=== PATIENT | male | born 1965 | race Caucasian/White ===

== ENCOUNTER 2023-03-01 07:55 | Outpatient (OUT) | payer OTHER, SELFPAY ==
[2023-03-01 09:06] LABS: Alanine Aminotransferase 49 U/L (16-63); Albumin Globulin Ratio 0.9; Albumin Level 3.7 g/dL (3.4-5.0); Alkaline Phosphatase 108 U/L (46-116); Anion Gap 12.9; Aspartate Amino Transferase 24 U/L (15-37); BUN Creatinine Ratio 12.6; Bilirubin Total 0.4 mg/dL (0.2-1.0); Carbon Dioxide 29.9 mmol/L (21.0-32.0); Chloride 99 mmol/L (98-107); Chol HDL Ratio 3.1; Cholesterol 141 mg/dL (<=200); Estimated GFR (African America >60 (>=60); Estimated GFR (Non-African Ame >60 (>=60); Globulin 3.9 g/dL; Glucose 94 mg/dL (74-106); HDL Cholesterol 46 mg/dL (40-60); LDL Cholesterol Calculated 75.2 mg/dL; Potassium 3.8 mmol/L (3.5-5.1); Sodium 138 mmol/L (136-145); Total Protein 7.6 g/dL (6.4-8.2); Triglycerides 99 mg/dL (<=150); VLDL CHOLESTEROL 19.8 mg/dL
== END 2023-03-01 07:56 | disposition home or self-care (01) ==
PROVIDERS: PCP Family Medicine; Visit Provider Family Medicine
DX: E78.2 Mixed hyperlipidemia (principal); I10 Essential (primary) hypertension; Z13.1 Encounter for screening for diabetes mellitus
CPT/HCPCS: 36415; 80053; 80061

== ENCOUNTER 2023-11-08 07:41 | Outpatient (OUT) | payer OTHER, SELFPAY ==
--- OUTSIDE RECORDS SUMMARY | 2023-11-08 07:46 | XMS_ITS | CCD ---
Author Organization [employer] [facility] Care Team Providers Care Gastroenterology Nurse Practitioner Name Role Phone AYDE, DR BERMEO Primary Care Unavailable TINA, MAGUE Admitting Unavailable TINA, MAGUE Attending Unavailable HEMEYER, DR BERMEO Primary Care Unavailable HENDRIX, DR KASEY Peña Consulting Unavailable HENDRIX, DR KASEY Peña Attending Unavailable HENDRIX, DR KASEY Peña Admitting Unavailable HEMEYER, DR BERMEO Primary Care Unavailable TINA, MAGUE Admitting Unavailable TINA, MAGUE Attending Unavailable HEMEYER, DR BERMEO Consulting Unavailable WEST, DR ASHKAN Lange Consulting Unavailable TINA, MAGUE Consulting Unavailable HEMEYER, DR BERMEO Primary Care Unavailable TINA, MAGUE Attending Unavailable TINA, MAGUE Admitting Unavailable HEMEYER, DR BERMEO Consulting Unavailable TINA, MAGUE Attending Unavailable TINA, MAGUE Admitting Unavailable TINA, MAGUE Consulting Unavailable HEMEYER, DR BERMEO Primary Care Unavailable NONE, XXXX Primary Care Physician Unavailab le JEAN-CLAUDE MESSER Primary Care Physician Unavail able Katherin Alcazar Unavailable Unavailable Brown, Nils A Admitting Unavailable Brown, Nils A Referring Unavailable Brown, Nils A Attending Unavailable Brown, Nils A Referring Unavailable Brown, Nils A Attending Unavailable Brown, Nils A Admitting Unavailable ELTAHAWY, EHAB Attending Unavailable ELTAHAWY, EHAB Attending Unavailable HEMEJEAN-CLAUDE NAQVI Attending Unavailable BERENICE NAVARRO Attending Unavailable JEAN-CLAUDE MESSER Attending Unavailable JEAN-CLAUDE MESSER Attending Unavailable JEAN-CLAUDE MESSER Attending Unavailable Allergies Allergy Classification Reported Allergen(s) Allergy Type Date of Onset Reaction(s) Facility (1 source) Acetaminophen / oxyCODONE Drug Allergy [facility] Repository (1 source) Codeine Drug Allergy [facility] (2 sources) Cortisone; Translations: [CORTISONE] Drug Allergy 6 [facility] Rep[facility] (1 source) Lactose Drug Allergy 6 [facility] (1 source) Acetaminophen / oxyCODONE; Translations: [OXYCODONE-ACETAM INOPHEN] Drug Allergy 1 [facility] Repository (1 source) Milk; Translations: [MILK] Propensity to adverse reactions to drug (disorder) 1 [facility] Repository Medications Current Medications Medication Drug Class(es) Dates Sig (Normalized) Sig (Original) 8 hr acetaminophen 650 mg extended release oral tablet (1 source) Start: 05-14-2022 Tylenol 8 HR Arthritis Pain 650 mg oral tablet, extended release 1,300 mg = 2 tab(s), Oral, q8hr, Pain Start Date: 05/14/22 Status: Ordered acetaminophen 325 mg / oxyCODONE hydrochloride 5 mg oral tablet (1 source) Opioid Agonist Start: 05-31-2022 Percocet 5 mg-325 mg oral tablet See Instructions, 40 tab(s), Refill(s) 0, 1-2 tab(s) Oral q4hr, [facility] #[id number], 173.5, cm, 05/14/22 11:51:00 EDT, Height/Length Dosing, 98.2, kg, 05/14/22 11:51:00 EDT, Weight Dosing Start Date: 05/31/22 Status: Ordered amLODIPine 5 mg oral tablet (2 sources) Dihydropyridine Calcium Channel Vasquez Start: 05-14-2022 take 1 tablet by mouth once daily amLODIPine 5 mg Tab 5 mg = 1 tab(s), Oral, Daily, High blood pressure Start Date: 05/14/22 Status: Ordered aspirin 81 mg oral tablet (2 sources) Platelet Aggregation Inhibitor, Nonsteroidal Anti-inflammatory Drug Start: 05-14-2022 take 81 mg by mouth once daily aspirin 81 mg, Oral, Daily, Prophylaxis Start Date: 05/14/22 Status: Ordered atorvastatin 40 mg oral tablet (2 sources) HMG-CoA Reductase Inhibitor Start: 05-14-2022 take 1 tablet by mouth once daily atorvastatin 40 mg Tab 40 mg = 1 tab(s), Oral, Daily, High cholesterol Start Date: 05/14/22 Status: Ordered Vanesa albicans allergenic extract (2 sources) Non-Standardized Food Allergenic Extract, Non-Standardized Fungal Allergenic Extract Start: 05-14-2022 LDI Yeast C19 LDI Yeast C19, 1 dose, SubLingual, 6 units every 7 weeks Prophylaxis Start Date: 05/14/22 Status: Ordered carvedilol 25 mg oral tablet (2 sources) alpha-Adrenergic Vasquez, beta-Adrenergic Vasquez Start: 05-14-2022 take 1 tablet by mouth once daily carvedilol 25 mg Tab 25 mg = 1 tab(s), Oral, Daily, High blood pressure Start Date: 05/14/22 Status: Ordered cefuroxime 500 mg oral tablet (2 sources) Cephalosporin Antibacterial Start: 05-14-2022 take 500 mg by mouth every twelve hours cefuroxime 500 mg, Oral, q12hr, Prophylaxis Start Date: 05/14/22 Status: Ordered celecoxib 100 mg oral capsule (2 sources) Nonsteroidal Anti-inflammatory Drug Start: 05-31-2022 take 1 capsule by mouth twice daily as needed for pain CeleBREX 100 mg Cap 100 mg = 1 cap(s), Oral, BID, PRN for pain, # 60 cap(s), Refills(s) 0, [id number], 173.5, cm, 05/14/22 11:51:00 EDT, Height/Length Dosing, 98.2, kg, 05/14/22 11:51:00 EDT, Weight Dosing Start Date: 05/31/22 Status: Ordered Start: 05-14-2022 take 1 capsule by [facility] twice daily CeleBREX 200 mg Cap 200 mg = 1 cap(s), Oral, BID, Pain Start Date: 05/14/22 Status: Ordered chlorthalidone 25 mg oral tablet (2 sources) Thiazide-like Diuretic Start: 05-14-2022 take 1 tablet by mouth once daily chlorthalidone 25 mg Tab 25 mg = 1 tab(s), Oral, Daily, Edema Start Date: 05/14/22 Status: Ordered CoQ10 (2 sources) Start: 05-14-2022 take 100 mg by mouth once daily CoQ10 100 mg, Oral, Daily, Prophylaxis Start Date: 05/14/22 Status: Ordered diclofenac sodium 20 mg/ml topical solution (2 sources) Nonsteroidal Anti-inflammatory Drug Start: 05-14-2022 diclofenac 2% topical solution 1 application, Topical, TID, Prophylaxis Start Date: 05/14/22 Status: Ordered docusate sodium 100 mg oral capsule (1 source) Start: 05-31-2022 take 1 capsule by mouth twice daily as needed for constipation Colace 100 mg Cap 100 mg = 1 cap(s), Oral, BID, PRN for constipation, # 20 cap(s), Refills(s) 0, Pharmacy: [facility] #[id number], 173.5, cm, 05/14/22 11:51:00 EDT, Height/Length Dosing, 98.2, kg, 05/14/22 11:51:00 EDT, Weight Dosing Start Date: 05/31/22 Status: Ordered famotidine 20 mg oral tablet (2 sources) Histamine-2 Receptor Antagonist Start: 05-14-2022 take 1 tablet by mouth once daily at bedtime famotidine 20 mg Tab 20 mg = 1 tab(s), Oral, Once a day (at bedtime), Control of stomach acid Start Date: 05/14/22 Status: Ordered finasteride 5 mg oral tablet (2 sources) 5-alpha Reductase Inhibitor Start: 05-14-2022 take 1 tablet by mouth once daily finasteride 5 mg Tab 5 mg = 1 tab(s), Oral, Daily, Urinary discomfort Start Date: 05/14/22 Status: Ordered gabapentin 100 mg oral capsule (2 sources) Anti-epileptic Agent Start: 05-14-2022 take 2 capsules by mouth four times daily gabapentin 100 mg Cap 200 mg = 2 cap(s), Oral, QID, Muscle pain Start Date: 05/14/22 Status: Ordered imiquimod 50 mg/ml topical cream (2 sources) Start: 05-14-2022 imiquimod Top 5% Crm 1 carlos, Topical, Bedtime, Prophylaxis Start Date: 05/14/22 Status: Ordered lamoTRIgine 200 mg disintegrating oral tablet (2 sources) Mood Stabilizer, Anti-epileptic Agent Start: 05-14-2022 take 1 tablet by mouth twice daily lamotrigine 200 mg oral tablet, disintegrating 200 mg = 1 tab(s), Oral, BID, Depression Start Date: 05/14/22 Status: Ordered LDI Foods (2 sources) Start: 05-14-2022 LDI Foods LDI Foods, 1 dose, SubLingual, Prophylaxis 6 units every 7 weeks Start Date: 05/14/22 Status: Ordered LDI Lyme C15 (2 sources) Start: 05-14-2022 LDI Lyme C15 LDI Lyme C15, 1 dose, SubLingual, prophylaxis 6 units every 7 weeks Start Date: 05/14/22 Status: Ordered lisinopril 20 mg oral tablet (2 sources) Angiotensin Converting Enzyme Inhibitor Start: 05-14-2022 take 1 tablet by mouth once daily lisinopril 20 mg Tab 20 mg = 1 tab(s), Oral, Daily, High blood pressure Start Date: 05/14/22 Status: Ordered meclizine hydrochloride 25 mg oral tablet (2 sources) Antiemetic Start: 05-14-2022 meclizine 25 mg Tab Oral, PRN Dizziness, Take 0.5-2 tabs as needed for vertigo, Refills(s) 0 Start Date: 05/14/22 Status: Ordered Multivitamin preparation (2 sources) Start: 05-14-2022 take 1 capsule by mouth once daily multivitamin 1 cap, Oral, Daily, Prophylaxis Start Date: 05/14/22 Status: Ordered Nature's Bounty Red Krill Oil (2 sources) Start: 05-14-2022 take 500 mg by mouth once daily Nature's Bounty Red Krill Oil 500 mg, Oral, Daily, Prophylaxis Start Date: 05/14/22 Status: Ordered ondansetron 4 mg oral tablet (2 sources) Serotonin-3 Receptor Antagonist Start: 05-14-2022 ondansetron 4 mg Tab 4 mg = 1 tab(s), Oral, PRN Nausea Start Date: 05/14/22 Status: Ordered Saw [place]view (2 sources) Start: 05-14-2022 take 450 mg by mouth twice daily Saw [place] 450 mg, Oral, BID, Prophylaxis Start Date: 05/14/22 Status: Ordered traMADol hydrochloride 50 mg oral tablet (1 source) Opioid Agonist Start: 05-14-2022 take 2 tablets by mouth every twelve hours as needed for pain traMADOL 50 mg Tab 100 mg = 2 tab(s), Oral, q12hr, PRN for pain Start Date: 05/14/22 Status: Ordered Triamcinolone (2 sources) Corticosteroid Start: 05-14-2022 Triamcinolone Acetonide 1 application, Topical, Daily, Prophylaxis Start Date: 05/14/22 Status: Ordered 24 hr venlafaxine 75 mg extended release oral capsule (2 sources) Serotonin and Norepinephrine Reuptake Inhibitor Start: 05-14-2022 take 1 capsule by mouth once daily venlafaxine 75 mg Cap-ER 75 mg = 1 cap(s), Oral, Daily, Depression Start Date: 05/14/22 Status: Ordered Vitamin C 500 mg oral tablet, chewable (2 sources) Start: 05-14-2022 take 1 tablet by mouth once daily Vitamin C 500 mg oral tablet, chewable 500 mg = 1 tab(s), Chewed, Daily, Prophylaxis Start Date: 05/14/22 Status: Ordered Vitamin D3 5000 intl units (125 mcg) oral tab (2 sources) Start: 05-14-2022 take 1 tablet by mouth once daily Vitamin D3 5000 intl units (125 mcg) oral tab 125 mcg = 1 tab(s), Oral, Daily, Prophylaxis Start Date: 05/14/22 Status: Ordered Problems Active Problems Problem Classification Problem Date Documented Da te Episodic/Chronic Abdominal hernia (2 sources) Hiatal hernia 05-14-2022 Episodic Anxiety disorders (2 sources) Anxiety 05-14-2022 Chronic Conditions associated with dizziness or vertigo (2 sources) Vertigo 05-14-2022 Episodic Disorders of lipid metabolism (4 sources) Mixed hyperlipidemia; Translations: [Hyperlipidemia, unspecified] Onset: 03-23-2020 05-14-2022 Chronic Essential hypertension (8 sources) Essential (primary) hypertension; Translations: [Hypertensive disorder] Onset: 04-22-2020 Chronic Osteoarthritis (2 sources) Arthritis 05-14-2022 Chronic Other gastrointestinal disorders (2 sources) History of irritable bowel syndrome 05-14-2022 Episodic Residual codes; unclassified (2 sources) Sleep apnea 05-14-2022 Chronic Comment on above: uses Cpap Residual codes; unclassified (2 sources) Family history of ischemic heart disease and other diseases of the circulatory system; Translations: [Family history of ischemic heart disease and other diseases of the circulatory system] Onset: 07-16-2023 Episodic Unclassified (3 sources) CONTACT W/AND (SUSP) EXPOS COVID-19; Translations: [CONTACT W/AND (SUSP) EXPOS COVID-19] Onset: 02-17-2021 Past or Other Problems Problem Classification Problem Date Documented Da te Episodic/Chronic Nonspecific chest pain (4 sources) Other chest pain; Translations: [OTHER CHEST PAIN] Onset: 03-22-2020 Episodic Unclassified (1 source) CONTACT W/AND (SUSP) EXPOS COVID-19; Translations: [CONTACT W/AND (SUSP) EXPOS COVID-19] Onset: 02-13-2021 Results Test Name Value Interpretation Reference Range Facility Office Visiton 07-16-2023 Follow-up visit [id number] Katherine Hogan 1965 M Date Provider Department Center 07/16/2023 [facility] Family History Problem Relation Age of Onset Heart attack Brother Coronary artery disease Brother Other Brother Family Status - Relation Status Age at Brother Level of Service:24143 HI OFFICE/OUTPATIENT ESTABLISHED LOW MDM 20 MIN Normal [facility] Office Visiton 07-23-2022 Follow-up visit [id number] Katherine Hogan 1965 [facility] Provider Department [facility] No family history on file Level of Service:33935 HI OFFICE/OUTPATIENT ESTABLISHED SF MDM 10-19 MIN Reason for Visit and Comments: Follow-up [796028] - 1 yr follow up Normal [facility] Operative Reporton 3 Operative Report Patient: KATHERINE HOGAN Age: 57 years Sex: Male : 1965 Associated Diagnoses: None Author: Brandan Connor CRNA Preoperative Information Anesthesia Preop Info: Time patient last ate or drank 05/30/2022 21:00:00. Anesthesia history: Patient history: None. Family history+: None. Informed consent: Signed by patient. Re-evaluation prior to induction: Brandan Connor CRNA. Review of Systems Eye: Negative. Ear/Nose/Mouth/Throat : MP 4, thyromental >3 fb, narrow palate. Respiratory: FRANCISCO J, CTA. Cardiovascular: HTN, controlled, >4 mets, Normal S1S2. Gastrointestinal: Controlled GERD, no sypmtoms. Genitourinary: Negative. Hematology/Lymphatics : Negative. Endocrine: Negative. Health Status Allergies: Allergic Reactions (Selected) No Known Allergies Current medications: (Selected) Inpatient Medications Ordered Lactated Ringers IV Joanna 1000 mL 1,000 mL: 1,000 mL, IV, 150 mL/hr, Routine, Start date 05/31/22 6:00:00 EDT, 6.7 hour(s), Total volume (mL): 1,000, 98.2 kg, 2.18, m2 acetaminophen-oxycodo ne 325 mg-5 mg Tab: 1 tab(s), Tab, Oral, q6hr PRN Pain 4-7 for 5 day(s), Stop date 06/05/22 7:06:00 EDT, Routine, Start date 05/31/22 7:07:00 EDT acetaminophen-oxycodo ne 325 mg-5 mg Tab: 2 tab(s), Tab, Oral, q6hr PRN Pain 4-7 for 5 day(s), Stop date 06/05/22 7:06:00 EDT, Routine, Start date 05/31/22 7:07:00 EDT cefazolin additive + Sodium Chloride 0.9% intravenous solution 50 mL: 2 gram = 1 EA, Powder-Inj, IV Piggyback, PREOP, Routine, Start date 05/31/22 6:00:00 EDT, 100 mL/hr, Infuse over 30 minute(s) tranexamic acid additive + premix generic diluent 100 mL: 1,000 mg = 100 mL, Soln-IV, IV Piggyback, Once, Stop date 05/31/22 6:00:00 EDT, Routine, Start date 05/31/22 6:00:00 EDT, 600 mL/hr, Infuse over 10 minute(s) Prescriptions Prescribed CeleBREX 100 mg Cap: 100 mg = 1 cap(s), Oral, BID, PRN for pain, # 60 cap(s), Refills(s) 0, Pharmacy: [facility] #[id number], 173.5, cm, 05/14/22 11:51:00 EDT, Height/Length Dosing, 98.2, kg, 05/14/22 11:51:00 EDT, Weight Dosing Colace 100 mg Cap: 100 mg = 1 cap(s), Oral, BID, PRN for constipation, # 20 cap(s), Refills(s) 0, Pharmacy: [facility] #[id number], 173.5, cm, 05/14/22 11:51:00 EDT, Height/Length Dosing, 98.2, kg, 05/14/22 11:51:00 EDT, Weight Dosing Percocet 5 mg-325 mg oral tablet: See Instructions, 40 tab(s), Refill(s) 0, 1-2 tab(s) Oral q4hr, [facility] #[id number], 173.5, cm, 05/14/22 11:51:00 EDT, Height/Length Dosing, 98.2, kg, 05/14/22 11:51:00 EDT, Weight Dosing Documented Medications Documented CoQ10: 100 mg, Oral, Daily, Prophylaxis LDI Foods: LDI Foods, 1 dose, SubLingual, Prophylaxis 6 units every 7 weeks LDI Lyme C15: LDI Lyme C15, 1 dose, SubLingual, prophylaxis 6 units every 7 weeks LDI Yeast C19: LDI Yeast C19, 1 dose, SubLingual, 6 units every 7 weeks Prophylaxis Nature's Bounty Red Krill Oil: 500 mg, Oral, Daily, Prophylaxis Saw [place]view: 450 mg, Oral, BID, Prophylaxis Triamcinolone Acetonide: 1 application, Topical, Daily, Prophylaxis Vitamin C 500 mg oral tablet, chewable: 500 mg = 1 tab(s), Chewed, Daily, Prophylaxis Vitamin D3 5000 intl units (125 mcg) oral tab: 125 mcg = 1 tab(s), Oral, Daily, Prophylaxis amLODIPine 5 mg Tab: 5 mg = 1 tab(s), Oral, Daily, High blood pressure aspirin: 81 mg, Oral, Daily, Prophylaxis atorvastatin 40 mg Tab: 40 mg = 1 tab(s), Oral, Daily, High cholesterol carvedilol 25 mg Tab: 25 mg = 1 tab(s), Oral, Daily, High blood pressure cefuroxime: 500 mg, Oral, q12hr, Prophylaxis chlorthalidone 25 mg Tab: 25 mg = 1 tab(s), Oral, Daily, Edema diclofenac 2% topical solution: 1 application, Topical, TID, Prophylaxis famotidine 20 mg Tab: 20 mg = 1 tab(s), Oral, Once a day (at bedtime), Control of stomach acid finasteride 5 mg Tab: 5 mg = 1 tab(s), Oral, Daily, Urinary discomfort gabapentin 100 mg Cap: 200 mg = 2 cap(s), Oral, QID, Muscle pain imiquimod Top 5% Crm: 1 carlos, Topical, Bedtime, Prophylaxis lamotrigine 200 mg oral tablet, disintegratin mg = 1 tab(s), Oral, BID, Depression lisinopril 20 mg Tab: 20 mg = 1 tab(s), Oral, Daily, High blood pressure meclizine 25 mg Tab: Oral, PRN Dizziness, Take 0.5-2 tabs as needed for vertigo, Refills(s) 0 multivitamin: 1 cap, Oral, Daily, Prophylaxis ondansetron 4 mg Tab: 4 mg = 1 tab(s), Oral, PRN Nausea venlafaxine 75 mg Cap-ER: 75 mg = 1 cap(s), Oral, Daily, Depression Problem list: All Problems Anxiety / SNOMED CT 34932117 / Confirmed Apnea, sleep / SNOMED CT 355246882 / Confirmed uses Cpap Arthritis / SNOMED CT 1177096 / Confirmed Hernia, hiatal / SNOMED CT 669421797 / Confirmed High cholesterol / SNOMED CT 50063553 / Confirmed History of IBS / SNOMED CT 7525684145 / Confirmed Hypertension / SNOMED CT 3725895316 / Confirmed Vertigo / SNOMED CT 3686375143 / Confirmed, Active Problems (8) Anxiety Apnea, sleep Arthritis Hernia, hiatal High cholesterol History of IBS Hypertension Vertigo Histories Pa (more content not included)... [facility] Comment on above: Result Comment: Elec tronically Signed By: Brandan Connor CRNA\Date and Time Signed: 05/31/22 07:50 EDT Progress Note-Physicianon Progress Note-Physician [id number]# 1.00CD:127 [facility] IntraOperative Documentson 0 06-06-2022 IntraOperative Documents [id number]# 1.00CD:127 [facility] Coding Summary.on 06-04-2022 Coding Summary. CD:[id number] W w+PGhlYWQ+MI3FOIAuY30 kmUXdwM0cX3FFGPiCCacn DWUIPGmXWzMvnyWvWA3cj XNjZXJu IC8+EH4hEXFcIjoppDOcf 3J4eTH4O99tze4yTIkmxD U3SAWmSdQugabjh0iooWj 6IDcuNmluOyBt RVCuwX89DBO4lQ88Zw19z TEplCFfy9tfsEx0MxSoOI RaZCX5pLpbCIswa4CeEZX rU31ghFDoq8B6 TDObbAuovDRwQcBagRX2t G8yWQwtutjui6rptfoyCh q0ua26rSXjd2P9rPR2G5P relD3BRGrqGSa NuvrvAQUwN3misbtg5ylc zlgGfHlCPLrIMl8NIa0RF GcbZcvErEtTQ58ABU2JYH geeHaT3EgVIEe nHeyMeI2r3M6Vz1MR4MMA lujT3UDZAPISWoycVW+PC 94sn48W3PzOojhHsa0ECT bBHF8sKO8jC3q YNCxNWqub6E1vLF5A6Kja cTiqw7ov8bbMPGfUVbkR7 7rhNTir2J3UUAqdFR4VZP wuEgbTpDoiU58 Oyc+JOLgbWvaa2HkShcmd 8ogg8zupGw3LlmyUOHmal MktSydTBA3w2MbYk1jCWE tcZH2vRL6pD5z JgEuXgB5EBmaZ042AqXmm MFjUoxwC97gK6JpiIK+PH ZsHpl8HRJcrNizKX3eI0U hZGRpbmctbGVm uXubOC3lRZXoulneHWLdo K1gKUNgX5n7WhOyZkG9ZO vhH8MvXLVrynppWn55rV3 jGwPgByQ4TDnb D7FpwqI9XOBkaIYyRGyoV RB0O88jr0W2INHnWZIhLW L5uYZ7yK6cqLjuqeswgVF mdDsgdmVydGlj JLenOVwdK070MTVbfEoaP kNvZGluZyBEYXRlOiAgMD QvMDQvMjAyMzwvdGQ+PHR vOMJ2aUhmLHJo qFVkXAvzRk5zfLpskLohK E1qKTBpevvfFXWlfY0oDT NhmZPmcLflIM5oADMuwzm jt072JrEyMNZ1 TXMgxAAkA0FfbC7yWeGlJ GXfMTGtI0MetVTlIWnxJ2 68QLeaMxE5ZXNkngOhE6O sLWFsaWduOiB0 t2Z6Ka0Vx1BsgzwyR1Zwi VMuJjIbFsdcOTi5D6NrZs wvdHI+YS18GWHjOA14HVj 7UFD8aYjyQYmd NJPzL4WmgG5wKrYqBGPhE GRkOyc+PHRhYmxlIHdpZH RoPScxMDAlJyBzdHlsZT0 eLw8mXSUkAKOu aBxmdWNfPvXhx0zfPAWyZ ZvuOV8bdNkrE1QhcRF9RI Gzm4o0Kx24F12fQ1HhfJE +CXQkoKG0tMK8 fN2mZnUqNgA3GWxeC462Y uAfuPFaNoulh4rot4gswG e1PqW1KTJtktHlfIirHYK 9x4XfSi86Y82e IHdpZHRoPSIxNSUiIHZhb Ailrw8prV8bAb3+PGNvbC S1tSN1yU7uReXaToX6LJg pF970AlZxrUGn Jxybh8iro4xzjWq8EbTuX DGcfeGmgGutOCP5j5JnDf 74Z8IjqSlkc8ZoNjd7us0 4jYZlg7G8uNQ3 A6BiWJIhcmnsnERerWiiD O7nZKIbdlisQRWbzS4xRS LxU0g3DdLnWoW4DUccL2L tkdQ3VXRzmBQk MYAzzJWJjG7cokibx7dvx kcvOqJaNIVqKYn2VWn6CO UrmJawShYrZPU1MbW5ELH 1kGNhtR4hcXiv tmqseG8nUxo+QSQ7mXWmt LNBBH3kUpmueVR+PHRkIH Q5lKujKVztRGUfpJ5wDKM bQ2i2KdOyLbD4 SPsrE8CelnZ9ERYeuGCrK QXykMAUsZ7gqtjcw8eaph ujHuNoQXQvKUl8EBp0NQO saWduOiBsZWZ0 PqI6ZPX4aXQppP4kzTujb xvsfH5hFdc+QmlydGggRG O7MFe9O9XjYmf6VMRvoGa hAI7tyXRkMRbk Dx2caBqnmZabDH0jUIVby itky212XsKmb0xeFIYqoH GcOTrkXNJ9W93ez1W9XEK wZXNxKNS1gXX4 eI3htTaoxozcrTZbtMqfe rVhaXrwBRneRGctO140JT TksEmqOnNdFUt4A3DxHem 3JQGllHkvJN9b qQGzSTqhLj2roJfxcBurU M8sSGIochsqj741JwWop2 seMYBduQObQJkpWUW4I89 hg1O7UVCsMWFe WHZ3iRT8nF9rfBlnrpubq GVmdDsgdmVydGljYWwtYW ylU728MUOvvItbIaBvdNw 5Z9ItLoc2CVDr vYraYH8ilAWfTWbqZc5ut HvogQqrHY0tPYWbjqscw1 60LoRpt6wuUADcxYGuWBi wKJP0Z69nx6L2 DTMlFZWfDJT7uVT9fP1jw GlnbjogbGVmdDsgdmVydG ywDHzbLQbqM298TPLqyGs nPlBhdGllbnQg LYnaFIo8T9SbHphidDY+P O68QEByUA03mEVrmACet2 xnqLe2SzZcVKHiTBM8lZy aGHakp7LdWNRu E97bpPNse1L0DXYbwGjpf WZjOjLojLI4vI2eQYircf uav3mvdywnPnenv4zsvo0 1fI54N94oTRkm ZHRoPSIzMCUiIHZhbGlnb w9soG9pBh0+NVRrlGE1uX H5pP2uRMOuZuN6FDfvY18 9InRvcCIvPjxj x1luo5altOa7GgC8JLDdk pYymNwqEUP0o0OeIx32G3 9sIHdpZHRoPSIyMCUiIHZ ewImkha5pjW3s Ii8+JGPkcHD7lAN2aJ9bD rHvZyQ2WGycI487EhZscX ZaSfalB99nK0GqfPN+PHR jLhk5VFAshApm UP3ciLIoZMoqFn4vNYR1H jNpJsZsFKglO2UrAWVswb utvojqdSP5SRRlVVDwuY6 5Kj2jfTnbOODx uVJXpT8lnrmpd2zhpjsdR jMwDDTsGSt9OVr3MURzwL ofUrWhLTW3TuA9XDT1mCG arL4lpDajxtrq tT3sG8EkXFDbbkmuXk88g M1eEtJkDlM1KPuvTwf+Uk iIYKyfWS2VZZRWWCqoBxw vdGQ+PHRkIHN0 rVapMVkgFCYozQ0lRBLgO 8e4YmBjThK1MGkrJ0ZeGP DfsyagWo67vG4oLeNiQnV 1EPyfB7UudcA7 VGYvvXZxXCdoGYT0G03dy 4Z3ZFYwSDTuNHS4eCL7rJ 1hbGlnbjogbGVmdDsgdmV ydGljYWwtYWxp X911PWIzhSqiBkGwDkE4V vI3CgM0Y1GpRzk4LXKwlF mcAK4guLXcZYlmRg6nzGi clOwhAT2iCVFf uehaXLNdbT2bXLBpyCXoe JjlSZ0kMESygruym116Tl IeVHG5KAKcmJBeX2RbdK0 yOiAjMDAwMDAw G2YphZOsXUhrT297EGizP dH6WKXaioBjD9NjLLZffF ecWlM8h7E6Kc16YWZVIEO yczwvdGQ+PHRk BRI0zEqsCZbeHFYyeI7bN UEmK9j9AlOlHcN5JTkoV6 YnILCglmzyMz92fD7iEjZ pWxY8CBbhH3Zp erE1JWGumSCbEZirFLC5E 69ba8G1EBLhJMIgVCN0wK W3oK9wuOenviefhPYgjVg gdmVydGljYWwt QHjuF008WEPilUfiGu1ha KJ1Z1RzFai5NVDcfPavLH 8mqPGhNBlsZe2zxKywcAb mBE8lRKUqsgbu BRYtvP9oYCIpxDZalOnkY P0aMEZhsvukt768XuPxIL Q8SHPizSLhN9AcsT0iOqD lGUXaIKBpT8Ks jSYgOYgsF451ECkmUkS7K PUpbkIwP2NpFFYwdTouWs Z3q0G6Qh1HsTE8rMB3c0M 1E1XrpJPpQRI8 YUH0suigkmb0P2IvGxgid HI+RA98YAXeVJ75zFNwxD Yvh7eraQn6CoTrVPPwDSN 4jGqkQOnxq0Qt UGRfQ79osIEns9A0KVZpa OnwfYFxBtLbwGU1jZ5kPX xxbktgb1gtzgzlDsohp6x kud79nZ14B19t IHdpZHRoPSIzMCUiIHZhb Aeiwu8riZ0sFm5+PGNvbC P3zFF9fF3mWgKlLyR7BAt zP859OjMfbJAo Xcidr3mzm5fqnJx4GkXqQ NIgwyLvuXmaXCJ1h5MdXm 35O24nYIbtPQJgEMHmJHR mFLTbeGicsd9l eR2yTw0+EI4cu2fsty39p D48dHI+QVGhHAH3cFleIP woKFNrnA9eLSmxAnP7JMC pIsDyqZ11qWJy DEfyPp3weOnwoUxmUX7cK ELkazokx668NoJmz5ceGZ WgfOZqMXynIXL1H16qe8E 5RDYnKAYdOOA8 hBI9wD1zoAsliqxrvFVpu DsgdmVydGljYWwtYWxpZ2 41QXEbxZnlLqOnnBRmV3u zsfEEYS0oDuyv dGQ+FOBkMNF3eAkvXVqpB OPxvD3qCMIsS5s4VpBcWz V8YVmiZ0UaglU0HJKbpYO bJFIihSQArO4u rxnad4xnygzpViNuXAFyS Wu5NGm0JBXpcWicRuOvFA M8PsG5FFC9bADlbT5vvKn emqwhfU6zTmd+ RklOOjwvdGQ+LFWoLVQ9p AzzXNvwEINesW5cNLIbF6 e1RjOfLxK6NZlcO4YzetC 6IGJvbGQgMTBw xCGPlC0dpfqts8roegnkQ lUhHWCtVYf9MLr1PLVmiA owVyCqGRR8IgO9BZK0lFX opN2gqJxaktbj mA0uXaj+TVJOOjwvdGQ+P VIrTFP4wQxfBYaeRPLcmR 4pSCVaH9q3KaDfVnL0PAg yX8RqlfE9REYh oKVlFMDoeWIAfB2cviwqp 8tdjqqeGhRbHZCaVWh6TZ o4VHJcqZueCgGyEYP1MrD 3TMU8uZEpvO8f aFxjsgolwP7hKra+UGF5Z PJ3PP78PQ54F9XcJwqedR FibGU+PHRhYmxlIHdpZHR oPScxMDAlJyBz jHbfSQ7h (more content not included)... Normal [facility] Consent for Anesthesiaon Consent for Anesthesia [id number]# 1.00CD:127 Normal [facility] Discharge Instructionson Discharge Instructions [id number]# 1.00CD:127 Normal [facility] IntraOperative Documentson 0 06-03-2022 IntraOperative Documents [id number]# 1.00CD:127 Normal [facility] Main OR Intraoperative Recor don 06-03-2022 Main OR Intraoperative Record IntraOp Document Type FT Summary Primary Physician: Nils Finney DO Finalized Date/Time: 06/03/22 10:25:02 Pt. Name: KATHERINE HOGAN/Sex: 1965 Male Med Rec #: [id number] Physician: Nils Finney DO Financial #: [id number] Pt. Type: A Room/Bed: [place] [address] Admit/Disch: 05/31/22 05:30:31 - 05/31/22 10:30:00 Institution: Case Times FT Entry 1 Patient Times In Room 05/31/22 07:14:00 Out Room 05/31/22 08:42:00 Procedure Times Start 05/31/22 07:51:00 Stop 05/31/22 08:30:00 Anesthesia Times Start 05/31/22 07:14:00 Stop 05/31/22 08:42:00 Block Timeout w05/31/22 07:02:00 Anesthesia Last Modified By: Lopez AMADOR, [facility] Steve 05/31/22 08:59:22 General Comments: Unilateral right shoulder nerve block done by D.Connor, EXHIBIT DISPLAY REPRESENTATIVE at 0702 with MARJORIE Velez assisting, HR 66bpm, SpO2 95% on room air, no issues, wheeled back to OR for surgery. MARJORIE Jack 06/03/22 Chart opened to review and send charges [facility] Case Attendance FT Entry 1 Entry 2 Entry 3 Case Attendee Geeta EXHIBIT DISPLAY REPRESENTATIVE, Brandan Finney DO, Nils Marroquin RN, Conrado Wilson Role Performed EXHIBIT DISPLAY REPRESENTATIVE Surgeon - Primary Sole Buffer - Primary Time In 05/31/22 07:14:00 05/31/22 07:14:00 05/31/22 07:14:00 Time Out 05/31/22 08:42:00 05/31/22 08:25:00 05/31/22 08:42:00 Procedure SHOULDER ARTHROSCOPY W/ SHOULDER ARTHROSCOPY W/ SHOULDER ARTHROSCOPY W/ POSSIBLE REPAIR(Right), POSSIBLE REPAIR(Right), POSSIBLE REPAIR(Right), SHOULDER BICEPS SHOULDER BICEPS SHOULDER BICEPS TENODESIS(Right) TENODESIS(Right) TENODESIS(Right) Comments Dr. Toledo supervising Last Modified By: Lopez RN, Conrado Marroquin RN, Conrado Davis RN 05/31/22 08:59:33 05/31/22 08:59:33 05/31/22 08:59:33 Entry 4 Entry 5 Entry 6 Case Attendee Arti AMADOR, Mallory Humphreys RN, Cristobal Hdez CST Role Performed Sole Buffer - Primary Staff - Other WASTE TREATMENT OPERATOR/SA Time In 05/31/22 07:14:00 05/31/22 07:14:00 05/31/22 07:14:00 Time Out 05/31/22 07:52:00 05/31/22 07:15:00 05/31/22 08:42:00 Procedure SHOULDER ARTHROSCOPY W/ SHOULDER ARTHROSCOPY W/ SHOULDER ARTHROSCOPY W/ POSSIBLE REPAIR(Right), POSSIBLE REPAIR(Right), POSSIBLE REPAIR(Right), SHOULDER BICEPS SHOULDER BICEPS SHOULDER BICEPS TENODESIS(Right) TENODESIS(Right) TENODESIS(Right) Comments RN assisting with skin RN assisting with blocks prep and positioning Last Modified By: Lopez RN, Conrado Marroquin RN, Conrado Davis RN 05/31/22 08:59:33 05/31/22 08:59:33 05/31/22 08:59:33 General Comments: Oneil Gant, Scrub primary, and Ottoniel Lazcano, Arthrex rep, also in attendance. MARJORIE Jackbreastfeeding educator Protocols FT Pre-Care Text: Implements protective measures prior to operative or invasive procedure, confirms identity before the operative or invasive procedure, verifies operative procedure, surgical site, and laterality Entry 1 Procedure(s) SHOULDER ARTHROSCOPY W/ Patient Identity Birthday, ID Band POSSIBLE REPAIR(Right), Verified (select at Check, Patient SHOULDER BICEPS least 2): Participation TENODESIS(Right) Consents / H and P Anesthesia Consent, Operative Site Present Verified HandP, Surgery/Procedure Marking Verified Consent, Transfusion Consent Surgical Site Yes Laterality Verified Yes Verified Procedure Verified Yes Correct Patient Yes Position Verified Availability Equipment, Implant, Prep Dry Yes Verified (If Medication Applicable) PreOp Antibiotic Yes Time Out Brandan Connor CRNA, Given Participants Nils Finney DO, Cantal RN, Arti Norman RN, Pantera Longo CST, Benjamin Time Out Complete 05/31/22 07:50:00 Outcomes Met? Yes Last Modified By: Conrado Marroquin RN 05/31/22 07:59:15 Post-Care Text: The patient is free from signs and symptoms of injury caused by extraneous objects General Comments: Oniel Gant primary also in attendance with timeout. MARJORIE Jack Allergy Information FT Pre-Care Text: Verifies allergies Entry 1 Allergies Reviewed? Yes Allergies Reviewed Self/Patient With Outcomes Met? Yes Last Modified By: Conrado Marroquin RN 05/31/22 08:18:53 Post-Care Text: The patient received appropriate medication(s) safely administered during the perioperative period Surgical Procedures FT Entry 1 Entry 2 Procedure Description Procedure SHOULDER ARTHROSCOPY W/ SHOULDER BICEPS POSSIBLE REPAIR TENODESIS Modifiers Right Right Surgeon Description RIGHT SHOULDER RIGHT SHOULDER ARTHROSCOPY, ARTHROSCOPY, DEBRIDEMENT, DEBRIDEMENT, SUBACROMIAL SUBACROMIAL DECOMPRESSION AND BICEP DECOMPRESSION AND BICEP TENODESIS TENODESIS Primary Procedure Yes No Primary Surgeon Nils Finney DO, DO, Jason A Start 05/31/22 07:51:00 05/31/22 07:51:00 Stop 05/31/22 08:30:00 05/31/22 08:30:00 Anesthesia Type General General Surgical Service Orthopedics Orthopedics Wound Class 1 - Clean 1 - Clean Last Modified By: Lopez AMADOR, Conrado Marroquin RN, She (more content not included)... Normal [facility] Preoperative Documentson Preoperative Documents [id number]# 1.00CD:127 Normal [facility] Progress Note-Physicianon Progress Note-Physician Patient: KATHERINE HOGAN Age: 57 years Sex: Male : 1965 Associated Diagnoses: None Author: Power Toledo Jr, DO Postoperative Information Postoperative disposition: Postoperative disposition: To PACU. Optimetrix number: Optimetrix number [phone]. Anesthetic utilized: General. Health Status Allergies: Allergic Reactions (Selected) No Known Allergies Physical Examination Vital Signs 05/31/2022 10:00 EDT Heart Rate Monitored 68 bpm Systolic Blood Pressure 120 mmHg Diastolic Blood Pressure 43 mmHg LOW SpO2 97 % 05/31/2022 9:20 EDT SpO2 95 % 05/31/2022 9:19 EDT Heart Rate Monitored 62 bpm SpO2 96 % 05/31/2022 9:18 EDT Systolic Blood Pressure 118 mmHg Diastolic Blood Pressure 77 mmHg Mean Arterial Pressure, Monitered 91 mmHg 05/31/2022 9:17 EDT Respiratory Rate 20 br/min 05/31/2022 9:15 EDT Temperature Temporal Artery 36.1 DegC LOW Temperature Temporal Artery 36.2 DegC LOW Heart Rate Monitored 65 bpm Heart Rate Monitored 65 bpm Respiratory Rate Monitored 15 br/min Respiratory Rate Monitored 5 br/min Systolic Blood Pressure 124 mmHg Systolic Blood Pressure 135 mmHg Diastolic Blood Pressure 86 mmHg Diastolic Blood Pressure 94 mmHg HI Mean Arterial Pressure, Cuff 99 mmHg Mean Arterial Pressure, Cuff 108 mmHg SpO2 92 % Pain Assessment: Controlled. General: Awake, Alert, Appropriate. Respiratory: Adequate air exchange. Cardiovascular: Stable, Normal peripheral perfusion. Neurological: Normal sensory function, Normal motor function. Assessment Anesthetic outcome No anesthetic complications noted. Adequate pain relief. able to void without difficulty, able to ambulate with assist, tolerating PO intake, no N/V. Review / Management Condition: Stable. Plan Transfer/Discharge: Transfer/Discharge Discharge when meets criteria ( To home ). Normal [facility] Comment on above: Result Comment: Elec tronically Signed By: Power Toledo Jr, DO\.br\Date and Time Signed: 06/03/22 10:12 EDT Consent for Treatmenton 05-03 Consent for Treatment [id number] .00CD:127 Normal [facility] H&P Updateon 05-31-2022 H&P Update [id number]. 00CD:127 Normal [facility] Inpatient Patient Summaryon 05-31-2022 Inpatient Patient Summary [place] [id number] [facility] Clinical Discharge Instructions PERSON INFORMATION Name: KATHERINE HOGAN [facility]#:[id number] PHYSICIANS Admitting Physician: Nils Finney DO Attending Physician: Nils Finney DO PCP: AYDE FRIEND, JEAN-CLAUDE Jeffrey Discharge Diagnosis: Comment: PATIENT EDUCATION INFORMATION Instructions: Shoulder Cryocuff Patient Instructions - FT (CUSTOM); Post Op Patient Instructions - FT (CUSTOM); Segundo Finney - After Your Shoulder Arthroscopy (Custom) Medication Leaflets: Follow up: MEDICATION LIST New Medications [id number], [address], [place] [id number], [phone] acetaminophen-oxycodo ne (Percocet 5 mg-325 mg oral tablet) 1-2 tab(s) Oral q4hr. Refills: 0. docusate (Colace 100 mg Cap) 1 Capsules By Mouth 2 times a day as needed for constipation. Refills: 0. Medications to Continue Taking That Have Changed [facility] #[id number], [address], [place] [id number], [phone] START: celecoxib (CeleBREX 100 mg Cap) 1 Capsules By Mouth 2 times a day as needed for pain. Refills: 0. Medications to Continue with No Changes Other Medications amlodipine (amLODIPine 5 mg Tab) 1 Tablets By Mouth every day. ascorbic acid (Vitamin C 500 mg oral tablet, chewable) 1 Tablets Chewed every day. aspirin 81 Milligram By Mouth every day. atorvastatin (atorvastatin 40 mg Tab) 1 Tablets By Mouth every day. carvedilol (carvedilol 25 mg Tab) 1 Tablets By Mouth every day. cefuroxime 500 Milligram By Mouth every 12 hours. chlorthalidone (chlorthalidone 25 mg Tab) 1 Tablets By Mouth every day. cholecalciferol (Vitamin D3 5000 intl units (125 mcg) oral tab) 1 Tablets By Mouth every day. diclofenac topical (diclofenac 2% topical solution) 1 application Topical 3 times a day. famotidine (famotidine 20 mg Tab) 1 Tablets By Mouth once a day (at bedtime). finasteride (finasteride 5 mg Tab) 1 Tablets By Mouth every day. gabapentin (gabapentin 100 mg Cap) 2 Capsules By Mouth 4 times a day. imiquimod topical (imiquimod Top 5% Crm) 1 Application Topical at bedtime. lamotrigine (lamotrigine 200 mg oral tablet, disintegrating) 1 Tablets By Mouth 2 times a day. lisinopril (lisinopril 20 mg Tab) 1 Tablets By Mouth every day. meclizine (meclizine 25 mg Tab) By Mouth as needed Dizziness. Take 0.5-2 tabs as needed for vertigo. multivitamin 1 cap By Mouth every day. Non-Formulary Medication (LDI Foods) 1 dose Sublingual. Prophylaxis 6 units every 7 weeks. Non-Formulary Medication (LDI Lyme C15) 1 dose Sublingual. prophylaxis 6 units every 7 weeks. Non-Formulary Medication (LDI Yeast C19) 1 dose Sublingual. 6 units every 7 weeks Prophylaxis. omega-3 polyunsaturated fatty acids (T3 Search's Bounty Red Krill Oil) 500 Milligram By Mouth every day. ondansetron (ondansetron 4 mg Tab) 1 Tablets By Mouth as needed Nausea. saw palmetto (Saw [place]) 450 Milligram By Mouth 2 times a day. triamcinolone (Triamcinolone Acetonide) 1 application Topical every day. ubiquinone (CoQ10) 100 Milligram By Mouth every day. venlafaxine (venlafaxine 75 mg Cap-ER) 1 Capsules By Mouth every day. No Longer Take the Following Medications acetaminophen (Tylenol 8 HR Arthritis Pain 650 mg oral tablet, extended release) 2 Tablets By Mouth every 8 hours. tramadol (traMADOL 50 mg Tab) 2 Tablets By Mouth every 12 hours as needed for pain. Comment: Normal [facility] Living Will/POAon 05-31-2022 Living Will/POA [id number]# 1.00CD:127 Normal [facility] Main OR PACU I Recordon 05-03 Main OR PACU I Record PACU Phase I Docum ent Type FT Summary Primary Physician: Nils Finney DO Finalized Date/Time: 05/31/22 10:25:25 Pt. Name: KATHERINE HOGAN/Sex: 1965 Male Med Rec #: [id number] Physician: Nils Finney DO Financial #: [id number] Pt. Type: A Room/Bed: [place] [address] Admit/Disch: 05/31/22 05:30:31 - Institution: Case Times PACU I FT Pre-Care Text: Identifies barriers to communication and implements measures to provide psychological support Develops individualized plan of care, and ensures continuity of care Maintains patient's dignity and privacy, and maintains patient confidentiality Identifies and reports philosophical, cultural, and spiritual beliefs and values Identifies individual values and wishes concerning care Implements aseptic technique, and administers prescribed antibiotic therapy and immunizing agents as ordered Evaluates postoperative tissue perfusion Implements thermoregulation measures, and monitors body temperature Evaluates postoperative respiratory status Evaluates postoperative cardiac status Evaluates postoperative neurological status Assesses pain control, collaborated in initiating patient-controlled analgesia and implements alternative methods of pain control Verifies allergies, administers prescribed medications and solutions, evaluates response to medications Entry 1 In PACU I 05/31/22 08:44:00 Discharge from PACU 05/31/22 09:14:00 I Outcomes Met? Yes Last Modified By: Sveta Cullen RN 05/31/22 09:37:34 Post-Care Text: The patient demonstrates knowledge of the expected response to the operative or invasive procedure The patient's care is consistent with the individualized perioperative plan of care The patient's right to privacy is maintained The patient's value system, lifestyle, ethnicity, and culture are considered, respected, and incorporated into the perioperative plan of care The patient participates in decisions affecting his or her perioperative plan of care The patient is free from signs and symptoms of infection The patient has wound/tissue perfusion consistent with or improved from baseline levels established preoperatively The patient is at or returning to normothermia at the conclusion of the immediate postoperative period The patient's respiratory function is consistent with or improved from baseline levels established preoperatively The patient's cardiovascular status is consistent with or improved from baseline levels established preoperatively The patient's cardiovascular status is consistent with or improved from baseline levels established preoperatively The patient demonstrates and/or reports adequate pain control throughout the perioperative period The patient received appropriate medication(s), safely administered during the perioperative period Acuity Level PACU I FT Entry 1 Start Time 05/31/22 08:44:00 Stop Time 05/31/22 09:14:00 Acuity Level Acuity Level I Last Modified By: Sveta Cullen RN 05/31/22 10:25:21 Finalized By: Sveta Cullen RN Document Signatures Signed By: Sveta Cullen RN 05/31/22 10:25 Normal [facility] Main OR PACU II Recordon Main OR PACU II Record PACU Phase II Document Type FT Summary Primary Physician: Nils Finney DO Finalized Date/Time: 05/31/22 11:33:25 Pt. Name: KATHERINE HOGAN Wojciech Melendez/Sex: 1965 Male Med Rec #: [id number] Physician: Nils Finney DO Financial #: [id number] Pt. Type: A Room/Bed: [place] [address] Admit/Disch: 05/31/22 05:30:31 - Institution: Case Times PACU II FT Pre-Care Text: Identifies barriers to communication and implements measures to provide psychological support and determines knowledge level Develops individualized plan of care, and ensures continuity of care Maintains patient's dignity and privacy, and maintains patient confidentiality Identifies and reports philosophical, cultural, and spiritual beliefs and values Identifies individual values and wishes concerning care administers prescribed antibiotic therapy and immunizing agents as ordered, Evaluates postoperative tissue perfusion Implements thermoregulation measures, and monitors body temperature Evaluates postoperative respiratory status Evaluates postoperative cardiac status Evaluates postoperative neurological status Assesses pain control, collaborated in initiating patient-controlled analgesia and implements alternative methods of pain control Verifies allergies, administers prescribed medications and solutions, evaluates response to medications Entry 1 In PACU II 05/31/22 09:20:00 Discharge from PACU 05/31/22 10:30:00 II Outcomes Met? Yes Last Modified By: Ruben Mancera RN 05/31/22 11:32:38 Post-Care Text: The patient demonstrates knowledge of the expected response to the operative or invasive procedure The patient's care is consistent with the individualized perioperative plan of care The patient's right to privacy is maintained The patient's value system, lifestyle, ethnicity, and culture are considered, respected, and incorporated into the perioperative plan of care The patient participates in decisions affecting his or her perioperative plan of care. The patient is free from signs and symptoms of infection The patient has wound/tissue perfusion consistent with or improved from baseline levels established preoperatively The patient is at or returning to normothermia at the conclusion of the immediate postoperative period The patient's respiratory function is consistent with or improved from baseline levels established preoperatively The patient's cardiovascular status is consistent with or improved from baseline levels established preoperatively The patient's neurological status is consistent with or improved from baseline levels established preoperatively The patient demonstrates and/or reports adequate pain control throughout the perioperative period The patient received appropriate medication(s), safely administered during the perioperative period Finalized By: Ruben Mancera RN Document Signatures Signed By: Ruben Mancera RN 05/31/22 11:33 Normal [facility] Main OR Preoperative Recordo n 05-31-2022 Main OR Preoperative Record PreOp Document Type FT Summary Primary Physician: Nils Finney DO Finalized Date/Time: 05/31/22 07:56:00 Pt. Name: KATHERINE HOGAN/Sex: 1965 Male Med Rec #: [id number] Physician: Nils Finney DO Financial #: [id number] Pt. Type: A Room/Bed: [facility] Admit/Disch: 05/31/22 05:30:31 - Institution: Case Times PreOp FT Pre-Care Text: Verifies consent for planned procedure, identifies individual values and wishes concerning care, includes family members in perioperative teaching Entry 1 Patient Times. In Pre Surgery 05/31/22 06:00:00 Out Pre Surgery 05/31/22 07:00:00 Outcomes Met? Yes Last Modified By: Conrado Marroquin RN 05/31/22 07:55:57 Post-Care Text: The patient participates in decisions affecting his or her perioperative plan of care Finalized By: Conrado Marroquin RN Document Signatures Signed By: Conrado Marroquin RN 05/31/22 07:56 Normal [facility] Monitor Recordon 05-31-2022 Monitor Record [id number]# 1.00CD:127 Normal [facility] Monitor Record [id number]# 1.00CD:127 Normal [facility] Operative Reporton Operative Report Patient: KATHERINE HOGAN Age: 57 years Sex: Male : 1965 Associated Diagnoses: None Author: Nils Finney DO DATE OF SURGERY: 05/31/2022 SURGEON: Nils Finney D.O. HORTICULTURAL THERAPIST: Gerald Mott CFA PREOPERATIVE DIAGNOSIS: Glenohumeral osteoarthrosis, degenerative labral tearing, biceps tendinosis, right shoulder POSTOPERATIVE DIAGNOSIS: Glenohumeral osteoarthrosis, degenerative labral tearing, outlet impingement, right shoulder PROCEDURE: 1. Examination under anesthesia, right shoulder 2. Right shoulder diagnostic arthroscopy 3. Arthroscopic biceps tenodesis 4. Arthroscopic extensive debridement with glenohumeral chondroplasty 4. Arthroscopic subacromial decompression with acromioplasty ANESTHESIA: General with regional block ANESTHESIOLOGIST: Power Toledo DO and Brandan Connor CRNA IMPLANTS: Biceps tenodesis: Arthrex 4.75 mm biocomposite swivelock anchor OPERATIVE INDICATIONS: Katherine is a 57-year-old [id number] male who has had persistent pain in his right shoulder despite conservative measures. His pain affects his activities of living, ability to sleep at night, and quality of life. He has fairly significant arthritic changes at the glenohumeral joint as evidenced on his imaging studies and understands any discomfort he has as a result of these changes will likely not improve following the surgery. He agreed to proceed with the above procedure after discussion of the risks, benefits, complications, alternatives, and expectations. Please see office notes for further details. PROCEDURE IN DETAIL: The correct operative site was identified and marked in the preoperative holding area. The patient was administered intravenous antibiotics in accordance with SCIP protocol. The patient was transported to the regional block room and administered a regional anesthetic nerve block by the anesthesiologist. I requested the regional block to assist with intraoperative and postoperative pain control. The patient was transported to the operating room, placed supine on the operating room table, and administered general anesthetic. After adequate anesthesia was obtained, the patient was placed into the beachchair position with all bony prominences well-padded. The head was secured in the padded isaac. Surgical timeout was performed with all required personnel present. The operative shoulder was examined and found to have full forward flexion, abduction, internal and external rotation. No anterior or posterior instability. The operative upper extremity was prepped and draped in the usual sterile fashion. The forearm was secured in the [employer] tenet pneumatic arm isaac. Landmarks were demarcated. The glenohumeral joint was insufflated with 20 mL of injectable saline utilizing a spinal needle inserted posteriorly. A standard posterior portal was made. The arthroscope was introduced into the glenohumeral joint. An anterior portal in the rotator interval was made with outside-in technique using spinal needle localization. A 7 mm cannula was placed at the anterior portal. A hook probe was inserted and a diagnostic arthroscopy was carried out with the findings as noted below: 1. Superior labrum and biceps: Significant fraying to the entire superior labrum with detachment of the labrum at the biceps anchor. The tearing extended anteriorly to the 2 o'clock position. The biceps tendon was appropriately positioned within the bicipital groove. Mild inflammatory changes along the tendon but no intrasubstance splitting or tearing. 2. Labrum: Circumferential degenerative fraying to the labrum. No labral detachment anteriorly, posteriorly, or inferiorly. 3. 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 4. Rotator cuff: Intrasubstance tearing to the upper portion of the subscapularis with the footprint of the subscapularis entirely intact. Supraspinatus and infraspinatus intact. 5. Axillary recess was free of any loose bodies. Rotator interval had inflammatory changes. Rotator interval was opened with the Saline wand and motorized shaver. The superior and anterior labrum were debrided with a motorized shaver. Chondroplasty performed to the glenoid with the shaver. The arm was forward elevated, internally rotated, and a posterior drawer was applied to the humeral head to visualize the subscapularis footprint. The upper portion of the subscapularis was debrided with a motorized shaver. The arm was then placed back into a neutral position. Attention was then turned to the biceps tenodesis. The Arthrex Loop N Tack tenodesis implant system was utilized. Suture was passed into the joint through the anterior portal above the biceps tendon and then retrieved beneath the biceps tendon. The suture was loaded into the loop and the loop was cinched onto the tendon. The suture was loaded into the passer and placed into the joint once again underneath the biceps tendon. The pass (more content not included)... Normal [facility] Comment on above: Result Comment: Elec tronically Signed By: Nils Finney DO\.br\Date and Time Signed: 05/31/22 14:59 EDT Operative Report Patient: KATHERINE HOGAN Age: 57 years Sex: Male : 1965 Associated Diagnoses: None Author: Brandan Connor CRNA Procedure Nerve Block Block Type: Interscalene block. Laterality: Right. Informed consent for anesthesia management: Anesthesia options discussed including nerve block, Description of the procedure, risks, benefits, and alternatives was provided, The patient's questions were addressed. Time out: Confirmed correct patient, procedure and site. Time: Date/Time 05/31/2022 07:14:00. Indication: Block for postoperative pain management as requested by surgeon. Anesthesia Method: The patient remained awake and able to interact in a meaningful way throughout the procedure. Preparation: The patient was placed in the following position Supine, Continuous pulse oximetry applied, Using maximal sterile barrier technique per current [facility] guidelines including hand hygeine, Guidance (Ultrasound used to identify anatomical landmarks, Using sterile gel and probe covers, Permanent image retained), The site was prepped with ChloraPrep. Procedure: Anesthetic Agent See anesthesia record, Needle was inserted without pain or parasthesia in the conscious patient, Negative attempt at aspiration for blood, Periodic negative attempts at aspiration of blood were made as the local was injected, No pain or parathesia were elicited with injection of the anesthetic in the conscious patient. Complications: The patient tolerated the procedure as expected, Pt baseline 8/10 shoulder pain completely resolved after completion of block. . Normal [facility] Comment on above: Result Comment: Elec tronically Signed By: Brandan Connor CRNA.ron\Date and Time Signed: 05/31/22 07:51 EDT Outpatient Surgery Discharge Instructionon 05-31-2022 Outpatient Surgery Discharge Instruction [place] [id number] Patient Discharge Instructions PERSON INFORMATION Name: KATHERINE HOGAN Date of : 1965 Current Date: 05/31/2022 09:09:41 PHYSICIANS Admitting Physician: Nils Finney DO Discharge Diagnosis: SAMIRA KATHERINE Jeffrey has been given the following list of follow-up instructions, prescriptions, and patient education materials: IF UNABLE TO CONTACT YOUR PHYSICIAN AND YOU FEEL IT IS AN EMERGENCY, GO TO THE NEAREST EMERGENCY ROOM OR CALL 911 ISAMIRA MATTHEW J, have received the attached patient education materials/instruction s and have verbalized understanding: May we do a follow up call? Yes No I was present when discharge instructions were given Patient Signature Date Clinican/Nurse Signature Date Follow up: Pharmacy Information: You may receive a survey from [facility] asking you to rate your care experience. Your feedback is important and will help us understand what we do well and how we can improve the quality of care we provide to you, your loved ones and our community. It?s an honor to serve you. Thank you for choosing [facility] HERE ARE THE MEDICATION CHANGES THAT OCCURRED DURING YOUR HOSPITAL STAY New Medications [id number], [address], [place] [id number], [phone] acetaminophen-oxycodo ne (Percocet 5 mg-325 mg oral tablet) 1-2 tab(s) Oral q4hr. Refills: 0. docusate (Colace 100 mg Cap) 1 Capsules By Mouth 2 times a day as needed for constipation. Refills: 0. Medications to Continue Taking That Have Changed [id number], [address], [place] [id number], [phone] START: celecoxib (CeleBREX 100 mg Cap) 1 Capsules By Mouth 2 times a day as needed for pain. Refills: 0. Medications to Continue with No Changes Other Medications amlodipine (amLODIPine 5 mg Tab) 1 Tablets By Mouth every day. ascorbic acid (Vitamin C 500 mg oral tablet, chewable) 1 Tablets Chewed every day. aspirin 81 Milligram By Mouth every day. atorvastatin (atorvastatin 40 mg Tab) 1 Tablets By Mouth every day. carvedilol (carvedilol 25 mg Tab) 1 Tablets By Mouth every day. cefuroxime 500 Milligram By Mouth every 12 hours. chlorthalidone (chlorthalidone 25 mg Tab) 1 Tablets By Mouth every day. cholecalciferol (Vitamin D3 5000 intl units (125 mcg) oral tab) 1 Tablets By Mouth every day. diclofenac topical (diclofenac 2% topical solution) 1 application Topical 3 times a day. famotidine (famotidine 20 mg Tab) 1 Tablets By Mouth once a day (at bedtime). finasteride (finasteride 5 mg Tab) 1 Tablets By Mouth every day. gabapentin (gabapentin 100 mg Cap) 2 Capsules By Mouth 4 times a day. imiquimod topical (imiquimod Top 5% Crm) 1 Application Topical at bedtime. lamotrigine (lamotrigine 200 mg oral tablet, disintegrating) 1 Tablets By Mouth 2 times a day. lisinopril (lisinopril 20 mg Tab) 1 Tablets By Mouth every day. meclizine (meclizine 25 mg Tab) By Mouth as needed Dizziness. Take 0.5-2 tabs as needed for vertigo. multivitamin 1 cap By Mouth every day. Non-Formulary Medication (LDI Foods) 1 dose Sublingual. Prophylaxis 6 units every 7 weeks. Non-Formulary Medication (LDI Lyme C15) 1 dose Sublingual. prophylaxis 6 units every 7 weeks. Non-Formulary Medication (LDI Yeast C19) 1 dose Sublingual. 6 units every 7 weeks Prophylaxis. omega-3 polyunsaturated fatty acids (T3 Search's Bounty Red Krill Oil) 500 Milligram By Mouth every day. ondansetron (ondansetron 4 mg Tab) 1 Tablets By Mouth as needed Nausea. saw palmetto (Saw [place]) 450 Milligram By Mouth 2 times a day. triamcinolone (Triamcinolone Acetonide) 1 application Topical every day. ubiquinone (CoQ10) 100 Milligram By Mouth every day. venlafaxine (venlafaxine 75 mg Cap-ER) 1 Capsules By Mouth every day. No Longer Take the Following Medications acetaminophen (Tylenol 8 HR Arthritis Pain 650 mg oral tablet, extended release) 2 Tablets By Mouth every 8 hours. tramadol (traMADOL 50 mg Tab) 2 Tablets By Mouth every 12 hours as needed for pain. PATIENT EDUCATION INFORMATION Instructions: [place], [place] [facility] AFTER YOUR SHOULDER ARTHROSCOPY 1. Diet: Begin with a liquid diet and advance to your normal diet as tolerated. 2. Activity: You may remove your sling for bathing and to perform gentle range of motion exercises for the hand, wrist, and elbow. Bend and straighten your elbow and wrist several times per day to minimize stiffness. Keep yo (more content not included)... Normal [facility] Patient Education - Texton 0 05-31-2022 Patient Education - Text [place], [place] [facility] AFTER YOUR SHOULDER ARTHROSCOPY 1. Diet: Begin with a liquid diet and advance to your normal diet as tolerated. 2. Activity: You may remove your sling for bathing and to perform gentle range of motion exercises for the hand, wrist, and elbow. Bend and straighten your elbow and wrist several times per day to minimize stiffness. Keep your elbow in close to your side when performing these exercises. Do not move your shoulder until instructed by your surgeon. Swelling after surgery is normal and this will gradually decrease over time. All sports activities are discouraged, at least until your first post-operative visit at which time we will discuss how and when to resume sports. 3. Driving: Driving is legal. If you are involved in an accident, you must be able to prove that you maintained full control of your vehicle. For this reason, it is advised that you do not drive until your strength returns. You should not operate a vehicle or heavy machinery if you are taking narcotic pain medication. 4. Pain: If pain persists despite rest, elevation, and medication, contact your surgeon. You will be given a prescription for pain medications prior to leaving the hospital. Please inform us of any known drug allergy. If you have any problems with the medication, it should be discontinued and our office notified. The sensation of splashing of fluid inside the joint is not cause for concern. It represents residual fluids from surgery and they will be absorbed. Elevation of the arm and application of an ice pack will minimize swelling and discomfort in the first 48 hours after surgery. 5. Bandage: Soft compression dressing has been applied to your shoulder. This dressing should be comfortable and absorb any leakage of fluid or blood from your operated shoulder. Although the dressing may become moist or blood stained, this is not usually a cause for concern. If this persists, notify your surgeon. You may remove the dressing 48 hours after your surgery. If you have a bandage in your armpit, leave this in place until follow up. Apply betadine and band-aids to the small incisions once or twice daily as needed. 6. Incisions: The portals of entry may be sore and develop bruising over the next several days. The bruising eventually resolves and does not require any special care. Do not apply creams or lotions to your shoulder. Your portals will heal well on their own. 7. Bathing: You may shower 48 hours after surgery. Bathing or soaking in water should be avoided until your first post-operative visit. 8. Precautions: If you develop fever (101 degrees or above), increasing pain (not relieved by rest, elevation, ice, and medication as prescribed), redness or swelling in your shoulder or arm, please contact the office or the hospital. If you notice increased drainage from the operative portals after the third day, this should also be reported. 9. Return Visit: Your first post-operative follow-up appointment is generally between 7 and 14 days after discharge from the hospital. You will be given an appointment card with your appointment information. Do not hesitate to call the office or the hospital if any problems or questions arise before your appointment. Nils Finney, DO [facility] [address] [place] [address] Reviewed: [facility] Consent for Procedure/Surger yon 05-30-2022 Consent for Procedure/Surgery [id number]# 1.00CD:127 [facility] Coding Summary.on 05-22-2022 Coding Summary. CD:[id number] W w+PGhlYWQ+SL6WLNCnY79 nsCTieE9oC4YWAUrJNwcg YBGWURqMAaMadkQcET5sj XNjZXJu IC8+AY7wFXBiZnufmKPxl 7V2iWW6O40wun5vYDsheH R2UOHeZxHxwpcec6cnpXx 6IDcuNmluOyBt JRKtsE45JIH0yB20Rh71r VQrwDYde4quyXk3OdHeRV RgFDK6rDkxGRjxi6ZyYMF wN90whQUhg3P9 GPUlkCsujBHhGpCyfCU2v T9fHDngokpdp0hnjvyiRj l2jl02eZJed5K1nFP2C5W ztlT9DRJkjDRx SagmqDFHlW3gautrt4coh lukTgMmKYTaUKu9HAk3VC FfnIleHvWnAL30OOG0XHA vawAxD1SqRIRp xPatQkD9i2J8Gw2NV3PWY qmiA9HUCGTKXWuehNG+PC 26ph62T2FlEszvHld4ZZI lACX0aFY3xH8r NKKoURhuc9D6qNW9C4Rdi jFnac6nj0osKITfRCgmS7 4lgTBrj0S1DOWzjNN7FRW cdCmaIbQmsQ40 Oyc+DCOtrLzzu0ZcTrujc 3smw4oleEa6RdloIAWxwp OcyLiaZYZ4n1JbZs1hBME cfBH6pXI6zK6z DdQhEkT7CYqxU212QwAnm XLhBrtyX41jT4WvyZT+PH TtLqh7HYVvuOynMJ3fO3R hZGRpbmctbGVm eEmuRN8nACMgvtelDISvo W1iTDWbS8b1ApOfExC7WM svG1HkGDTpvdguLp99hI6 mXqTgMvA8QEze Y0HliiI1XWByrINfTTfvZ GQ8S71yn8Q2WLKbWKXvOT Z3dMM4nD5jhCuotlsvyLX mdDsgdmVydGlj XYlhTUqoE499CNApzOqmG kNvZGluZyBEYXRlOiAgMD MvMjIvMjAyMzwvdGQ+PHR sUQJ2zVirZMCt oNEqYCzgOw4olKkepOovV P5dOKOwuavzCBXnmF6xFQ PeyGCjnKuuHU5dMHWbsuk xy753YbLkCZJ4 EMIcyAMpW6UbeM1yRnJkH ZUyIXPqE4RagKIbNRwfN8 48DOhoOwY4TUUaorKzH8I sLWFsaWduOiB0 u6Q4Se8Gn9DajclfN3Onh KIoHoNjMbloJYt5X1DjJr wvdHI+HD40VRCzEJ72PFf 0PDQ3mXueXCqx EHUsX0ImtQ2sYmJxFGEfJ GRkOyc+PHRhYmxlIHdpZH RoPScxMDAlJyBzdHlsZT0 mCl4zTVQsHPAr oQfakDHyHbJkl9siYSMfU RgmEZ0idXnxB8JmcSZ3DI Dqa1v4Gt85J21tF5WjtYT +VGOeaYW2cIX8 bY8pIxZwJzU5TCscW717C sIeuTTaKbihf0ohq8fswK r0TfY1XDKijiSuxJknEYE 6c2OpZu47R76w IHdpZHRoPSIxNSUiIHZhb Jwwuu0nbC7kXw7+PGNvbC N6jZO3dJ3dEgRvTpZ3ODb oO504XeMvzCIr Tmhjn6vcq5xpfZa6StAeQ VUjweJsuKoxKVU4j4LgLl 65V7DvvOklz3VrPib6ng5 7dLYsd8W3tIX3 Y4YoDTCzvrhmtOWklJsbE V2uCRLqbivyLMIdeM4nVM XoS8v4QzWyToJ6XBvnS6C zkjT8LKBbgGIr JVLrkBIWtD8wfxsja1iao rabDuEpHLGlAOm3TDq3LO IrnLjgDsIfDLQ7NqF2KAW 7qCPlkM8utZvd qbumzD6tKdh+VWV0dDNaq OFJUO6sFsnxhVL+PHRkIH K1tXnwIMiuBZSnbC0sLEA sO7v8OrYfTvR9 YHzjC5AnxjM1CQEupBXhN GQbcRAXlQ1bdzscw7dfzx moDbAcHJNfOPt5LNm6XLC saWduOiBsZWZ0 ErC7LBF5oITfcG8exIagt atzyO1hVpn+QmlydGggRG V1ZOk2B4UrPxe1GUQrcYo yHT1saPHbKZer Au6esKqshTrpRG6bEOFov xptj970MfXql7amEBVxpN ToOJclBBP6G38yh5P1BVO tEXEdTEL4uZY4 gW7qnTkwszzfhFMdeFqdi eCruRjiZIxnNMgqY748IW MhgKpgTbTqZPn1Y6AtOvr 9YEJpgRvkVF6i vDWwSSsvHu8agFbzaKvvY I2pRPPfnsxmm093TbHzj9 zrJWMdxRNeTHjkSPT6P12 ys6I8QATyBBHu ORW2eSS3hQ6fhTmjaorax GVmdDsgdmVydGljYWwtYW otL849QROrmIpkLaBybLp 8Z2HhAwr9WKAa cPipYV4jbHInHKwyKq2fw ZdieWjtZT9vEXQqfsrdr7 61GzBad6lfXVDmiBUnFTf vOFD3T53dq8K4 OAPfMVZqLYD9jAS5wQ7tn GlnbjogbGVmdDsgdmVydG xeVTuoZXxbL019MOPqdEx nPlBhdGllbnQg GYtdZYe9Y1CxNrhtlIW+P N47VJPlAZ13sFRjjFCmd1 fttHi5PfPfLZLaYIG3qTs cQSgnk1BkNLKl Z15znIIke0E1RFBzbThnc LQzQuGtrMZ4yP9rIMieax wnu8izzmzjEyefh0jxvz1 6nV31A44wNMtc ZHRoPSIzMCUiIHZhbGlnb k4tkC2sDd5+GNMwkLY8yR W4hB7rMBBdTlT0OXdzP11 9InRvcCIvPjxj o3uuz9bptHc5QxF2OUViu bUnbUhdPBJ6a1EtZk01P4 9sIHdpZHRoPSIyMCUiIHZ asVyzch6zyK3q Ii8+XFKriSK5mFY3yX3pB eMtIoT4OUsnA076KsRkmH PuBylnY50bT7PabDA+PHR qUto5JVKorIdc LD1fmJWaNBcaAh4uBKG2G pDuCpToJArgL3KkDFAfth enainqkBS1FLQcYAIqmN7 7Tt3kaCqkFVQi tQFWzS6plzqvi8opulohM eQdSGUpNNg8RGm5FTBqwG qfEuGoGUM5KjN4GUU2aLQ mkD2rzKsdarxc xW4aP4VcNKTiigsvJg99g H5pFtKuEfV9EIimNpz+Uk gAQKfiEE8RXUYKGLwsHxw vdGQ+PHRkIHN0 aGzmZLlbMDGlnO2tLHUxO 9z5SoSlFzK4NDiuG2CaAH GnnjwmHl92yW4yZwWbRxA 4SFbpW6GvmtJ0 GKJrrGCfVHpxZER9L90yu 8A0YBMxKBQnVFP6oPW2fH 1hbGlnbjogbGVmdDsgdmV ydGljYWwtYWxp J371MSBhiYbgErJoBzK9D tD6DhY9W1ZwRnp0EJGlpJ ooCH7cpNTuULwgCb1qrFi vhLzqHY0oTHVu lespONGshB0sDATdlYSqn QqgNU6nGZMvyitia737Bp PkNSU1AZMzzVCyG3UwdQ3 yOiAjMDAwMDAw Y2ZynXPlCAmsX431AHrtB vS4DBAqmhEuT5RkSEEsdL tkNxL7g7O9Wu82WTJWIIC yczwvdGQ+PHRk YJE4iTdcHQmqRJCqjK7mB LCfU3v3BaYqIkW3FPdwN6 VpHEMnrbkiSr60aR3vOcZ eMeW0KNhqR2Yn ezP0KLYwxLGmPTzbWZA4V 30ue4O5SECuXVRgPEG0sX K2uL9cvKlkobluhAPkiTg gdmVydGljYWwt UGklQ193QIMpkAseQm6ku QJ2Q0LjRpw5QGCqpQtqIG 0fyIZaQMpwVj9hiIokkHn cYC8dLNYrstmq FWWdeX1fFYQsyWGjpSafH W2yVLHzfjrad998PtCyGR W5XHOutXPdJ0GknG7iPlU eCEXtOWZgN7Oh yTAgNIiyZ890ORmsFsV4V OQmgkFyJ1YeFUUjgMkwQs E3x6W1Ca7OzBDzXWUwZH6 5SB51AV05I0Fk PjwvdGFibGU+PHRhYmxlI HdpZHRoPScxMDAlJyBzdH wfBI5uPq9eGEGjXLVbaAc pvLNrXzLqn1nb JGYmNWnaIL2qjKldE6Fbf ZS0JVWhe0i5Gj36D27wU1 JvdXA+TNWyyYP1cMX3sX7 kHsOyHkK6VGda K385QuWrbDSnTrzny8iws 1okjMl0BoEvYUCcteOzeR lnKCF8z6TwIa01I79hCSf pZHRoPSIyMCUi JETsgCcjvp1dkQ9rDk8+P SPykNQ7hTS5hX3gKtHaId B1VJjdN731YaSbmLKcPpv hB53zW4WuwWN+ IVEpDkm6NDFloKkhDQ3oq HNuADhbNm2bVGZ0GgFxAw WgJImmR0UqBATbjcmqwhk xeXC9GVJaYMXf yX75Wz4wbLwzFy4gVOIcP DF4WXMhgWNsS3LlhP0rVb RaZQAtOMVeM3CniUWeZMj nG613OCznAiG5 NTYlxyAkL7LmBKTbtKchF eA6z7F4Oq6HzKdlhZDqAD 5gUvGkMSw2E8RyAgp1OOO vkAraQT6sqDRn EQzfEw8fgLajvIziBO1gC PSdxsuyc703QiTvw1fyUF PceRHgSHwwQVQ0T40vd1U 1TYOpAWAvTHF2 kOO4sV9kjHzahdwolSVrc DsgdmVydGljYWwtYWxpZ2 29YDYgyFyjJtFIEmg3J7A iKxy1HNRpqUib KP4ysOTrMUawWx8xcBybc DxyPR3oHALgksrkl251St Wpx6qtTFMaaHIyFEnbIGR 2I04gq8Q3ZMRj PGBvGAK8aPA1kK5xzRgkf jogbGVmdDsgdmVydGljYW kxFTrwA026NSGfsSgyUl2 OTph5J7FdPak3 NZNpbKvfAE1bgEHwEKfkL r7yvSbbmTyzES3cVITurv xyz982DnJzb6fzMAFsoID lOQlqCGG7F31o l5F0DPVtYZBfMLK4dOD6k M1kfEfgvxlbgMTicBanab ArfDzlDXujPEkvJ111WPX vcDsnPlBheWVy OjwvdGQ+CO21sr66M8LsJ vbnMup9VAYuBSL3rLA5tX 5bJLMzEHirk2B6zFU3T5O gfjXxud8qu0lf YXBzZTog (more content not included)... Normal [facility] Outside Recordson 05-15-2022 Outside Records [id number]# 1.00CD:127 Normal [facility] BUNon 05-14-2022 Urea nitrogen [Mass/Vol] 17 mg/dL Normal 5-21 [facility] Comment on above: Performed By: #### 2 876761, 6235362, 0558982, 7237347, 6140458, [id number] ####[facility] [address] [place] [address] CBC w/Indiceson 05-14-2022 Erythrocyte distribution width (RBC) [Ratio] 13.1 % Normal 10.9-14.2 [facility] Comment on above: Performed By: #### 2 597739, 2234781, 9354479, 8284194, 9220377, 25050075 ####[facility] [address] [place] [address] Hematocrit (Bld) [Volume fraction] 44.2 % Normal 37.7-49.0 [facility] Comment on above: Performed By: #### 2 873228, 2309731, 9754255, 9144887, 7612224, 64267948 ####[facility] [address] [place] [address] Hemoglobin (Bld) [Mass/Vol] 15.2 g/dL Normal 13.5-17.5 [facility] Comment on above: Performed By: #### 2 460594, 8677165, 3081203, 1303104, 9072649, 63873165 ####[facility] [address] [place] [address] MCH (RBC) [Entitic mass] 32.0 pg Normal 27.0-34.0 [facility] Comment on above: Performed By: #### 2 418169, 5080344, 1293412, 5986732, 3950564, 69745558 ####[facility] [address] [place] [address] MCHC (RBC) [Mass/Vol] 34.4 g/dL Normal 31.4-36.[address] [facility] Comment on above: Performed By: #### 2 870792, 1385347, 1565410, 2067930, 7848766, 20748152 ####[facility] [address] [place] [address] MCV (RBC) [Entitic vol] 92.9 fL Normal 80.0-100.0 [facility] Comment on above: Performed By: #### 2 316090, 7063286, 5544276, 2629778, 0498949, 10387884 ####[place] [address] [place] [address] Platelet mean volume (Bld) [Entitic vol] 7.1 fL Normal 6.4-10.8 [facility] Comment on above: Performed By: #### 2 331604, 9279755, 1504203, 5595770, 0573719, 10905666 ####[address] [address] Platelets (Bld) [#/Vol] 274.0 E9/L Normal 150.0-500.0 [facility] Comment on above: Performed By: #### 2 179075, 9643747, 1892834, 0938187, 1409430, 34004854 ####[place] [address] [place] [address] RBC (Bld) [#/Vol] 4.8 E12/L Normal 4.3-5.9 [facility] Comment on above: Performed By: #### 2 493272, 3707864, 0843351, 6284643, 5271678, 15049698 ####[place] [address] [place] [address] WBC corrected for nucl RBC Auto (Bld) [#/Vol] 5.8 E9/L Normal 4.0-11.0 [facility] Comment on above: Performed By: #### 2 588689, 1753971, 2831023, 5917645, 8156631, 72401946 ####[place] [address] [place] [address] CHEMISTRYOrdered By: SYSTEM SYSTEM on 05-14-2022 Anion gap [Moles/Vol] 16 mmol/L Normal 6 - 16 mEq/L [facility] [place] Remisol Chloride [Moles/Vol] 98 mmol/L Low 101 - 1 11 mmol/L [facility] Remisol CO2 [Moles/Vol] 25 mmol/L Normal 21 - 31 mmol/L [facility] Remisol Creatinine [Mass/Vol] 0.9 mg/dL Normal 0.5 - 1.3 mg/dL [facility] Remisol GFR/1.73 sq M.predicted among blacks MDRD (S/P/Bld) [Vol rate/Area] mL/min/1.73 m2 Normal >=59mL/min/1. 73 m2 [facility] Chem S GFR/1.73 sq M.predicted among non-blacks MDRD (S/P/Bld) [Vol rate/Area] mL/min/1.73 m2 Normal >=59mL/min/1. 73 m2 [facility] Chem S Glucose [Mass/Vol] 100 mg/dL Normal 55 - 199 mg/dL [facility] Remisol Potassium [Moles/Vol] 3.6 mmol/L Normal 3.5 - 5.3 mmol/L [facility] Remisol Sodium [Moles/Vol] 135 mmol/L Normal 135 - 145 mmol/L [facility] Remisol Urea nitrogen [Mass/Vol] 17 mg/dL Normal 5 - 21 mg/dL [facility] Remisol Consent for Treatmenton 05-01 Consent for Treatment [id number] .00CD:127 Normal [facility] Creatinineon 05-14-2022 Creatinine [Mass/Vol] 0.9 mg/dL Normal 0.5-1.[address] [facility] Comment on above: Performed By: #### 2 015393, 9609907, 6406812, 1458893, 5787227, 61041327 ####[facility] [address] [place] [address] Glucoseon 05-14-2022 Glucose [Mass/Vol] 100 mg/dL Normal 55-199 [facility] Comment on above: Performed By: #### 2 262721, 8547836, 2872909, 8417609, 0785941, 50658244 ####[facility] [address] [place] [address] HEMATOLOGYOrdered By: Ronda Webster on 05-14-2022 Erythrocyte distribution width (RBC) [Ratio] 13.1 % Normal 10.9 - 14.2 % [facility] HemeAutoSS Hematocrit (Bld) [Volume fraction] 44.2 % Normal 37.7 - 49.0 % [facility] Hemoglobin (Bld) [Mass/Vol] 15.2 g/dL Normal 13.5 - 17.5 gm/dL [facility] MCH (RBC) [Entitic mass] 32.0 pg Normal 27.0 - 34.0 pg FT [facility] MCHC (RBC) [Mass/Vol] 34.4 g/dL Normal 31.4 - 36.0 gm/dL [facility] MCV (RBC) [Entitic vol] 92.9 fL Normal 80.0 - 100.0 fL [facility] Platelet mean volume (Bld) [Entitic vol] 7.1 fL Normal 6.4 - 10.8 fL [facility] Platelets (Bld) [#/Vol] 274.0 E9/L Normal 150.0 - 500.0 E9/L [facility] RBC (Bld) [#/Vol] 4.8 E12/L Normal 4.3 - 5.9 E12/L [facility] WBC corrected for nucl RBC Auto (Bld) [#/Vol] 5.8 E9/L Normal 4.0 - 11.0 E9/L [facility] HemeAutoSS Lyteson 05-14-2022 Anion gap [Moles/Vol] 16 mmol/L Normal 6-[address] [facility] Comment on above: Performed By: #### 2 689079, 4877789, 1735216, 9249257, 3429019, 64821901 ####[facility] [address] [place] [address] Chloride [Moles/Vol] 98 mmol/L Low 101-111 [facility] Comment on above: Performed By: #### 2 512476, 6782986, 2575222, 0875952, 3434689, 70691963 ####[facility] [address] [place] [address] CO2 [Moles/Vol] 25 mmol/L Normal 21-31 [facility] Comment on above: Performed By: #### 2 852706, 0513855, 1981915, 1986894, 3559216, 56642850 ####[facility] [address] [place] [address] Potassium [Moles/Vol] 3.6 mmol/L Normal 3.5-5.[address] [facility] Comment on above: Performed By: #### 2 [id number], [id number], [id number], [id number], [id number], [id number] ####[facility] [address] [place] [address] Sodium [Moles/Vol] 135 mmol/L Normal 135-145 [facility] Comment on above: Performed By: #### 2 [id number], [id number], [id number], [id number], [id number], [id number] ####[facility] [address] [place] [address] XR Chest 2 Viewson 3 XR Chest 2 Views Exam Date/Time: 05/14/2022 10:27 EDT Reason for Exam: P.A.T. Report IMPRESSION: NO EVIDENCE OF ACTIVE CHEST DISEASE. CLINICAL HISTORY: P.A.T.. COMMENT: The heart is normal in size. There is tortuosity of the thoracic aorta. The mediastinum is otherwise unremarkable. The lungs appear clear. No infiltration nor pleural effusion is evident. Ordering Provider: Sami Bailey FINAL REPORT Dictated: 05/14/2022 11:47 am Miguel Fleming M.D. Signed (Electronic Signature): 05/14/2022 11:47 am Signed by: Miguel Fleming M.D. Transcribed by: ERIN Technologist: LOIS Technical Comments Radiation Dose: Ka,r in mGy = na DAP = na Normal [facility] eGFRon 05-14-2022 GFR/1.73 sq M.predicted among blacks MDRD (S/P/Bld) [Vol rate/Area] mL/min/{1.73_m2} Normal >=59 [facility] Comment on above: Order Comment: Order added by Discern Expert. Result Comment: eGFR is race adjusted. AA=. Performed By: #### 2 [id number], [id number], [id number], [id number], [id number], [id number] ####[facility] [address] [place] [address] GFR/1.73 sq M.predicted among non-blacks MDRD (S/P/Bld) [Vol rate/Area] mL/min/{1.73_m2} Normal >=59 [facility] Comment on above: Order Comment: Order added by Discern Expert. 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 Kidney failure is indicated at less than 15 mL/min/1.73m2. Performed By: #### 2 [id number], [id number], [id number], [id number], [id number], [id number] ####[facility] [address] [place] [address] Physician Orderon 02-01-2022 Physician Order [id number]:127 Normal [facility] MRI Shoulder w/o Righton MRI Shoulder w/o Right HISTORY: Shoulder pain. Internal derangement. TECHNIQUE: Multiplanar multisequence MRI of the shoulder was performed without contrast. COMPARISON: Shoulder radiographs 01/01/2022 FINDINGS: Mild degenerative changes of the acromioclavicular joint without undersurface osteophyte formation. The acromion is slightly curved. Coracoclavicular ligament intact. No subacromial/subdeltoi d bursal fluid. Mild supraspinatus tendinosis. Infraspinatus, subscapularis, and teres minor tendons are intact. No atrophy or fatty infiltration of the rotator cuff musculature. The intra-articular and extra-articular long head biceps tendon is intact. The biceps tendon resides within the bicipital groove. Tear of the anterior superior through posterior superior labrum and posterior superior through posterior inferior labral degeneration/tearing. Full-thickness cartilage loss of the posterior half of the glenoid with small subcortical cyst formation and mild subchondral bone marrow edema. Cartilage abnormality of the medial humeral head including low grade and high-grade partial thickness cartilage loss with possible small areas of full-thickness cartilage loss. Small glenohumeral joint effusion. IMPRESSION: Mild supraspinatus tendinosis. Tear of the anterior superior through posterior superior labrum and posterior superior through posterior inferior labral degeneration/tearing. Mild to moderate glenohumeral osteoarthritis. Report reported and signed by MARCELINA MORGAN on 01/09/2022 1544 Normal [facility] XR Shoulder Complete Right*o n 01-01-2022 XR Shoulder Complete Right* HISTORY: Radiating shoulder pain FINDINGS: Mildly bulbous subclavicular morphology with a moderate down-sloping acromion. Humeral head is unremarkable. No fracture is seen. Rotator cuff tendon is not calcified. IMPRESSION: 1. No AC separation however distal clavicular and acromion morphology may predispose to impingement. Given this history if symptoms persists, MRI can evaluated for evidence of biceps tendon injury/tenosynovitis or impingement. Report reported and signed by Dustin Ag on 01/02/2022 0705 Normal [facility] Comprehensive Metabolic Pane ramesh 03-29-2021 Albumin [Mass/Vol] 4.6 g/dL Normal 3.6-5.1 [facility] Comment on above: Performed By: #### L IPD, CMP #### [facility] [address], [place] [id number] Albumin/Globulin [Mass ratio] 2.4 {ratio} Normal 1.0-2.5 [facility] Comment on above: Performed By: #### L IPD, CMP #### [facility] [address], [place] [id number] ALP [Catalytic activity/Vol] 108 U/L Normal 40-129 [facility] Comment on above: Performed By: #### L IPD, CMP #### [facility] [address], [place] [id number] ALT [Catalytic activity/Vol] 59 U/L High 9-46 [facility] Comment on above: Result Comment: 01/31 Female reference range changed. Performed By: #### L IPD, CMP #### [facility] [address] [place], [place] [id number] Anion gap [Moles/Vol] 18 mmol/L Normal 12-20 [facility] Comment on above: Result Comment: Selena ctive 03/08/2019 reference range changed. Performed By: #### L IPD, CMP #### [facility] [address] [place], [place] [id number] AST [Catalytic activity/Vol] 26 U/L Normal 10-40 [facility] Comment on above: Performed By: #### L IPD, CMP #### [facility] [address] [place], [place] [id number] Bilirubin [Mass/Vol] 0.33 mg/dL Normal 0.30-1.20 [facility] Comment on above: Performed By: #### L IPD, CMP #### [facility] [address] [place] [id number] BUN/CREA 23 Ratio High 6-22 [facility] Comment on above: Performed By: #### L IPD, CMP #### [facility] [address] [facility] [place] [id number] Calcium [Mass/Vol] 10.5 mg/dL High 8.6-10.2 [facility] Comment on above: Performed By: #### L IPD, CMP #### [facility] [address] [place] [id number] Chloride [Moles/Vol] 99 mmol/L Normal 98-107 [facility] Comment on above: Performed By: #### L IPD, CMP #### [facility] [address] [place] [id number] CO2 [Moles/Vol] 24 mmol/L Normal 20-31 [facility] Comment on above: Performed By: #### L IPD, CMP #### [facility] [address] [place], [place] [id number] Creatinine [Mass/Vol] 1.0 mg/dL Normal 0.7-1.4 [facility] Comment on above: Performed By: #### L IPD, CMP #### [facility] [address] [place], [place] [id number] eGFRAA 89 mL/min/1.73m2 Normal >60 [facility] [employer] Comment on above: Performed By: #### L IPD, CMP #### [facility] [address], [place] [id number] eGFRNAA 74 mL/min/1.73m2 Normal >60 [facility] Assistant Manager [employer] Comment on above: Performed By: #### L IPD, CMP #### [facility] [address], [place] [id number] Globulin (S) [Mass/Vol] 1.9 g/dL Normal 1.9-3.7 [facility] Assistant Manager [employer] Comment on above: Performed By: #### L IPD, CMP #### [facility] [address], [place] [id number] Glucose [Mass/Vol] 93 mg/dL Normal 65-99 [facility] Assistant Manager [employer] Comment on above: Result Comment: For FASTING Glucose --- ADA reference ranges: Normal 65-99 mg/dl Prediabetes 100-125 Diabetes >/= 126 Performed By: #### L IPD, CMP #### [facility] [address], [place] [id number] Potassium [Moles/Vol] 4.1 mmol/L Normal 3.5-5.5 [facility] Comment on above: Performed By: #### L IPD, CMP #### [facility] [address], [place] [id number] Protein [Mass/Vol] 6.5 g/dL Normal 6.1-8.1 [facility] [employer] Comment on above: Performed By: #### L IPD, CMP #### [facility] [address], [place] [id number] Sodium [Moles/Vol] 137 mmol/L Normal 135-146 [facility] Assistant Manager [employer] Comment on above: Performed By: #### L IPD, CMP #### [facility] [address], [place] [id number] Urea nitrogen [Mass/Vol] 24 mg/dL Normal 7-25 [facility] Assistant Manager [employer] Management Comment on above: Performed By: #### L IPD, CMP #### [facility] [address], [place] [id number] Lipid Panelon 01-27-2022 Cholesterol [Mass/Vol] 153 mg/dL Normal 125-200 [facility] Comment on above: Result Comment: Low risk < 200mg/dL Borderline risk 201-239 mg/dl High risk > or equal to 240 Performed By: #### L IPD, CMP #### [facility] [address], [place] [id number] Cholesterol in HDL [Mass/Vol] 45 mg/dL Normal >40 [facility] Comment on above: Result Comment: High Cardiovascular Risk HDL <40 mg/dL Low Cardiovascular Risk HDL > or equal to 60 mg/dl Performed By: #### L IPD, CMP #### [facility] [address], [place] [id number] Cholesterol in LDL [Mass/Vol] 83 mg/dL Normal [facility] Comment on above: Result Comment: LDL ATP III CLASSIFICATION LDL less than 100 mg/dl Optimal LDL 100-129 mg/dl Near or above optimal LDL 130-159 Borderline high LDL 160-189 High LDL greater than 189 mg/dl Very High Performed By: #### L IPD, CMP #### [facility] [address], [place] [id number] Cholesterol in VLDL [Mass/Vol] 25 mg/dL Normal [facility] Comment on above: Performed By: #### L IPD, CMP #### [facility] [address], [place] [id number] Cholesterol.total/Cho lesterol in HDL [Mass ratio] 3 {ratio} Normal [facility] Comment on above: Performed By: #### L IPD, CMP #### [facility] [address], [place] [id number] Triglyceride [Mass/Vol] 126 mg/dL Normal 30-150 [facility] Comment on above: Result Comment: TRIG ATPIII CLASSIFICATIONS TRIG less than 150 mg/dl Normal TRIG 150-199 mg/dl Borderline High TRIG 200-500 mg/dl High TRIG greather than 500 mg/dl Very High Performed By: #### L IPD, CMP #### [facility] [address], [place] [id number] Covid-19 PCR (CVDTB)on 01-31 SARS-CoV-2 (COVID-19) RNA ZAIRA+probe Ql (Unsp spec) Not detected Normal NOT DETECTED [facility] [place] [facility] Comment on above: Result Comment: This test is not yet approved or cleared by the [place] FDA. When there are no FDA-approved or cleared tests available, and other criteria are met, FDA can make tests available under an emergency access mechanism called an Emergency Use Authorization (EUA). The EUA for this test is supported by the [place] of Health and Human Service's (HHS's) declaration that circumstances exist to justify the emergency use of in vitro diagnostics for the detection and/or diagnosis of the virus that causes COVID-19. This EUA will remain in effect (meaning this test can be used) for the duration of the COVID-19 declaration justifying emergency of IVDs, unless it is terminated or revoked by FDA (after which the test may no longer be used). When diagnostic testing is negative, the possibility of a false negative should be considered in the context of a patient's recent exposures and the presence of clinical signs and symptoms consistent with SARS-CoV-2. Performed By: #### C VDTB #### [facility] [place] [facility] [address] [place] [address] Dr. Luis Fernando Pagan PROF CHEM 8 (BAS METB)on Anion gap [Moles/Vol] 13.1 mmol/L Normal [facility] Comment on above: Performed By: #### B MP #### [facility] [place] [facility] [address] [place] [address] Lori Fátima Calcium [Mass/Vol] 9.8 mg/dL Normal 8.4-10.2 [facility] Comment on above: Performed By: #### B MP #### [facility] [place] [facility] [address] [place] [address] Lori Fátima Chloride [Moles/Vol] 101 mmol/L Normal 98-107 [facility] Comment on above: Performed By: #### B MP #### [facility] [place] [facility] [address] [place] [address] Lori Fátima CO2 [Moles/Vol] 31.0 mmol/L Critically high 22.0-30.0 [facility] Comment on above: Performed By: #### B MP #### [facility] [place] [facility] [address] [id number] Lori Fátima Creatinine [Mass/Vol] 1.28 mg/dL Critically high 0.66-1.25 [facility] Comment on above: Performed By: #### B MP #### [facility] [place] [facility] [address] [id number] Lori Fátima EGFR-AF ROMANIAN >60 Normal >=60 [facility] Comment on above: Performed By: #### B MP #### [facility] [place] [facility] [address] [address] Lori Fátima EGFR-NON AF ROMANIAN 58 mL/min/1.73m2 Critically low >=60 [facility] Comment on above: Performed By: #### B MP #### [facility] [place] [facility] [address] [place], [place] [address] Lori Fátima Glucose [Mass/Vol] 127 mg/dL Critically high 74-106 [facility] Comment on above: Performed By: #### B MP #### [facility] [place] [facility] [address] [place], [place] [address] Lori Fátima Potassium [Moles/Vol] 4.1 mmol/L Normal 3.4-5.0 [facility] Comment on above: Performed By: #### B MP #### [facility] [place] [facility] [address] [place], [place] [address] Lori Fátima Sodium [Moles/Vol] 141 mmol/L Normal 137-145 [facility] Comment on above: Performed By: #### B MP #### [facility] [place] [facility] [address] [id number] Lori Fátima Urea nitrogen [Mass/Vol] 19.0 mg/dL Normal 9.0-20.0 [facility] Comment on above: Performed By: #### B MP #### [facility] [place] [facility] [address] [place], [place] [address] Lori Fátima Urea nitrogen/Creatinine [Mass ratio] 14.8 mg/mg Normal [facility] Comment on above: Performed By: #### B MP #### [facility] [place] [facility] [address] [place], [place] [address] Lori Fátima NM STRESS/REST MULTIon 01-20 -2021 NM STRESS/REST MULTI Patient: KATHERINE HOGAN Exam Date: 03/22/2020 : 1965 Gender:M Ordering : MAGUE WILDER Admission #: [id number] Family : DR JEAN-CLAUDE MESSER . Order #: [id number] CLICK HERE TO VIEW EXAM RADIOLOGY REPORT PROCEDURE: RADIONUCLIDE IMAGING STRESS/REST MULTI COMPARISON: None. INDICATIONS: Chest pain TECHNIQUE: Exam Description: Stress/Rest one day protocol gated SPECT Rest Imagin.1 mCi Tc-99m Cardiolite IV on 03/22/2020 Stress Imaging 30.2 mCi Tc-99m Cardiolite IV on 03/22/2020 Exercise Protocol: 0.4 mg Lexiscan given IV Heart Rate (bpm): Rest: 65 Max: 97 PMHR: 59 Blood Pressure: Rest: 118/84 Max: 122/88 Symptoms: Rest and peak stress ECG findings were normal and the exercise portion of the study was normal per attending physician Dr. Heard . For more details please see separate cardiac stress test report. FINDINGS: QUALITY OF STUDY: Excellent. PERFUSION DEFECT: None. LOCATION: N/A SIZE: N/A. SEVERITY: N/A. TYPE: N/A. WALL MOTION: Normal. LV SIZE: Normal. 85 mL. TID / TCD: None; 0.8 LVEF: Normal. Calculated EF 70%. SUMMARY: Myocardial perfusion imaging study is NORMAL. CONCLUSION: 1. Normal myocardial perfusion scan 2. Normal exercise test Dictated by: Ashkan Miller MD on 03/22/2020 at 13:19 Approved by: Ashkan Miller MD on 03/22/2020 at 13:26 Normal [facility] LIPID PROFILEon 03-17-2020 CHOL-HDL RATIO NORM SEE BELOW Normal [facility] Comment on above: Result Comment: 3.3 - 4.4 LOW RISK 4.4 - 7.1 AVERAGE RISK 7.1 - 11.0 MODERATE RISK >11.0 HIGH RISK Performed By: #### B MP, LIPID, LIVER #### [facility] [place] [facility] [address] [address] Lori Shine Cholesterol [Mass/Vol] 162 mg/dL Normal <=200 [facility] Comment on above: Performed By: #### B MP, LIPID, LIVER #### [facility] [place] [facility] [address] [place], [place] [address] Lori Fátima Cholesterol in HDL [Mass/Vol] 39 mg/dL Normal [facility] [place] [facility] Comment on above: Performed By: #### B MP, LIPID, LIVER #### [facility] [place] [facility] [address] [place], [place] [address] Lori Fátima Cholesterol in LDL [Mass/Vol] 97.4 mg/dL Normal [facility] [place] [facility] Comment on above: Performed By: #### B MP, LIPID, LIVER #### [facility] [place] [facility] [address] [place], [place] [address] Lori Fátima Cholesterol.total/Cho lesterol in HDL [Mass ratio] 4.2 {ratio} Normal [facility] [place] [facility] Comment on above: Performed By: #### B MP, LIPID, LIVER #### [facility] [place] [facility] [address] [place], [place] [address] Lori Fátima HDL NORMAL > or = 60 mg/dl - LO W CARDIOVASCULAR RISK <40 mg/dl - HIGH CARDIOVASCULAR RISK Normal [facility] [place] [facility] Comment on above: Performed By: #### B MP, LIPID, LIVER #### [facility] [place] [facility] [address] [place], [place] [address] Lori Fátiam LDL CALC NORMAL SEE BELOW Normal [facility] Comment on above: Result Comment: <100 mg/dl OPTIMAL 100 - 129 mg/dl NEAR OR ABOVE OPTIMAL 130 - 159 mg/dl BORDERLINE HIGH 160 - 189 mg/dl HIGH >190 mg/dl VERY HIGH Performed By: #### B MP, LIPID, LIVER #### [facility] [place] [facility] [address] [place], [place] [address] Lori Fátima Triglyceride [Mass/Vol] 128 mg/dL Normal <=150 [facility] [place] [facility] Comment on above: Performed By: #### B MP, LIPID, LIVER #### [facility] [place] [facility] [address] [id number] Lori Fátima VLDL CALC 25.6 mg/dL Normal [facility] Comment on above: Performed By: #### B MP, LIPID, LIVER #### [facility] [place] [facility] [address] [id number] Lori Fátima LIVER PROFILEon 03-17-2020 Albumin [Mass/Vol] 4.2 g/dL Normal 3.5-5.0 [facility] Comment on above: Performed By: #### B MP, LIPID, LIVER #### [facility] [place] [facility] [address] [address] Lori Fátima Albumin/Globulin [Mass ratio] 1.3 {ratio} Normal [facility] Comment on above: Performed By: #### B MP, LIPID, LIVER #### [facility] [place] [facility] [address] [address] Lori Fátima ALP [Catalytic activity/Vol] 83 U/L Normal 38-126 [facility] [place] [facility] Comment on above: Performed By: #### B MP, LIPID, LIVER #### [facility] [place] [facility] [address] [address] Lori Fátima ALT [Catalytic activity/Vol] 47 U/L Normal 21-72 [facility] Comment on above: Performed By: #### B MP, LIPID, LIVER #### [facility] [place] [facility] [address] [address] Lori Fátima AST [Catalytic activity/Vol] 17 U/L Normal 17-59 [facility] Comment on above: Performed By: #### B MP, LIPID, LIVER #### [facility] [place] [facility] [address] [place], [place] [address] Lori Fátima BILI, CONJUGATED 0.1 mg/dL Normal 0.0-0.3 [facility] Comment on above: Performed By: #### B MP, LIPID, LIVER #### [facility] [place] [facility] [address] [address] Lori Fátima Bilirubin [Mass/Vol] 0.5 mg/dL Normal 0.2-1.3 [facility] [place] [facility] Comment on above: Performed By: #### B MP, LIPID, LIVER #### [facility] [place] [facility] [address] [address] Lori Fátima Globulin (S) [Mass/Vol] 3.2 g/dL Normal [facility] Comment on above: Performed By: #### B MP, LIPID, LIVER #### [facility] [place] [facility] [address] [place], [place] [address] Lori Fátima Protein [Mass/Vol] 7.4 g/dL Normal 6.1-8.2 [facility] Comment on above: Performed By: #### B MP, LIPID, LIVER #### [facility] [place] [facility] [address] [address] Lori Fátima PROF CHEM 8 (BAS METB)on Anion gap [Moles/Vol] 11.2 mmol/L Normal [facility] Comment on above: Performed By: #### B MP, LIPID, LIVER #### [facility] [place] [facility] [address] [address] Lori Fátima Calcium [Mass/Vol] 9.7 mg/dL Normal 8.4-10.2 [facility] Comment on above: Performed By: #### B MP, LIPID, LIVER #### [facility] [place] [facility] [address] [place] [address] Lori Fátima Chloride [Moles/Vol] 100 mmol/L Normal 98-107 [facility] [place] [facility] Comment on above: Performed By: #### B MP, LIPID, LIVER #### [facility] [place] [facility] [address] [address] Lori Fátima CO2 [Moles/Vol] 28.1 mmol/L Normal 22.0-30.0 [facility] Comment on above: Performed By: #### B MP, LIPID, LIVER #### [facility] [place] [facility] [address] [place], [place] [address] Lori Fátima Creatinine [Mass/Vol] 1.55 mg/dL Critically high 0.66-1.25 [facility] [place] [facility] Comment on above: Performed By: #### B MP, LIPID, LIVER #### [facility] [place] [facility] [address] [address] Lori Fátima EGFR-AF ROMANIAN 56 mL/min/1.73m2 Critically low >=60 [facility] [place] [facility] Comment on above: Performed By: #### B MP, LIPID, LIVER #### [facility] [place] [facility] [address] [address] Lori Fátmia EGFR-NON AF ROMANIAN 47 mL/min/1.73m2 Critically low >=60 [facility] [place] [facility] Comment on above: Performed By: #### B MP, LIPID, LIVER #### [facility] [place] [facility] [address] [place], [place] [address] Lori Fátima Glucose [Mass/Vol] 101 mg/dL Normal 74-106 [facility] Comment on above: Performed By: #### B MP, LIPID, LIVER #### [facility] [place] [facility] [address] [address] Lori Fátima Potassium [Moles/Vol] 3.3 mmol/L Critically low 3.4-5.0 [facility] Comment on above: Performed By: #### B MP, LIPID, LIVER #### [facility] [place] [facility] [address] [address] Lori Fátima Sodium [Moles/Vol] 136 mmol/L Critically low 137-145 [facility] Comment on above: Performed By: #### B MP, LIPID, LIVER #### [facility] [place] [facility] [address] [address] Lori Fátima Urea nitrogen [Mass/Vol] 21.0 mg/dL Critically high 9.0-20.0 [facility] Comment on above: Performed By: #### B MP, LIPID, LIVER #### [facility] [place] [facility] [address] [address] Lori Fátima Urea nitrogen/Creatinine [Mass ratio] 13.5 mg/mg Normal [facility] Comment on above: Performed By: #### B MP, LIPID, LIVER #### [facility] [place] [facility] [address] [address] Lori Fátima Consent Formson 02-01-2020 Consent Forms [id number] [facility] 02-01-2020 Provider Orders [id number] .00[facility] Coding Summaryon 01-24-2020 Coding Summary CODING DATE: 01/24/2020 [facility] STATUS: Home PAYOR: [employer] Insurance ADMIT DX: REASON FOR VISIT DX: Z20.828 Contact with and (suspected) exposure to other viral communicable diseases FINAL DX: PRINCIPAL: U07.1 COVID-19 SECONDARY: Z20.828 Contact with and (suspected) exposure to other viral communicable diseases PYMT PROC APC STAT DESCRIPTION DOCTOR NAME DATE NOTE: The code number assigned matches the documented diagnosis and / or procedure in the patient's chart. However, the narrative phrase printed from the coding software may appear abbreviated, or result in slightly different terminology. Coded By: Oneyda Hendricks Date Saved: 01/24/2020 09:30 am [facility] 2019 Novel Coronavirus (CoVI D-19), ZAIRA LCon 01-22-2020 Employed in healthcare? No [facility] Comment on above: Order Comment: [phone] Results Called To Dr. Messer's office and left message By ZAINA On 01/22/2020 09:05:43 EST Results Called To Patient by Dolores on house By GOMEZ And Read Back For Confirmation On 01/22/2020 09:30:27 EST Performed By: #### 6 [id number] #### [facility] (DEFAULT) [address] [place] [address] Group care resident? No [facility] Comment on above: Order Comment: [phone] Results Called To Dr. Messer's office and left message By ZAINA On 01/22/2020 09:05:43 EST Results Called To Patient by Dolores on house By GOMEZ And Read Back For Confirmation On 01/22/2020 09:30:27 EST Performed By: #### 6 [id number] #### [facility] (DEFAULT) [address] [place] [address] Hospitalized due to COVID-19? No [facility] Comment on above: Order Comment: [phone] Results Called To Dr. Messer's office and left message By ZAINA On 01/22/2020 09:05:43 EST Results Called To Patient by Dolores on house By GOMEZ And Read Back For Confirmation On 01/22/2020 09:30:27 EST Performed By: #### 6 [id number] #### [facility] (DEFAULT) [address] [place] [address] In ICU? No [facility] Comment on above: Order Comment: [phone] Results Called To Dr. Messer's office and left message By ZAINA On 01/22/2020 09:05:43 EST Results Called To Patient by Dolores on house By GOMEZ And Read Back For Confirmation On 01/22/2020 09:30:27 EST Performed By: #### 6 [id number] #### [facility] (DEFAULT) [address] [place] [address] status? Not [facility] Comment on above: Order Comment: [phone] Results Called To Dr. Messer's office and left message By ZAINA On 01/22/2020 09:05:43 EST Results Called To Patient by Dolores on house By GOMEZ And Read Back For Confirmation On 01/22/2020 09:30:27 EST Performed By: #### 6 [id number] #### [facility] (DEFAULT) [address] [place] [address] Symptomatic as defined by CDC? No [facility] Comment on above: Order Comment: [phone] Results Called To Dr. Messer's office and left message By ZAINA On 01/22/2020 09:05:43 EST Results Called To Patient by Dolores on house By GOMEZ And Read Back For Confirmation On 01/22/2020 09:30:27 EST Performed By: #### 6 [id number] #### [facility] (DEFAULT) [address] [place] [id number] SARS-CoV-2, ZAIRA (COVID-19) LC Detected Abnormal Not Detected [facility] Comment on above: Order Comment: [phone] Results Called To Dr. Messer's office and left message By ZAINA On 01/22/2020 09:05:43 EST Results Called To Patient by Dolores on house By GOMEZ And Read Back For Confirmation On 01/22/2020 09:30:27 EST Result Comment: This nucleic acid amplification test was developed and its performance characteristics determined by [employer]. Nucleic acid amplification tests include PCR and TMA. This test has not been FDA cleared or approved. This test has been authorized by FDA under an Emergency Use Authorization (EUA). This test is only authorized for the duration of time the declaration that circumstances exist justifying the authorization of the emergency use of in vitro diagnostic tests for detection of SARS-CoV-2 virus and/or diagnosis of COVID-19 infection under section 564(b)(1) of the Act, 21 U.S.C. 360bbb-3(b) (1), unless the authorization is terminated or revoked sooner. When diagnostic testing is negative, the possibility of a false negative result should be considered in the context of a patient's recent exposures and the presence of clinical signs and symptoms consistent with COVID-19. An individual without symptoms of COVID-19 and who is not shedding SARS-CoV-2 virus would expect to have a negative (not detected) result in this assay. Performed At: [facility] [address] [facility] [place], [place] [id number] Luis Alberto Wilson MD Ph:[phone] Performed By: #### 6 [id number] #### [facility] (DEFAULT) [address] [place] [address] Progress Note - Nurseon 01-01 Progress Note - Nurse Nasal swab perform ed without complication. Patient tolerated well. Education given. Patient verbalized understanding. [Electronically Signed on: 01/20/2020 16:47 EST] Jenna Barrera RN [Verified on: 01/20/2020 16:47 EST] Jenna Barrera RN Normal [facility] Vital Signs Date Time Vital Sign Value Performing Clinician Faci lity 05-31-2022 10:00-0400 Diastolic blood pressure 43 mm[Hg] Nils Finney [facility] 05-31-2022 10:00-0400 Heart rate 68 /min Nils Finney [facility] 05-31-2022 10:00-0400 SaO2% (BldA) [Mass fraction] 97 % Nils Finney [facility] 05-31-2022 10:00-0400 Systolic blood pressure 120 mm[Hg] Nils Finney [facility] 05-31-2022 09:20-0400 SaO2% (BldA) [Mass fraction] 95 % Nils Finney [facility] 05-31-2022 09:19-0400 Heart rate 62 /min Nils Finney [facility] 05-31-2022 09:19-0400 SaO2% (BldA) [Mass fraction] 96 % Nils Finney [facility] 05-31-2022 09:18-0400 Diastolic blood pressure 77 mm[Hg] Nils Finney [facility] 05-31-2022 09:18-0400 Mean blood pressure 91 mm[Hg] Nils Finney [facility] 05-31-2022 09:18-0400 Systolic blood pressure 118 mm[Hg] Nils Brown [facility] 05-31-2022 09:17-0400 Respiratory rate 20 /min Nils Finney [facility] 05-31-2022 09:15-0400 Body temperature 96.98 [degF] Nils Brown [facility] 05-31-2022 09:15-0400 Body temperature 97.16 [degF] Nils Brown [facility] 05-31-2022 09:15-0400 Diastolic blood pressure 86 mm[Hg] Nils Brown [facility] 05-31-2022 09:15-0400 Diastolic blood pressure 94 mm[Hg] Nils Brown [facility] 05-31-2022 09:15-0400 Heart rate 65 /min Nils Brown [facility] 05-31-2022 09:15-0400 Mean blood pressure 99 mm[Hg] Nils Brown [facility] 05-31-2022 09:15-0400 Mean blood pressure 108 mm[Hg] Nils Brown [facility] 05-31-2022 09:15-0400 Respiratory rate 15 /min Nils Brown [facility] 05-31-2022 09:15-0400 Respiratory rate 5 /min Nils Brown [facility] 05-31-2022 09:15-0400 Systolic blood pressure 124 mm[Hg] Nils Brown [facility] 05-31-2022 09:15-0400 Systolic blood pressure 135 mm[Hg] Nils Brown [facility] 05-31-2022 09:00-0400 Mean blood pressure 96 mm[Hg] Nils Brown [facility] 05-31-2022 09:00-0400 Respiratory rate 13 /min Nils Fineny [facility] 05-31-2022 08:44-0400 Body temperature 97.16 [degF] Nilstrell Finney [facility] 05-31-2022 08:40-0400 FIO2 100 % Nils Brown [facility] 05-31-2022 08:35-0400 FIO2 30 % Nils Brown [facility] 05-31-2022 08:35-0400 Respiratory rate 16 /min Nils Brown [facility] 05-31-2022 08:30-0400 FIO2 50 % Nils Finney [facility] 05-31-2022 08:30-0400 Respiratory rate 16 /min Nils Finney [facility] 05-31-2022 06:20-0400 Heart rate 64 /min Nils Finney [facility] 05-31-2022 06:03-0400 Mean blood pressure 95 mm[Hg] Nils Finney [facility] 05-31-2022 06:01-0400 Body temperature 97.52 [degF] Nils Finney [facility] 05-31-2022 06:01-0400 Mean blood pressure 91 mm[Hg] Nils Finney [facility] 05-14-2022 09:37-0400 Diastolic blood pressure 87 mm[Hg] Nils Finney [facility] 05-14-2022 09:37-0400 Heart rate 60 /min Nils Finney [facility] 05-14-2022 09:37-0400 Mean blood pressure 108 mm[Hg] Nils Finney [facility] 05-14-2022 09:37-0400 Systolic blood pressure 149 mm[Hg] Nils Finney [facility] 05-14-2022 09:37-0400 Blood Pressure Location Nils Finney [facility] 05-14-2022 09:36-0400 Heart rate 60 /min Nils Finney [facility] 05-14-2022 09:36-0400 SaO2% (BldA) [Mass fraction] 99 % Nils Finney [facility] 05-14-2022 09:35-0400 Body temperature 97.88 [degF] Nils Finney [facility] 05-14-2022 09:35-0400 Respiratory rate 18 /min Nils Finney [facility] 05-14-2022 09:35-0400 Diastolic blood pressure 80 mm[Hg] Nils Finney [facility] 05-14-2022 09:35-0400 Mean blood pressure 99 mm[Hg] Nils Finney [facility] 05-14-2022 09:35-0400 Systolic blood pressure 136 mm[Hg] Nils Finney [facility] 05-14-2022 09:35-0400 Blood Pressure Location Nils Finney [facility] Encounters Encounter Date Encounter Type Care Provider Facility Start: 09-10-2023 End: 09-10-2023 ambulatory EDTERESE J HEMEYER Not Available Start: 07-31-2023 End: 07-31-2023 ambulatory BERENICE NAVARRO Not Available Start: 07-16-2023 End: 07-16-2023 ambulatory [facility] Start: 03-05-2023 End: 03-05-2023 ambulatory EDTERESE J HEMEYER Not Available Start: 02-13-2023 End: 02-13-2023 ambulatory EDWARD J HEMEYER Not Available Start: 02-06-2023 End: 02-06-2023 ambulatory EDWARD J HEMEYER Not Available Start: 07-23-2022 End: 07-23-2022 ambulatory [facility] Start: 05-31-2022 End: 05-31-2022 ambulatory Nils Finney Facility:[facility] Start: 05-31-2022 End: 05-31-2022 Admission to same day surgery center Nils Finney [facility] Start: 05-14-2022 End: 05-15-2022 ambulatory Nils Finney Facility:[facility] Start: 05-14-2022 End: 05-14-2022 Patient encounter procedure Nils Finney [facility] Start: 02-13-2021 End: 02-13-[address] JEAN-CLAUDE MESSER Facility:[facility] Start: 06-01-[address] JEAN-CLAUDE MESSER Facil ity:[facility] Start: 04-22-2020 End: 04-23-[address] JEAN-CLAUDE MESSER Facility:[facility] Start: 03-22-2020 End: 03-23-[address] JEAN-CLAUDE MESSER Facility:[facility] Start: 03-17-2020 End: 03-18-2020 ambulatory MAGUE WILDER Facility:[facility] Procedures Date Procedure Procedure Detail Performing Clinician Start: 05-31-2022 Arthroscopy of shoulder Nils Finney Bilateral inguinal hernia repair Nils Finney Cholecystectomy Nils Finney Colonoscopy Nils Finney Esophagogastroduodenoscopy J virgie Finney H/O: vasectomy Nils Finney Payers Date Payer Category Payer Unknown [id number] 1965 Unknown [id number] 2.16.84 [id number] 1965 Unknown [id number] 2.16.84 [id number] 1964 Unknown [id number] 2.16.84 [id number] 1964 Unknown [id number] 2.16.84 [id number] 1964 Unknown [id number] 2.16.84 [id number] 1964 Unknown [id number] 2.16.8 [id number] 1964 Unknown [id number] 2.16.8 [id number] 1964 Unknown [id number] 2.16.84 [id number] 1964 Unknown [id number] 2.16.84 [id number] 1964 Unknown [id number] 2.16.840 .[id number] 1964 Unknown [id number] 2.16.840 .[id number] 1964 Unknown [id number] [id number] 1959 Unknown [id number] Social History Date Type Detail Facility Start: 05-14-2022 Tobacco smoking status Never s moked tobacco (finding) [facility] Sex Assigned At Male [facility] Medical Equipment Procedure Code Equipment Code Equipment Origin al Text Equipment Identifier Dates SHOULDER ARTHROS COPY W/ POSSIBLE REPAIR Nils Finney DO 05/31/22 Unknown Shoulder R FDA Start: 05-31-2022 Functional Status Date Assessment Result Facility 05-14-2022 Functional Status No [facility] Progress note 07-16-2023 Note Date & Type Note Facility 07-16-2023 Note [facility] Cardiology Clinic Note Chief Complaint: Patient here for 1 year follow up hypertension, SÁNCHEZ, and PVC's. Had routine labs with lipid panel in Jan 2023. His brother just had [facility] w/ PCI to his coronary and carotid arteries. He denies chest pain, SOB, and palpitations. HPI: Katherine Hogan is a 58 y.o. male Mr. Hogan is being seen today for follow up. PMHx: HTN, HLD, GERD, hiatal hernia, arthritis, BPH, anxiety, COVID-19 infection He states he is doing very well. Denies any further complaints of dyspnea. He continues to have residual post-COVID fatigue. He recently had issues with vertigo. His PCP referred him to therapy along with started him on meclizine. He underwent 1 therapy session and his symptoms resolved. He takes meclizine as needed. He denies complaints of chest pain, orthopnea, PND, lower extremity edema, syncope. Update 07/23/2022: Doing very well. Recently had shoulder surgery with no problems. No chest pain, shortness of breath that was soon after COVID has resolved. No orthopnea, no paroxysmal external dyspnea, no lower extremity edema. Update 07/16/2023: [place] in [place]; he frequently lifts heavy objects with no exertional symptoms. Has been doing very well overall. Is understandably concerned about his brother's history of recent stent placement and his older brothers sudden cardiac with massive heart attacks Cardiology ROS: Review of Systems Respiratory: Positive for snoring. Musculoskeletal: Positive for arthritis, back pain, joint pain, joint swelling, muscle cramps, muscle weakness, neck pain and stiffness. Neurological: Positive for light-headedness ( every once in awhile ). All other systems reviewed and are negative. Past Medical History He has no past medical history on file. Surgical History He has no past surgical history on file. Social History He has no history on file for tobacco use, alcohol use, and drug use. Family History No family history on file. Allergies Milk, Oxycodone-acetaminophen, and Cortisone Medications Current Outpatient Medications: amLODIPine (Norvasc) 5 mg tablet, TAKE 1 TABLET DAILY, Disp: 90 tablet, Rfl: 3 aspirin 81 mg EC tablet, TAKE 1 TABLET DAILY, Disp: 90 tablet, Rfl: 3 atorvastatin (Lipitor) 40 mg tablet, TAKE 1 TABLET DAILY, Disp: 90 tablet, Rfl: 3 carvedilol (Coreg) 25 mg tablet, TAKE 1 TABLET DAILY, Disp: 90 tablet, Rfl: 3 carvedilol (Coreg) 25 mg tablet, Take 1 tablet (25 mg) by mouth with breakfast and with evening meal., Disp: 180 tablet, Rfl: 3 chlorthalidone (Hygroton) 25 mg tablet, TAKE ONE-HALF (1/2) TABLET DAILY, Disp: 45 tablet, Rfl: 3 lisinopril 20 mg tablet, TAKE 1 TABLET DAILY, Disp: 90 tablet, Rfl: 3 Last Recorded Vitals BP 124/84 (BP Location: Right arm, Patient Position: Sitting) Pulse 70 Ht 1.753 m (5' 9 ) Wt 100 kg (221 lb) SpO2 97% BMI 32.64 kg/m??? Physical Examination: GENERAL: alert and oriented x3, well developed, in no acute distress. HEAD: atraumatic, normocephalic. EYES: LIV, EOMI. NECK: trachea midline, no JVD present, no carotid bruits present. CARDIAC: S1, S2 present. RRR. No murmur, rubs, or gallops. RESPIRATORY: CTAB, no increased effort of breathing, no rales, rhonchi, or wheezing. ABDOMEN: soft, nontender, nondistended. EXTREMITIES: no lower extremity edema, peripheral pulses are 2+ bilaterally. No rash/skin discoloration present. NEURO: strength/sensation equal and symmetric in bilateral upper and lower extremities. PSYCH: appropriate mood, affect, and judgement. Investigations: -------- Labs 03/29/2021 CMP: Creatinine 1, BUN 24, K4.1, NA 137, GFR 74, AST 26, ALT 59 Lipids: Cholesterol 153, trig 126, HDL 45, LDL 83 NM stress test 03/22/20: negative for ischemia ECHO 02/06/20: Preserved LV function, mild atrial dilation, mild MR, normal right sided pressures Assessment: Essential hypertension Family history of premature coronary artery disease Dyspnea on exertion status post-COVID Palpitations with a history of PVCs Dyslipidemia Plan: Continue current medical therapy Return to clinic in a year or sooner should problems arise Darrell Pablo MD, MPH, FACC, [facility], [facility] Interventional Cardiology Pager Email: [email or web address] Progress note 07-23-2022 Note Date & Type Note Facility 07-23-2022 Note [facility] Cardiology Clinic Note Chief Complaint: patient is here for a 1 yr follow up HPI: Katherine Hogan is a 57 y.o. male Mr. Hogan is being seen today for follow up. PMHx: HTN, HLD, GERD, hiatal hernia, arthritis, BPH, anxiety, COVID-19 infection He states he is doing very well. Denies any further complaints of dyspnea. He continues to have residual post-COVID fatigue. He recently had issues with vertigo. His PCP referred him to therapy along with started him on meclizine. He underwent 1 therapy session and his symptoms resolved. He takes meclizine as needed. He denies complaints of chest pain, orthopnea, PND, lower extremity edema, syncope. Update 07/23/2022: Doing very well. Recently had shoulder surgery with no problems. No chest pain, shortness of breath that was soon after COVID has resolved. No orthopnea, no paroxysmal external dyspnea, no lower extremity edema. Cardiology ROS: Review of Systems Respiratory: Positive for snoring. Musculoskeletal: Positive for arthritis, back pain, joint pain, joint swelling, muscle cramps, muscle weakness, neck pain and stiffness. All other systems reviewed and are negative. Past Medical History He has no past medical history on file. Surgical History He has no past surgical history on file. Social History He has no history on file for tobacco use, alcohol use, and drug use. Family History No family history on file. Allergies Patient has no allergy information on record. Medications Current Outpatient Medications: amLODIPine (Norvasc) 5 mg tablet, TAKE 1 TABLET DAILY, Disp: 90 tablet, Rfl: 3 atorvastatin (Lipitor) 40 mg tablet, TAKE 1 TABLET DAILY, Disp: 90 tablet, Rfl: 3 carvedilol (Coreg) 25 mg tablet, TAKE 1 TABLET DAILY, Disp: 90 tablet, Rfl: 3 chlorthalidone (Hygroton) 25 mg tablet, TAKE ONE-HALF (1/2) TABLET DAILY, Disp: 45 tablet, Rfl: 3 lisinopril 20 mg tablet, TAKE 1 TABLET DAILY, Disp: 90 tablet, Rfl: 3 Last Recorded Vitals BP 120/70 (BP Location: Left arm, Patient Position: Sitting, BP Cuff Size: Large adult) Pulse 69 Ht 1.753 m (5' 9 ) Wt 97.5 kg (215 lb) SpO2 99% BMI 31.75 kg/m??? Physical Examination: GENERAL: alert and oriented x3, well developed, in no acute distress. HEAD: atraumatic, normocephalic. EYES: LIV, EOMI. NECK: trachea midline, no JVD present, no carotid bruits present. CARDIAC: S1, S2 present. RRR. No murmur, rubs, or gallops. RESPIRATORY: CTAB, no increased effort of breathing, no rales, rhonchi, or wheezing. ABDOMEN: soft, nontender, nondistended. EXTREMITIES: no lower extremity edema, peripheral pulses are 2+ bilaterally. No rash/skin discoloration present. NEURO: strength/sensation equal and symmetric in bilateral upper and lower extremities. PSYCH: appropriate mood, affect, and judgement. Investigations: -------- Labs 03/29/2021 CMP: Creatinine 1, BUN 24, K4.1, NA 137, GFR 74, AST 26, ALT 59 Lipids: Cholesterol 153, trig 126, HDL 45, LDL 83 NM stress test 03/22/20: negative for ischemia ECHO 02/06/20: Preserved LV function, mild atrial dilation, mild MR, normal right sided pressures Assessment: Essential hypertension Family history of premature coronary artery disease Dyspnea on exertion status post-COVID Palpitations with a history of PVCs Dyslipidemia Plan: Continue current medical therapy Return to clinic in a year or sooner should problems arise Darrell Pablo MD, MPH, [facility], [facility], [facility] Interventional Cardiology Pager Email: [email or web address] Evaluation + Plan note 05-31-2022 Note Date & Type Note Facility 05-31-2022 Evaluation + Plan note Extrac noreen from: Title:ANES Pre-operative Note Author:Brandan Connor CRNA Date:05/31/22 Plan [place] [employer] (ASA) physical status classification: Class III. Anesthetic Preoperative Plan: Anesthesia General. Regional Brachial plexus block. [facility] Hospital Discharge instructions 05-31-2022 Note Date & Type Note Facility 05-31-2022 Hospital Discharg e instructions Patient Education 05/31/2022 09:09:39 Shoulder Cryocuff Patient Instructions - FT (CUSTOM) 05/31/2022 09:09:39 Post Op Patient Instructions - FT (CUSTOM) 05/31/2022 07:10:07 Segundo Finney - After Your Shoulder Arthroscopy (Custom) [place], [place] [facility] AFTER YOUR SHOULDER ARTHROSCOPY 1.Diet: Begin with a liquid diet and advance to your normal diet as tolerated. 2.Activity: You may remove your sling for bathing and to perform gentle range of motion exercises for the hand, wrist, and elbow. Bend and straighten your elbow and wrist several times per day to minimize stiffness. Keep your elbow in close to your side when performing these exercises. Do not move your shoulder until instructed by your surgeon. Swelling after surgery is normal and this will gradually decrease over time. All sports activities are discouraged, at least until your first post-operative visit at which time we will discuss how and when to resume sports. 3. Driving: Driving is legal. If you are involved in an accident, you must be able to prove that you maintained full control of your vehicle. For this reason, it is advised that you do not drive until your strength returns. You should not operate a vehicle or heavy machinery if you are taking narcotic pain medication. 4. Pain: If pain persists despite rest, elevation, and medication, contact your surgeon. You will be given a prescription for pain medications prior to leaving the hospital. Please inform us of any known drug allergy. If you have any problems with the medication, it should be discontinued and our office notified. The sensation of splashing of fluid inside the joint is not cause for concern. It represents residual fluids from surgery and they will be absorbed. Elevation of the arm and application of an ice pack will minimize swelling and discomfort in the first 48 hours after surgery. 5. Bandage: Soft compression dressing has been applied to your shoulder. This dressing should be comfortable and absorb any leakage of fluid or blood from your operated shoulder. Although the dressing may become moist or blood stained, this is not usually a cause for concern. If this persists, notify your surgeon. You may remove the dressing 48 hours after your surgery. If you have a bandage in your armpit, leave this in place until follow up. Apply betadine and band-aids to the small incisions once or twice daily as needed. 6.Incisions: The portals of entry may be sore and develop bruising over the next several days. The bruising eventually resolves and does not require any special care. Do not apply creams or lotions to your shoulder. Your portals will heal well on their own. 7.Bathing: You may shower 48 hours after surgery. Bathing or soaking in water should be avoided until your first post-operative visit. 8.Precautions: If you develop fever (101 degrees or above), increasing pain (not relieved by rest, elevation, ice, and medication as prescribed), redness or swelling in your shoulder or arm, please contact the office or the hospital. If you notice increased drainage from the operative portals after the third day, this should also be reported. 9.Return Visit: Your first post-operative follow-up appointment is generally between 7 and 14 days after discharge from the hospital. You will be given an appointment card with your appointment information. Do not hesitate to call the office or the hospital if any problems or questions arise before your appointment. Nils Finney, DO [facility] [address] [place] [address] Reviewed: [facility] History and physical note 05-30-2022 Note Date & Type Note Facility 05-30-2022 Note [id number] [facility] Evaluation + Plan note Note Date & Type Note Facility Evaluation + Plan note Future Appointments Appointment Date:05/31/2022 07:30:00 AM Scheduled Provider: Location:[facility] Surgical Services Appointment Type:Surgery FT [facility] Hospital course Narrative Note Date & Type Note Facility Hospital course Narrative No data available for this section [facility] Hospital Discharge instructions Note Date & Type Note Facility Hospital Discharge instructions No data available for this section [facility] Progress note Note Date & Type Note Facility Progress note No data available for this section [facility] Summary Purpose Family History No Family History Records FoundNo Family History Records FoundNo Family History Records FoundNo Family History Records FoundNo Family History Records FoundNo Family History Records Found Advance Directives No Advanced Directives Records FoundNo Advanced Directives Records FoundNo Advanced Directives Records FoundNo Advanced Directives Records FoundNo Advanced Directives Records FoundNo Advanced Directives Records Found Additional Source Comments (unrecognized sect ion and content) No Status Records FoundNo Status Records FoundNo Status Records FoundNo Status Records FoundNo Status Records FoundNo Status Records Found INFORMATION SOURCE (unrecogn ized section and content) DATE CREATED AUTHOR 02/01/2020 [facility] l DATE CREATED AUTHOR AUTHOR'S ORGANIZ ATION 02/18/2021 [facility] DATE CREATED AUTHOR AUTHOR'S ORGANIZ ATION 01/10/2022 [facility] DATE CREATED AUTHOR AUTHOR'S ORGANIZ ATION 06/11/2022 [facility] DATE CREATED AUTHOR AUTHOR'S ORGANIZ ATION 07/19/2023 [facility] DATE CREATED AUTHOR AUTHOR'S ORGANIZ ATION 09/17/2023 [facility] Patient Care team informatio n (unrecognized section and content) Personnel Name: AYDE FRIEND, JEAN-CLAUDE Jeffrey Address: Address: [address] [address] Name: Katherin Alcazar FOR RECORDS PERTAINING TO PATIENTS WHO ARE OR HAVE BEEN ENROLLED IN A CHEMICAL DEPENDENCY/SUBSTANCEABUSE PROGRAM, SOME INFORMATION MAY BE OMITTED. This clinical summary was aggregated from multiple sources. Caution should be exercised in using it in the provision of clinical care. This summary normalizes information from multiple sources, and as a consequence, information in this document may materially change the coding, format and clinical context of patient data. In addition, data may be omitted in some cases. CLINICAL DECISIONS SHOULD BE BASED ON THE PRIMARY CLINICAL RECORDS. [facility] [employer] [facility]. provides no warranty or guarantee of the accuracy or completeness of information in this document.
[2023-11-08 09:06] LABS: Free T4 0.71 ng/dL (0.76-1.46)
[2023-11-08 09:55] LABS: Free T3 2.67 pg/mL (2.18-3.98); Thyroid Stimulating Hormone 1.811 uIU/mL (0.358-3.740)
[2023-11-09 06:38] LABS: DHEA-Sulfate 74.4 ug/dL (48.9-344.2); Testosterone 367 ng/dL (264-916); Triiodothyronine (T3) 93 ng/dL (71-180)
[2023-11-10 13:07] LABS: ACTH, Plasma 40.6 pg/mL (7.2-63.3)
[2023-11-12 16:10] LABS: Reverse T3, Serum 10.2 ng/dL (9.2-24.1)
== END 2023-11-08 07:42 | disposition home or self-care (01) ==
LOC: LAB 07:43
PROVIDERS: PCP Family Medicine; Visit Provider Family Medicine
DX: R53.82 Chronic fatigue, unspecified (principal); R68.82 Decreased libido; Z83.49 Family history of other endocrine, nutritional and metabolic diseases; E34.8 Other specified endocrine disorders
CPT/HCPCS: 36415; 82024; 82533; 82627; 82670; 84403; 84439; 84443; 84480; 84481; 84482

== ENCOUNTER 2024-05-22 10:52 | Outpatient (OUT) | payer OTHER, SELFPAY ==
--- OUTSIDE RECORDS SUMMARY | 2024-05-22 10:56 | XMS_ITS | CCD ---
Author Organization [facility] [email or web address] Team Providers Care Pipeline Controller Name Role Phone AYDE, DR BERMEO Primary [...] NONE, XXXX Primary Care Physician Unavailab le ZEB MESSER Primary Care Physician Unavail able Katherin Alcazar Unavailable Unavailable Nils Finney Admitting Unavailable Nils Finney Referring Unavailable Nils Finney Attending Unavailable Reg Nils A Referring Unavailable Nils Finney A Attending Unavailable Nils Finney Admitting Unavailable ELMAIRUSZ, EHAB Attending Unavailable EL, AJNKIAB Attending Unavailable Zeb Messer MD Primary Care Provider [phone] Berenice Tolbert Unavailable Zeb Messer MD Primary Care Provider [phone] Zeb Messer MD Primary Care Provider [phone] ZEB MESSER Attending Unavailable BERENICE GREEN Attending Unavailable ZEB MESSER Attending Unavailable HEMEYER, EDWARD J Attending Unavailable ZEB MESSER Attending Unavailable ZEB MESSER Attending Unavailable ZEB MESSER Attending Unavailable Allergies Allergy Classification Reported Allergen(s) Allergy Type Date of Onset Reaction(s) Facility (1 source) Acetaminophen / oxyCODONE Drug Allergy [facility] Repository (1 source) Codeine Drug Allergy [facility] Repository (2 sources) Cortisone; Translations: [CORTISONE] Drug Allergy 6 [facility] Repository (1 source) Lactose Drug Allergy 6 [facility] Repository (20 sources) Acetaminophen / oxyCODONE; Translations: [OXYCODONE-ACETAM INOPHEN] Drug Allergy 1 Unknown [facility] Repository (1 source) Milk; Translations: [MILK] Propensity to adverse reactions to drug (disorder) 1 [facility] Repository (20 sources) Cortisone Drug Allergy 1 Rash [facility] Healthcare Work Phone: (20 sources) Milk-Related Compounds Propensity to adverse reactions 3 [facility] Healthcare Work Phone: (20 sources) Neomycin-Bacitrac in Zn-Polymyx Drug Intolerance 1 Rash [facility] Healthcare Medications Current Medications Medication Drug Class(es) Dates [...] 0, 1-2 tab(s) Oral q4hr, [facility] #[id number], 173.5, cm, 05/14/22 11:51:00 EDT, Height/Length Dosing, 98.2, kg, 05/14/22 11:51:00 EDT, Weight Dosing Start Date: 05/31/22 Status: Ordered amLODIPine 5 mg oral tablet (20 sources) Dihydropyridine Calcium Channel Vasquez Start: 09-10-2023 End: 09-04-2024 take 1 tablet by mouth once daily amLODIPine (Norvasc) 5 MG tablet Indications: Essential hypertension (CMS/HCC) Take 1 tablet (5 mg) by mouth Daily 90 tablet 1 03/08/2024 09/04/2024 Active Start: 05-14-2022 take 1 tablet by selina th once daily amLODIPine 5 mg Tab 5 mg = 1 tab(s), Oral, Daily, High blood pressure Start Date: 05/14/22 Status: Ordered ascorbic acid 1000 mg oral tablet (1 source) Vitamin C take 1 tablet by mouth once daily Ascorbic Acid (vitamin C) 1000 MG tablet Take 1,000 mg by mouth Daily Active aspirin 81 mg oral tablet (20 sources) Platelet Aggregation Inhibitor, Nonsteroidal Anti-inflammatory Drug Start: 05-14-2022 take 81 mg by mouth once daily aspirin 81 mg, Oral, Daily, Prophylaxis Start Date: 05/14/22 Status: Ordered take 1 tablet by mouth in the mo rning aspirin 81 MG EC tablet Take 81 mg by mouth in the morning. Active atorvastatin 40 mg oral tablet (20 sources) HMG-CoA Reductase Inhibitor Start: 09-10-2023 End: 09-04-2024 take 1 tablet by mouth once daily atorvastatin (Lipitor) 40 MG tablet Indications: Mixed hyperlipidemia (CMS/HCC) Take 1 tablet (40 mg) by mouth Daily 90 tablet 1 03/08/2024 09/04/2024 Active Start: 05-14-2022 take 1 tablet by selina th once daily atorvastatin 40 mg Tab 40 mg = 1 tab(s), Oral, Daily, High cholesterol Start Date: 05/14/22 Status: Ordered Vanesa albicans allergenic extract (2 sources) Non-Standardized Food Allergenic Extract, Non-Standardized Fungal Allergenic Extract Start: 05-14-2022 LDI Yeast C19 LDI Yeast C19, 1 dose, SubLingual, 6 units every 7 weeks Prophylaxis Start Date: 05/14/22 Status: Ordered carvedilol 25 mg oral tablet (20 sources) alpha-Adrenergic Vasquez, beta-Adrenergic Vasquez Start: 09-10-2023 End: 09-04-2024 take 1 tablet by mouth in the morning carvedilol (Coreg) 25 MG tablet Indications: Essential hypertension (CMS/HCC) Take 1 tablet (25 mg) by mouth in the morning and 1 tablet (25 mg) in the evening. Take with meals. 180 tablet 1 03/08/2024 09/04/2024 Active Start: 05-14-2022 take 1 tablet by selina th once daily carvedilol 25 mg Tab 25 mg = 1 tab(s), Oral, Daily, High blood pressure Start Date: 05/14/22 Status: Ordered celecoxib 100 mg oral capsule (2 sources) Nonsteroidal Anti-inflammatory Drug Start: 05-31-2022 take 1 capsule by mouth twice daily as needed for pain CeleBREX 100 mg Cap 100 mg = 1 cap(s), Oral, BID, PRN for pain, # 60 cap(s), Refills(s) 0, Pharmacy: [facility] #[id number], 173.5, cm, 05/14/22 11:51:00 EDT, Height/Length Dosing, 98.2, kg, 05/14/22 11:51:00 EDT, Weight Dosing Start Date: 05/31/22 Status: Ordered Start: 05-14-2022 take 1 capsule by mo ut twice daily CeleBREX 200 mg Cap 200 mg = 1 cap(s), Oral, BID, Pain Start Date: 05/14/22 Status: Ordered cholecalciferol 0.025 mg oral capsule (20 sources) Vitamin D take 1 capsule by mouth in the morning cholecalciferol (Vitamin D-3) 25 MCG (1000 UT) capsule Take 5,000 Units by mouth in the morning. Active CoQ10 (2 sources) Start: take 100 mg by mouth once daily CoQ10 100 mg, Oral, Daily, Prophylaxis Start Date: 05/14/22 Status: Ordered diclofenac sodium 20 mg/ml topical solution (20 sources) Nonsteroidal Anti-inflammatory Drug Start: diclofenac 2% topical solution 1 application, Topical, TID, Prophylaxis Start Date: 05/14/22 Status: Ordered diclofenac sodiu m (Voltaren Arthritis Pain) 1 % gel Apply 2 g topically 3 (three) times a day as needed for pain. Active docusate sodium 100 mg oral capsule (1 source) Start: 05-31-2022 take 1 capsule by mouth twice daily as needed for constipation Colace 100 mg Cap 100 mg = 1 cap(s), Oral, BID, PRN for constipation, # 20 cap(s), Refills(s) 0, [facility]: [facility] #[id number], 173.5, cm, 05/14/22 11:51:00 EDT, Height/Length Dosing, 98.2, kg, 05/14/22 11:51:00 EDT, Weight Dosing Start Date: 05/31/22 Status: Ordered famotidine 20 mg oral tablet (20 sources) Histamine-2 Receptor Antagonist Start: 09-10-2023 End: 09-04-2024 take 1 tablet by mouth at bedtime famotidine (Pepcid) 20 MG tablet Indications: Gastroesophageal reflux disease without esophagitis Take 1 tablet (20 mg) by mouth at bedtime 90 tablet 1 03/08/2024 09/04/2024 Active Start: 05-14-2022 take 1 tablet by selina th once daily at bedtime famotidine 20 mg Tab 20 mg = 1 tab(s), Oral, Once a day (at bedtime), Control of stomach acid Start Date: 05/14/22 Status: Ordered finasteride 5 mg oral tablet (20 sources) 5-alpha Reductase Inhibitor Start: 09-10-2023 End: 03-08-2024 take 1 tablet by mouth once daily finasteride (Proscar) 5 MG tablet Indications: Benign prostatic hyperplasia without lower urinary tract symptoms TAKE 1 TABLET BY MOUTH ONCE DAILY 90 tablet 1 03/08/2024 Active Start: 05-14-2022 take 1 tablet by selina th once daily finasteride 5 mg Tab 5 mg = 1 tab(s), Oral, Daily, Urinary discomfort Start Date: 05/14/22 Status: Ordered gabapentin 100 mg oral capsule (2 sources) Anti-epileptic Agent Start: 05-14-2022 take 2 capsules by mouth four times daily gabapentin 100 mg Cap 200 mg = 2 cap(s), Oral, QID, Muscle pain Start Date: 05/14/22 Status: Ordered imiquimod 50 mg/ml topical cream (20 sources) Start: 05-14-2022 imiquimod (Aldara) 5 % cream Apply topically. 05/14/2022 Active Start: 05-14-2022 imiquimod Top 5% Crm 1 carlos, Topical, Bedtime, Prophylaxis Start Date: 05/14/22 Status: Ordered krill oil 500 mg oral capsule (20 sources) Krill Oil ([place] -3) 500 MG capsule Take by mouth. Active lamoTRIgine 200 mg oral tablet (20 sources) Mood Stabilizer, Anti-epileptic Agent Start: 09-10-2023 End: 09-04-2024 take 1 tablet by mouth in the morning lamoTRIgine (LaMICtal) 200 MG tablet Indications: Mixed anxiety and depressive disorder Take 1 tablet (200 mg) by mouth in the morning and 1 tablet (200 mg) before bedtime. 180 tablet 1 03/08/2024 09/04/2024 Active Start: 05-14-2022 take 1 tablet by selina th twice daily lamotrigine 200 mg oral tablet, disintegrating 200 mg = 1 tab(s), Oral, BID, Depression Start Date: 05/14/22 Status: Ordered LDI (20 sources) Start: 11-25-2023 End: 11-24-2024 LDI Indications: COVID-[address] 1 Dose under the tongue See administration instructions LDI: URI Mix C13 Units:4 Dose Type: Titrating 11/25/2023 11/24/2024 Active Start: 07-09-2023 End: 07-08-2024 LDI Indications: COVID-19 Pl danielle 1 Dose under the tongue See administration instructions LDI: URI Mix C10.5 Units:4 Dose Type: Titrating 07/09/2023 07/08/2024 Active Start: 01-17-2023 End: 01-17-2024 LDI Indications: [place] is Place 1 Dose under the tongue See administration instructions. LDI: Lyme Mix C15 Units:6 Dose Type: Core 1 Dose LIFETIME 01/17/2023 01/17/2024 Active Start: 01-17-2023 End: 01-17-2024 LDI Indications: Chronic fat igue syndrome Place 1 Dose under the tongue See administration instructions. LDI: Food Mix C8.5 Units:4 Dose Type: Core 1 Dose LIFETIME 01/17/2023 01/17/2024 Active Start: 01-17-2023 End: 01-17-2024 LDI Indications: Chronic fat igue syndrome Place 1 Dose under the tongue See administration instructions. LDI: Yeast Mix C19 Units:6 Dose Type: Core 1 Dose LIFETIME 01/17/2023 01/17/2024 Active LDI Foods (2 sources) Start: 05-14-2022 LDI Foods LDI Foods, 1 dose, SubLingual, Prophylaxis 6 units every 7 weeks Start Date: 05/14/22 Status: Ordered LDI Lyme C15 (2 sources) Start: 05-14-2022 LDI Lyme C15 L DI Lyme C15, 1 dose, SubLingual, prophylaxis 6 units every 7 weeks Start Date: 05/14/22 Status: Ordered lisinopril 20 mg oral tablet (20 sources) Angiotensin Converting Enzyme Inhibitor Start: 09-10-2023 End: 03-08-2024 take 1 tablet by mouth once daily lisinopril 20 MG tablet Indications: Essential hypertension (CMS/HCC) Take 1 tablet by mouth once daily 90 tablet 1 03/08/2024 Active Start: 05-14-2022 take 1 tablet by selina once daily lisinopril 20 mg Tab 20 mg = 1 tab(s), Oral, Daily, High blood pressure Start Date: 05/14/22 Status: Ordered meclizine hydrochloride 25 mg oral tablet (20 sources) Antiemetic Start: 10-28-2022 take 0.5-2 tablets by mouth three times daily meclizine (Antivert) 25 MG tablet Indications: Vertigo meclizine 25 mg tablet take 1/2 to 2 tablets by mouth three times a day if needed for VERTIGO 270 tablet 10/28/2022 Active Start: 05-14-2022 meclizine 25 m g Tab Oral, PRN Dizziness, Take 0.5-2 tabs as needed for vertigo, Refills(s) 0 Start Date: 05/14/22 Status: Ordered methocarbamol 750 mg oral tablet (20 sources) Muscle Relaxant Start: 09-10-2023 take 1 tablet by mouth three times daily as needed for muscle spasms methocarbamol (Robaxin) 750 MG tablet Indications: Strain of lumbar region, initial encounter Take 1 tablet (750 mg) by mouth 3 (three) times a day as needed for muscle spasms 90 tablet 09/10/2023 Active Misc Natural Products (DETOX PO) (1 source) take 2 tablets by mouth once daily Misc Natural Products (DETOX PO) Take 2 tablets by mouth Daily Active Multivitamin preparation (2 sources) Start: 05-14-2022 take [...] PRN Nausea Start Date: 05/14/22 Status: Ordered Prasterone, DHEA, (DHEA PO) (1 source) take 1 tablet by mouth once daily Prasterone, DHEA, (DHEA PO) Place 1 tablet under the tongue Daily Active Probiotic Product (PROBIOTIC PO) (1 source) take 1 capsule by mouth three times weekly Probiotic Product (PROBIOTIC PO) Take 1 capsule by mouth 3 (three) times a week Active [place] (2 sources) Start: 05-14-2022 take 450 mg by mouth twice daily [place] 450 mg, Oral, BID, Prophylaxis Start Date: 05/14/22 Status: Ordered therapeutic multivitamin-minera ls (Theragran-M) tablet (20 sources) take 2 tablets by mouth in the morning therapeutic multivitamin-minera ls (Theragran-M) tablet Take 2 tablets by mouth in the morning. Active thyroid (mcc) 15 mg oral tablet (18 sources) Start: 11-25-2023 End: 09-04-2024 take 3 tablets by mouth in the morning thyroid ([place] Thyroid) 15 MG tablet Indications: Central hypothyroidism (CMS/HCC) , Euthyroid sick syndrome Take 3 tablets (45 mg) by mouth in the morning and 3 tablets (45 mg) before bedtime. 540 tablet 1 03/08/2024 09/04/2024 Active traMADol hydrochloride 50 mg oral tablet (1 [...] venlafaxine 75 mg extended release oral capsule (20 sources) Serotonin and Norepinephrine Reuptake Inhibitor Start: 10-29-2023 End: 09-04-2024 take 3 capsules by mouth once daily venlafaxine XR (Effexor XR) 75 MG 24 hr capsule Indications: Mixed anxiety and depressive disorder Take 3 capsules (225 mg) by mouth Daily 270 capsule 1 03/08/2024 09/04/2024 Active Start: 05-14-2022 take 1 capsule by [facility] once daily venlafaxine 75 mg Cap-ER 75 [...] Daily, Prophylaxis Start Date: 05/14/22 Status: Ordered Zn-Pyg Jkvq-Grfyhl-Gnt Palmet (SAW PALMETTO COMPLEX PO) (20 sources) Zn-Pyg Afri-Nett le-Saw Palmet (SAW PALMETTO COMPLEX PO) Take by mouth. Active Completed/Discontinued Medications Medication Drug Class(es) Dates Sig (Normalized) Sig (Original) cefuroxime 500 mg oral tablet (6 sources) Cephalosporin Antibacterial Start: 02-23-2024 End: 03-08-2024 take 1 tablet by mouth in the morning cefuroxime (Ceftin) 500 MG tablet Indications: Acute non-recurrent sinusitis, unspecified location Take 1 tablet (500 mg) by mouth in the morning and 1 tablet (500 mg) before bedtime. Do all this for 7 days. 14 tablet 02/23/2024 03/08/2024 Discontinued (Therapy completed) Start: 05-14-2022 take 500 mg by mouth every twelve hours cefuroxime 500 mg, Oral, q12hr, Prophylaxis Start Date: 05/14/22 Status: Ordered chlorthalidone 25 mg oral tablet (20 sources) Thiazide-like Diuretic Start: 09-10-2023 End: 03-08-2024 take 0.5 tablet by mouth once daily chlorthalidone (Hygroton) 25 MG tablet Indications: Essential hypertension (CMS/HCC) Take 0.5 tablets (12.5 mg) by mouth Daily 45 tablet 1 09/10/2023 03/08/2024 Discontinued (Therapy completed) Start: 05-14-2022 take 1 tablet by selina th once daily chlorthalidone 25 mg Tab 25 mg = 1 tab(s), Oral, Daily, Edema Start Date: 05/14/22 Status: Ordered prasterone 25 mg oral tablet (14 sources) Start: 12-08-2023 End: 03-17-2024 Prasterone, DHEA, (DHEA Micronized) 25 MG tablet Indications: Abnormal level of hormones in specimens from other organs, systems and tissues Place 25 mg under the tongue at bedtime 12/08/2023 03/17/2024 Problems Active Problems Problem Classification Problem Date Documented Date Episodic/Chronic Anxiety disorders (20 sources) Anxiety; Translations: [Mixed anxiety and depressive disorder] Onset: 05-19-2015 05-14-2022 Chronic Chronic kidney disease (20 sources) Chronic kidney disease stage 3; Translations: [Stage 3 chronic kidney disease (HCC)] Onset: 03-20-2020 Resolved: 03-20-2023 03-20-2023 Chronic Disorders of lipid metabolism (20 sources) Mixed hyperlipidemia; Translations: [Hyperlipidemia, unspecified] Onset: 02-16-2015 Resolved: 09-11-2022 05-14-2022 Chronic Esophageal disorders (20 sources) Gastroesophageal reflux disease; Translations: [Gastro-esophageal reflux disease without esophagitis] Onset: 02-23-2020 08-27-2022 Chronic Essential hypertension (20 sources) Essential (primary) hypertension; Translations: [Hypertensive disorder] Onset: 02-16-2015 Chronic Hyperplasia of prostate (20 sources) Lower urinary tract symptoms due to benign prostatic hypertrophy; Translations: [Benign prostatic hyperplasia with lower urinary tract symptoms] Onset: 10-01-2017 08-27-2022 Chronic Malaise and fatigue (20 sources) Fatigue; Translations: [Chronic fatigue, unspecified] Onset: 12-04-2015 Resolved: 03-04-2024 11-25-2023 Chronic Noninfectious gastroenteritis (2 sources) Gastroenteritis; Translations: [Noninfective gastroenteritis and colitis, unspecified] 01-05-2024 Episodic Osteoarthritis (20 sources) Arthritis; Translations: [Degenerative joint disease involving multiple joints] Onset: 10-06-2018 Resolved: 02-06-2023 05-14-2022 Chronic Other hereditary and degenerative nervous system conditions (20 sources) Impaired cognition; Translations: [Mild cognitive impairment, so stated] Onset: 11-06-2017 08-27-2022 Chronic Other infections; including parasitic (16 sources) Late effects of other and unspecified infectious and parasitic diseases; Translations: [COVID-19 long hauler] Onset: 11-26-2023 11-26-2023 Chronic Other nervous system disorders (2 sources) Chronic pain syndrome; Translations: [Chronic pain syndrome] 10-30-2023 Chronic Other nutritional; endocrine; and metabolic disorders (20 sources) Obesity caused by energy imbalance; Translations: [Other obesity due to excess calories] Onset: 11-30-2019 11-26-2023 Chronic Other screening for suspected conditions (not mental disorders or infectious disease) (4 sources) Decreased testosterone level ; Translations: [Other specified abnormal findings of blood chemistry] 12-08-2023 Episodic Other upper respiratory infections (1 source) Acute sinusitis; Translations: [Acute sinusitis, unspecified] 02-23-2024 Episodic Residual codes; unclassified (20 sources) Sleep apnea; Translations: [Sleep apnea, unspecified] Onset: 07-23-2022 05-14-2022 Chronic Comment on above: uses Cpap Residual codes; unclassified (2 sources) Obstructive sleep apnea syndrome; Translations: [Obstructive sleep apnea (adult) (pediatric)] 02-18-2024 Chronic Residual codes; unclassified (2 sources) Family history of ischemic heart disease and other diseases of the circulatory system; Translations: [Family history of ischemic heart disease and other diseases of the circulatory system] Onset: 07-16-2023 Episodic Residual codes; unclassified (2 sources) Active advance directive (copy within chart) ; Translations: [Other specified health status] 02-11-2024 Episodic Thyroid disorders (4 sources) Central hypothyroidism; 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] 11-25-2023 Chronic Thyroid disorders (4 sources) Sick-euthyroid syndrome; Translations: [Sick-euthyroid syndrome] 11-25-2023 Episodic Unclassified (3 sources) CONTACT W/AND (SUSP) EXPOS COVID-19; Translations: [CONTACT W/AND (SUSP) EXPOS COVID-19] Onset: 02-17-2021 Past or Other Problems Problem Classification Problem Date Documented Da te Episodic/Chronic Abdominal hernia (20 sources) Hiatal hernia; Translations: [Diaphragmatic hernia without obstruction or gangrene] Onset: 08-27-2022 05-14-2022 Episodic Bacterial infection; unspecified site (20 sources) Bartonellosis; 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, unspecified] Onset: 12-15-2017 08-27-2022 Episodic Conditions associated with dizziness or vertigo (20 sources) Vertigo; Translations: [Dizziness and giddiness] Onset: 07-23-2022 05-14-2022 Episodic Joint disorders and dislocations; trauma-related (20 sources) Articular cartilage disorder of shoulder region; Translations: [Other articular cartilage disorders, right shoulder] Onset: 09-11-2022 Resolved: 02-06-2023 02-06-2023 Chronic Mood disorders (20 sources) Mood disorders Onset: 10-30-2023 10-30-2023 Nonspecific chest pain (4 sources) Other chest pain; Translations: [OTHER CHEST PAIN] Onset: 03-22-2020 Episodic Other aftercare (20 sources) Polypharmacy ; Translations: [Other intermediate manager (current) drug therapy] Onset: 09-11-2023 11-26-2023 Episodic Other connective tissue disease (20 sources) Right rotator cuff syndrome; Translations: [Unspecified rotator cuff tear or rupture of right shoulder, not specified as traumatic] Onset: 09-11-2022 Resolved: 02-06-2023 02-06-2023 Episodic Other connective tissue disease (20 sources) Subscapularis tendinitis; Translations: [Other enthesopathies, not elsewhere classified] Onset: 09-11-2022 Resolved: 02-06-2023 02-06-2023 Episodic Other diseases of veins and lymphatics (20 sources) Peripheral venous insufficiency; Translations: [Venous insufficiency (chronic) (peripheral)] Onset: 02-16-2015 08-27-2022 Episodic Other endocrine disorders (2 sources) Hypotestosteronism; Translations: [Endocrine disorder, unspecified] 10-30-2023 Episodic Other endocrine disorders (2 sources) Hyperestrogenism; Translations: [Other specified endocrine disorders] 10-30-2023 Episodic Other gastrointestinal disorders (20 sources) History of irritable bowel syndrome; Translations: [Personal history of other diseases of the digestive system] Onset: 07-23-2022 05-14-2022 Episodic Other infections; including parasitic (20 sources) Borreliosis ; Translations: [Lyme disease, unspecified] Onset: 12-15-2017 08-27-2022 Episodic Other non-traumatic joint disorders (20 sources) Derangement of right shoulder joint; Translations: [Other specific joint derangements of right shoulder, not elsewhere classified] Onset: 09-11-2022 Resolved: 02-06-2023 02-06-2023 Chronic Other non-traumatic joint disorders (20 sources) Stiffness of right shoulder; Translations: [Stiffness of right shoulder, not elsewhere classified] Onset: 07-24-2022 07-24-2022 Episodic Other non-traumatic joint disorders (20 sources) Pain in right shoulder; Translations: [Pain in joint, shoulder region] Onset: 07-24-2022 Resolved: 02-06-2023 02-06-2023 Episodic Other nutritional; endocrine; and metabolic disorders (20 sources) Overweight; Translations: [Overweight] Onset: 12-23-2016 Resolved: 02-13-2023 02-13-2023 Episodic Residual codes; unclassified (2 sources) Reduced libido; Translations: [Decreased libido] 10-30-2023 Episodic Sprains and strains (20 sources) Anterior to posterior tear of superior glenoid labrum of right shoulder; Translations: [Superior glenoid labrum lesion of right shoulder, initial encounter] Onset: 09-11-2022 Resolved: 02-06-2023 02-06-2023 Episodic Unclassified (1 source) CONTACT W/AND (SUSP) EXPOS COVID-19; Translations: [CONTACT W/AND (SUSP) EXPOS COVID-19] Onset: 02-13-2021 Viral infection (16 sources) Disease caused by 2019-nCoV; Translations: [COVID-19] Onset: 11-26-2023 Resolved: 02-18-2024 11-26-2023 Episodic Results Test Name Value Interpretation Reference Range Facility T3 REVERSE, LC/MS/MSon 02-21 T3 REVERSE, LC/MS/MS 12 ng/dL Normal 8-25 [facility] Comment on above: Order Comment: FASTI NG:YES FASTING: YES Result Comment: This test was developed and its analytical performance characteristics have been determined by [facility] [place], [place]. It has not been cleared or approved by the U.S. Food and Drug Administration. This assay has been validated pursuant to the CLIA regulations and is used for clinical purposes. Performed By: #### 3 [id number], [id number], [id number] #### [facility] [place] [id number] Helper/Driver: Carlos Manuel Sevilla MD #### [id number] #### [facility]/[place] [id number] [facility] [place], [place] Helper/Driver: rKunal Mcgee M.D.,PhD T3, FREEon 02-22-2024 Free T3 [Mass/Vol] 4.0 pg/mL Normal 2.3-4.2 [facility] Comment on above: Performed By: #### 3 [id number], [phone], [id number] #### [facility] [address], [address] [place] [address] Helper/Driver: Carlos Manuel Sevilla MD #### [id number] #### [facility]/[place] [id number] [facility] [place], [place] Helper/Driver: Krunal Mcgee M.D.,PhD T3, TOTALon 02-22-2024 T3, TOTAL 122 ng/dL Normal 76-181 [facility] Comment on above: Performed By: #### 3 [id number], [phone] [phone] #### [facility] [address], [address] [place] [address] Helper/Driver: Carlos Manuel Sevilla MD #### [id number] #### [facility] [id number] [facility] [place], [place] Helper/Driver: Krunal Mcgee M.D.,PhD T4, FREEon 02-22-2024 Free T4 [Mass/Vol] 1.0 ng/dL Normal 0.8-1.8 [facility] Comment on above: Performed By: #### 3 [id number], [phone], [id number] #### [facility] [address], [address] [place], [place] [id number] Helper/Driver: Carlos Manuel Sevilla MD #### [id number] #### [facility] [place], [place] Helper/Driver: Krunal Mcgee M.D.,PhD HEMOGLOBIN A1con 02-21-2024 HEMOGLOBIN A1c 5.6 % of total Hgb Normal <5.7 [facility] Comment on above: Order Comment: FASTI NG:NO FASTING: NO Result Comment: For the purpose of screening for the presence of diabetes: <5.7% Consistent with the absence of diabetes 5.7-6.4% Consistent with increased risk for diabetes (prediabetes) > or =6.5% Consistent with diabetes This assay result is consistent with a decreased risk of diabetes. Currently, no consensus exists regarding use of hemoglobin A1c for diagnosis of diabetes in children. According to [place] [employer] (ADA) guidelines, hemoglobin A1c <7.0% represents optimal control in non- diabetic patients. Different metrics may apply to specific patient populations. Standards of Medical Care in Diabetes(ADA). Performed By: #### 4 96 #### [facility] [address], [address] [place], [place] [id number] Helper/Driver: Carlos Manuel Sevilla MD [facility] 02-19-2024 Albumin [Mass/Vol] 4.5 g/dL Normal 3.6-5.1 [facility] Comment on above: Performed By: #### 1 0331, 4560 #### [facility] [address], [address] [place] [id number] Helper/Driver: Carlos Manuel Sevilla MD Albumin/Globulin [Mass ratio] 2.0 {ratio} Normal 1.0-2.5 [facility] Comment on above: Performed By: #### 1 023, 7600 #### [facility] of [place] [address] Helper/Driver: Carlos Manuel Sevilla MD ALP [Catalytic activity/Vol] 94 U/L Normal 35-144 [facility] Comment on above: Performed By: #### 1 023, 7600 #### [facility] of [address], [address] [place] [address] Helper/Driver: Carlos Manuel Sevilla MD ALT [Catalytic activity/Vol] 71 U/L High 9-46 [facility] Comment on above: Performed By: #### 1 023, 7600 #### [facility] [place] [address] Helper/Driver: Carlos Manuel Sevilla MD AST [Catalytic activity/Vol] 27 U/L Normal 10-35 [facility] Comment on above: Performed By: #### 1 023, 7600 #### [facility] [place] [address] Helper/Driver: Carlos Manuel Sevilla MD Bilirubin [Mass/Vol] 0.5 mg/dL Normal 0.2-1.2 [facility] Comment on above: Performed By: #### 1 023, 7600 #### [facility] [place] [address] Helper/Driver: Carlos Manuel Sevilla MD BUN/CREATININE RATIO SEE NOTE: Normal 6-22 [facility] Comment on above: Result Comment: Not Reported: BUN and Creatinine are within reference range. Performed By: #### 1 023, 7600 #### [facility] [place] [address] Helper/Driver: Carlos Manuel Sevilla MD Calcium [Mass/Vol] 9.9 mg/dL Normal 8.6-10.3 [facility] Comment on above: Performed By: #### 1 023, 7600 #### [facility] of [address] [place] [address] Helper/Driver: Carlos Manuel Sevilla MD Chloride [Moles/Vol] 101 mmol/L Normal 98-110 [facility] Comment on above: Performed By: #### 1 023, 7600 #### [facility] [address], [address] [place] [address] Helper/Driver: Carlos Manuel Sevilla MD CO2 [Moles/Vol] 29 mmol/L Normal 20-32 [facility] Comment on above: Performed By: #### 1 023, 7600 #### [facility] [address], [address] [place] [address] Helper/Driver: Carlos Manuel Sevilla MD Creatinine [Mass/Vol] 0.97 mg/dL Normal 0.70-1.[address] [facility] [address] [facility] Comment on above: Performed By: #### 1 230, 7600 #### [facility] [address], [address] [place] [address] Helper/Driver: Carlos Manuel Sevilla MD GFR/1.73 sq M.predicted among non-blacks MDRD (S/P/Bld) [Vol rate/Area] 89 mL/min/{1.73_m2} Normal > OR = 60 [facility] Comment on above: Performed By: #### 1 023, 7600 #### [facility] [place] [address] Helper/Driver: Carlos Manuel Sevilla MD Globulin (S) [Mass/Vol] 2.3 g/dL Normal 1.9-3.7 [facility] Comment on above: Performed By: #### 1 023, 7600 #### [facility] [place] [address] Helper/Driver: Carlos Manuel Sevilla MD Glucose [Mass/Vol] 122 mg/dL High 65-99 [facility] Comment on above: Result Comment: Fasting reference interval For someone without known diabetes, a glucose value between 100 and 125 mg/dL is consistent with prediabetes and should be confirmed with a follow-up test. Performed By: #### 1 023, 7600 #### [facility] of [address], [address] [place] [address] Helper/Driver: Carlos Manuel Sevilla MD Potassium [Moles/Vol] 3.7 mmol/L Normal 3.5-5.[address] [facility] [address] [facility] Comment on above: Performed By: #### 1 0231, 7600 #### [facility] of [address], [address] [place] [address] Helper/Driver: Carlos Manuel Sevilla MD Protein [Mass/Vol] 6.8 g/dL Normal 6.1-8.1 [facility] Comment on above: Performed By: #### 1 0231, 7600 #### [facility] of [address], [address] [place] [address] Helper/Driver: Carlos Manuel Sevilla MD Sodium [Moles/Vol] 138 mmol/L Normal 135-146 [facility] Comment on above: Performed By: #### 1 023, 7600 #### [facility] of [address], [address] [place] [address] Helper/Driver: Carlos Manuel Sevilla MD Urea nitrogen [Mass/Vol] 14 mg/dL Normal 7-25 [facility] Comment on above: Performed By: #### 1 0231, 7600 #### [facility] [place] [address] Helper/Driver: Carlos Manuel Sevilla MD LIPID PANEL, [place] [address] Cholesterol [Mass/Vol] 151 mg/dL Normal <200 [facility] Comment on above: Order Comment: FASTI NG:YES FASTING: YES Performed By: #### 1 0231, 7600 #### [facility] of [address], [address] [place] [address] Helper/Driver: Carlos Manuel Sevilla MD Cholesterol in HDL [Mass/Vol] 53 mg/dL Normal > OR = 40 [facility] Comment on above: Order Comment: FASTI NG:YES FASTING: YES Performed By: #### 1 0231, 7600 #### [facility] of [address], [address] [place] [address] Helper/Driver: Carlos Manuel Sevilla MD Cholesterol in LDL [Mass/Vol] 79 mg/dL Normal [facility] Comment on above: Order Comment: FASTI NG:YES FASTING: YES Result Comment: Refe rence range: <100 Desirable range <100 mg/dL for primary prevention; <70 mg/dL for patients with CHD or diabetic patients with > or = 2 CHD risk factors. LDL-C is now calculated using the James calculation, which is a validated novel method providing better accuracy than the Friedewald equation in the estimation of LDL-C. Stephen LAWRENCE et al. MAY. 2013;310(19): 5477-9758 (http://education.[employer].Xradia/faq/DBZ568) Performed By: #### 1 0231, 7600 #### [facility] [address], [address] [place] [address] Helper/Driver: Carlos Manuel Sevilla MD Cholesterol.total/Cho lesterol in HDL [Mass ratio] 2.8 {ratio} Normal <5.0 [facility] Comment on above: Order Comment: FASTI NG:YES FASTING: YES Performed By: #### 1 0231, 7600 #### [facility] [address], [address] [place] [address] Helper/Driver: Carlos Manuel Sevilla MD NON HDL CHOLESTEROL 98 mg/dL (calc) Normal <130 [facility] Comment on above: Order Comment: FASTI NG:YES FASTING: YES Result Comment: For patients with diabetes plus 1 major ASCVD risk factor, treating to a non-HDL-C goal of <100 mg/dL (LDL-C of <70 mg/dL) is considered a therapeutic option. Performed By: #### 1 0231, 7600 #### [facility] [address], [address] [place] [address] Helper/Driver: Carlos Manuel Sevilla MD Triglyceride [Mass/Vol] 103 mg/dL Normal <150 [facility] Comment on above: Order Comment: FASTI NG:YES FASTING: YES Performed By: #### 1 0231, 7600 #### [facility] [address], [address] [place], [place] [phone] Helper/Driver: Carlos Manuel Sevilla MD Laboratory - Chemistry and C hemistry - challengeon 02-19-2024 Albumin [Mass/Vol] 4.5 g/dL 3.6 - 5.1 g/dL [facility] Albumin/Globulin [Mass ratio] 2 {ratio} [facility] ALP [Catalytic activity/Vol] 94 U/L 35 - 144 U/L [facility] ALT [Catalytic activity/Vol] 71 U/L High 9 - 46 U/L [facility] AST [Catalytic activity/Vol] 27 U/L 10 - 35 U/L [facility] Bilirubin [Mass/Vol] 0.5 mg/dL 0.2 - 1 .2 mg/dL [facility] Calcium [Mass/Vol] 9.9 mg/dL 8.6 - 10. 3 mg/dL [facility] Chloride [Moles/Vol] 101 mmol/L 98 - 11 0 mmol/L [facility] CO2 [Moles/Vol] 29 mmol/L 20 - 32 mmol/L [facility] Creatinine [Mass/Vol] 0.97 mg/dL 0.70 - 1.35 mg/dL [facility] GFR/1.73 sq M.predicted among non-blacks MDRD (S/P/Bld) [Vol rate/Area] 89 mL/min/{1.73_m2} > OR = 60 mL/min/1.73m2 [facility] Globulin (S) [Mass/Vol] 2.3 g/dL [facility] Glucose [Mass/Vol] 122 mg/dL High 65 - 99 mg/dL [facility] Comment on above: Fasting reference interval For someone without known diabetes, a glucose value between 100 and 125 mg/dL is consistent with prediabetes and should be confirmed with a follow-up test. Potassium [Moles/Vol] 3.7 mmol/L 3.5 - 5.3 mmol/L [facility] Protein [Mass/Vol] 6.8 g/dL 6.1 - 8.1 g/dL [facility] Sodium [Moles/Vol] 138 mmol/L 135 - 146 mmol/L [facility] Urea nitrogen [Mass/Vol] 14 mg/dL 7 - 25 mg/dL [facility] Urea nitrogen/Creatinine [Mass ratio] SEE NOTE: [facility] Comment on above: Not Reported: BUN an d Creatinine are within reference range. Lipid 1996 panelon 4 Cholesterol [Mass/Vol] 151 mg/dL [facility] - 200 mg/dL [facility] Cholesterol in HDL [Mass/Vol] 53 mg/dL > OR = 40 [facility] Cholesterol in LDL [Mass/Vol] 79 mg/dL mg/dL (calc) [facility] Comment on above: Reference range: <10 0 Desirable range <100 mg/dL for primary prevention; <70 mg/dL for patients with CHD or diabetic patients with > or = 2 CHD risk factors. LDL-C is now calculated using the James calculation, which is a validated novel method providing better accuracy than the Friedewald equation in the estimation of LDL-C. Stephen SS et al. MAY. 2013;310(19): 3715-8041 (http://education.MashMe.TV/faq/QXG193) Cholesterol non HDL [Mass/Vol] 98 mg/dL [facility] Comment on above: For patients with di abetes plus 1 major ASCVD risk factor, treating to a non-HDL-C goal of <100 mg/dL (LDL-C of <70 mg/dL) is considered a therapeutic option. Cholesterol.total/Cho lesterol in HDL [Mass ratio] 2.8 {ratio} [facility] Triglyceride [Mass/Vol] 103 mg/dL [facility] - 150 mg/dL [facility] No Panel Informationon 02-18 Interpretation and review of laboratory results Abnormal [facility] FASTING:YES FASTING: YES [facility] Organization Information Site ID: QPT Name: [facility] Address: [address] [place] [phone] Director: Carlos Manuel Sevilla MD [facility] ALL THYROXINE (T4) FREEon Free T4 [Mass/Vol] 0.71 ng/dL Low 0.76 - 1. 46 ng/dL [facility] Interpretation and review of laboratory results Abnormal [facility] CBC W Auto Differential pane l (Bld)on 10-31-2023 Band form neutrophils (Bld) [#/Vol] CANCELED [facility] Comment on above: Result canceled by daryl trejo ancillary. Band form neutrophils/100 WBC (Bld) CANCELED % [facility] Comment on above: Result canceled by t ancillary. Basophils (Bld) [#/Vol] 19 10*3/uL [facility] Basophils/100 WBC (Bld) 0.4 % [facility] Blasts (Bld) [#/Vol] CANCELED 0 cells/uL [facility] Comment on above: Result canceled by t he ancillary. Blasts/100 WBC (Bld) CANCELED % [facility] Comment on above: Result canceled by t ancillary. Eosinophils (Bld) [#/Vol] 312 10*3/uL [facility] Eosinophils/100 WBC (Bld) 6.5 % [facility] Erythrocyte distribution width (RBC) [Ratio] 13.4 % 11.0 - 15.0 % [facility] Hematocrit (Bld) [Volume fraction] 44.4 % 38.5 - 50.0 % [facility] Hemoglobin (Bld) [Mass/Vol] 15.1 g/dL 13.2 - 17.1 g/dL [facility] Lymphocytes (Bld) [#/Vol] 1147 10*3/uL [facility] Lymphocytes/100 WBC (Bld) 23.9 % [facility] MCH (RBC) [Entitic mass] 32.3 pg 27.0 - 33.[address] [facility] MCHC (RBC) [Mass/Vol] 34.0 g/dL 32.0 - 36.0 g/dL [facility] MCV (RBC) [Entitic vol] 95.1 fL 80.0 - 100.[address] [facility] Metamyelocytes (Bld) [#/Vol] CANCELED 0 cells/uL [facility] Comment on above: Result canceled by [facility] ancillary. Metamyelocytes/100 WBC (Bld) CANCELED % [facility] Comment on above: Result canceled by t ancillary. Monocytes (Bld) [#/Vol] 494 10*3/uL [facility] Monocytes/100 WBC (Bld) 10.3 % [facility] Myelocytes (Bld) [#/Vol] CANCELED 0 cells/uL [facility] Comment on above: Result canceled by t ancillary. Myelocytes/100 WBC (Bld) CANCELED % [facility] Comment on above: Result canceled by t he ancillary. Neutrophils (Bld) [#/Vol] 2827 10*3/uL [facility] Neutrophils/100 WBC (Bld) 58.9 % [facility] Nucleated RBC (Bld) [#/Vol] CANCELED 0 cells/uL [facility] Comment on above: Result canceled by t he ancillary. Nucleated RBC/100 WBC (Bld) [Ratio] CANCELED 0 /100 WBC [facility] Comment on above: Result canceled by t he ancillary. Platelet mean volume (Bld) [Entitic vol] 8.9 fL 7.5 - 12.5 fL [facility] Platelets (Bld) [#/Vol] 287 10*3/uL [facility] Promyelocytes (Bld) [#/Vol] CANCELED 0 cells/uL [facility] Comment on above: Result canceled by t he ancillary. Promyelocytes/100 WBC (Bld) CANCELED % [facility] Comment on above: Result canceled by t he ancillary. RBC (Bld) [#/Vol] 4.67 10*6/uL [facility] Service comment (Unsp spec) [Interp] CANCELED [facility] Comment on above: Result canceled by t he ancillary. Variant lymphocytes/100 WBC (Bld) CANCELED 0 - 10 % [facility] Comment on above: Result canceled by t he ancillary. WBC (Bld) [#/Vol] 4.8 10*3/uL [facility] Performing Organization Information Site ID: QTW Name[facility] Address: [address] [place] [id number] Director: Shelia Bello [facility] Healthcare Office Visiton 07-16-2023 Follow-up visit [id number] Katherine Hogan 1965 M Date Provider Department Center 07/16/2023 [facility] Family History Problem Relation Age of Onset Heart attack Brother Coronary artery disease Brother Other Brother Family Status - Relation Status Age at Brother Level of Service:80645 [place] OFFICE/OUTPATIENT ESTABLISHED LOW MDM 20 MIN Normal [facility] Office Visiton 07-23-2022 Follow-up visit [id number] Katherine Hogan 1965 M Date Provider Department Center 07/23/2022 [facility] No family history on file Level of Service:44726 [place] OFFICE/OUTPATIENT ESTABLISHED [facility] 10-19 MIN Reason for Visit and Comments: Follow-up [026952] - 1 yr follow up Normal [facility] Operative Reporton Operative Report Patient: KATHERINE [...] pain, # 60 cap(s), Refills(s) 0, Pharmacy: [facility] #[id number], 173.5, cm, 05/14/22 11:51:00 EDT, Height/Length Dosing, 98.2, kg, 05/14/22 11:51:00 EDT, Weight Dosing Colace 100 mg Cap: 100 mg = 1 cap(s), Oral, BID, PRN for constipation, # 20 cap(s), Refills(s) 0, Pharmacy: [facility] #[id number], 173.5, cm, 05/14/22 11:51:00 EDT, Height/Length Dosing, 98.2, kg, 05/14/22 11:51:00 EDT, Weight Dosing Percocet 5 mg-325 mg oral tablet: See Instructions, 40 tab(s), Refill(s) 0, 1-2 tab(s) Oral q4hr, [facility] #[id number], 173.5, cm, 05/14/22 11:51:00 EDT, Height/Length Dosing, [...] Oil: 500 mg, Oral, Daily, Prophylaxis [place]: 450 mg, Oral, BID, Prophylaxis Triamcinolone Acetonide: [...] list: All Problems Anxiety / SNOMED CT 34172622 / Confirmed Apnea, sleep / SNOMED CT 272899223 / Confirmed uses Cpap Arthritis / SNOMED CT 5777782 / Confirmed Hernia, hiatal / SNOMED CT 981771803 / Confirmed High cholesterol / SNOMED CT 14938974 / Confirmed History of IBS / SNOMED CT 3220896436 / Confirmed Hypertension / SNOMED CT 5311891722 / Confirmed Vertigo / SNOMED CT 1419470928 / Confirmed, Active Problems (8) Anxiety Apnea, sleep Arthritis Hernia, hiatal High cholesterol History of IBS Hypertension Vertigo Histories Pa (more content not included)... Normal [facility] Comment on above: Result Comment: Elec tronically Signed By: Brandan Connor CRNA.br\Date and Time Signed: 05/31/22 07:50 EDT Progress Note-Physicianon Progress Note-Physician [id number]# 1.00CD:127 Normal [facility] IntraOperative Documentson 0 06-06-2022 IntraOperative Documents [id number]# 1.00CD:127 Normal [facility] Coding Summary.on 06-04-2022 Coding Summary. CD:[id number] W w+PGhlYWQ+BM4YGIJfE66 fmCEyqR8rF4YVPDhFEtgm YYMUKGyPZjNbamLkBH6yb XNjZXJu IC8+EV2kDWWeSwptcORcv 2P2dCC8C07cez8kUGnrxL G0XERyOiDudxvkb3xsaJv 6IDcuNmluOyBt MBUpxN77EAY0jK07Pp99r EQdjBKsh4nhnMc3JlBxNP OeFDU7aRmjYUgbd3ZpYPX wZ31feQVox7E1 BWApmWrbbPGzMeToqAQ5v X7xRFdkataqp5entibnTw r0ao32tIUqs7G6iCZ6I4W slaT1BDFrjVTq KnqdgNTRuD6yoigqo9hqm aqnNvGhAQEnTFh5ZNg3HW KepQfmLeLsHY37XMZ8CIX zjnJjM5SvYYGo dMrjZuK9m4V7Af3UI0SVJ wzqU1NCPKIHIAotjCL+PC 04gx89V2XkGsruGql5WLK fBQL6mZF8qY1l YFQmEYzdu9G2gNS7M9Jpb mSqhn6kj5kjMYDjYGfmR9 6lkMAzc1J0GWYwjUH8XXL qfHeyUeHvbQ75 Oyc+EOEntMnrk5RlForeo 8wwv0jdpYu0WkmaVIXnwn SvwIhnBCG7d8OdRo2nIRI rsMI8xUA0aE8f YkBnJnR6UHivG647BvArh SDsHxfmI52nA5NzhUU+PH JnYil2VKFdaFtuYC0uM4A hZGRpbmctbGVm gKbyLW0bTSOcivmfHRExh F4zIXJwY7z8OtNcGdH8WB yoL7GzIXWysmsoPf51fI8 sHvAvBgH0RAgm J1BdbfK9BUAtbOWeRMyuN KN0V79ey2F7ZKPbJLNmKU K4wIL0zQ7rbRexjiiyxZJ mdDsgdmVydGlj IClgSDugL783PTIdlUwnH kNvZGluZyBEYXRlOiAgMD QvMDQvMjAyMzwvdGQ+PHR bWEM6dThgTIYz oNAtUIgoTp9njNgzySjkK A2dXEAeajqlCDWkbF1lEJ BpcMOffFsnXT3rIWUbjjg nd918HnIbDUT1 SEXuyTVeS8TniH8jPoFjV PBqKZMrF2BzhGFrRGuuX1 87BNjsQdR0OGSginTvN3U sLWFsaWduOiB0 y4Z4Pd2Mf1NghukpK3Jpn ACdBuZtYbguFHy1Z4XbZe wvdHI+QG25WKClWM14IGy 3VDP5dSevQHfi OVSgJ7CfxN8vPfNlFERfZ GRkOyc+PHRhYmxlIHdpZH RoPScxMDAlJyBzdHlsZT0 gSe9jAGCmDODt pPwqgRYaCkHhw7xcNBSkC VztPP7lwXjlS0PfxHJ2FF Shr1p3Lk42W95zW1LhtER +PSBylBU2nZT0 dT0jHkPoWxV0MRojV802K cBpaFCrJbfon1pcm0vojX w2QwE0ZDMmnzLgeOnuQON 5j6PfJx82L06f IHdpZHRoPSIxNSUiIHZhb Bjeqc9xrZ4fGc4+PGNvbC B8dAT2qS8bIjUaVfH6URv aN966XdMobHQa Ckhyw6ldp8ochId0SlQyQ GFhzzWbhHgeVXM7o1RhXo 21G1LduWvwe0EpTcu0im7 5tUVny3G6aSM4 O7ZoXQDimxwvlIKhkAkiL A0cCXCfkbzkNKCsyM2sJA JaH1p8HsRdWoW6NNygZ4W evvG7PGJmfXJc LGBidDGZuM7nlkrlt7tjv flbNhMlXZXdNTw3OTe9GP SmkCoqYtKrZSS9UrF1JDH 9nQGdyH0bvNls bfukmK5iOwj+OTI4wCSoj ALMBJ1iTgwxvWT+PHRkIH C5oQunMYlkKVWqcJ5cYAC pF8e3QcYyClF9 LFlvJ0DzcbP2EUYeyAQsK EGwfDETcH3spatnv4xwvn kxEeOpZYYdYGz8BRv7ZEM saWduOiBsZWZ0 GxM6LAU5hFGnlC0ycBcvy egxwS0eAjd+QmlydGggRG Y8OWi9K9JlXni4DSVxgKa kAI1lvNZrSRet Ya4rhWsnrWjwGJ9jPOSdj gsei076BhVdy2avFZDoaN ApANtcWRC1Y65qa7S8ENV mFYLxXIQ7eSV8 vK9hzCjzehnhaLWabAutw pPsgKjhOWmzTInxS495TB ZcsRukRgRaDTl9Y6PxCgn 8HSOkyAroCC2r cBUcOTplZx3wmBbsmBhyU S4eHUBmilrrj687PtBla4 taHNEshCDvJUqhNKT7B65 pj9T6CAGdFUJh RNZ2wDR4cS1haUmzqbaug GVmdDsgdmVydGljYWwtYW xfX605KSQnkZklKcOmuCx 3R3QqXho1CXOo pSngXZ8weCFnAQhbMm2qy WgelCqdGT8aGIZrrxxyh0 74OdJeu9efVIJlhRWnSNf hNCN4T29vt2N6 RSFuMCUzWTX2hDM7xF2ue GlnbjogbGVmdDsgdmVydG xnZKrgWOahV031LXSrmWs nPlBhdGllbnQg FSvxEEk7Y5ZlDfekaVP+P H82VGClMZ00eDLmuPQnp8 xatNn5HlRuXCSkBUG3sSz aWYkao2BuLCPo W66pmBGiy3G7WVYmqUtbh OLaChLdvZP2lM3cZRhvrf tcb8airyziNcpzs2jlvq9 3hZ05E46kRVoc ZHRoPSIzMCUiIHZhbGlnb m1uhR6jSj4+AJWbrAT9kS R9mJ4fERUiIdE9YFvsU22 9InRvcCIvPjxj y1qnd8mwrYp7KaB7GQHox zSlsBexFPX2n9MkQc36K5 9sIHdpZHRoPSIyMCUiIHZ rnKbxie6qpV2s Ii8+XJEgyPO1eCP7bL1nL hLnHeJ0FLttY949SmIveA UsTrqvM47jU3QraPQ+PHR rGuc8KNBjbHkm RI5ygSDoNMzyQy1rPJV7E fNkUyFuFIffA5OcSZIqwh obdcojxHW6WTSvKORnpA3 6Gi8ckTrbZSQq oKXIiD8vtdflc9wccdgfY oCdHBFaCWs7RQr8QYCipF glAbJcSVO3IoL8TJE7gJL wwU5mdHteccvs dG4jE0GnVIXhnddrTp11k L7cZrBcAfV7OWowTto+Uk iRKYdmBR7UYOFGIIpvOlo vdGQ+PHRkIHN0 bJiyNMiyCEKphI7gKYZsR 6e6CpHwOtJ9GIyuD5AyVY UzqcrfOe72aM8nSpSwXzG 9XDuvY2DorgF5 YQGzpMZkOZmcIZJ4Z03ra 8K0IMUsZXFtYDI9dHY8oS 1hbGlnbjogbGVmdDsgdmV ydGljYWwtYWxp S423BHVntTvlJqUlSlR8X zN2KoR6S4RxNsd0YSPdgJ xsDU3ihOHtZVhnKa0klBw aoSotQW5cDOBg kgyxMENlrU5sUDZmzMRqy JmaAO1oJRXdpojph032Yd VvNOI5ZGQcrUQhA7RvlK7 yOiAjMDAwMDAw J9ZzbQAmQHwrF837ZNfmF sH1JSAoegFhE4XdCRBulU mgEjQ3u4J2Sd79WQWVBEE yczwvdGQ+PHRk RHU0bKkkDTbrJIOiwA1mD XQvO9s0WpUcPwK9JWdaF6 LyQULqoznyPj48aW1aNgH wPbX8QEhmL2Jg tcT0IWLwpUFuADucRGP5Y 83dv8G0UTWgPRYdUSA5lZ O7fC5mvMybagkdaHXwkBp gdmVydGljYWwt NYztN739YIWjoWsrFd0wt KP5L3EjBex9CFBwqJflSH 6wiNQtSMfmXr3oeNyjyZc hOF6gECPzacvd YTXjfM4lTLDmuMUdoFflE G6zSUDhuayvb995TeToMH Z2QWYbvSHgM9RozP3eVdO xRZNcPFUgX7To vMZeTHenQ743HYlbVuY0N EKenaXbL7HsRFLprZddEs I9j5I4Kw4InKD6tIJ5e5M 0Z2GfbGTgGKU5 YLN3xytmibg2O6EwSondp HI+VV76NNLsUA70iIVroK Rdj3xgtFl8TzJuDMItXHS 8gKyqPJjrn0Pm DJDxC53okOSvw7T0JKHtk VoiqIXyGiZjmLT7cM6yOQ igbmpys1jqdwpdJsssw8c men47hA10E89p IHdpZHRoPSIzMCUiIHZhb Ppuvh4nsE6sAh5+PGNvbC P1nZY6wQ5yLiXbXqP0PKc rC954MrAglKTt Trhlx3mge1hbbUc6HxSpX UVhdmTxqExsJGB4n7UqSo 60B60zRMhpSJWiAHFlZMI zRJApaShntu1s gT3fDs5+QS5np0ysrb84d D48dHI+NPVvQVZ1eOkeXZ eaNSAdhL7fKTxsNyN7YLF mWmKbfD52gXYf ZUjjAm9qmInizYqlWJ0hT JIroahio463IeUvh9igDI FeoZTlHBcrNHS2R00mu5A 2VHFxAVHgKLY4 iTU9zD5veCgwrrdrmQKan DsgdmVydGljYWwtYWxpZ2 44UBAbpEunRdFbqNEoA9r pvhKZZI2yPfja dGQ+FCHiMMU3nMkvMZlnI XLtmA4uITGzR6t5YbPyIy A2YKawU0PwtgV7CTHmuJO mPIPqoZIUrI6z etzux4pkzkzsMnWyXGChB Pa1VDd6QSXmoQjqWnElZK Q8GuM3LJA0bQFogB4drYn okvpxvF9nIrg+ RklOOjwvdGQ+BWEiCGM0i YawMLekJXZjhK7jFKUgR5 a9ZjAmKnX3AWdiI2OffdB 6IGJvbGQgMTBw nYUYfH6bbduip4rduqhrN dOnZHCgOIm2PUh5QHZowF grDuOiJUS9GpE1BHW5kAS fyQ2rbRjovdpx vK9bCtp+TVJOOjwvdGQ+P MQqCTL3mZmySFhmOEWpjP 7qKOAzS8n7ApDdTbP4NOn tZ1DgpzU6USSi jMCrYKQhuGPHuK3qnhhrl 6boqcsaIcWqFXVyKJn2SH a7AKWxiIecPdIwCOC0TrC 3LMY5pJQlsL0v eVpmuxxooK4dIjw+UGF5Z RV1HB17BX40Q8BfAmyokW FibGU+PHRhYmxlIHdpZHR oPScxMDAlJyBz gNgoDM2v (more content not included)... Normal [facility] Consent for Anesthesiaon Consent for Anesthesia [id number]# 1.00CD:127 [facility] Discharge Instructionson Discharge Instructions [id number]# 1.00CD:127 [facility] IntraOperative Documentson 0 06-03-2022 IntraOperative Documents [id number]# 1.00CD:127 [facility] Main OR Intraoperative Recor don 06-03-2022 Main OR Intraoperative Record IntraOp Document Type FT Summary Primary Physician: Nils Finney DO Finalized Date/Time: 06/03/22 10:25:02 Pt. Name: KATHERINE HOGAN Nora/Sex: 1965 Male Med Rec #: [id number] Physician: Nils Finney DO Financial #: [id number] Pt. Type: A Room/Bed: [place] [address] Admit/Disch: 05/31/22 05:30:31 - 05/31/22 10:30:00 Institution: Case Times FT Entry 1 Patient Times In Room 05/31/22 07:14:00 Out Room 05/31/22 08:42:00 Procedure Times Start 05/31/22 07:51:00 Stop 05/31/22 08:30:00 Anesthesia Times Start 05/31/22 07:14:00 Stop 05/31/22 08:42:00 Block Timeout w/ 05/31/22 07:02:00 Anesthesia Last Modified By: Conrado Marroquin RN 05/31/22 08:59:22 General Comments: Unilateral right shoulder nerve block done by HOLLY Castle at 0702 with MARJORIE Velez assisting, HR 66bpm, SpO2 95% on room air, no issues, wheeled back to OR for surgery. MARJORIE Jack 06/03/22 Chart opened to review and send charges [facility] Case Attendance FT Entry 1 Entry 2 Entry 3 Case Attendee Geeta BARRERA, Nils Jones DO, RN, Sheminith A Role Performed BRAIDING OPERATOR Surgeon - Primary Wood Barrel Reconditioner - Primary Time In 05/31/22 07:14:00 05/31/22 07:14:00 05/31/22 07:14:00 Time Out 05/31/22 08:42:00 05/31/22 08:25:00 05/31/22 08:42:00 Procedure SHOULDER ARTHROSCOPY W/ SHOULDER ARTHROSCOPY W/ SHOULDER ARTHROSCOPY W/ POSSIBLE REPAIR(Right), POSSIBLE REPAIR(Right), POSSIBLE REPAIR(Right), SHOULDER BICEPS SHOULDER BICEPS SHOULDER BICEPS TENODESIS(Right) TENODESIS(Right) TENODESIS(Right) Comments Dr. [place]edo supervising Last Modified By: Cantal RN, Conrado Marroquin RN, Conrado Marroquin RN, Conrado Wilson 05/31/22 08:59:33 05/31/22 08:59:33 05/31/22 08:59:33 Entry 4 Entry 5 Entry 6 Case Attendee Arti RN, Mallory Humphreys RN, Cristobal Hdez CST Role Performed Wood Barrel Reconditioner - Primary Staff - Other SENIOR PROCESS ANALYST/SA Time In 05/31/22 07:14:00 05/31/22 07:14:00 05/31/22 07:14:00 Time Out 05/31/22 07:52:00 05/31/22 07:15:00 05/31/22 08:42:00 Procedure SHOULDER ARTHROSCOPY W/ SHOULDER ARTHROSCOPY W/ SHOULDER ARTHROSCOPY W/ POSSIBLE REPAIR(Right), POSSIBLE REPAIR(Right), POSSIBLE REPAIR(Right), SHOULDER BICEPS SHOULDER BICEPS SHOULDER BICEPS TENODESIS(Right) TENODESIS(Right) TENODESIS(Right) Comments RN assisting with skin RN assisting with blocks prep and positioning Last Modified By: Lopez RN, Conrado Marroquin RN, Conrado Marroquin RN, Conrado Wilson 05/31/22 08:59:33 05/31/22 08:59:33 05/31/22 08:59:33 General Comments: Oneil Gant, Scrub primary, and Ottoniel Lazcano, Arthrex rep, also in attendance. MARJORIE Jacklay out drafter Protocols FT Pre-Care Text: Implements protective measures [...] RN, Arti Norman RN, Pantera Longo CST, Cristobal Time Out Complete 05/31/22 07:50:00 Outcomes Met? Yes Last Modified By: Conrado Marroquin RN 05/31/22 07:59:15 Post-Care Text: The patient is free from signs and symptoms of injury caused by extraneous objects General Comments: Oneil Gant scrub primary also in attendance with timeout. MARJORIE [...] Clean 1 - Clean Last Modified By: Conrado Marroquin RN, RN, Kayli (more content not included)... Normal [facility] Preoperative Documentson Preoperative Documents [id number]# 1.00CD:127 Normal [facility] Progress Note-Physicianon Progress Note-Physician Patient: KATHERINE [...] when meets criteria ( To home ). [facility] Comment on above: Result Comment: Elec tronically Signed By: Power Toledo Jr, DO\.ron\Date and Time Signed: 06/03/22 10:12 EDT Consent for Treatmenton 05-03 Consent for Treatment [id number]#1 .00CD:127 Normal [facility] H&P Updateon 05-31-2022 H&P Update [id number]#1. 00CD:127 [facility] Inpatient Patient Summaryon 05-31-2022 Inpatient Patient Summary [address] [address] [facility] Clinical Discharge Instructions PERSON INFORMATION Name: KATHERINE HOGAN PHYSICIANS Admitting Physician: Nils Finney DO Attending Physician: Nils Finney DO PCP: AYDE FRIEND, ZEB Jeffrey Discharge Diagnosis: Comment: PATIENT EDUCATION INFORMATION Instructions: Shoulder Cryocuff Patient Instructions - FT (CUSTOM); Post Op Patient Instructions - FT (CUSTOM); Wojciech Finnye. - After Your Shoulder Arthroscopy (Custom) Medication Leaflets: Follow up: MEDICATION LIST New Medications [id number], [address], [place] [id number], [phone] acetaminophen-oxycodo ne (Percocet 5 mg-325 mg oral tablet) 1-2 tab(s) Oral q4hr. Refills: 0. docusate (Colace 100 mg Cap) 1 Capsules By Mouth 2 times a day as needed for constipation. Refills: 0. Medications to Continue Taking That Have Changed [id number], [address], [place] [id number], [phone] START: celecoxib (CeleBREX 100 mg Cap) 1 [...] 7 weeks Prophylaxis. omega-3 polyunsaturated fatty acids (Nature's Bounty Red Krill Oil) 500 Milligram By Mouth every day. ondansetron (ondansetron 4 mg Tab) 1 Tablets By Mouth as needed Nausea. saw palmetto (Saw [place]) 450 Milligram By Mouth 2 times a [...] 12 hours as needed for pain. Comment: [facility] Living Will/POAon 05-31-2022 Living Will/POA [id number]# 1.00CD:127 [facility] Main OR PACU I Recordon 05-03 Main OR PACU I Record PACU Phase I Docum ent Type FT Summary Primary Physician: Nils Finney DO Finalized Date/Time: 05/31/22 10:25:25 Pt. Name: KATHERINE HOGAN/Sex: 1965 Male Med Rec #: [id number] Physician: Nils Finney DO Financial #: [id number] Pt. Type: A Room/Bed: [facility]2/01 Admit/Disch: 05/31/22 05:30:31 - Institution: Case Times [...] By: Sveta Cullen RN 05/31/22 10:25 Normal [facility] Main OR PACU II Recordon Main OR PACU II Record PACU Phase II Document Type FT Summary Primary Physician: Nils Finney DO Finalized Date/Time: 05/31/22 11:33:25 Pt. Name: KATHERINE HOGAN Wojciech Meyer./Sex: 1965 Male Med Rec #: [id number] Physician: Nils Finney DO Financial #: [id number] Pt. Type: A Room/Bed: [facility]04/03 Admit/Disch: 05/31/22 05:30:31 - Institution: Case Times [...] By: Ruben Mancera RN 05/31/22 11:33 Normal [facility] Main OR Preoperative Recordo n 05-31-2022 Main OR Preoperative Record PreOp Document Type FT Summary Primary Physician: Nils Finney DO Finalized Date/Time: 05/31/22 07:56:00 Pt. Name: KATHERINE HOGAN /Sex: 1965 Male Med Rec #: [id number] Physician: Nils Finney DO Financial #: [id number] Pt. Type: A Room/Bed: [place] [address] Admit/Disch: 05/31/22 05:30:31 - Institution: Case Times [...] By: Conrado Marroquin RN 05/31/22 07:56 Normal [facility] Monitor Recordon 05-31-2022 Monitor Record [id number]# 1.00CD:127 Normal [facility] Monitor Record [id number]# 1.00CD:127 Normal [facility] Operative Reporton Operative Report Patient: KATHERINE HOGAN Age: 57 years Sex: Male : 1965 Associated Diagnoses: None Author: Nils Finney DO DATE OF SURGERY: 05/31/2022 SURGEON: Nils Finney D.O. LARRY OPERATOR: Gerald Mott CFA PREOPERATIVE DIAGNOSIS: Glenohumeral osteoarthrosis, [...] anchor OPERATIVE INDICATIONS: Katherine is a 57-year-old hopsj-yoqd-pvrvyefy male who has had persistent pain in [...] fashion. The forearm was secured in the Spider tenet pneumatic arm isaac. Landmarks were demarcated. [...] changes. Rotator interval was opened with the [place] wand and motorized shaver. The superior and [...] The pass (more content not included)... Normal [facility] Comment on above: Result Comment: Elec [...] Using maximal sterile barrier technique per current [facility] guidelines including hand hygeine, Guidance (Ultrasound used [...] resolved after completion of block. . Normal [facility] Comment on above: Result Comment: Elec tronically Signed By: Brandan Connor CRNA\.br\Date and Time Signed: 05/31/22 07:51 EDT Outpatient Surgery Discharge Instructionon 05-31-2022 Outpatient Surgery Discharge Instruction [address] [address] Patient Discharge Instructions PERSON INFORMATION Name: KATHERINE HOGAN Date of : 1965 Current Date: 05/31/2022 09:09:41 PHYSICIANS Admitting Physician: Nils Finney DO Discharge Diagnosis: KATHERINE HOGAN has been given the following list of [...] Information: You may receive a survey from [employer] asking you to rate your care experience. Your feedback is important and will help us understand what we do well and how we can improve the quality of care we provide to you, your loved ones and our community. It?s an honor to serve you. Thank you for choosing [facility] HERE ARE THE MEDICATION CHANGES THAT OCCURRED DURING YOUR HOSPITAL STAY New Medications [id number], [address], [place] [id number], [phone] acetaminophen-oxycodo ne (Percocet 5 mg-325 mg oral tablet) 1-2 tab(s) Oral q4hr. Refills: 0. docusate (Colace 100 mg Cap) 1 Capsules By Mouth 2 times a day as needed for constipation. Refills: 0. Medications to Continue Taking That Have Changed [id number], [address] [place], [place] [id number], [phone] START: celecoxib (CeleBREX 100 mg Cap) 1 [...] 7 weeks Prophylaxis. omega-3 polyunsaturated fatty acids (Nature's Bounty Red Krill Oil) 500 Milligram By Mouth every day. ondansetron (ondansetron 4 mg Tab) 1 Tablets By Mouth as needed Nausea. saw palmetto (Saw [place]) 450 Milligram By Mouth 2 times a [...] needed for pain. PATIENT EDUCATION INFORMATION Instructions: [place], [place] [facility] AFTER YOUR SHOULDER ARTHROSCOPY [...] Keep yo (more content not included)... Normal [facility] Patient Education - Texton 0 05-31-2022 Patient Education - Text [place], [place] [facility] AFTER YOUR SHOULDER ARTHROSCOPY [...] your appointment. Nils Finney, DO [facility] [address] [place] [id number] Reviewed: [facility] Consent for Procedure/Surger yon 05-30-2022 Consent for Procedure/Surgery [id number]# 1.00CD:127 [facility] Coding Summary.on 05-22-2022 Coding Summary. CD:[id number] W w+PGhlYWQ+CV5RBWYgD23 ktDDqyN0mO8YJBPdNLwgh NQJQBFlBRcHifgOwMN8yx XNjZXJu IC8+TB2cQIUcBbafsKQej 2M7hIM9Z14dea1jOYjueS E6BRFqTiRponcbv4dfoCg 6IDcuNmluOyBt NYQyxA75XZZ8pA83Tv82i KVcnZKks1ihzHi0MeXjAA GuXIL1hTznWSfmf4GzCOW cS34ogHYdj4K3 WSIslThdfNFtFsUmoLT9e M6iXGdpkhume0ghowsyNm f7fj09bEMbk3D6yTK5J4T yrlG5PZKzfXUy LabcaQRCvW8oosvwk2fet lkyOjUdPCVpMMm8OZk4IR QfpKhtPwIrTU43CGS4IJU oypOsY8HmDTVd wKlbToG0k4D0En6DW6OPL fgvW5EIVCUIQLnolQZ+PC 84fw26N8IuHotrGmq9EMK kZLC4jLW1lN3u HBKgJFmuh5T6aKI7H3Rzc kApsk7iw8ggYQScRWebR3 7yvPLnp0E2OORseBQ9HKR oqIasUcVfjA45 Oyc+WBTdjYktt3ZqQaesn 2wig2gyqRm9ZhlcQWDmgz EnpGjoCRV5g0HwSi2zPLG alCD8tSP9pD0t QaVnHyO9SUceK291QnVyo ENmJuuyH09zD1NofCD+PH KzVno9LOKlqVuxSR8dZ6I hZGRpbmctbGVm sPaoKH1qBIRzpnvcRIQpt O5wNKTjU1b1FfEtEdQ1AS mrU1QzEYVcxmarIa96bH1 kNoIxObM8PFee N4NryaV6SEZfmFOgPJsgW ST0W09mm3G6NMQaDHZlWI K1dBY9nV2gpCyzuzpncOP mdDsgdmVydGlj IQwoQOntY553PVOmoIldV kNvZGluZyBEYXRlOiAgMD MvMjIvMjAyMzwvdGQ+PHR nKZY1zDvdPGHs jTHzURijSs9vxTrsvTlzU J0qMPOrmgtbHLUueI0eLJ JxrFHhmKzsSQ4tVGTdftt bq847YdYnYQX7 JGZgnDKoO1WydH2cZxTvG KVfJTBgP2UahPDhVKqeQ8 28MNreBtC8QOFfrtIvS0G sLWFsaWduOiB0 a1G0Tn4Gu9IzeclsI6Hlp XSaIdYdXwqoRGj8X3RgCw wvdHI+FM84IVTmZC44TWi 2TQA7sRzfSVas SWDjF6JisN3pKoEoXWVcS GRkOyc+PHRhYmxlIHdpZH RoPScxMDAlJyBzdHlsZT0 eTx7fVLDnHVZk mGfheBMaPcBzo0foGMObS KexXT1liCijM2SeoJW4NK Stm4p1Um65N81qO8DmaFI +FJCaaEK9hUA6 sX6gKcAsBnF7WYxmX281R iGhzIGwPkkyi2fxv7iykY u5PdQ4KCRgtdYqzShdFGR 1f4EkOq14I29n IHdpZHRoPSIxNSUiIHZhb Phovb5asZ0oMd5+PGNvbC C2sUB7zZ0wFfHiWtX2VLl dT289EnChmCAe Rlzrr2iwj9bkdXu8SiMmK MQnikNorWbdZKN2v4XjGg 82R0OioRhdr5HcPdq9pm8 9hJZgs4O8oVY3 D0FbWOSygtbzbOOsbFpsZ Q6iLHYxouetHYYvgW4sQI PyP6v9DeEzSuZ4HUpjU8U qepM0UCOmsCVz TSEcjADFkO5vdkvha5seb ctpBlZkVIAiTMe6CYm9CA HjeTaaLbSeFFF8TrO0IFM 2oPCjmK8mvMuv giexnP4qYdz+FUC8hMGit SNZYA6rVfrbhUY+PHRkIH G1fUsqIXziIPIwmR9xJIE uA7f6SwCpMxF4 XJjfL0LzlpL3JBXdsGByK QVfmMQXbH4ilaxrr6trey frKqOuLKLmKLw0QCk9ZQL saWduOiBsZWZ0 AvX8KKM0aBNopF0blZjbc yqroZ8vGid+QmlydGggRG C2TVf1U3VbOcm3EVPhrMc rMW6qsGFySDpg Lj1slAfvkIdoAP6oJRQib xycs380EhBtt5pmJTFisS VaILigCHZ2X45gk2U6VAQ aSHAyVND7xVC4 kG7grBepkukfrQRqdLnqm hQdyKwtASmwLHyiL729GH HozKipWoQlYBh2G6KiYlx 0XVEdiWalCF4j xBEaUXmbId7jdViedCnnO B7oYVUtjzyuw297KtWrr0 wpEUWpwFSqXJkpXQO6D48 yo2G9URUrLNLo DFU4iHO2sC1wdDqhnhsbd GVmdDsgdmVydGljYWwtYW ynE305UYGvtHmuZkLuiYt 6E6RsFgk0HBCb aNrpIK2bmXYgRDqaCe6gn TxsqVdzKL3aFJBvexbds4 25UbEex6ffGEBjyGQuZAc xDBC8Q57vl2S3 KSOwBIAdHVM6uGX3vQ8lm GlnbjogbGVmdDsgdmVydG roHUlwAZgpH185DVNwtYe nPlBhdGllbnQg RCtpDRz5Q6WtOeifgLX+P Q51BCApKJ39dLWegSRkk1 hgyWd9WyJrVXDqTGI2jQh tMZzbs2CwHONm V19mqUVrd0C5ZEHdxZfvr GIpBhPiuEQ8xN1pRZqleg yni1eettioZjamm7fbwc5 7yJ84P23dTHuc ZHRoPSIzMCUiIHZhbGlnb d5sdI2mLe3+KWGedJE9mE R8yR6nGGZvPsO0DIkpY55 9InRvcCIvPjxj k0sbs4dkqEs6DnA1CNYat lPciTlwZZJ2y1ZpMv57L1 9sIHdpZHRoPSIyMCUiIHZ xjUyrzm6bbV5f Ii8+RYOndXV7nAC2kO9fQ qWqLaJ4SKyvU325SgQthP CfXmwhG27dN5XcnFW+PHR tQms1DGFzkXip FE3tbIWoVMnjXd4jINJ6A fAeRbVqJWdyO1RuPZJuja hwfjdbzJH6RSNbXNAmuI8 0Xp4jyVeeXSIl oZQFxJ8lkcycz0mjqpxpF mMwFBUrNQj4JVd3AIKkxT txRfTpKVE2GyQ8NLA9bDP lcW0fwGajcsrh wD1uF2GaDJVxhaifJx56t H3sRvStHzT4NUdsWxe+Uk mQTNttEJ6QUAYHVBnqVoo vdGQ+PHRkIHN0 vVezRUilTMCgqM9dKTYzV 2k3ThIgYmA0PFsrV7GnFB RkoibqWe39vY1xFrWsZkL 3RPduV8RlanT0 UIDqqAFaTNmeRWX0C70ba 4P0JRKmXZKqBPP0sUF3kV 1hbGlnbjogbGVmdDsgdmV ydGljYWwtYWxp V305ABQljIruMrYoDzU4L zB2PhM8C8JgRzf1JTVpvT taEJ2vhYPeFVjsDq1ptCl rmUwcOE0nDGIi xfhsSXAssS1pFWNerOVay PdlYU3vRWSwnwsqx515Kd KmEIC7ACTriUMoE4ChtI8 yOiAjMDAwMDAw D0ZtdCOmTMgoJ283ETorP wY5PXKabvSpO6KiJZSiuJ dvCfR7y2R5Al05GXOWMLL yczwvdGQ+PHRk DPX7bClhSZxoWMOziR0vA FGbM3o1VlVxUdA1XSltI6 DpYQHyeqfcCm73mW7eQoL oOhD5VLgqA1Eq rzO9OENauDOhPKwjTEC8U 77dv8B2QOZmGCYtFRB0vC H6tW0ljWglghltzCZpuMe gdmVydGljYWwt LEhsT789NBVhvLmxDf8nf LM3U6CsRgr4WSFrcUtpQL 9ykRIpVLizUp6yuDengXh iMS9dCQVikzsb CAZgzC8sXOGfoMBzdEuuH X1fLCUimzvxd530JiXuED P8ROOmcZHfB1HxbA2zBgS hTWAiNYVoP6Fy nRVuVIfuW938TEztJiZ4G SLuurDwX6KuPZZezRvfKa V5i4O9Jq7XeGOeMKOnIJ9 7HR07YH54Q4Yg PjwvdGFibGU+PHRhYmxlI HdpZHRoPScxMDAlJyBzdH kvVW8vTb4xCAZcVGNxiQu cgJZdHeXtc0pw CQCjJXdqQK3kcXprJ5Lut NS9HTKhy1m4Rr58V28rC5 JvdXA+KAHupIL8eGM9jY7 fRsVlEaO7HFxu X029NmZquJRaCljma3hjn 0qpwXd7LuJrOVGtiwSoqU jqDBN2p8HjQa48A46gNTs pZHRoPSIyMCUi KTIglMgxol4vfF6lLn4+P DMycDR4zZK0oW3iLrVyQo V3RRavF272HzVzqPIiOyd kA30wU7BejUP+ AKWqCzd9UQCbaTgsQV0wl LFfTGarGa8dNHD1PkNsBo AlGVzlD0MjZSIihrpvivk ieMG2KCSyCJJt eY58Hw2nhMsyPi3dDUPeB IS2WPGivXCyR0XzzM6gBe PdLUNmLBEnX3RbrXVbEGl nO437AEolAmO8 AAImckAsT1ItYPMxsLhvI mK0y6X2Hi2AuZsdiPEvLP 8hMwZjLNy4C1HxXeh7KHC juZepZB9uzSRo TKbnAc9uyWsinOcqET2hV ATtqnnii225JmNwz8iwGA TrtZJaIRgxPUH8E70ng0N 7YRPoNQSoYYV5 xKV9tJ1hvEdwphfqrSQra DsgdmVydGljYWwtYWxpZ2 67NRYpkZgfLlZTAqq7Z9V gBhi8AVUxtTcs BB9qyEOrIBucOk6whJzqv IhdNE4eSWDqbzcbb817Ru Kdc6tjLKXpxWJgWVncQTI 1V13ix7B6ZYZl SVUlDDB2wUW8bY2lfYdqe jogbGVmdDsgdmVydGljYW beMGroC166FSJokEzjYm0 UVol7X0RgDzb7 ZBSheYunSM3qhYJqDTzvB j4rnOnxrEwvZZ4sPUXjdo fpa369OsCms4msDNBgmMJ gQIftAOT8B03u l4F8EHCmPTYeLYN4wPG9m C0vdVzpnotfjVAmdEcytj WsdFwiKHdwHRdjG983FHO vcDsnPlBheWVy OjwvdGQ+GJ62jy93G4UlD aanZwz3SCHqZRL5cMY3wX 3xTJElYWoba6K0kKL2I0U uzpRcij2rr6pp YXBzZTog (more content not included)... Normal [facility] Outside Recordson 05-15-2022 Outside Records [id number]# 1.00CD:127 Normal [facility] BUNon 05-14-2022 Urea nitrogen [Mass/Vol] 17 mg/dL Normal 5-21 [facility] Comment on above: Performed By: #### 2 671739, 2364115, 8997082, 9502956, 3331305, [id number] ####[facility] [address] [place] [address] CBC w/Indiceson 05-14-2022 Erythrocyte distribution width (RBC) [Ratio] 13.1 % Normal 10.9-14.2 [facility] Comment on above: Performed By: #### 2 781664, 1838526, 0209316, 0787652, 8763254, 81928270 ####[facility] [address] [place] [address] Hematocrit (Bld) [Volume fraction] 44.2 % Normal 37.7-49.0 [facility] Comment on above: Performed By: #### 2 365875, 6108260, 5333908, 7504143, 2621977, 29601959 ####[address] [place] [address] Hemoglobin (Bld) [Mass/Vol] 15.2 g/dL Normal 13.5-17.5 [facility] Comment on above: Performed By: #### 2 607593, 9224166, 3643763, 0850935, 1589725, 71486604 ####[address] [address] MCH (RBC) [Entitic mass] 32.0 pg Normal 27.0-34.0 [facility] Comment on above: Performed By: #### 2 606589, 8100364, 1694345, 1481985, 7170785, 53331395 ####[address] [address] MCHC (RBC) [Mass/Vol] 34.4 g/dL Normal 31.4-36.0 [facility] Comment on above: Performed By: #### 2 434225, 8145683, 5535458, 4319725, 5412514, 34772717 ####[address] [address] MCV (RBC) [Entitic vol] 92.9 fL Normal 80.0-100.0 [facility] Comment on above: Performed By: #### 2 709830, 9777129, 6576481, 9221329, 8374525, 22783741 ####[address] [address] Platelet mean volume (Bld) [Entitic vol] 7.1 fL Normal 6.4-10.8 [facility] Comment on above: Performed By: #### 2 820296, 8370584, 2547189, 6728521, 0051878, 50637405 ####[address] [address] Platelets (Bld) [#/Vol] 274.0 E9/L Normal 150.0-500.0 [facility] Comment on above: Performed By: #### 2 240051, 3286284, 1462479, 2544244, 6866157, 48900234 ####[facility] [address] [place] [address] RBC (Bld) [#/Vol] 4.8 E12/L Normal 4.3-5.9 [facility] Comment on above: Performed By: #### 2 895688, 8960962, 9641551, 9354831, 5172902, 57027031 ####[facility] [address] [place] [address] WBC corrected for nucl RBC Auto (Bld) [#/Vol] 5.8 E9/L Normal 4.0-11.0 [facility] Comment on above: Performed By: #### 2 605800, 1684096, 8102780, 1720084, 8698723, 22851858 ####[facility] [address] [place] [address] CHEMISTRYOrdered By: SYSTEM SYSTEM on 05-14-2022 Anion gap [Moles/Vol] 16 mmol/L Normal 6 - 16 mEq/L F C Remisol Chloride [Moles/Vol] 98 mmol/L Low 101 - 1 11 mmol/L [facility] [place]isol CO2 [Moles/Vol] 25 mmol/L Normal 21 - 31 mmol/L [facility] [place] Remisol Creatinine [Mass/Vol] 0.9 mg/dL Normal 0.5 - 1.3 mg/dL [facility] [place] Remisol GFR/1.73 sq M.predicted among blacks MDRD (S/P/Bld) [Vol rate/Area] mL/min/1.73 m2 Normal >=59mL/min/1. 73 m2 [facility] [place] Chem S GFR/1.73 sq M.predicted among non-blacks MDRD (S/P/Bld) [Vol rate/Area] mL/min/1.73 m2 Normal >=59mL/min/1. 73 m2 [facility] [place] Chem S Glucose [Mass/Vol] 100 mg/dL Normal 55 - 199 mg/dL [facility] [place] Remisol Potassium [Moles/Vol] 3.6 mmol/L Normal 3.5 - 5.3 mmol/L [facility] [place] Remisol Sodium [Moles/Vol] 135 mmol/L Normal 135 - 145 mmol/L [facility] [place] Remisol Urea nitrogen [Mass/Vol] 17 mg/dL Normal 5 - 21 mg/dL [facility] [place] Remisol Consent for Treatmenton 05-01 Consent for Treatment [id number] .00CD:127 Normal [facility] Creatinineon 05-14-2022 Creatinine [Mass/Vol] 0.9 mg/dL Normal 0.5-1.3 [facility] Comment on above: Performed By: #### 2 128950, 4827735, 3053133, 8417649, 1693011, 12375998 ####[facility] [address] [place] [address] Glucoseon 05-14-2022 Glucose [Mass/Vol] 100 mg/dL Normal 55-199 [facility] Comment on above: Performed By: #### 2 401281, 0767765, 7096661, 8799038, 3429809, 50429645 ####[facility] [address] [place] [address] HEMATOLOGYOrdered By: Ronda Webster on 05-14-2022 Erythrocyte distribution width (RBC) [Ratio] 13.1 % Normal 10.9 - 14.2 % [facility] [place] [facility] Hematocrit (Bld) [Volume fraction] 44.2 % Normal 37.7 - 49.0 % [facility] [place] [facility] Hemoglobin (Bld) [Mass/Vol] 15.2 g/dL Normal 13.5 - 17.5 gm/dL [facility] [place] [facility] MCH (RBC) [Entitic mass] 32.0 pg Normal 27.0 - 34.0 pg [facility] [place] [facility] MCHC (RBC) [Mass/Vol] 34.4 g/dL Normal 31.4 - 36.0 gm/dL [facility] [place] [facility] MCV (RBC) [Entitic vol] 92.9 fL Normal 80.0 - 100.0 fL [facility] [place] [facility] Platelet mean volume (Bld) [Entitic vol] 7.1 fL Normal 6.4 - 10.8 fL [facility] [place] [facility] Platelets (Bld) [#/Vol] 274.0 E9/L Normal 150.0 - 500.0 E9/L [facility] [place] [facility] RBC (Bld) [#/Vol] 4.8 E12/L Normal 4.3 - 5.9 E12/L [facility] [place] [facility] WBC corrected for nucl RBC Auto (Bld) [#/Vol] 5.8 E9/L Normal 4.0 - 11.0 E9/L [facility] [place] [facility] [place] 05-14-2022 Anion gap [Moles/Vol] 16 mmol/L Normal 6-16 [facility] Comment on above: Performed By: #### 2 [id number], 1064394, 7390823, 8198903, 1744701, [id number] ####[facility] [address] [place] [address] Chloride [Moles/Vol] 98 mmol/L Low 101-111 [facility] Comment on above: Performed By: #### 2 554279, 6815953, 8764694, 8193758, 3453670, [id number] ####[facility] [address] [place] [address] CO2 [Moles/Vol] 25 mmol/L Normal 21-31 [facility] Comment on above: Performed By: #### 2 174442, 7147020, 8818291, 4418838, 4145936, [id number] ####[facility] [address] [place] [address] Potassium [Moles/Vol] 3.6 mmol/L Normal 3.5-5.3 [facility] Comment on above: Performed By: #### 2 857120, 6973142, 1545652, 1419056, 4267004, [id number] ####[facility] [address] [place] [address] Sodium [Moles/Vol] 135 mmol/L Normal 135-145 [facility] Comment on above: Performed By: #### 2 246976, 3351852, 1608788, 3187391, 8803932, 71435201 ####[facility] [address] [place] [address] XR Chest 2 Viewson XR Chest 2 Views Exam Date/Time: 05/14/2022 [...] mGy = na DAP = na Normal [facility] eGFRon 05-14-2022 GFR/1.73 sq M.predicted among blacks MDRD (S/P/Bld) [Vol rate/Area] mL/min/{1.73_m2} Normal >=59 [facility] Comment on above: Order Comment: Order added by Discern Expert. Result Comment: eGFR is race adjusted. AA=. Performed By: #### 2 [id number], 9845723, 7928898, 9775449, 6771293, [id number] ####[facility] [address] [place] [address] GFR/1.73 sq M.predicted among non-blacks MDRD (S/P/Bld) [Vol rate/Area] mL/min/{1.73_m2} Normal >=59 [facility] Comment on above: Order Comment: Order added by Discern Expert. Result Comment: Wirer florentin kidney disease could be indicated at eGFR's of less than 60 mL/min/1.73m2. Kidney failure is indicated at less than 15 mL/min/1.73m2. Performed By: #### 2 090277, 7154401, 2799883, 7020688, 2982474, [id number] ####[facility] [address] [place] [address] Physician Orderon 02-01-2022 Physician Order [id number] Normal [facility] MRI Shoulder w/o Right[place] MRI Shoulder [...] by MARCELINA MORGAN on 01/09/2022 1544 Normal [facility] Specialist XR Shoulder Complete Right*o n 01-01-2022 XR [...] by Dustin Ag on 01/02/2022 0705 Normal [facility] Comprehensive Metabolic Pane ramesh 03-29-2021 Albumin [Mass/Vol] 4.6 g/dL Normal 3.6-5.1 [facility] Comment on above: Performed By: #### L IPD, CMP #### [facility] [address], [place] [id number] Albumin/Globulin [Mass ratio] 2.4 {ratio} Normal 1.0-2.5 [facility] Comment on above: Performed By: #### L IPD, CMP #### [facility] [address], [place] [id number] ALP [Catalytic activity/Vol] 108 U/L Normal 40-129 [facility] Comment on above: Performed By: #### L IPD, CMP #### [facility] [address], [place] [id number] ALT [Catalytic activity/Vol] 59 U/L High 9-46 [facility] Comment on above: Result Comment: 01/31 Female reference range changed. Performed By: #### L IPD, CMP #### [facility] [address], [place] [id number] Anion gap [Moles/Vol] 18 mmol/L Normal 12-20 [facility] Comment on above: Result Comment: Effe ctive 03/08/2019 reference range changed. Performed By: #### L IPD, CMP #### [facility] [address], [place] [id number] AST [Catalytic activity/Vol] 26 U/L Normal 10-40 [facility] Comment on above: Performed By: #### L IPD, CMP #### [facility] [address], [place] [id number] Bilirubin [Mass/Vol] 0.33 mg/dL Normal 0.30-1.20 [facility] Comment on above: Performed By: #### L IPD, CMP #### [facility] [address], [place] [id number] BUN/CREA 23 Ratio High 6-22 [facility] Comment on above: Performed By: #### L IPD, CMP #### [facility] [address], [place] [id number] Calcium [Mass/Vol] 10.5 mg/dL High 8.6-10.2 [facility] [employer] [employer] Comment on above: Performed By: #### L IPD, CMP #### [facility] [address], [place] [id number] Chloride [Moles/Vol] 99 mmol/L Normal 98-107 [facility] Comment on above: Performed By: #### L IPD, CMP #### [facility] [address], [place] [id number] CO2 [Moles/Vol] 24 mmol/L Normal 20-31 [facility] Comment on above: Performed By: #### L IPD, CMP #### [facility] [address] [place], [place] [id number] Creatinine [Mass/Vol] 1.0 mg/dL Normal 0.7-1.4 [facility] Comment on above: Performed By: #### L IPD, CMP #### [facility] [address] [place], [place] [id number] eGFRAA 89 mL/min/1.73m2 Normal >60 [facility] Comment on above: Performed By: #### L IPD, CMP #### [facility] [address] [place], [place] [id number] eGFRNAA 74 mL/min/1.73m2 Normal >60 [facility] Comment on above: Performed By: #### L IPD, CMP #### [facility] [address] [place], [place] [id number] Globulin (S) [Mass/Vol] 1.9 g/dL Normal 1.9-3.7 [facility] Comment on above: Performed By: #### L IPD, CMP #### [facility] [address] [place], [place] [id number] Glucose [Mass/Vol] 93 mg/dL Normal 65-99 [facility] [employer] Comment on above: Result Comment: For FASTING Glucose --- ADA reference ranges: Normal 65-99 mg/dl Prediabetes 100-125 Diabetes >/= 126 Performed By: #### L IPD, CMP #### [facility] [address] [place], [place] [id number] Potassium [Moles/Vol] 4.1 mmol/L Normal 3.5-5.5 [facility] Comment on above: Performed By: #### L IPD, CMP #### [facility] [address] [place], [place] [id number] Protein [Mass/Vol] 6.5 g/dL Normal 6.1-8.1 [facility] Comment on above: Performed By: #### L IPD, CMP #### [facility] [address] [place], [place] [id number] Sodium [Moles/Vol] 137 mmol/L Normal 135-146 [facility]ist Comment on above: Performed By: #### L IPD, CMP #### [facility] [address] [place], [place] [id number] Urea nitrogen [Mass/Vol] 24 mg/dL Normal 7-25 [facility] Comment on above: Performed By: #### L IPD, CMP #### [facility] [address] [place], [place] [id number] Lipid Panelon 03-29-2021 Cholesterol [Mass/Vol] 153 mg/dL Normal 125-200 [facility] Comment on above: Result Comment: Low risk < 200mg/dL Borderline risk 201-239 mg/dl High risk > or equal to 240 Performed By: #### L IPD, CMP #### [facility] [address] [place], [place] [id number] Cholesterol in HDL [Mass/Vol] 45 mg/dL Normal >40 [facility] Comment on above: Result Comment: High Cardiovascular Risk HDL <40 mg/dL Low Cardiovascular Risk HDL > or equal to 60 mg/dl Performed By: #### L IPD, CMP #### [facility] [address] [place], [place] [id number] Cholesterol in LDL [Mass/Vol] 83 mg/dL Normal [facility] Comment on above: Result Comment: LDL ATP III CLASSIFICATION LDL less than 100 mg/dl Optimal LDL 100-129 mg/dl Near or above optimal LDL 130-159 Borderline high LDL 160-189 High LDL greater than 189 mg/dl Very High Performed By: #### L IPD, CMP #### [facility] [address] [place], [place] [id number] Cholesterol in VLDL [Mass/Vol] 25 mg/dL Normal [facility] Comment on above: Performed By: #### L IPD, CMP #### [facility] [address] [facility] [place], [place] [id number] Cholesterol.total/Cho lesterol in HDL [Mass ratio] 3 {ratio} Normal [facility] Comment on above: Performed By: #### L IPD, CMP #### [facility] [address] [place], [place] [id number] Triglyceride [Mass/Vol] 126 mg/dL Normal 30-150 [facility] Comment on above: Result Comment: TRIG ATPIII CLASSIFICATIONS TRIG less than 150 mg/dl Normal TRIG 150-199 mg/dl Borderline High TRIG 200-500 mg/dl High TRIG greather than 500 mg/dl Very High Performed By: #### L IPD, CMP #### [facility] [address] [place], [place] [id number] [facility]31 SARS-CoV-2 (COVID-19) RNA ZAIRA+probe Ql (Unsp spec) Not detected Normal NOT DETECTED [facility] Comment on above: Result Comment: This test is not yet approved or cleared by the [place] FDA. When there are no FDA-approved or cleared tests available, and other criteria are met, FDA can make tests available under an emergency access mechanism called an Emergency Use Authorization (EUA). The EUA for this test is supported by the Spooling Machine Operator of Health and Human Service's (HHS's) declaration [...] consistent with SARS-CoV-2. Performed By: #### C VDTBH #### [facility] [address] [address] [address] Luis Fernando Pagan PROF CHEM 8 (BAS METB)on Anion gap [Moles/Vol] 13.1 mmol/L Normal [facility] Comment on above: Performed By: #### B MP #### [facility] [address] [address] Lori Fátima Calcium [Mass/Vol] 9.8 mg/dL Normal 8.4-10.2 [facility] Comment on above: Performed By: #### B MP #### [facility] [address] [place] [address] Lori Fátima Chloride [Moles/Vol] 101 mmol/L Normal 98-107 [facility] Comment on above: Performed By: #### B MP #### [facility] [address] [place] [address] Lori Fátima CO2 [Moles/Vol] 31.0 mmol/L Critically high 22.0-30.0 [facility] Comment on above: Performed By: #### B MP #### [facility] [address] [place] [address] Lori Fátima Creatinine [Mass/Vol] 1.28 mg/dL Critically high 0.66-1.25 [facility] Comment on above: Performed By: #### B MP #### [facility] [address] [place] [address] Lori Fátima EGFR-AF MOSOTHO >60 Normal >=60 [facility] Comment on above: Performed By: #### B MP #### [facility] [address] [place] [address] Lori Fátima EGFR-NON AF MOSOTHO 58 mL/min/1.73m2 Critically low >=60 [facility] Comment on above: Performed By: #### B MP #### [facility] [address] [place] [address] Lori Fátima Glucose [Mass/Vol] 127 mg/dL Critically high 74-106 [facility] Comment on above: Performed By: #### B MP #### [facility] [address] [place], [place] [address] Lori Fátima Potassium [Moles/Vol] 4.1 mmol/L Normal 3.4-5.0 [facility] Comment on above: Performed By: #### B MP #### [facility] [address] [place], [place] [address] Lori Fátima Sodium [Moles/Vol] 141 mmol/L Normal 137-145 [facility] Comment on above: Performed By: #### B MP #### [facility] [address] [place], [place] [address] Lori Fátima Urea nitrogen [Mass/Vol] 19.0 mg/dL Normal 9.0-20.0 [facility] Comment on above: Performed By: #### B MP #### [facility] [address] [place], [place] [address] Lori Fátima Urea nitrogen/Creatinine [Mass ratio] 14.8 mg/mg Normal [facility] Comment on above: Performed By: #### B MP #### [facility] [address] [place], [place] [address] Lori Fátima NM STRESS/REST MULTIon 03-22 NM STRESS/REST MULTI Patient: KATHERINE HOGAN Exam Date: 03/22/2020 : 1965 Gender:M Ordering : MAGUE WILDER Admission #: [id number] Family : DR ZEB MESSER . Order #: [id number] CLICK HERE TO VIEW EXAM RADIOLOGY REPORT [...] Miller MD on 03/22/2020 at 13:26 Normal [facility] LIPID PROFILEon 03-17-2020 CHOL-HDL RATIO NORM SEE BELOW Normal [facility] Comment on above: Result Comment: 3.3 - 4.4 LOW RISK 4.4 - 7.1 AVERAGE RISK 7.1 - 11.0 MODERATE RISK >11.0 HIGH RISK Performed By: #### B MP, LIPID, LIVER #### [facility] [address] [place] [address] Lori Fátima Cholesterol [Mass/Vol] 162 mg/dL Normal <=200 [facility] Comment on above: Performed By: #### B MP, LIPID, LIVER #### [facility] [address] [place] [address] Lori Fátima Cholesterol in HDL [Mass/Vol] 39 mg/dL Normal [facility] Comment on above: Performed By: #### B MP, LIPID, LIVER #### [facility] [address] [place], [place] [address] Lori Fátima Cholesterol in LDL [Mass/Vol] 97.4 mg/dL Normal [facility] Comment on above: Performed By: #### B MP, LIPID, LIVER #### [facility] [address] [place], [place] [address] Lori Fátima Cholesterol.total/Cho lesterol in HDL [Mass ratio] 4.2 {ratio} Normal [facility] Comment on above: Performed By: #### B MP, LIPID, LIVER #### [facility] [address] [place], [place] [address] Lori Fátima HDL NORMAL > or = 60 mg/dl - LO W CARDIOVASCULAR RISK <40 mg/dl - HIGH CARDIOVASCULAR RISK Normal [facility] Comment on above: Performed By: #### B MP, LIPID, LIVER #### [facility] [address] [place], [place] [address] Lori Fátima LDL CALC NORMAL SEE BELOW Normal [facility] Comment on above: Result Comment: <100 mg/dl OPTIMAL 100 - 129 mg/dl NEAR OR ABOVE OPTIMAL 130 - 159 mg/dl BORDERLINE HIGH 160 - 189 mg/dl HIGH >190 mg/dl VERY HIGH Performed By: #### B MP, LIPID, LIVER #### [facility] [address] [id number] Lori Fátima Triglyceride [Mass/Vol] 128 mg/dL Normal <=150 [facility] Comment on above: Performed By: #### B MP, LIPID, LIVER #### [facility] [address] [id number] Lori Fátima VLDL CALC 25.6 mg/dL Normal [facility] Comment on above: Performed By: #### B MP, LIPID, LIVER #### [facility] [address] [place], [place] [address] Lori Fátima LIVER PROFILEon 03-17-2020 Albumin [Mass/Vol] 4.2 g/dL Normal 3.5-5.0 [facility] Comment on above: Performed By: #### B MP, LIPID, LIVER #### [facility] [address] [place], [place] [phone] Lori Fátima Albumin/Globulin [Mass ratio] 1.3 {ratio} Normal [facility] Comment on above: Performed By: #### B MP, LIPID, LIVER #### [facility] [address] [place] [address] Lori Fátima ALP [Catalytic activity/Vol] 83 U/L Normal 38-126 [facility] Comment on above: Performed By: #### B MP, LIPID, LIVER #### [facility] [address] [place], [place] [address] Lori Fátima ALT [Catalytic activity/Vol] 47 U/L Normal 21-72 [facility] Comment on above: Performed By: #### B MP, LIPID, LIVER #### [facility] [address] [place], [place] [address] Lori Fátima AST [Catalytic activity/Vol] 17 U/L Normal 17-59 [facility] Comment on above: Performed By: #### B MP, LIPID, LIVER #### [facility] [address] [place], [place] [address] Lori Fátima BILI, CONJUGATED 0.1 mg/dL Normal 0.0-0.3 [facility] Comment on above: Performed By: #### B MP, LIPID, LIVER #### [facility] [address] [id number] Lori Fátima Bilirubin [Mass/Vol] 0.5 mg/dL Normal 0.2-1.3 [facility] Comment on above: Performed By: #### B MP, LIPID, LIVER #### [facility] [address] [phone] Lori Fátima Globulin (S) [Mass/Vol] 3.2 g/dL Normal [facility] Comment on above: Performed By: #### B MP, LIPID, LIVER #### [facility] [address] [phone] Lori Fátima Protein [Mass/Vol] 7.4 g/dL Normal 6.1-8.2 [facility] Comment on above: Performed By: #### B MP, LIPID, LIVER #### [facility] [address] [place], [place] [address] Lori Fátima PROF CHEM 8 (BAS METB)on Anion gap [Moles/Vol] 11.2 mmol/L Normal [facility] Comment on above: Performed By: #### B MP, LIPID, LIVER #### [facility] [address] [place], [place] [address] Lori Fátima Calcium [Mass/Vol] 9.7 mg/dL Normal 8.4-10.2 [facility] Comment on above: Performed By: #### B MP, LIPID, LIVER #### [facility] [address] [place], [place] [address] Lori Fátima Chloride [Moles/Vol] 100 mmol/L Normal 98-107 [facility] Comment on above: Performed By: #### B MP, LIPID, LIVER #### [facility] [address] [address] Lori Fátima CO2 [Moles/Vol] 28.1 mmol/L Normal 22.0-30.0 [facility] Comment on above: Performed By: #### B MP, LIPID, LIVER #### [facility] [address] [place] [address] Lori Fátima Creatinine [Mass/Vol] 1.55 mg/dL Critically high 0.66-1.25 [facility] Comment on above: Performed By: #### B MP, LIPID, LIVER #### [facility] [address] [place] [address] Lori Fátima EGFR-AF MOSOTHO 56 mL/min/1.73m2 Critically low >=60 [facility] Comment on above: Performed By: #### B MP, LIPID, LIVER #### [facility] [address] [place] [address] Lori Fátima EGFR-NON AF MOSOTHO 47 mL/min/1.73m2 Critically low >=60 [facility] Comment on above: Performed By: #### B MP, LIPID, LIVER #### [facility] [address] [place] [address] Lori Fátima Glucose [Mass/Vol] 101 mg/dL Normal 74-106 [facility] Comment on above: Performed By: #### B MP, LIPID, LIVER #### [facility] [address] [place] [address] Lori Fátima Potassium [Moles/Vol] 3.3 mmol/L Critically low 3.4-5.0 [facility] Comment on above: Performed By: #### B MP, LIPID, LIVER #### [facility] [address] [place] [address] Lori Fátima Sodium [Moles/Vol] 136 mmol/L Critically low 137-145 [facility] Comment on above: Performed By: #### B MP, LIPID, LIVER #### [facility] [address] [place] [address] Lori Fátima Urea nitrogen [Mass/Vol] 21.0 mg/dL Critically high 9.0-20.0 [facility] Comment on above: Performed By: #### B MP, LIPID, LIVER #### [facility] [address] [id number] Lori Shine Urea nitrogen/Creatinine [Mass ratio] 13.5 mg/mg Normal [facility] Comment on above: Performed By: #### B MP, LIPID, LIVER #### [facility] [address] [address] Lori Shine Consent Formson 02-01-2020 Consent Forms [id number] .00[facility] Provider Orderson 02-01-2020 Provider Orders [id number] .00[facility] Coding Summaryon 01-24-2020 Coding Summary CODING DATE: 01/24/2020 [facility] STATUS: Home PAYOR: Commercial Insurance ADMIT DX: REASON FOR VISIT DX: Z20.828 Contact with and (suspected) exposure to other viral communicable diseases FINAL DX: PRINCIPAL: U07.1 COVID-19 SECONDARY: Z20.828 Contact with and (suspected) exposure to other viral communicable diseases PYMT PROC [facility] STAT DESCRIPTION DOCTOR NAME DATE NOTE: The code number assigned matches the documented diagnosis and / or procedure in the patient's chart. However, the narrative phrase printed from the coding software may appear abbreviated, or result in slightly different terminology. Coded By: Oneyda Hendricks Date Saved: 01/24/2020 09:30 am [facility] 2019 Novel Coronavirus (CoVI D-19), ZAIRA LCon 01-22-2020 Employed in healthcare? No [facility] Comment on above: Order Comment: [id number] Results Called To Dr. Messer's office and left message By ZAINA On 01/22/2020 09:05:43 EST Results Called To Patient by Dolores on house By GOMEZ And Read Back For Confirmation On 01/22/2020 09:30:27 EST Performed By: #### 6 [id number] #### [facility] (DEFAULT) [address] [place] [address] Group care resident? No [facility] Comment on above: Order Comment: [id number] Results Called To Dr. Messer's office and left message By ZAINA On 01/22/2020 09:05:43 EST Results Called To Patient by Dolores on house By GOMEZ And Read Back For Confirmation On 01/22/2020 09:30:27 EST Performed By: #### 6 [id number] #### [facility] (DEFAULT) [address] [place] [address] Hospitalized due to COVID-19? No [facility] Comment on above: Order Comment: [id number] Results Called To Dr. Messer's office and left message By ZAINA On 01/22/2020 09:05:43 EST Results Called To Patient by Dolores on house By GOMEZ And Read Back For Confirmation On 01/22/2020 09:30:27 EST Performed By: #### 6 [id number] #### [facility] (DEFAULT) [address] [place] [address] In ICU? No [facility] Comment on above: Order Comment: [id number] Messer's office and left message By ZAINA On 01/22/2020 09:05:43 EST Results Called To Patient by Dolores on house By GOMEZ And Read Back For Confirmation On 01/22/2020 09:30:27 EST Performed By: #### 6 [id number] #### [facility] (DEFAULT) [address] [place] [address] status? Not [facility] Comment on above: Order Comment: [id number] Results Called To Dr. Messer's office and left message By ZAINA On 01/22/2020 09:05:43 EST Results Called To Patient by Dolores on house By GOMEZ And Read Back For Confirmation On 01/22/2020 09:30:27 EST Performed By: #### 6 [id number] #### [facility] (DEFAULT) [address] [place] [address] Symptomatic as defined by CDC? No [facility] Comment on above: Order Comment: [id number] Results Called To Dr. Messer's office and left message By ZAINA On 01/22/2020 09:05:43 EST Results Called To Patient by Dolores on house By GOMEZ And Read Back For Confirmation On 01/22/2020 09:30:27 EST Performed By: #### 6 [id number] #### [facility] (DEFAULT) [address] [place] [address] SARS-CoV-2, ZAIRA (COVID-19) LC Detected Abnormal Not Detected [facility] Comment on above: Order Comment: [id number] Results Called To Dr. Messer's office and left message By ZAINA On 01/22/2020 09:05:43 EST Results Called To Patient by Dolores on house By GOMEZ And Read Back For Confirmation On 01/22/2020 09:30:27 EST Result Comment: This nucleic acid amplification test was developed and its performance characteristics determined by [employer]. Nucleic acid amplification tests include PCR and [...] detected) result in this assay. Performed At: [facility] [address] [facility], [place] [id number] Luis Alberto Wilson MD Ph:[phone] Performed By: #### 6 [id number] #### [facility] (DEFAULT) [address] [place] [address] Progress Note - Nurseon 01-01 Progress Note - Nurse Nasal swab perform ed without complication. Patient tolerated well. Education given. Patient verbalized understanding. [Electronically Signed on: 01/20/2020 16:47 EST] Jenna Barrera RN [Verified on: 01/20/2020 16:47 EST] Jenna Barrera RN [facility] Vital Signs Date Time Vital Sign Value Performing Clinician Facility 03-08-2024 16:24-0500 Body height 175.3 cm Zeb Messer MD Work Phone: [facility] 03-08-2024 16:24-0500 Body mass index (BMI) [Ratio] 32.19 kg/m2 Zeb Messer MD Work Phone: [facility] 03-08-2024 16:24-0500 Body weight 98.88 kg Zeb Messer MD Work Phone: [facility] 03-08-2024 16:24-0500 Diastolic blood pressure 70 mm[Hg] Zeb Messer MD Work Phone: [facility] 03-08-2024 16:24-0500 Heart rate 73 /min Zeb Messer MD Work Phone: [facility] 03-08-2024 16:24-0500 SaO2% (BldA) [Mass fraction] 96 % Zeb Messer MD Work Phone: [facility] 03-08-2024 16:24-0500 Systolic blood pressure 124 mm[Hg] Zeb Messer MD Work Phone: [facility] 02-18-2024 11:38-0500 Body height 175.3 cm Zeb Messer MD Work Phone: [facility] 02-18-2024 11:38-0500 Body mass index (BMI) [Ratio] 32.19 kg/m2 Zeb Messer MD Work Phone: [facility] 02-18-2024 11:38-0500 Body weight 98.88 kg Zeb Messer MD Work Phone: [facility] 11-25-2023 16:19-0400 Body height 175.3 cm Zeb Messer MD Work Phone: [facility] 11-25-2023 16:19-0400 Body mass index (BMI) [Ratio] 33.37 kg/m2 Zeb Messer MD Work Phone: [facility] 11-25-2023 16:19-0400 Body weight 102.51 kg Zeb eMsser MD Work Phone: [facility] 10-30-2023 16:03-0400 Body height 175.3 cm Zeb Messer MD Work Phone: [facility] 10-30-2023 16:03-0400 Body mass index (BMI) [Ratio] 33.37 kg/m2 Zeb Messer MD Work Phone: [facility] 10-30-2023 16:03-0400 Body weight 102.51 kg Zeb Messer MD Work Phone: [facility] 05-31-2022 10:00-0400 Diastolic blood pressure 43 mm[Hg] Nils Finney [facility] 05-31-2022 10:00-0400 Heart rate 68 /min Nils Finney [facility] 05-31-2022 10:00-0400 SaO2% (BldA) [Mass fraction] 97 % [facility]ils Finney [facility] 05-31-2022 10:00-0400 Systolic blood pressure 120 mm[Hg] [facility] Finney [facility] 05-31-2022 09:20-0400 SaO2% (BldA) [Mass fraction] 95 % [facility] Fin[facility] 05-31-2022 09:19-0400 Heart rate 62 /min Nils Brown [facility] 05-31-2022 09:19-0400 SaO2% (BldA) [Mass fraction] 96 % [facility] Brown [facility] 05-31-2022 09:18-0400 Diastolic blood pressure 77 mm[Hg] Nils Brown [facility] 05-31-2022 09:18-0400 Mean blood pressure 91 mm[Hg] [facility]ils Brown [facility] 05-31-2022 09:18-0400 Systolic blood pressure 118 mm[Hg] Nils Brown [facility] 05-31-2022 09:17-0400 Respiratory rate 20 /min Nils Brown [facility] 05-31-2022 09:15-0400 Body temperature 96.98 [degF] Nils Brown [facility] 05-31-2022 09:15-0400 Body temperature 97.16 [degF] [facility]ils Brown [facility] 05-31-2022 09:15-0400 Diastolic blood pressure 86 mm[Hg] Nils Brown [facility] 05-31-2022 09:15-0400 Diastolic blood pressure 94 mm[Hg] [facility]ils Brown [facility] 05-31-2022 09:15-0400 Heart rate 65 /min [facility] Brown [facility] 05-31-2022 09:15-0400 Mean blood pressure 99 mm[Hg] [facility] Brown [facility] 05-31-2022 09:15-0400 Mean blood pressure 108 mm[Hg] [facility] 05-31-2022 09:15-0400 Respiratory rate 15 /min [facility] 05-31-2022 09:15-0400 Respiratory rate 5 /min [facility] 05-31-2022 09:15-0400 Systolic blood pressure 124 mm[Hg] [facility] Brown [facility] 05-31-2022 09:15-0400 Systolic blood pressure 135 mm[Hg] [facility] 05-31-2022 09:00-0400 Mean blood pressure 96 mm[Hg] [facility] 05-31-2022 09:00-0400 Respiratory rate 13 /min [facility] Brown [facility] 05-31-2022 08:44-0400 Body temperature 97.16 [degF] [facility] 05-31-2022 08:40-0400 FIO2 100 % [facility] Brown [facility] 05-31-2022 08:35-0400 FIO2 30 % [facility] Brown [facility] 05-31-2022 08:35-0400 Respiratory rate 16 /min [facility] 05-31-2022 08:30-0400 FIO2 50 % [facility] 05-31-2022 08:30-0400 Respiratory rate 16 /min [facility] 05-31-2022 06:20-0400 Heart rate 64 /min [facility] Brown [facility] 05-31-2022 06:03-0400 Mean blood pressure 95 mm[Hg] [facility] Finney [facility] 05-31-2022 06:01-0400 Body temperature 97.52 [degF] [facility] Finney [facility] 05-31-2022 06:01-0400 Mean blood pressure 91 mm[Hg] [facility] Finney [facility] 05-14-2022 09:37-0400 Diastolic blood pressure 87 mm[Hg] [facility] Finney [facility] 05-14-2022 09:37-0400 Heart rate 60 /min Nils Finney [facility] 05-14-2022 09:37-0400 Mean blood pressure 108 mm[Hg] [facility] Finney [facility] 05-14-2022 09:37-0400 Systolic blood pressure 149 mm[Hg] Nils Finney [facility] 05-14-2022 09:37-0400 Blood Pressure Location Nils Finney [facility] 05-14-2022 09:36-0400 Heart rate 60 /min Nils Finney [facility] 05-14-2022 09:36-0400 SaO2% (BldA) [Mass fraction] 99 % Nils Finney [facility] 05-14-2022 09:35-0400 Body temperature 97.88 [degF] Nils Finney [facility] 05-14-2022 09:35-0400 Respiratory rate 18 /min Nils Finney [facility] 05-14-2022 09:35-0400 Diastolic blood pressure 80 mm[Hg] Nils Finney [facility] 05-14-2022 09:35-0400 Mean blood pressure 99 mm[Hg] Nils Finney [facility] 05-14-2022 09:35-0400 Systolic blood pressure 136 mm[Hg] Nils Finney [facility] 05-14-2022 09:35-0400 Blood Pressure Location Nils Finney [facility] Encounters Encounter Date Encounter Type Care Provider Facility Start: 04-29-2024 End: 04-29-2024 ambulatory ZEB MESSER Not Available Start: 04-29-2024 End: 04-29-2024 Bamboo flowsheet Zeb Messer MD Work Phone: [facility] Start: 04-29-2024 End: 04-29-2024 Bamboo flowsheet Zeb Messer MD Work Phone: [facility] Start: 03-19-2024 End: 03-19-2024 Refill Zeb Messer MD Work Phone: [facility] Comment on above: Essential hypertensi on (CMS/HCC) Start: 03-08-2024 End: 03-08-2024 Office outpatient visit 25 minutes Zeb Messer MD Work Phone: [facility] Comment on above: Essential hypertensi on (CMS/HCC); Mixed hyperlipidemia (CMS/HCC); Mixed anxiety and depressive disorder; Benign prostatic hyperplasia without lower urinary tract symptoms; Gastroesophageal reflux disease without esophagitis; Non morbid obesity due to excess calories Start: 03-08-2024 End: 03-08-2024 Telephone encounter Zeb Messer MD Work Phone: [facility] Start: 03-05-2024 End: 03-06-2024 Refill Zeb Messer MD Work Phone: [facility] Comment on above: Mixed anxiety and de pressive disorder; Essential hypertension (CMS/HCC) Start: 03-02-2024 End: 03-02-2024 Telephone encounter Zeb Messer MD Work Phone: [facility] Start: 03-01-2024 End: 03-01-2024 Refill Zeb Messer MD Work Phone: [facility] Comment on above: Gastroesophageal ref lux disease without esophagitis Start: 02-23-2024 End: 02-23-2024 Telephone encounter Zeb Messer MD Work Phone: [facility] Start: 02-18-2024 End: 02-18-2024 Bamboo flowsheet Zeb Messer MD Work Phone: [facility] Start: 02-18-2024 End: 02-18-2024 Bamboo flowsheet Zeb Messer MD Work Phone: [facility] Start: 02-18-2024 End: 02-18-2024 Patient encounter status Zeb Messer MD Work Phone: [facility] Work Phone: Start: 02-18-2024 End: 02-18-2024 Periodic preventive med est patient 40-64yrs Zeb Messer MD Work Phone: [facility] Comment on above: Encounter for wellne ss examination in adult (Primary Dx); Advance directive in chart; Non morbid obesity due to excess calories; Polypharmacy; Essential hypertension (CMS/HCC); Mixed hyperlipidemia (CMS/HCC); Chronic fatigue syndrome; Obstructive sleep apnea syndrome Start: 02-18-2024 End: 02-18-2024 ambulatory ZEB MESSER Not Available Start: 12-31-2023 End: 12-31-2023 ambulatory ZEB MESSER Not Available Start: 12-31-2023 End: 12-31-2023 Office outpatient visit 15 minutes Zeb Messer MD Work Phone: [facility] Comment on above: Gastroenteritis (Ade brittny Dx) Start: 11-25-2023 End: 11-26-2023 Office outpatient visit 40 minutes Zeb Messer MD Work Phone: [facility] Comment on above: Central hypothyroidi sm (CMS/HCC) (Primary Dx); Euthyroid sick syndrome; Chronic fatigue; Low testosterone; Abnormal level of hormones in specimens from other organs, systems and tissues; Polypharmacy; Non morbid obesity due to excess calories Start: 11-25-2023 End: 11-26-2023 ambulatory ZEB MESSER Not Available Start: 11-25-2023 End: 11-25-2023 Bamboo flowsheet Zeb Messer MD Work Phone: [facility] Start: 11-25-2023 End: 11-25-2023 Bamboo flowsheet Zeb Messer MD Work Phone: [facility] Start: 11-08-2023 End: 11-08-2023 Clinisync Result Encounter Zeb Messer MD Work Phone: [facility] Unsolicited Start: 11-08-2023 End: 11-08-2023 Clinisync Result Encounter Zeb Messer MD Work Phone: [facility] Start: 10-31-2023 End: 10-31-2023 External Result Encounter Zeb Messer MD Work Phone: [facility] Start: 10-31-2023 End: 10-31-2023 External Result Encounter Zeb Messer MD Work Phone: [facility] Unsolic[facility] Start: 10-30-2023 End: 10-30-2023 Office outpatient visit 25 minutes Zeb Messer MD Work Phone: [facility] Comment on above: Chronic fatigue (Ade brittny Dx); Chronic pain syndrome; Essential hypertension (CMS/HCC); Low libido; Non morbid obesity due to excess calories; Testosterone deficiency; Excess estrogen in male Start: 10-30-2023 End: 10-30-2023 ambulatory ZEB MESSER Not Available Start: 10-30-2023 End: 10-30-2023 Bamboo flowsheet Zeb Messer MD Work Phone: [facility] Start: 10-30-2023 End: 10-30-2023 Bamboo flowsheet Zeb Messer MD Work Phone: [facility] Start: 09-10-2023 End: 09-10-2023 ambulatory ZEB MESSER Not Available Start: 07-31-2023 End: 07-31-2023 ambulatory BERENICE GREEN Not Available Start: 07-16-2023 End: 07-16-2023 ambulatory [facility] Start: 07-23-2022 End: 07-23-2022 ambulatory [facility] Start: 05-31-2022 End: 05-31-2022 ambulatory Nils Finney [place] [place]: 05-31-2022 End: 05-31-2022 Admission to same day surgery center Nils Finney [facility] Start: 05-14-2022 End: 05-15-2022 ambulatory Nils Finney [place] [place]: 05-14-2022 End: 05-14-2022 Patient encounter procedure Nils Finney [facility] Start: 02-13-2021 End: 02-13-[address] ZEB MESSER Facility:[facility] Start: 06-01-[address] ZEB MESSER Facil ity:[facility] Start: 04-22-2020 End: 04-23-[address] ZEB MESSER Facility:[facility] Start: 03-22-2020 End: 03-23-[address] ZEB MESSER Facility:[facility] Start: 03-17-2020 End: 03-18-2020 ambulatory MAGUE WILDER Facility:[facility] Procedures Date Procedure Procedure Detail Performing Clinician Start: 02-18-2024 Comprehensive metabolic panel Zeb simmons MD Work Phone: Start: 02-18-2024 Lipid panel Zeb Messer MD Work Phone: Start: 11-08-2023 ALL THYROXINE (T4) FREE Edward J Hemeyer MD Work Phone: Start: 10-31-2023 Complete blood count with white cell differential, automated Zeb Messer MD Work Phone: Start: 05-31-2022 Arthroscopy of shoulder Nils Finney Start: 02-28-2017 Colonoscopy Zeb Messer MD Work Phone: Bilateral inguinal hernia repair Nils Finney Cholecystectomy Nils Finney Colonoscopy Nils Finney Esophagogastroduodenoscopy Wojciech virgie Finney H/O: vasectomy Nils Finney Plan of Treatment Date Care Activity Detail Author Start: 02-28-2027 Screening for malign ant neoplasm of colon [facility] Start: 03-01-2025 End: 03-01-2025 Patient encounter procedure 03/01/2025 4:30 PM EST Office Visit [facility] [address] [place] [address] Zeb Messer MD [address] [place] [address] (Fax) [facility] Start: 11-30-2024 End: 11-30-2024 Patient encounter procedure 11/30/2024 4:30 PM EDT Office Visit [facility] [address] [place] [address] Zeb Messer MD [address] [place] [address] (Fax) [facility] Start: 08-30-2024 End: 08-30-2024 Patient encounter procedure 08/30/2024 4:30 PM EDT Office Visit [facility] [address] [place] [address] Zeb Messer MD [address] [place] [address] (Fax) [facility] Start: 08-30-2024 Influenza vaccination Influenza Vacc ine (#1) [facility] Comment on above: Postponed from 11/01 (Patient Refused) Start: 08-09-2024 End: 08-09-2024 Patient encounter procedure 08/09/2024 4:05 PM EDT Office Visit [facility] [address] [place] [phone] Berenice Green, [employer] ENGINE[employer] [address] [place] [address] [facility] Start: 08-02-2024 End: 08-02-2024 Patient encounter procedure 08/02/2024 4:05 PM EDT Office Visit [facility] [address] [place] [phone] Berenice Green, [employer]EARCH ENGINEER [address] [place] [address] [facility] Start: 06-01-2024 End: 06-01-2024 Patient encounter procedure 06/01/2024 4:00 PM EDT Office Visit [facility] [address] [place] [address] Zeb Messer MD [address] [place] [address] (Fax) [facility] Start: 04-29-2024 End: 04-29-2024 Patient encounter procedure 04/29/2024 4:30 PM EST Office Visit [facility] [address] [place] [address] Zeb Messer MD [address] [place] [address] (Fax) Arrived [facility] Comment on above: Arrived Start: 03-08-2024 End: 03-08-2024 Patient encounter procedure [facility] Start: 03-04-2024 End: 03-04-2024 Patient encounter procedure 03/04/2024 4:00 PM EST Office Visit [facility] [address] [place] [address] Zeb Messer MD [address] [place] [address] (Fax) [facility] Start: 02-18-2024 End: 02-18-2024 Patient encounter procedure 02/18/2024 11:30 AM EST Office Visit [facility] [address] [place] [address] Zeb Messer MD [address] [place] [address] (Fax) Encounter for wellness examination in adult; Advance directive in chart; Polypharmacy; Non morbid obesity due to excess calories [facility] Comment on above: Encounter for wellne ss examination in adult; Advance directive in chart; Polypharmacy; Non morbid obesity due to excess calories Start: 02-09-2024 End: 02-09-2024 Patient encounter procedure [facility] Start: 01-26-2024 End: 11-25-2024 T3, reverse T3, reverse Lab Routine Central hypothyroidism (CMS/HCC) Euthyroid sick syndrome Chronic fatigue Expected: 01/26/2024 (Approximate), Expires: 11/25/2024 [facility] Comment on above: Expected: 01/26/2024 (Approximate), Expires: 11/25/2024 Start: 01-26-2024 End: 11-25-2024 Thyroxine (T4) free [Mass/volume] in Serum or Plasma T4, free Lab Routine Central hypothyroidism (CMS/HCC) Euthyroid sick syndrome Chronic fatigue Expected: 01/26/2024 (Approximate), Expires: 11/25/2024 [facility] Comment on above: Expected: 01/26/2024 (Approximate), Expires: 11/25/2024 Start: 01-26-2024 End: 11-25-2024 Triiodothyronine (T3) [Mass/volume] in Serum or Plasma T3 Lab Routine Central hypothyroidism (CMS/HCC) Euthyroid sick syndrome Chronic fatigue Expected: 01/26/2024 (Approximate), Expires: 11/25/2024 [facility] Work Phone: Comment on above: Expected: 01/26/2024 (Approximate), Expires: 11/25/2024 Start: 01-26-2024 End: 11-25-2024 Triiodothyronine (T3) Free [Mass/volume] in Serum or Plasma T3, free Lab Routine Central hypothyroidism (CMS/HCC) Euthyroid sick syndrome Chronic fatigue Expected: 01/26/2024 (Approximate), Expires: 11/25/2024 [facility] Comment on above: Expected: 01/26/2024 (Approximate), Expires: 11/25/2024 Start: 11-25-2023 End: 11-25-2023 Patient encounter procedure 11/25/2023 4:30 PM EDT Office Visit [facility] [address] [address] Zeb Messer MD [address] [place] [address] (Fax) Arrived [facility] Comment on above: Arrived Start: 11-02-2023 Influenza vaccination Influenza Vacc ine (#1) [facility] Start: 10-30-2023 End: 10-30-2023 Patient encounter procedure 10/30/2023 4:00 PM EDT Office Visit [facility] [address] [address] Zeb Messer MD [address] [place] [address] (Fax) Arrived [facility] Comment on above: Arrived Start: 10-30-2023 End: 10-29-2024 ACTH ACTH Lab Routine Chronic fatigue Expected: 10/30/2023 (Approximate), Expires: 10/29/2024 [facility] Comment on above: Expected: 10/30/2023 (Approximate), Expires: 10/29/2024 Start: 10-30-2023 End: 10-29-2024 Cortisol Cortisol Lab Routine Chronic fatigue Expected: 10/30/2023 (Approximate), Expires: 10/29/2024 [facility] Comment on above: Expected: 10/30/2023 (Approximate), Expires: 10/29/2024 Start: 10-30-2023 End: 10-29-2024 DHEA-sulfate DHEA-sulfate Lab Routine Chronic fatigue Low libido Expected: 10/30/2023 (Approximate), Expires: 10/29/2024 [facility] Work Phone: Comment on above: Expected: 10/30/2023 (Approximate), Expires: 10/29/2024 Start: 10-30-2023 End: 10-29-2024 ESTRADIOL, ULTRASENSITIVE, LC/MS ESTRADIOL, ULTRASENSITIVE, LC/MS Lab Routine Chronic fatigue Low libido Excess estrogen in male Expected: 10/30/2023 (Approximate), Expires: 10/29/2024 [facility] Comment on above: Expected: 10/30/2023 (Approximate), Expires: 10/29/2024 Start: 10-30-2023 End: 10-29-2024 Testosterone [Mass/volume] in Serum or Plasma Testosterone Lab Routine Chronic fatigue Low libido Expected: 10/30/2023 (Approximate), Expires: 10/29/2024 [facility] Comment on above: Expected: 10/30/2023 (Approximate), Expires: 10/29/2024 Start: 1965 Screening for malign ant neoplasm of colon [facility] Immunizations Immunization Date Immunization Notes [facility]22 influenza, injectabl e, quadrivalent, preservative free Zeb Messer MD Work Phone: [facility] 11-18-2022 influenza virus vacc ine, unspecified formulation Zeb Messer MD Work Phone: [facility] 01-09-2022 influenza, injectabl e, quadrivalent, preservative free Zeb Messer MD Work Phone: [facility] 03-01-2021 Influenza, injectabl e, Madin Adrian Canine Kidney, preservative free, quadrivalent Zeb Messer MD Work Phone: [facility] 12-02-2019 influenza, injectabl e, quadrivalent, preservative free Zeb Messer MD Work Phone: [facility] 12-23-2018 influenza, injectabl e, quadrivalent, preservative free Zeb Messer MD Work Phone: [facility] 12-22-2018 influenza, high dose seasonal, preservative-free Zeb Messer MD Work Phone: [facility] 12-13-2017 influenza, seasonal, injectable, preservative free Zeb Messer MD Work Phone: [facility] 12-12-2017 influenza, injectabl e, quadrivalent, preservative free Zeb Messer MD Work Phone: [facility] 12-06-2016 influenza, seasonal, injectable, preservative free Zeb Messer MD Work Phone: [facility] 11-28-2016 influenza, injectabl e, quadrivalent, preservative free Zeb Messer MD Work Phone: [facility] 11-29-2015 influenza, seasonal, injectable, preservative free Zeb Messer MD Work Phone: [facility] 11-28-2015 influenza, injectabl e, quadrivalent, preservative free Zeb Messer MD Work Phone: [facility] 10-26-2015 tetanus and diphther ia toxoids, adsorbed, preservative free, for adult use (5 Lf of tetanus toxoid and 2 Lf of diphtheria toxoid) Zeb Messer MD Work Phone: [facility] 01-01-2014 influenza virus vacc ine, unspecified formulation Zeb Messer MD Work Phone: [facility] 11-15-2013 influenza, injectabl e, quadrivalent, preservative free Zeb Messer MD Work Phone: [facility] Payers Date Payer Category Payer Unknown [id number] 2022 Private Health Insurance [employer] [id number] 2022 Unknown [employer] [id number] 2022-Present [address] [place] [address] [id number] 1964 Unknown [id number]. 593 1964 Unknown [id number] [id number]. 593 1964 Unknown [id number] [id number]. 593 1964 Unknown [id number] [id number]. 593 1964 Unknown [id number] [id number]. 593 1964 Unknown [id number] [id number]. 727 1964 Unknown [id number] [id number]. 727 1964 Unknown [id number] [id number]. 1259 1964 Unknown [id number] [id number]. 9 1964 Unknown [id number] [id number]. 9 1964 Unknown [id number] [id number]. 1258 1964 Unknown [id number] [id number]. 1258 1964 Unknown [id number] [id number]. 9 1964 Unknown [id number] [id number]. 1259 1959 Unknown [id number] Social History Date Type Detail Facility Start: 05-14-2022 End: 07-31-2022 Tobacco smoking status Never smoked tobacco (finding) [facility] Start: 01-28-2023 End: 10-30-2023 Sex Assigned At Male [facility] Start: 07-31-2022 Tobacco use and exposure Smokeless tobacco non-user [facility] Start: 11-25-2023 End: 03-08-2024 Alcoholic beverage intake Current drinker of alcohol (finding) [facility] Start: 01-28-2023 End: 11-25-2023 Alcoholic beverage intake [facility] Within the last year , have you been afraid of your partner or ex-partner? Patient declined [facility] Start: 08-27-2022 Education 21 [facility] Start: 12-23-2022 Alcohol Comment Caffeine intak e: 3-4 cups per day [facility] Start: 1965 Sex assigned at Not on file [facility] Start: 05-15-2022 Gender identity Identifies as male gender (finding) [facility] Medical Equipment Procedure Code Equipment Code Equipment Origin al Text Equipment Identifier Dates SHOULDER ARTHROS COPY W/ POSSIBLE REPAIR Nils Finney DO 05/31/22 Unknown Shoulder R FDA Start: 05-31-2022 Functional Status Date Assessment Result Facility 05-14-2022 Functional Status No [facility] Clinical Notes 05-30-2022 to 03-08-2024 Zeb Messer MD - 03/08/2024 4:30 PM ESTTelephone Encounter - Zeb Messer MD - 03/08/2024 11:17 AM ESTTelephone Encounter - Zeb Messer MD - 03/08/2024 11:17 AM EST Note Date & Type Note Facility 03-08-2024 History of Presen t illness Narrative Images from the original note were not included. Patient ID: Katherine Hogan is a 59 y.o. male who presents for: Hypertension Patient is here for follow-up of elevated blood pressure. He is exercising and is not adherent to a low-salt diet. Blood pressure is well controlled at home. Cardiac symptoms: none. Patient denies chest pain, dyspnea, exertional chest pressure/discomfort, irregular heart beat, lower extremity edema, and palpitations. Cardiovascular risk factors: advanced age (older than 55 for men, 65 for women), dyslipidemia, hypertension, male gender, and obesity (BMI >= 30 kg/m2). Use of agents associated with hypertension: thyroid hormones. History of target organ damage: none. Hyperlipidemia Pt who presents for follow-up of dyslipidemia. A repeat fasting lipid profile was done. The patient does not use medications that may worsen dyslipidemias (corticosteroids, progestins, anabolic steroids, diuretics, beta-blockers, amiodarone, cyclosporine, olanzapine). Exercise: three times a week. GERD Paitent complains of heartburn. This has been associated with no other symptoms. He/She denies abdominal bloating, belching and eructation, heartburn, and hoarseness. Symptoms have been present for several years . He/She denies dysphagia. He/She has not lost weight. He/She denies melena, hematochezia, hematemesis, and coffee ground emesis. Benign Prostatic Hypertrophy Patient complains of lower urinary tract symptoms. He reports no current symptoms . Onset of symptoms was several years ago and was gradual in onset. He has no personal history and a family history of prostate cancer. He denies no complicating symptoms. Anxiety Patient is here for evaluation of anxiety. He/She has the following anxiety symptoms: none. Onset of symptoms was approximately several years ago. Symptoms have been stable since that time. He/She denies current suicidal and homicidal ideation. Family history significant for no psychiatric illness.Possible organic causes contributing are: none. Previous treatment includes medication Effexor. He/She complains of the following medication side effects: none. Review of Systems Constitutional: Negative for activity change and fatigue. Respiratory: Negative for cough, shortness of breath and wheezing. Cardiovascular: Negative for chest pain, palpitations and leg swelling. Neurological: Negative for light-headedness and headaches. Objective The patient is pleasant and in no acute distress. The neck is supple and trachea is midline. No masses are appreciated. The heart is regular rate and rhythm without S3, S4. No murmur. The patient has normal respiratory pattern. The breath sounds are symmetrical without evidence of rhonchi or rales. No wheezing. The skin is warm and dry. The lower extremities have trace edema. The patient has good eye contact and speech is clear. Appropriate affect. Visit Vitals BP 124/70 Pulse 73 Ht 5' 9 Wt 218 lb SpO2 96% BMI 32.19 kg/m Smoking Status Never BSA 2.19 m Allergies Allergen Reactions Milk-Related Compounds Oxycodone-Acetaminophen Unknown Cortisone Rash Neomycin-Bacitracin Zn-Polymyx Rash Current Outpatient Medications on File Prior to Visit Medication Sig Dispense Refill amLODIPine (Norvasc) 5 MG tablet Take 1 tablet (5 mg) by mouth Daily 90 tablet 1 aspirin 81 MG EC tablet Take 81 mg by mouth in the morning. atorvastatin (Lipitor) 40 MG tablet Take 1 tablet (40 mg) by mouth Daily 90 tablet 1 carvedilol (Coreg) 25 MG tablet Take 1 tablet (25 mg) by mouth in the morning and 1 tablet (25 mg) in the evening. Take with meals. 180 tablet 1 chlorthalidone (Hygroton) 25 MG tablet Take 0.5 tablets (12.5 mg) by mouth Daily 45 tablet 1 cholecalciferol (Vitamin D-3) 25 MCG (1000 UT) capsule Take 5,000 Units by mouth in the morning. diclofenac sodium (Voltaren Arthritis Pain) 1 % gel Apply 2 g topically 3 (three) times a day as needed for pain. famotidine (Pepcid) 20 MG tablet Take 1 tablet (20 mg) by mouth at bedtime 90 tablet 1 finasteride (Proscar) 5 MG tablet TAKE 1 TABLET BY MOUTH ONCE DAILY 90 tablet 1 imiquimod (Aldara) 5 % cream Apply topically. Krill Oil ([place]-3) 500 MG capsule Take by mouth. lamoTRIgine (LaMICtal) 200 MG tablet Take 1 tablet (200 mg) by mouth in the morning and 1 tablet (200 mg) before bedtime. [address] 1 Dose under the tongue See administration instructions LDI: URI Mix C13 Units:4 Dose Type: Titrating lisinopril 20 MG tablet Take 1 tablet by mouth once daily 90 tablet 1 meclizine (Antivert) 25 MG tablet meclizine 25 mg tablet take 1/2 to 2 tablets by mouth three times a day if needed for VERTIGO 270 tablet 0 Prasterone, DHEA, (DHEA Micronized) [address] 25 mg under the tongue at bedtime therapeutic multivitamin-minerals (Theragran-M) tablet Take 2 tablets by mouth in the morning. Zn-Pyg Vkoq-Pcqdjz-Utd Palmet (SAW PALMETTO COMPLEX PO) Take by mouth. methocarbamol (Robaxin) 750 MG tablet Take 1 tablet (750 mg) by mouth 3 (three) times a day as needed for muscle spasms 90 tablet 0 venlafaxine XR (Effexor XR) 75 MG 24 hr capsule Take 3 capsules (225 mg) by mouth Daily 270 capsule 1 [DISCONTINUED] cefuroxime (Ceftin) 500 MG tablet Take 1 tablet (500 mg) by mouth in the morning and 1 tablet (500 mg) before bedtime. Do all this for 7 days. 14 tablet 0 [DISCONTINUED] thyroid ([place] Thyroid) 15 MG tablet Take 3 tablets (45 mg) by mouth in the morning and 3 tablets (45 mg) before bedtime. 540 tablet 0 [DISCONTINUED] thyroid ([place] Thyroid) 15 MG tablet Take 3 tablets (45 mg) by mouth in the morning and 3 tablets (45 mg) before bedtime. 540 tablet 1 No current facility-administered medications on file prior to visit. 1. Essential hypertension (CMS/HCC) Chronic problem, stable, to goal - amLODIPine (Norvasc) 5 MG tablet; Take 1 tablet (5 mg) by mouth Daily Dispense: 90 tablet; Refill: 1 - carvedilol (Coreg) 25 MG tablet; Take 1 tablet (25 mg) by mouth in the morning and 1 tablet (25 mg) in the evening. Take with meals. Dispense: 180 tablet; Refill: 1 - lisinopril 20 MG tablet; Take 1 tablet by mouth once daily Dispense: 90 tablet; Refill: 1 2. Mixed hyperlipidemia (CMS/HCC) In prescribing a renewal to their current medication, consideration of the following encompasses moderate decision making; the current prescriptions and supplements, the current allergies and medication intolerances, current medical conditions, and potential drug interactions. Any changes to risks, benefits, and reason for renewing their current medication due to the above were discussed. The patient was given a chance to ask questions today and all questions were answered. The patient is to contact us if any other questions arise or if any problems occur. (Utilizing the original 1994/1996 guidelines or the 2020 office/outpatient code guidelines for selecting the level of E/M service, In both sets of guidelines, prescription drug management appears in the moderate medical decision making (MDM) row. Neither the original guidelines nor the new guidelines state that a new prescription or change is needed in order to credit prescription drug management) - atorvastatin (Lipitor) 40 MG tablet; Take 1 tablet (40 mg) by mouth Daily Dispense: 90 tablet; Refill: 1 3. Mixed anxiety and depressive disorder Chronic problem that seems fairly stable for him. Continue current treatment. - venlafaxine XR (Effexor XR) 75 MG 24 hr capsule; Take 3 capsules (225 mg) by mouth Daily Dispense: 270 capsule; Refill: 1 - lamoTRIgine (LaMICtal) 200 MG tablet; Take 1 tablet (200 mg) by mouth in the morning and 1 tablet (200 mg) before bedtime. Dispense: 180 tablet; Refill: 1 4. Benign prostatic hyperplasia without lower urinary tract symptoms - finasteride (Proscar) 5 MG tablet; TAKE 1 TABLET BY MOUTH ONCE DAILY Dispense: 90 tablet; Refill: 1 5. Gastroesophageal reflux disease without esophagitis Chronic problem that is stable with minimal heartburn and indigestion symptoms - famotidine (Pepcid) 20 MG tablet; Take 1 tablet (20 mg) by mouth at bedtime Dispense: 90 tablet; Refill: 1 6. Non morbid obesity due to excess calories Again encouraged lifestyle changes including diet and exercise. documented in this encounter [facility] 03-08-2024 Telephone encounter Note I talked with Norah. Prescription resent. [facility] 03-08-2024 Miscellaneous Notes I talked with Prescription resent. John got a notice from [employer] for him to check with his doctor that his Arm[place] Thyroid could not be filled and he needed to see his physician. We discussed his results last week and his labs were looking really good. DR. Messer was suppose to send in new refills for him? The notice from [employer] came on Mar 06. documented in this encounter [facility] 03-08-2024 Telephone encounter Note John got a notice from [employer] for him to check with his doctor that his Armor Thyroid could not be filled and he needed to see his physician. We discussed his results last week and his labs were looking really good. DR. Messer was suppose to send in new refills for him? The notice from [employer] came on Mar 06. [facility] 03-02-2024 Telephone encounter Note Reviewed with them, renew RX [facility] 03-02-2024 Miscellaneous Notes Reviewed with them, renew RX John was to get his thyroid labs done after starting medication. He states he thought Dr. Messer said that he would just update him when the results came in but he has not heard anything. If possible, can you review. documented in this encounter [facility] 03-02-2024 Telephone encounter Note John was to get his thyroid labs done after starting medication. He states he thought Dr. Messer said that he would just update him when the results came in but he has not heard anything. If possible, can you review. [facility] 02-23-2024 Telephone encounter Note Rx sent [facility] 02-23-2024 Miscellaneous Notes Rx sent John started in a week ago today with sinus drainage. By Friday he was having sinus pain and pressure and pain in his ears. he started in with yellow drainage which turned to green on Friday. He is ask for an appointment this afternoon but we are full. He would like to know if Dr. Messer could send him something in to [facility] in [place]. documented in this encounter [facility] 02-23-2024 Telephone encounter Note John started in a week ago today with sinus drainage. By Friday he was having sinus pain and pressure and pain in his ears. he started in with yellow drainage which turned to green on Friday. He is ask for an appointment this afternoon but we are full. He would like to know if Dr. Messer could send him something in to [facility] in [place]. [facility] 02-18-2024 History of Presen t illness Narrative Images from the original note were not included. Patient ID: Katherine Hogan is a 59 y.o. male who presents for: Adult Wellness: See Scanned Wellness packet Advance Directive/Living Will: Yes Health Care Power of [employer]: Yes Review of Systems Constitutional: Negative for appetite change, chills, fever and unexpected weight change. Respiratory: Negative for cough, shortness of breath and wheezing. Cardiovascular: Negative for chest pain, palpitations and leg swelling. Gastrointestinal: Negative for abdominal pain, constipation and diarrhea. Genitourinary: Negative for frequency and urgency. Neurological: Negative for light-headedness and headaches. Psychiatric/Behavioral: Negative for behavioral problems and sleep disturbance. The patient is not nervous/anxious. Objective The patient is pleasant and in no acute distress. The neck is supple and trachea is midline. No masses are appreciated. The heart is regular rate and rhythm without S3, S4. No murmur. The patient has normal respiratory pattern. The breath sounds are symmetrical without evidence of rhonchi or rales. No wheezing. The skin is warm and dry. The lower extremities have trace edema. The patient has good eye contact and speech is clear. Appropriate affect. No significant external hemorrhoids, normal tone , no masses palpable , no melena , no red blood Prostate: symmetrical, smooth, no nodules or masses, nontender, enlarged 1+. I did let him know that due to him being a big man I was not able to get the very top portion of the prostate palpated. I was able to get 2/3 to 3/4 of the prostate evaluated. Visit Vitals Ht 5' 9 Wt 218 lb BMI 32.19 kg/m Smoking Status Never BSA 2.19 m Allergies Allergen Reactions Milk-Related Compounds Oxycodone-Acetaminophen Unknown Cortisone Rash Neomycin-Bacitracin Zn-Polymyx Rash Current Outpatient Medications on File Prior to Visit Medication Sig Dispense Refill amLODIPine (Norvasc) 5 MG tablet Take 1 tablet (5 mg) by mouth Daily 90 tablet 1 aspirin 81 MG EC tablet Take 81 mg by mouth in the morning. atorvastatin (Lipitor) 40 MG tablet Take 1 tablet (40 mg) by mouth Daily 90 tablet 1 carvedilol (Coreg) 25 MG tablet Take 1 tablet (25 mg) by mouth in the morning and 1 tablet (25 mg) in the evening. Take with meals. 180 tablet 1 chlorthalidone (Hygroton) 25 MG tablet Take 0.5 tablets (12.5 mg) by mouth Daily 45 tablet 1 cholecalciferol (Vitamin D-3) 25 MCG (1000 UT) capsule Take 5,000 Units by mouth in the morning. diclofenac sodium (Voltaren Arthritis Pain) 1 % gel Apply 2 g topically 3 (three) times a day as needed for pain. famotidine (Pepcid) 20 MG tablet Take 1 tablet (20 mg) by mouth at bedtime 90 tablet 1 finasteride (Proscar) 5 MG tablet TAKE 1 TABLET BY MOUTH ONCE DAILY 90 tablet 1 imiquimod (Aldara) 5 % cream Apply topically. Krill Oil ([place]-3) 500 MG capsule Take by mouth. lamoTRIgine (LaMICtal) 200 MG tablet Take 1 tablet (200 mg) by mouth in the morning and 1 tablet (200 mg) before bedtime. [address] Dose under the tongue See administration instructions LDI: URI Mix C13 Units:4 Dose Type: Titrating lisinopril 20 MG tablet Take 1 tablet by mouth once daily 90 tablet 1 meclizine (Antivert) 25 MG tablet meclizine 25 mg tablet take 1/2 to 2 tablets by mouth three times a day if needed for VERTIGO 270 tablet 0 methocarbamol (Robaxin) 750 MG tablet Take 1 tablet (750 mg) by mouth 3 (three) times a day as needed for muscle spasms 90 tablet 0 Prasterone, DHEA, (DHEA Micronized) [address] 25 mg under the tongue at bedtime therapeutic multivitamin-minerals (Theragran-M) tablet Take 2 tablets by mouth in the morning. thyroid ([place] Thyroid) 15 MG tablet Take 3 tablets (45 mg) by mouth in the morning and 3 tablets (45 mg) before bedtime. 540 tablet 0 venlafaxine XR (Effexor XR) 75 MG 24 hr capsule Take 3 capsules (225 mg) by mouth Daily 270 capsule 1 Zn-Pyg Iptu-Aofmto-Ghe Palmet (SAW PALMETTO COMPLEX PO) Take by mouth. No current facility-administered medications on file prior to visit. 1. Encounter for wellness examination in adult (Primary) I have reviewed the patients PMShx, medications, and reconciled the problem list. Health maintenance and risk was reviewed and discussed. I also reviewed and discussed as appropriate; immunizations, colon cancer screening, prostate cancer screening, and any current or recommended lab evaluation. All items were brought up to date unless declined by the patient. I did specifically discuss the pros and cons of obtaining a PSA test. He has declined that testing today. - Comprehensive metabolic panel; Future - Comprehensive metabolic panel 2. Advance directive in chart No change in advanced directives 3. Non morbid obesity due to excess calories Briefly reviewed sugar and simple carbohydrate avoidance 4. Polypharmacy Chronic problem The patient meets the criteria for polypharmacy; 5 or more prescriptions or multi-morbidity defined as 5 or more diagnoses. Polypharmacy can significantly increase the risk of preventable adverse drug events and negatively impact adherence. Consideration of diverse factors such as clinician agreement, patient perspective, and de-prescribing, as appropriate can improve patient outcomes while simplifying care. This requires longitudinal monitoring as there is at least a moderate risk of morbidity and requires at least a moderate degree of evaluation and management. 5. Essential hypertension (CMS/HCC) Chronic problem, stable, to goal - Comprehensive metabolic panel; Future - Comprehensive metabolic panel 6. Mixed hyperlipidemia (CMS/HCC) - Lipid panel; Future - Lipid panel 7. Chronic fatigue syndrome - Comprehensive metabolic panel; Future - Comprehensive metabolic panel 8. Obstructive sleep apnea syndrome Chronic problem, using his CPAP. documented in this encounter [facility] 12-31-2023 History of Presen t illness Narrative Images from the original note were not included. Patient ID: Katherine Hogan is a 58 y.o. male who presents for: Friday chills and headache then Gi symptoms with chills and GOMEZ. Developed nausea and diarrhea Multiple times daily. No vomiting. Has also developed fatigue and myalgia. Review of Systems Respiratory: Negative for cough and shortness of breath. Cardiovascular: Negative for chest pain. Gastrointestinal: Positive for abdominal pain (Some cramping associated with diarrhea episodes). Objective The patient is pleasant and in no acute distress, appears tired and ill Mucous membranes appear moist. No evidence of jaundice or icterus. The patient has good eye contact and clear speech Visit Vitals Smoking Status Never Allergies Allergen Reactions Milk-Related Compounds Oxycodone-Acetaminophen Unknown Cortisone Rash Neomycin-Bacitracin Zn-Polymyx Rash Current Outpatient Medications on File Prior to Visit Medication Sig Dispense Refill amLODIPine (Norvasc) 5 MG tablet Take 1 tablet (5 mg) by mouth Daily 90 tablet 1 aspirin 81 MG EC tablet Take 81 mg by mouth in the morning. atorvastatin (Lipitor) 40 MG tablet Take 1 tablet (40 mg) by mouth Daily 90 tablet 1 carvedilol (Coreg) 25 MG tablet Take 1 tablet (25 mg) by mouth in the morning and 1 tablet (25 mg) in the evening. Take with meals. 180 tablet 1 chlorthalidone (Hygroton) 25 MG tablet Take 0.5 tablets (12.5 mg) by mouth Daily 45 tablet 1 cholecalciferol (Vitamin D-3) 25 MCG (1000 UT) capsule Take 5,000 Units by mouth in the morning. diclofenac sodium (Voltaren Arthritis Pain) 1 % gel Apply 2 g topically 3 (three) times a day as needed for pain. famotidine (Pepcid) 20 MG tablet Take 1 tablet (20 mg) by mouth at bedtime 90 tablet 1 finasteride (Proscar) 5 MG tablet TAKE 1 TABLET BY MOUTH ONCE DAILY 90 tablet 1 imiquimod (Aldara) 5 % cream Apply topically. Krill Oil ([place]-3) 500 MG capsule Take by mouth. lamoTRIgine (LaMICtal) 200 MG tablet Take 1 tablet (200 mg) by mouth in the morning and 1 tablet (200 mg) before bedtime. [address] 1 Dose under the tongue See administration instructions. LDI: Lyme Mix C15 Units:6 Dose Type: Core [address] 1 Dose under the tongue See administration instructions. LDI: Food Mix C8.5 Units:4 Dose Type: Core [address] 1 Dose under the tongue See administration instructions. LDI: Yeast Mix C19 Units:6 Dose Type: Core [address] 1 Dose under the tongue See administration instructions LDI: URI Mix C13 Units:4 Dose Type: Titrating lisinopril 20 MG tablet Take 1 tablet by mouth once daily 90 tablet 1 meclizine (Antivert) 25 MG tablet meclizine 25 mg tablet take 1/2 to 2 tablets by mouth three times a day if needed for VERTIGO 270 tablet 0 methocarbamol (Robaxin) 750 MG tablet Take 1 tablet (750 mg) by mouth 3 (three) times a day as needed for muscle spasms 90 tablet 0 Prasterone, DHEA, (DHEA Micronized) [address] 25 mg under the tongue at bedtime therapeutic multivitamin-minerals (Theragran-M) tablet Take 2 tablets by mouth in the morning. thyroid ([place] Thyroid) 15 MG tablet Take 3 tablets (45 mg) by mouth in the morning and 3 tablets (45 mg) before bedtime. 540 tablet 0 venlafaxine XR (Effexor XR) 75 MG 24 hr capsule Take 3 capsules (225 mg) by mouth Daily 270 capsule 1 Zn-Pyg Xfzs-Jnrjoc-Hzc Palmet (SAW PALMETTO COMPLEX PO) Take by mouth. No current facility-administered medications on file prior to visit. 1. Gastroenteritis (Primary) Acute problem which is still not improved. We discussed when there is a GI virus going around that is lasting days if not a week. Does not sound like he has not acute surgical problem. We have mutually agreed to try conservative treatment home and I want him to truly go to clear liquids for 24 hours then bland diet. Dairy should be the last thing and probably not tell next week. He declined any medication for nausea. He has not been work and will need a sick note. documented in this encounter [facility] 11-25-2023 History of Presen t illness Narrative Images from the original note were not included. Patient ID: Katherine Hogan is a 58 y.o. male who presents for: Patient is here in the office today to review recent labs or diagnostic imaging with Dr Raza Messer per his request. Based on the results they will also review treatment options. Please see labs below. He is here with his today. Review of Systems Constitutional: Positive for fatigue. Negative for chills and fever. Respiratory: Negative for cough, shortness of breath and wheezing. Cardiovascular: Negative for chest pain and palpitations. Gastrointestinal: Negative for abdominal pain. Genitourinary: Negative for frequency and urgency. Objective The patient is pleasant and in no acute distress The patient does not appear to have a gross neurologic deficit. The patient has good eye contact and clear speech Visit Vitals Ht 5' 9 Wt 226 lb BMI 33.37 kg/m Smoking Status Never BSA 2.24 m Clinisync Result Encounter on 11/08/2023 Component Date Value Ref Range Status FREE T4 11/08/2023 0.71 (L) 0.76 - 1.46 ng/dL Final FREE T3 11/08/2023 2.67 2.18 - 3.98 pg/mL Final THYROID STIMULATING HORMONE 11/08/2023 1.811 0.358 - 3.740 uIU/mL Final ACTH, PLASMA 11/08/2023 40.6 7.2 - 63.3 pg/mL Final Comment: ACTH reference interval for samples collected between 7 and 10 AM. Performed at: [address] [id number] Vocational Technical Education Director: Pablo Harris PhD, Phone: [phone] [facility] TRIIODOTHYRONINE (T3) 11/08/2023 93 71 - 180 ng/dL Final Comment: Performed at: [address] [id number] [employer]ocational [employer] Education Director: Pablo Harris PhD, Phone: [phone] DHEA-SULFATE 11/08/2023 74.4 48.9 - 344.2 ug/dL Final [facility] CORTISOL 11/08/2023 12.8 6.2 - 19.4 ug/dL Final Comment: Please Note: The reference interval and flagging for this test is for an AM collection. If this is a PM collection please use: Cortisol PM: 2.3-11.9 TESTOSTERONE 11/08/2023 367 264 - 916 ng/dL Final Comment: Adult male reference interval is based on a population of healthy nonobese males (BMI <30) between 19 and 39 years old. Inna et.al. JCEM 2017,102;6439-6910. PMID: [id number]. REVERSE T3, SERUM 11/08/2023 10.2 9.2 - 24.1 ng/dL Final Comment: This test was developed and its performance characteristics determined by [employer] ([place]). It has not been cleared or approved by the Food and Drug Administration. Performed at: [address] [id number] Vocational Technical Education Director: Halley Traore MD, Phone: [phone] MISCELLANEOUS TEST 11/08/2023 COMMENT . Final Comment: Test Ordered: [id number] Estradiol, Sensitive Estradiol, Sensitive 16.0 pg/mL Reference Range: 8.0-35.0 This test was developed and its performance characteristics determined by [facility]. It has not been cleared or approved by the Food and Drug Administration. Methodology: Liquid chromatography tandem mass spectrometry(LC/MS/MS) Performed at: [address] [id number] Vocational Technical Education Director: Halley Traore MD, Phone: [phone] Performed at: [address] [id number] Vocational Technical Education Director: Pablo Harris PhD, Phone: [phone] External Result Encounter on 10/31/2023 Component Date Value Ref Range Status WHITE BLOOD CELL COUNT 10/31/2023 4.8 3.8 - 10.8 Thousand/uL Final RED BLOOD CELL COUNT 10/31/2023 4.67 4.20 - 5.80 Million/uL Final HEMOGLOBIN 10/31/2023 15.1 13.2 - 17.1 g/dL Final HEMATOCRIT 10/31/2023 44.4 38.5 - 50.0 % Final MCV 10/31/2023 95.1 80.0 - 100.0 fL Final MCH 10/31/2023 32.3 27.0 - 33.0 pg Final MCHC 10/31/2023 34.0 32.0 - 36.0 g/dL Final RDW 10/31/2023 13.4 11.0 - 15.0 % Final PLATELET COUNT 10/31/2023 287 140 - 400 Thousand/uL Final MPV 10/31/2023 8.9 7.5 - 12.5 fL Final ABSOLUTE NEUTROPHILS 10/31/2023 2,827 1,500 - 7,800 cells/uL Final ABSOLUTE BAND NEUTROPHILS 10/31/2023 CANCELED 0 - 750 cells/uL Final Result canceled by the ancillary. ABSOLUTE METAMYELOCYTES 10/31/2023 CANCELED 0 cells/uL Final Result canceled by the ancillary. ABSOLUTE MYELOCYTES 10/31/2023 CANCELED 0 cells/uL Final Result canceled by the ancillary. ABSOLUTE PROMYELOCYTES 10/31/2023 CANCELED 0 cells/uL Final Result canceled by the ancillary. ABSOLUTE LYMPHOCYTES 10/31/2023 1,147 850 - 3,900 cells/uL Final ABSOLUTE MONOCYTES 10/31/2023 494 200 - 950 cells/uL Final ABSOLUTE EOSINOPHILS 10/31/2023 312 15 - 500 cells/uL Final ABSOLUTE BASOPHILS 10/31/2023 19 0 - 200 cells/uL Final ABSOLUTE BLASTS 10/31/2023 CANCELED 0 cells/uL Final Result canceled by the ancillary. ABSOLUTE NUCLEATED RBC 10/31/2023 CANCELED 0 cells/uL Final Result canceled by the ancillary. NEUTROPHILS 10/31/2023 58.9 % Final BAND NEUTROPHILS 10/31/2023 CANCELED % Final Result canceled by the ancillary. METAMYELOCYTES 10/31/2023 CANCELED % Final Result canceled by the ancillary. CIPROFLOXICIN 10/31/2023 CANCELED % Final Result canceled by the ancillary. PROMYELOCYTES 10/31/2023 CANCELED % Final Result canceled by the ancillary. LYMPHOCYTES 10/31/2023 23.9 % Final REACTIVE LYMPHOCYTES 10/31/2023 CANCELED 0 - 10 % Final Result canceled by the ancillary. MONOCYTES 10/31/2023 10.3 % Final EOSINOPHILS 10/31/2023 6.5 % Final BASOPHILS 10/31/2023 0.4 % Final BLASTS 10/31/2023 CANCELED % Final Result canceled by the ancillary. NUCLEATED RBC 10/31/2023 CANCELED 0 /100 WBC Final Result canceled by the ancillary. COMMENT(S) 10/31/2023 CANCELED Final Result canceled by the ancillary. Calculated ratio tT/E2; 23 Thyroid Ratio 9.1 Allergies Allergen Reactions Milk-Related Compounds Oxycodone-Acetaminophen Unknown Cortisone Rash Neomycin-Bacitracin Zn-Polymyx Rash Current Outpatient Medications on File Prior to Visit Medication Sig Dispense Refill amLODIPine (Norvasc) 5 MG tablet Take 1 tablet (5 mg) by mouth Daily 90 tablet 1 aspirin 81 MG EC tablet Take 81 mg by mouth in the morning. atorvastatin (Lipitor) 40 MG tablet Take 1 tablet (40 mg) by mouth Daily 90 tablet 1 carvedilol (Coreg) 25 MG tablet Take 1 tablet (25 mg) by mouth in the morning and 1 tablet (25 mg) in the evening. Take with meals. 180 tablet 1 chlorthalidone (Hygroton) 25 MG tablet Take 0.5 tablets (12.5 mg) by mouth Daily 45 tablet 1 cholecalciferol (Vitamin D-3) 25 MCG (1000 UT) capsule Take 5,000 Units by mouth in the morning. diclofenac sodium (Voltaren Arthritis Pain) 1 % gel Apply 2 g topically 3 (three) times a day as needed for pain. famotidine (Pepcid) 20 MG tablet Take 1 tablet (20 mg) by mouth at bedtime 90 tablet 1 finasteride (Proscar) 5 MG tablet TAKE 1 TABLET BY MOUTH ONCE DAILY 90 tablet 1 imiquimod (Aldara) 5 % cream Apply topically. Krill Oil ([place]-3) 500 MG capsule Take by mouth. lamoTRIgine (LaMICtal) 200 MG tablet Take 1 tablet (200 mg) by mouth in the morning and 1 tablet (200 mg) before bedtime. [address] 1 Dose under the tongue See administration instructions. LDI: Lyme Mix C15 Units:6 Dose Type: Core [address] 1 Dose under the tongue See administration instructions. LDI: Food Mix C8.5 Units:4 Dose Type: Core 1 Dose LIFETIME LDI Place 1 Dose under the tongue See administration instructions. LDI: Yeast Mix C19 Units:6 Dose Type: Core 1 Dose LIFETIME LDI Place 1 Dose under the tongue See administration instructions LDI: URI Mix C13 Units:4 Dose Type: Titrating lisinopril 20 MG tablet Take 1 tablet by mouth once daily 90 tablet 1 meclizine (Antivert) 25 MG tablet meclizine 25 mg tablet take 1/2 to 2 tablets by mouth three times a day if needed for VERTIGO 270 tablet 0 therapeutic multivitamin-minerals (Theragran-M) tablet Take 2 tablets by mouth in the morning. venlafaxine XR (Effexor XR) 75 MG 24 hr capsule Take 3 capsules (225 mg) by mouth Daily 270 capsule 1 Zn-Pyg Assa-Petzwd-Fhe Palmet (SAW PALMETTO COMPLEX PO) Take by mouth. methocarbamol (Robaxin) 750 MG tablet Take 1 tablet (750 mg) by mouth 3 (three) times a day as needed for muscle spasms 90 tablet 0 [DISCONTINUED] LDI Place 1 Dose under the tongue See administration instructions LDI: URI Mix C10.5 Units:4 Dose Type: Titrating No current facility-administered medications on file prior to visit. 1. Central hypothyroidism (CMS/HCC) I did discuss with them in great detail the labs in the suspected pathology. There certainly a disconnect between the low free T4 and normal TSH below the 50th percentile. Also the amount of free T3 has while technically normal is rather low for his age. We discussed how technically can not make the diagnosis of the euthyroid sick syndrome today but I truly believe if we take the time to draw out and normalize the free T4 level that we will also draw out more reverse T3 with a diagnosis of euthyroid sick syndrome. I did give him the option of proceeding for a complete diagnostic profile by only starting the levothyroxine versus starting with [place] thyroid and both he and his agreed they wanted to pursue the desiccated thyroid. New, chronic problem, unstable, not to goal, requiring complex clinical decision making. I reviewed the results of any; laboratories, ultrasound, and other labs as appropriate with the patient or their commercial pest control representative. I discussed the patien'ts current psychosocial and physical condition and the stress impact upon them. I educated them as to the diagnoses, and that treatment for some of these may not be considered the standard of care, including TSH suppression when utilized. I reviewed the patient's current prescriptions and discussed the possibilities of medication adjustments or further treatment options. If new medication is prescribed, the main side effects and potential drug interactions were reviewed. We have discussed that any supplements recommended have not undergone review or approval by the FDA and, therefore, have not been documented to be safe or effective to diagnose, treat, prevent, mitigate, or cure any condition or disease. They have been educated and instructed concerning the medications and the timing for taking them, the protocol itself, diet and exercise, and informed consent. See the scanned consent form and thyroid medication titration schedule for specific instructions. They have been instructed to follow up in 3 months and to bring a diet and exercise log, and the importance of follow up and compliance. The patient has also been adviced if they do not bring the diet and excercise log Multiple questions were answered. See the scanned titration sheet - thyroid ([place] Thyroid) 15 MG tablet; Take 3 tablets (45 mg) by mouth in the morning and 3 tablets (45 mg) before bedtime. Dispense: 540 tablet; Refill: 0 - T3, free; Future - T4, free; Future - T3; Future - T3, free; Future - T3, reverse; Future - T4, free; Future - T3 - T3, free - T3, reverse - T4, free 2. Euthyroid sick syndrome In prescribing a new medication consideration of the following encompasses moderate decision making: the current prescriptions and supplements, the current allergies and medication intolerances, the current medical conditions, and potential drug interactions. Risks, benefits, and reason for starting their medication were discussed. The patient was given a chance to ask questions today and all questions were answered. The patient is to contact us if any other questions arise or if any problems occur with the adjustment in their medication. - thyroid ([place] Thyroid) 15 MG tablet; Take 3 tablets (45 mg) by mouth in the morning and 3 tablets (45 mg) before bedtime. Dispense: 540 tablet; Refill: 0 - T3, reverse; Future - T3; Future - T3, free; Future - T3; Future - T3, free; Future - T3, reverse; Future - T4, free; Future - T3 - T3, free - T3, reverse - T4, free 3. Chronic fatigue Chronic problem, unstable, complex in nature with moderate decision making. I discussed with the patient or their commercial pest control representative, their fatigue issues. We discussed how this is either not improved or not inadequately addressed. We discussed how this is almost always a multifactorial problem. We discussed that the patient will almost certainly need to continue to make lifestyle changes including diet, sleep, exercise, and stress management as appropriate. We further discussed how we will continue to search for refinements in their current treatments or evaluation for further disease processes and then support or treat them as appropriate. We discussed how we can frequently improve the symptoms, but may not be able to completely cure or resolve the issue. The patient was given a chance to ask questions and all questions were answered. - T3, reverse; Future - T3; Future - T3, free; Future - T4, free; Future - T3; Future - T3, free; Future - T3, reverse; Future - T4, free; Future - T3 - T3, free - T3, reverse - T4, free 4. Low testosterone New Diagnosis I have reviewed any labs with the patient or their commercial pest control representative. I have educated them concerning the lab results and how they relate to their current hormonal status. I have reviewed with them medication managment and the need to continue, adjust, stop, or start new prescriptions or supplements (being used as low potency medications. We have discussed the complex interactions between DHEA, estradiol, and testosterone). I also discussed that the average testosterone level for age range is 562 so while technically normal by lab standards, scientifically with age standards he would be low. (Yanira Cortez (1996). Declining Androgens with Age: An Overview. In Yanira Cortez & Kirti & López (Eds.), Androgens and the Aging Male (pp. 3-14). [place]: [employer].) In prescribing a new medication consideration of the following encompasses moderate decision making: the current prescriptions and supplements, the current allergies and medication intolerances, the current medical conditions, and potential drug interactions. Risks, benefits, and reason for starting their new medication were discussed. The patient was given a chance to ask questions today and all questions were answered. The patient is to contact us, preferably by using the patient portal, or call if any other questions arise or if any problems occur with the adjustment in their medication. We have discussed that any supplements recommended have not undergone review or approval by the FDA and, therefore, have not been documented to be safe or effective to diagnose, treat, prevent, mitigate, or cure any condition or disease. I have discussed the issues concerning some treatments as not being the standard of care. I have reviewed any cancer risks as appropriate. I gave them a chance to as questions, and all questions were answered. I have reviewed and obtained verbal consent to treat. I have also reviewed with them that if testosterone is prescribed that it is a controlled substance. 5. 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 After discussion with them since they are already titrating the thyroid did not want to be too aggressive here. We will go ahead and supplement and replace the DHEA that is low as it can be a precursor to testosterone production. This is also been shown to help with endothelial protection. We have discussed that any supplements recommended have not undergone review or approval by the FDA and, therefore, have not been documented to be safe or effective to diagnose, treat, prevent, mitigate, or cure any condition or disease. - Prasterone, DHEA, (DHEA Micronized) 25 MG tablet; Place 25 mg under the tongue at bedtime 6. Polypharmacy Chronic problem The patient meets the criteria for polypharmacy; 5 or more prescriptions or multi-morbidity defined as 5 or more diagnoses. Polypharmacy can significantly increase the risk of preventable adverse drug events and negatively impact adherence. Consideration of diverse factors such as clinician agreement, patient perspective, and de-prescribing, as appropriate can improve patient outcomes while simplifying care. This requires longitudinal monitoring as there is at least a moderate risk of morbidity and requires at least a moderate degree of evaluation and management. 7. Non morbid obesity due to excess calories Increase activity as tolerated. documented in this encounter [facility] 10-30-2023 History of Presen t illness Narrative Images from the original note were not included. Patient ID: Katherien Hogan is a 58 y.o. male who presents for: Pt states he is exhausted all the time. He goes to bed between 8-9 PM and waking 5:20Am on week days, 930PM on weekend and getting up 10am-noon and he is up for 4 hours and then needs a nap. He is having issues with falling asleep and staying asleep. Review of Systems Constitutional: Positive for fatigue. Negative for appetite change. HENT: Negative for trouble swallowing and voice change. Cardiovascular: Negative for palpitations. Musculoskeletal: Positive for arthralgias and myalgias. Psychiatric/Behavioral: Positive for agitation and sleep disturbance. Negative for confusion and decreased concentration. The patient is nervous/anxious. Endocrine: Negative for cold intolerance and heat intolerance. Objective The patient is pleasant and in no acute distress. The neck is supple and trachea is midline. No masses are appreciated. The heart is regular rate and rhythm without S3, S4. No murmur. The patient has normal respiratory pattern. The breath sounds are symmetrical without evidence of rhonchi or rales. No wheezing. The skin is warm and dry. The lower extremities have trace edema. The patient has good eye contact and speech is clear. Appropriate but constricted affect. Visit Vitals Ht 5' 9 Wt 226 lb BMI 33.37 kg/m Smoking Status Never BSA 2.24 m Allergies Allergen Reactions Milk-Related Compounds Oxycodone-Acetaminophen Unknown Cortisone Rash Neomycin-Bacitracin Zn-Polymyx Rash Current Outpatient Medications on File Prior to Visit Medication Sig Dispense Refill amLODIPine (Norvasc) 5 MG tablet Take 1 tablet (5 mg) by mouth Daily 90 tablet 1 aspirin 81 MG EC tablet Take 81 mg by mouth in the morning. atorvastatin (Lipitor) 40 MG tablet Take 1 tablet (40 mg) by mouth Daily 90 tablet 1 carvedilol (Coreg) 25 MG tablet Take 1 tablet (25 mg) by mouth in the morning and 1 tablet (25 mg) in the evening. Take with meals. 180 tablet 1 chlorthalidone (Hygroton) 25 MG tablet Take 0.5 tablets (12.5 mg) by mouth Daily 45 tablet 1 cholecalciferol (Vitamin D-3) 25 MCG (1000 UT) capsule Take 5,000 Units by mouth in the morning. diclofenac sodium (Voltaren Arthritis Pain) 1 % gel Apply 2 g topically 3 (three) times a day as needed for pain. famotidine (Pepcid) 20 MG tablet Take 1 tablet (20 mg) by mouth at bedtime 90 tablet 1 finasteride (Proscar) 5 MG tablet TAKE 1 TABLET BY MOUTH ONCE DAILY 90 tablet 1 imiquimod (Aldara) 5 % cream Apply topically. Krill Oil ([place]-3) 500 MG capsule Take by mouth. lamoTRIgine (LaMICtal) 200 MG tablet Take 1 tablet (200 mg) by mouth in the morning and 1 tablet (200 mg) before bedtime. [address] 1 Dose under the tongue See administration instructions. LDI: Lyme Mix C15 Units:6 Dose Type: Core [address] 1 Dose under the tongue See administration instructions. LDI: Food Mix C8.5 Units:4 Dose Type: Core [address] 1 Dose under the tongue See administration instructions. LDI: Yeast Mix C19 Units:6 Dose Type: Core [address] 1 Dose under the tongue See administration instructions LDI: URI Mix C10.5 Units:4 Dose Type: Titrating lisinopril 20 MG tablet Take 1 tablet by mouth once daily 90 tablet 1 meclizine (Antivert) 25 MG tablet meclizine 25 mg tablet take 1/2 to 2 tablets by mouth three times a day if needed for VERTIGO 270 tablet 0 therapeutic multivitamin-minerals (Theragran-M) tablet Take 2 tablets by mouth in the morning. venlafaxine XR (Effexor XR) 75 MG 24 hr capsule Take 3 capsules (225 mg) by mouth Daily 270 capsule 1 Zn-Pyg Lnev-Touqwj-Dbf Palmet (SAW PALMETTO COMPLEX PO) Take by mouth. methocarbamol (Robaxin) 750 MG tablet Take 1 tablet (750 mg) by mouth 3 (three) times a day as needed for muscle spasms 90 tablet 0 No current facility-administered medications on file prior to visit. 1. Chronic fatigue Chronic problem, unstable, complex in nature with moderate decision making. I discussed with the patient or their commercial pest control representative, their fatigue issues. We discussed how this is almost always chronic and by definition must have been in place for 6 weeks in order to be considered chronic fatigue. We discussed how this is almost always a multifactorial problem. We discussed that the patient will almost certainly need to make lifestyle changes including diet, sleep, exercise, and stress management. We further discussed how we will search for underlying disease processes and then support or treat them as appropriate. We discussed how we can frequently improve the symptoms, but may not be able to completely cure or resolve the issue. The patient was given a chance to ask questions and all questions were answered. - T3; Future - T3, reverse; Future - T3, free; Future - T4, free; Future - TSH; Future - CBC and differential; Future - DHEA-sulfate; Future - Testosterone; Future - ESTRADIOL, ULTRASENSITIVE, LC/MS; Future - Cortisol; Future - ACTH; Future - DHEA-sulfate - Testosterone - ESTRADIOL, ULTRASENSITIVE, LC/MS - Cortisol - ACTH 2. Chronic pain syndrome Chronic problem that is stable but almost certainly contributing to the chronic fatigue. He has a fairly physically demanding job and has significant arthralgias associated with that. 3. Essential hypertension (CMS/HCC) Chronic problem, stable, to goal - CBC and differential; Future 4. Low libido Chronic problem with almost no sex drive whatsoever. In the face of the fatigue in the chronic pain we will go chart head and check sex hormones. - DHEA-sulfate; Future - Testosterone; Future - ESTRADIOL, ULTRASENSITIVE, LC/MS; Future - DHEA-sulfate - Testosterone - ESTRADIOL, ULTRASENSITIVE, LC/MS 5. Non morbid obesity due to excess calories - T3; Future - T3, reverse; Future - T3, free; Future - T4, free; Future - TSH; Future 6. Testosterone deficiency He does have a history of this. 7. 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 07-16-[address] [facility] Cardiology Clinic Note Chief Complaint: Patient here for 1 year follow up hypertension, SÁNCHEZ, and PVC's. Had routine labs with lipid panel in Jan 2023. His brother just had UT w/ PCI to his coronary and carotid [...] PSYCH: appropriate mood, affect, and judgement. Investigations: Labs 03/29/2021 CMP: Creatinine 1, BUN 24, [...] should problems arise Darrell Pablo MD, MPH, [facility], [facility], [facility] Interventional Cardiology Pager Email: [email or web address] 07-23-[address] [facility] Cardiology Clinic Note Chief Complaint: patient is [...] PSYCH: appropriate mood, affect, and judgement. Investigations: Labs 03/29/2021 CMP: Creatinine 1, BUN 24, [...] should problems arise Darrell Pablo MD, MPH, [facility], [facility], [facility] Interventional Cardiology Pager Email: [email or web address] 05-31-2022 Evaluation + Plan note Extrac noreen from: Title:ANES Pre-operative Note Author:Brandan Connor CRNA Date:05/31/22 Plan [place] [employer] (ASA) physical status classification: Class III. Anesthetic Preoperative Plan: Anesthesia General. Regional Brachial plexus block. [facility]03-31-2023 Hospital Discharge instructions Patient Education 05/31/2022 09:09:39 Shoulder Cryocuff Patient Instructions - FT (CUSTOM) 05/31/2022 09:09:39 Post Op Patient Instructions - FT (CUSTOM) 05/31/2022 07:10:07 Segundo Finney - After Your Shoulder Arthroscopy (Custom) [place], [place] [facility] AFTER YOUR SHOULDER ARTHROSCOPY 1.Diet: Begin with a liquid diet and advance to your normal diet as tolerated. 2.Activity: You may remove your sling for bathing and to perform gentle range of motion exercises for the hand,wrist, and elbow. Bend and straighten your elbow [...] until your first post-operative visit at which timewe will discuss how and when to resume sports. 3. Driving: Driving is legal. If you are involved in an accident, you must be able to prove that you maintainedfull control of your vehicle. For this reason, [...] your operated shoulder. Although the dressing may becomemoist or blood stained, this is not usually [...] increasing pain (not relieved by rest, elevation, ice,and medication as prescribed), redness or swelling in your shoulder or arm, please contact the office or the hospital. If you notice increased drainage from the operative portals after the third day,this should also be reported. 9.Return Visit: Your first post-operative follow-up appointment is generally between 7 and 14 days after discharge from the hospital. You will be given an appointment card with your appointment information. Do not hesitate to call the office or the hospital if any problems or questions arise before your appointment. Nils Finney, DO [facility] [address] [place] [address] Reviewed: [facility]03-30-2023 Note [id number]:[id number] Evaluation + Plan note Future Appointments Appointment Date:05/31/2022 07:30:00 AM Scheduled Provider: Location:[facility] Diagnosis Central hypothyroidism (CMS/HCC)- Primary Unspecified hypothyroidism Euthyroid sick syndrome Chronic fatigue Other malaise and fatigue Low testosterone Abnormal level of hormones in specimens from other organs, systems and tissues Polypharmacy Issue of repeat prescriptions Non morbid obesity due to excess calories [facility] Diagnosis Gastroenteritis- Primary Other and unspecified noninfectious gastroenteritis and colitis [facility] Diagnosis Chronic fatigue- Primary Other malaise and fatigue Chronic pain syndrome Essential hypertension (CMS/HCC) Unspecified essential hypertension Low libido Non morbid obesity due to excess calories Testosterone deficiency Other testicular hypofunction Excess estrogen in male [facility] Diagnosis Acute non-recurrent sinusitis, unspecified location- Primary [facility]* Diagnosis Encounter for wellness examination in adult- Primary Advance directive in chart Non morbid obesity due to excess calories Polypharmacy Issue of repeat prescriptions Essential hypertension (CMS/HCC) Unspecified essential hypertension Mixed hyperlipidemia ([facility]/HCC) Mixed hyperlipidemia Chronic fatigue syndrome Obstructive sleep apnea syndrome Obstructive sleep apnea (adult) (pediatric) [facility]* Diagnosis Gastroesophageal reflux disease without esophagitis Esophageal reflux [facility]* Diagnosis Central hypothyroidism (CMS/HCC) Unspecified hypothyroidism Euthyroid sick syndrome [facility] Diagnosis Mixed anxiety and depressive disorder Dysthymic disorder Essential hypertension (CMS/HCC) Unspecified essential hypertension Essential hypertension (CMS/HCC) Unspecified essential hypertension Mixed hyperlipidemia (CMS/HCC) Mixed hyperlipidemia Mixed anxiety and depressive disorder Dysthymic disorder Benign prostatic hyperplasia without lower urinary tract symptoms Gastroesophageal reflux disease without esophagitis Esophageal reflux Non morbid obesity due to excess calories [facility] Diagnosis Essential hypertension (CMS/HCC) Unspecified essential hypertension Mixed hyperlipidemia (CMS/HCC) Mixed hyperlipidemia Mixed anxiety and depressive disorder Dysthymic disorder Benign prostatic hyperplasia without lower urinary tract symptoms Gastroesophageal reflux disease without esophagitis Esophageal reflux Non morbid obesity due to excess calories Central hypothyroidism (CMS/HCC) Unspecified hypothyroidism Euthyroid sick syndrome [facility]* Diagnosis Essential hypertension (CMS/HCC) Unspecified essential hypertension [facility] Diagnosis Essential hypertension (CMS/HCC) Unspecified essential hypertension Mixed hyperlipidemia (CMS/HCC) Mixed hyperlipidemia Mixed anxiety and depressive disorder Dysthymic disorder Benign prostatic hyperplasia without lower urinary tract symptoms Gastroesophageal reflux disease without esophagitis Esophageal reflux Non morbid obesity due to excess calories documented in this encounter [facility] Narrative No data available for this section 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 Advance Directives and Living Will 05/29/2022 2016-10-22 [employer] Additional Source Comments (unrecognized sect ion and content) No Status Records FoundNo Status Records FoundNo Status Records FoundNo Status Records FoundNo Status Records FoundNo Status Records FoundNo Status Records Found INFORMATION SOURCE (unrecogn ized section and content) DATE CREATED AUTHOR 02/01/2020 [facility] DATE CREATED AUTHOR AUTHOR'S ORGANIZ ATION 02/18/2021 [facility] DATE CREATED AUTHOR AUTHOR'S ORGANIZ ATION 01/10/2022 [facility] Specialist DATE CREATED AUTHOR AUTHOR'S ORGANIZ ATION 06/11/2022 [facility] DATE CREATED AUTHOR AUTHOR'S ORGANIZ ATION 07/19/2023 [facility] DATE CREATED AUTHOR AUTHOR'S ORGANIZ ATION 02/24/2024 [facility] DATE CREATED AUTHOR AUTHOR'S ORGANIZ ATION 05/03/2024 [facility] dical Specialists EPIC Patient Care team informatio n (unrecognized section and content) Pipeline Controller Relationship Specialty Start Date End Date Zeb Messer MD [address] [place] [id number] PCP - General Family Medicine 07/19/22 Berenice Green, ARIELA-ELECTRONICS RESEARCH ENGINEER [address] [place] [address] PCP - Medical [facility] 01/31/13 03/02/99 Pipeline Controller Relationship Specialty Start Date End Date Zeb Messer MD [address] [place] [address] PCP - General Family Medicine 07/19/22 Berenice Green, ARIELA-ELECTRONICS RESEARCH ENGINEER [address] [facility] [address] [place] [address] PCP - Medical [facility] 01/31/13 03/02/99 Personnel Name: ZEB MESSER MD Address: Address: [address] [place] [address] Name: Katherin Alcazar Wojciech Reason for Visit (unrecogniz ed section and content) Reason Comments Results Reason Comments Headache Diarrhea Reason Comments Fatigue Reason Comments Med Refill Reason Comments Hypertension FOR RECORDS PERTAINING TO PATIENTS WHO ARE [...] BE BASED ON THE PRIMARY CLINICAL RECORDS. [employer] [facility]. provides no warranty or guarantee of the accuracy or completeness of information in this document.
[2024-05-22 12:22] LABS: Alanine Aminotransferase 50 U/L (16-63); Albumin Globulin Ratio 1.3; Albumin Level 3.7 g/dL (3.4-5.0); Alkaline Phosphatase 114 U/L (46-116); Anion Gap 12.1; Aspartate Amino Transferase 21 U/L (15-37); BUN Creatinine Ratio 21.3; Bilirubin Total 0.4 mg/dL (0.2-1.0); Calcium 8.8 mg/dL (8.5-10.1); Carbon Dioxide 25.8 mmol/L (21.0-32.0); Chloride 107 mmol/L (98-107); Chol HDL Ratio 2.2; Cholesterol 128 mg/dL (<=200); Estimated GFR (African America >60 (>=60 mL/min/1.73m^2); Estimated GFR (Non-African Ame >60 (>=60 mL/min/1.73m^2); Free T3 2.43 pg/mL (2.18-3.98); Globulin 2.9 g/dL; Glucose 134 mg/dL (74-106); HDL Cholesterol 57 mg/dL (40-60); LDL Cholesterol Calculated 60.6 mg/dL; Potassium 3.9 mmol/L (3.5-5.1); Sodium 141 mmol/L (136-145); Total Protein 6.6 g/dL (6.4-8.2); Triglycerides 52 mg/dL (<=150); VLDL CHOLESTEROL 10.4 mg/dL
[2024-05-22 12:24] LABS: Free T4 0.68 ng/dL (0.76-1.46)
[2024-05-23 08:12] LABS: Testosterone 536 ng/dL (264-916); Triiodothyronine (T3) 98 ng/dL (71-180)
== END 2024-05-22 10:53 | disposition home or self-care (01) ==
LOC: LAB 10:53
PROVIDERS: PCP Family Medicine; Visit Provider Family Medicine
DX: R53.82 Chronic fatigue, unspecified (principal); E07.81 Sick-euthyroid syndrome; E03.8 Other specified hypothyroidism; E34.8 Other specified endocrine disorders; E34.9 Endocrine disorder, unspecified; R68.82 Decreased libido; I10 Essential (primary) hypertension; R73.01 Impaired fasting glucose; E78.2 Mixed hyperlipidemia
CPT/HCPCS: 36415; 80053; 80061; 82627; 82670; 84403; 84439; 84480; 84481; 84482

== ENCOUNTER 2024-08-04 08:44 | Outpatient (OUT) | payer OTHER, SELFPAY ==
--- OUTSIDE RECORDS SUMMARY | 2024-08-04 08:46 | XMS_ITS | Encounter Summary ---
Author Organization [facility] Address [address] [place] [address] Care Team Providers Care Spray Ii Painter Name Role Phone Zeb Morton MD Primary Care Provider Ninoska Green GENERAL LABOR-ORAL AND MAXILLOFACIAL SURGERY RESIDENT Unavailable Encounter Details Date Type Department Care Team (Late st Contact Info) Description 08/27/2022 Abstract [facility] [address] [place] [address] Pepe Lozano, PT [address] [place] [address] Social History Tobacco Use Types Packs/Day Years Used Date Smoking Tobacco: Never Smokeless Tobacco: Never Tobacco Cessation:Counseling Given: Not Answered Alcohol Use Standard Drinks/Week Comments Not Currently 2 (1 standard drink = 0.6 oz pure alcohol) caffeine intake: 3-4 cups per day PHQ-2 Answer Date Recorded Patient Health Questionnaire-2 Score 0 08/27/2022 Education Answer Date Recorded What is the highest level of school you have completed or the highest degree you have received? 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 No / Unsure 08/27/2022 11:54 AM EDT documented as of this encounter Functional Status * Over the past 2 weeks, how often have you been bothered by any of the following problems? Question Answer Date of Assessment Author Little interest or pleasure in doing things Not at all 08/27/2022 11:13 AM EDT Mulu Nichole M A Feeling down, depressed, or hopeless Not at all 08/27/2022 11:13 AM EDT Mulu Nichole M A Patient Health Questionnaire -2 Score 0 08/27/2022 11:13 AM EDT Mulu Nichole M A documented as of this encounter Plan of Treatment Upcoming Encounters Date Type Department Care Team (Late st Contact Info) Description 08/30/2024 4:30 PM EDT Office Visit [facility] [address] [facility] [address] [place] [address] Zeb Morton MD [address] [place] [address] (Fax) 11/29/2024 4:30 PM EDT Office Visit [facility] [address] [place] [address] Zeb Morton MD [address] [place] [address] (Fax) 03/01/2025 4:30 PM EST Office Visit [facility] [address] [place] [address] Zeb Morton MD [address] [place] [address] (Fax) documented as of this encounter Visit Diagnoses Not on filedocumented in this encounter Care Teams Spray Ii Painter Relationship Specialty Start Date End Date Zeb Morton MD [address] [place] [address] (Fax) PCP - General Family Medicine 07/19/22 Ninoska Green APRN-ORAL AND MAXILLOFACIAL SURGERY RESIDENT [address] [place] [address] PCP - Medical [place] [employer] 01/31/13 03/02/99 documented as of this encounter
--- OUTSIDE RECORDS SUMMARY | 2024-08-04 08:46 | XMS_ITS | Clinical Summary ---
Author Organization [facility] Address [address] [place] [address] Care Team Providers Care Commissioning Agent Name Role Phone Zeb Morton MD Primary Care Provider [phone] Allergies Active Allergy Reactions Criticality Noted Date Comments Cortizone Rash Low 12/24/2010 Tpgmzaqyou-Zreimbnb-Sxpjlxijk Rash Low 2010 Medications lisinopril (PRINIVIL;ZESTRI L) 10 MG tablet Take 40 mg by mouth daily Active fluticasone (FLONASE) 50 MCG/ACT nasal spray 2 sprays by Nasal route daily. 1 Bottle 5 2 Active fluticasone (FLONASE) 50 MCG/ACT nasal sprayIndications :FRANCISCO J on CPAP,Seasonal allergies 2 sprays by Nasal route daily. 1 Bottle 3 3 Active Additional Information Patient not taking.Reported on 11/02/2020 metoprolol (LOPRESSOR) 100 MG tablet Take 100 mg by mouth daily Active lamoTRIgine (LAMICTAL XR) 200 MG TB24 extended release tablet Take 200 mg by mouth 2 times daily Active Krill Oil 500 MG CAPS Take by mouth daily Active Nutritional Supplements (DETOX ENZYME FORMULA PO) Take 2 capsules by mouth daily Active Cholecalciferol (VITAMIN D3) 1000 units CAPS Take 2,000 Units by mouth daily Pt takes as 1000 IU's 3 per day all at once. Active finasteride (PROSCAR) 5 MG tablet Take 5 mg by mouth daily Active venlafaxine (EFFEXOR) 75 MG tablet Take 225 mg by mouth 3 times daily Active celecoxib (CELEBREX) 200 MG capsule Take 200 mg by mouth 2 times daily Active Multiple Vitamins-Mineral s (THERAPEUTIC MULTIVITAMIN-MIN ERALS) tablet Take 2 tablets by mouth daily Active vitamin C (ASCORBIC ACID) 500 MG tablet Take 1,000 mg by mouth daily Active carvedilol (COREG) 25 MG tablet take 1 tablet by mouth once daily 1 Active atorvastatin (LIPITOR) 40 MG tablet take 1 tablet by mouth once daily 1 Active amLODIPine (NORVASC) 5 MG tablet take 1 tablet by mouth once daily 1 Active ASPIRIN LOW DOSE 81 MG EC tablet 1 Active chlorthalidone (HYGROTON) 25 MG tablet take 1/2 tablet by mouth once daily 1 Active famotidine (PEPCID) 20 MG tablet 1 Active Active Problems No known active problems Immunizations Immunization Administration Dates Next Due Influenza Virus Vaccine 01/01/2014 Family History Relation Name Status Comments Father Mother Social History Tobacco Use Types Packs/Day Years Used Date Smoking Tobacco: Never Smokeless Tobacco: Never Alcohol Use Standard Drinks/Week Comments Yes 0 (1 standard drink = 0.6 oz pur e alcohol) weekends Sex and Gender Information Value Date Recorded Sex Assigned at Not on file Legal Sex Male 6:44 PM EST Gender Identity Not on file Sexual Orientation Not on file Last Filed Vital Signs Vital Sign Reading Time Taken Comments Blood Pressure 108/69 11/02/2020 2:43 PM EDT Pulse 78 11/02/2020 2:43 PM EDT Temperature 36.8 C (98.2 F) 11/02/2020 2:43 PM EDT Respiratory Rate 16 11/02/2020 2:43 PM EDT Oxygen Saturation 97% 11/02/2020 2:43 PM EDT Inhaled Oxygen Concentration - - Weight 92.6 kg (204 lb 1.6 oz) 11/02/2020 2:43 P M EDT Height 172.7 cm (5' 8 ) 11/02/2020 2:43 PM EDT Body Mass Index 31.03 11/02/2020 2:43 PM EDT Plan of Treatment Not on file Insurance [employer] Care Teams Commissioning Agent Relationship Specialty Start Date End Date Zeb Morton MD PCP - General 07/30/12
--- OUTSIDE RECORDS SUMMARY | 2024-08-04 08:46 | XMS_ITS | Encounter Summary ---
Author Organization [facility] Address [address] [place] [address] Care Team Providers Care Sponge Packer Name Role Phone Zeb Morton MD Primary Care Provider [phone] Ninoska Green GEOSCIENCE TECHNICIAN-PRODUCE DEPARTMENT SUPERVISOR Unavailable Reason for Visit * Reason Comments Med Refill Encounter Details Date Type Department Care Team (Late st Contact Info) Description 06/03/2023 Refill [facility] [address] [facility] [address] Zeb Morton MD [address] [facility] [place], [place] [phone] (Fax) Mixed anxiety and depressive disorder Social History Tobacco Use Types Packs/Day Years Used Date Smoking Tobacco: Never Smokeless Tobacco: Never Alcohol Use Standard Drinks/Week Comments Yes 2 (1 standard drink = 0.6 oz pure alcohol) Caffeine intake: 3-4 cups per day Humiliation, Afraid, Rape, and Kick questionnair e Answer Date Recorded Within the last year, have y ou been afraid of your partner or ex-partner? Patient declined 01/28/2023 Within the last year, have y ou been humiliated or emotionally abused in other ways by your partner or ex-partner? Patient declined 01/28/2023 Within the last year, have y ou been kicked, hit, slapped, or otherwise physically hurt by your partner or ex-partner? Patient declined 01/28/2023 Within the last year, have y ou been raped or forced to have any kind of sexual activity by your partner or ex-partner? Patient declined 01/28/2023 Social Connection and Isolation Panel [NHANES] A nswer Date Recorded In a typical week, how many times do you talk on the phone with family, friends, or neighbors? Patient declined 01/28/2023 How often do you get togethe r with friends or relatives? Patient declined 01/28/2023 How often do you attend mu-ism or tenriism serv ices? Patient declined 01/28/2023 Do you belong to any clubs o r organizations such as mu-ism groups, unions, fraternal or athletic groups, or school groups? Patient declined 01/28/2023 How often do you attend meet ings of the clubs or organizations you belong to? Patient declined 01/28/2023 Are you , , di vorced, , never , or living with a partner? Patient declined 01/28/2023 AUDIT-C Answer Date Recorded Q1: How often do you have a drink containing alc ohol? Patient declined 01/28/2023 Q2: How many drinks containi ng alcohol do you have on a typical day when you are drinking? Patient declined 01/28/2023 Q3: How often do you have si x or more drinks on one occasion? Patient declined 01/28/2023 Overall Financial Resource Strain (CARDIA) Answe r Date Recorded How hard is it for you to pa y for the very basics like food, housing, medical care, and heating? Patient declined 01/28/2023 PHQ-2 Answer Date Recorded Patient Health Questionnaire-2 Score 0 02/06/2023 [facility] - Occupational Stress Questionnaire Answer Date Recorded Do you feel stress - tense, restless, nervous, or anxious, or unable to sleep at night because your mind is troubled all the time - these days? Patient declined 01/28/2023 Exercise Vital Sign Answer Date Recorde d On average, how many days pe r week do you engage in moderate to strenuous exercise (like a brisk walk)? Patient declined On average, how many minutes do you engage in exercise at this level? Patient declined 01/28/2023 Hunger Vital Sign Answer Date Recorded Within the past 12 months, y ou worried that your food would run out before you got the money to buy more. Patient declined Within the past 12 months, t he food you bought just didn't last and you didn't have money to get more. Patient declined PRAPARE - Transportation Answer Date Re corded In the past 12 months, has l ack of transportation kept you from medical appointments or from getting medications? Patient declined 01/28/2023 In the past 12 months, has l ack of transportation kept you from meetings, work, or from getting things needed for daily living? Patient declined 01/28/2023 Housing Stability Vital Sign Answer Horacio e Recorded In the last 12 months, was t here a time when you were not able to pay the mortgage or rent on time? Patient refused 01/29/20 23 Number of Places Lived in the Last Year Not on f ile 01/28/2023 In the last 12 months, was t here a time when you did not have a steady place to sleep or slept in a half-way (including now)? Patient refused 01/28/2023 Education Answer Date Recorded What is the [...] file Not on file Not on file documented as of this encounter Plan of Treatment Upcoming Encounters Date Type Department Care Team (Late st Contact Info) Description 08/30/2024 4:30 PM EDT Office Visit [facility] [address] [place] [address] Zeb Morton MD [address] [place] [address] (Fax) 11/29/2024 4:30 PM EDT Office Visit [facility] [address] [place] [address] Zeb Morton MD [address] [place] [address] 03/01/2025 4:30 PM EST Office Visit [facility] [address] [place] [address] Zeb Morton MD [address] [place] [address] documented as of this encounter Visit Diagnoses Diagnosis Mixed anxiety and depressive disorder Dysthymic disorder documented in this encounter Care Teams Sponge Packer Relationship Specialty Start Date End Date Zeb Morton MD [address] [place] [address] PCP - General Family Medicine 07/19/22 Ninoska Green APRN-PRODUCE DEPARTMENT SUPERVISOR [address] [place] [address] PCP - Medical [place] [employer] 01/31/13 03/02/99 documented as of this encounter
--- OUTSIDE RECORDS SUMMARY | 2024-08-04 08:46 | XMS_ITS | Encounter Summary ---
Author Organization [facility] Address [address] [place] [address] Care Team Providers Care Associate Merchant Name Role Phone Zeb Morton MD Primary Care Provider [phone] Ninoska Green ASSEMBLY MACHINE FEEDER-ORACLE FUSION CONSULTANT Unavailable Reason for Visit * Reason Onset Date Comments LDI 08/03/2024 Encounter Details Date Type Department Care Team (Late st Contact Info) Description 08/03/2024 Telephone [facility] [address] [place] [id number] Layne Mims RN LDI Social History Tobacco Use Types Packs/Day Years [...] declined 01/28/2023 How often do you attend jainism or mormonism serv ices? Patient declined 01/28/2023 Do you belong to any clubs o r organizations such as jainism groups, unions, fraternal or athletic groups, or [...] Answer Date Recorded Patient Health Questionnaire-2 Score 4 10/30[facility]2023 [facility] Questionnaire Answer Date Recorded [...] place to sleep or slept in a chcf (including now)? Patient refused 01/28/2023 Education Answer [...] on file documented as of this encounter Miscellaneous Notes * Telephone Encounter - Layne Mims RN - 08/03/2024 1:54 PM EDT Norah requested a booster dose for pt. Pt noted a definite improvement in symptoms after taking hiscore doses but feels that his symptoms have returned and would like to try a booster. LDI Booster doses prepared and given to Norah to take home. documented in this encounter Plan of Treatment Upcoming Encounters Date Type Department Care Team (Late st Contact Info) Description 08/30/2024 4:30 PM EDT Office Visit [facility] [address] [facility] [address] [place] [address] Zeb Morton MD [address] [place] [address] (Fax) 11/29/2024 4:30 PM EDT Office Visit [facility] [address] [facility] [address] [place] [address] Zeb Morton MD [address] [facility] [address] [place] [address] (Fax) 03/01/2025 4:30 PM EST Office Visit [facility] [address] [facility] [address] [place] [address] Zeb Morton MD [address] [facility] [place] [address] (Fax) documented as of this encounter Visit Diagnoses Not on filedocumented in this encounter Additional Health Concerns Assessment Noted Time PHQ-9 Depression Total Score: 18 024 4:03 PM EDT documented as of this encounter Care Teams Associate Merchant Relationship Specialty Start Date End Date Zeb Morotn MD [address] [facility] [place] [address] (Fax) PCP - General Family Medicine 07/19/22 Ninoska Green APRN-ORACLE FUSION CONSULTANT [address] [facility] [address] [place] [address] PCP - Medical [place] [employer] 01/31/13 03/02/99 documented as of this encounter
--- OUTSIDE RECORDS SUMMARY | 2024-08-04 08:46 | XMS_ITS | Clinical Summary ---
Author Organization [facility] Address [address] [place] [address] Care Team Providers Care Smearer Name Role Phone Zeb Morton MD Primary Care Provider Ninoska Green TUNE UP MECHANIC-BIODIESEL ENGINE SPECIALIST Unavailable Allergies Active Allergy Reactions Criticality Noted Date Comments Cortisone Rash Low 12/17/2020 Milk-Related Compounds 07/31/2022 Neomycin-Bacitracin Zn-Polymyx Rash Low 12/24 Oxycodone-Acetaminophen Unknown 12/17/2020 Medications therapeutic multivitamin-entry examiner als (Theragran-M) tablet Take 2 tablets by mouth in the morning. Active Krill Oil (Carmel-3) 500 MG capsule Take by mouth. Activ e imiquimod (Aldara) 5 % cream Apply topically. 05/15/19 23 Active cholecalciferol (Vitamin D-3) 25 MCG (1000 UT) capsule Take 5,000 Units by mouth in the morning. Active Zn-Pyg Lvmb-Npsyve-Ldu Palmet (SAW PALMETTO COMPLEX PO) Take by mouth. Activ e diclofenac sodium (Voltaren Arthritis Pain) 1 % gel Apply 2 g topically 3 (three) times a day as needed for pain. Active aspirin 81 MG EC tablet Take 81 mg by mouth in the morning. Active meclizine (Antivert) 25 MG tabletIndications: Vertigo meclizine 25 mg tablet take 1/2 to 2 tablets by mouth three times a day if needed for VERTIGO 270 tablet 10/29/19 23 Active LDIIndications:COV ID-[address] 1 Dose under the tongue See administration instructions LDI: URI Mix C13 Units:4 Dose Type: Titrating 11/25/19 24 025 Active venlafaxine XR (Effexor XR) 75 MG 24 hr capsuleIndications :Mixed anxiety and depressive disorder Take 3 capsules (225 mg) by mouth Daily 270 capsule 03/08/19 025 Active amLODIPine (Norvasc) 5 MG tabletIndications: Essential hypertension (CMS/HCC) Take 1 tablet (5 mg) by mouth Daily 90 tablet 1 03/08/19 25 025 Active atorvastatin (Lipitor) 40 MG tabletIndications: Mixed hyperlipidemia (CMS/HCC) Take 1 tablet (40 mg) by mouth Daily 90 tablet 1 03/08/19 25 025 Active famotidine (Pepcid) 20 MG tabletIndications: Gastroesophageal reflux disease without esophagitis Take 1 tablet (20 mg) by mouth at bedtime 90 tablet 03/08/19 25 025 Active finasteride (Proscar) 5 MG tabletIndications: Benign prostatic hyperplasia without lower urinary tract symptoms TAKE 1 TABLET BY MOUTH ONCE DAILY 90 tablet 03/08/19 25 Active lamoTRIgine (LaMICtal) 200 MG tabletIndications: Mixed anxiety and depressive disorder Take 1 tablet (200 mg) by mouth in the morning and 1 tablet (200 mg) before bedtime. 180 tablet 03/08/19 025 Active carvedilol (Coreg) 25 MG tabletIndications: Essential hypertension (CMS/HCC) Take 1 tablet (25 mg) by mouth in the morning and 1 tablet (25 mg) in the evening. Take with meals. 180 tablet 03/08/19 025 Active lisinopril 20 MG tabletIndications: Essential hypertension (CMS/HCC) Take 1 tablet by mouth once daily 90 tablet 03/08/19 25 Active Misc Natural Products (DETOX PO) Take 2 tablets by mouth Daily Active Prasterone, DHEA, (DHEA PO) Place 1 tablet under the tongue Daily Active Ascorbic Acid (vitamin C) 1000 MG tablet Take 1,000 mg by mouth Daily Active Probiotic Product (PROBIOTIC PO) Take 1 capsule by mouth 3 (three) times a week Active azelastine (Astelin) 0.1 % nasal sprayIndications:E ustachian tube dysfunction, bilateral Administer 1 spray into each nostril in the morning and 1 spray before bedtime. Use in each nostril as directed. 30 mL 1 04/29/19 25 026 Active thyroid (Goessel Thyroid) 60 MG tabletIndications: Central hypothyroidism (CMS/HCC),Euthyroi d sick syndrome Take 1 tablet (60 mg) by mouth in the morning and 1 tablet (60 mg) before bedtime. 180 tablet 06/09/19 25 025 Active LDIIndications:Bar tonellosis,Borreli osis Place 1 Dose under the tongue See administration instructions LDI: Lyme Mix C15 Units:6 Dose Type: Core 06/23/19 25 026 Active LDIIndications:Gas troesophageal reflux disease, unspecified whether esophagitis present Place 1 Dose under the tongue See administration instructions LDI: Food Mix C8.5 Units:4 Dose Type: Core 06/23/19 25 026 Active LDIIndications:COV ID-[address] 1 Dose under the tongue See administration instructions LDI: Yeast Mix C19 Units:6 Dose Type: Core 06/23/19 25 026 Active Active Problems Problem Noted Date Diagnosed Date 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 Excess estrogen in male 06/02/2024 Testosterone deficiency 06/02/2024 Chronic fatigue 06/02/2024 COVID-19 long hauler 11/26/2023 Polypharmacy 09/11/2023 Benign prostatic hyperplasia without lower urinary tract symptoms 09/11/2022 Hernia, hiatal 08/27/2022 Stiffness of right shoulder joint 07/24/2022 History of IBS 07/23/2022 Sleep apnea 07/23/2022 Overview (08/27/2022): uses Cpap uses Cpap Vertigo 07/23/2022 Gastroesophageal reflux disease 02/23/2020 Non morbid obesity due to excess calories 2019 Generalized osteoarthritis 10/06/2018 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 12/15/2017 Mild cognitive impairment 11/06/2017 Lower urinary tract symptoms due to benign prostatic hyperplasia 10/01/2017 Mixed anxiety and depressive disorder 05/19/2015 Essential hypertension 02/16/2015 Mixed hyperlipidemia 02/16/2015 Peripheral venous insufficiency 02/16/2015 Resolved Problems Problem Noted Date Diagnosed Date Resolved Date COVID-19 11/26/2023 02/18/2024 Osteoarthritis of right glenohumeral joint 09/11/2022 02/06/2023 Other articular cartilage di sorders, right shoulder 09/11/2022 02/06/2023 Rotator cuff syndrome of right shoulder 09/11/2022 02/06/2023 Subscapularis tendinitis of right shoulder 09/11/2022 02/06/2023 Degenerative tear of glenoid labrum of right shoulder 09/11/2022 02/06/2023 Internal derangement of right shoulder 09/11/2022 02/06/2023 Superior labrum anterior-to- posterior (SLAP) tear of right shoulder 09/11/2022 02/06/2023 Acute pain of right shoulder 07/24/2022 02/06/2023 High cholesterol 07/23/2022 09/11/2022 Stage 3 chronic kidney disease (HCC) 03/20/2020 03/20/2023 Hyperlipidemia 02/23/2020 09/11/2022 Idiopathic osteoarthritis 10/06/2018 Overweight 12/23/2016 02/13/2023 Chronic fatigue syndrome 12/04/201504/2024 Encounters Date Type Department Care Team Description 08/03/2024 Telephone [facility] [address] [facility] [address] [place] [address] Layne Mims RN LDI 06/28/2024 Telephone [facility] [address] [place] [address] Zeb Morton MD 06/24/2024 Telephone [facility] [address] [place] [address] Zeb Morton MD 06/23/2024 Telephone [facility] [address] [place] [address] Zeb Morton MD 06/22/2024 Telephone [facility] [address] [facility] [address] [place] [address] Layne Mims RN LDI 06/22/2024 Telephone [facility] [address] [facility] [address] [place] [address] Zeb Morton MD 06/08/2024 4:30 PM EDT Office Visit [facility] [address] [facility] [address] [place] [address] Zeb Mroton MD Central hypothyroidism (CMS/HCC); Euthyroid sick syndrome; Excess estrogen in male; Testosterone deficiency; Chronic fatigue; Polypharmacy; Non morbid obesity due to excess calories 06/08/2024 Bamboo flowsheet [facility] [address] [facility] [address] [place] [address] Zeb Morton MD 06/08/2024 Travel 05/23/2024 Telephone [facility] [address] [facility] [address] [place] [address] Zeb Morton MD 05/22/2024 Clinisync Result Encounter [facility] External Department Unsolicited Zeb Morton MD 05/19/2024 Telephone [facility] [address] [facility] [address] [place] [address] Zeb Morton MD from Last 3 Months Immunizations Immunization Administration Dates Next Due Influenza, High Dose Seasona l, Preservative Free 12/22/2018 Influenza, Unspecified 01/01/2014 Influenza, injectable, MDCK, preservative free, quadrivalent 03/01/2021 Influenza, injectable, quadr ivalent, preservative free 11/18/2022,01/09/2022,12/02/2019,2018,12/12/2017,11/28/2016,11/28/2015,0 11/15/2013 Influenza, seasonal, injecta ble, preservative free 12/13/2017,12/06/2016,11/29/2015 Td (adult), 5 Lf tetanus tox oid, preservative free, adsorbed 10/26/2015 Family History Medical History Relation Name Comments Heart disease Brother 1 2 brother dece ased Prostate cancer Brother 2 Dementia Father Parkinsonism Father Cervical cancer Mother Lisa Ballard Diabetes Mother Lisa Ballard Heart disease Mother Lisa Rtcourtney Lung cancer Mother Lisa Ballard Crohn's disease Sister 1 Melanoma Neg Hx Relation Name Status Comments Brother 1 x2 Brother 2 x1 Brother 3 x1 Father Mother Lisa Ballard Other Spouse Alive Sister 1 x1 Sister 2 x3 Son 1 son Social History Tobacco Use Types Packs/Day Years Used Date Smoking Tobacco: Never Smokeless Tobacco: Never Tobacco Cessation:Counseling Given: Yes Alcohol Use Standard Drinks/Week Comments Yes 2 [...] How often do you attend jainism or orthodoxy serv ices? Patient declined 01/28/2023 Do you [...] Recorded Patient Health Questionnaire-2 Score 4 10/30/2023 [facility] - Occupational Stress Questionnaire Answer Date [...] place to sleep or slept in a mcfp (including now)? Patient refused 01/28/2023 Education Answer [...] file Not on file Not on file Last Filed Vital Signs Vital Sign Reading Time Taken Comments Blood Pressure 124/70 03/08/2024 4:24 PM EST Pulse 73 03/08/2024 4:24 PM EST Temperature 36.4 C (97.6 F) 11/07/2022 8:15 AM EDT Respiratory Rate - - Oxygen Saturation 96% 03/08/2024 4:24 PM EST Inhaled Oxygen Concentration - - Weight 100 kg (221 lb) 06/08/2024 4:12 PM EDT Height 175.3 cm (5' 9 ) 06/08/2024 4:12 PM EDT Body Mass Index 32.64 06/08/2024 4:12 PM EDT Plan of Treatment Upcoming Encounters Date Type Department Care Team (Late st Contact Info) Description 08/30/2024 4:30 PM EDT Office Visit [facility] [address] [facility] [address] [place] [address] Zeb Morton MD [address] [place] [address] (Fax) 11/29/2024 4:30 PM EDT Office Visit [facility] [address] [facility] [address] [place] [address] Zeb Morton MD [address] [place] [address] (Fax) 03/01/2025 4:30 PM EST Office Visit [facility] [address] [facility] [address] [place] [address] Zeb Morton MD [address] [place] [address] [address] [place] [address] Health Maintenance Due Date Last Done Comments CT Colonography 1964 FIT-DNA 1964 FIT 1964 FOBT 1965 Sigmoidoscopy 1964 Influenza Vaccine (Season Ended) 2024 11/18/2022, 01/09/2022, 03/01/2021, Additional history exists Colonoscopy 02/28/2027 02/28/2017 Colorectal Cancer Screening 02/28/2027 Procedures Procedure Name Priority Date/Time Associated Diagnosis Comments ALL MISCELLANEOUS TEST Routine 11:19 AM EDT ALL T3 REVERSE Routine 05/22/2024 11:19 AM EDT ALL TESTOSTERONE Routine 05/22/2024 11:1 9 AM EDT ALL DHEA SULFATE Routine 05/22/2024 11:1 9 AM EDT HMHP T3 TOTAL Routine 05/22/2024 11:19 AM EDT ALL THYROXINE (T4) FREE Routine 05/22/2024 11:19 AM EDT ALL T3 FREE Routine 05/22/2024 11:19 AM EDT ALL LIPID PROFILE (FASTING) Routine 05/22/2024 11:19 AM EDT [facility] CMP (CMP) (FOR REMOTE [facility] USE) Routine 05/22/2024 11:19 AM EDT COLONOSCOPY Routine 02/28/2017 from Last 3 Months or Most Recently Relevant to Health Maintenance Results * [facility] T3 TOTAL (05/22/2024 11:19 AM EDT) TB TRIIODOTHYRONINE (T3) 98 71 - 180 ng/dL TBH Comment: Performed at: - [facility] [address] [id number] Manager Package: Pablo Harris PhD, Phone: [phone] 05/22/2024 11:1 9 AM EDT 05/22/2024 11:21 AM EDT Narrative CLINISYNC - 05/27/2024 8:08 PM EDT Zeb Morton MD CLINISYNC Final Result CLINISYNC TBH * (ABNORMAL) [facility] CMP (CMP) (FOR REMOTE [facility] USE) (05/22/2024 11:19 AM EDT) SODIUM 141 136 - 145 mmol/L TBH POTASSIUM 3.9 3.5 - 5.1 mmol/L TBH CHLORIDE 107 98 - 107 mmol/L TBH CARBON DIOXIDE 25.8 21.0 - 32.0 mmol/L TBH ANION GAP 12.1 TBH GLUCOSE 134(H) 74 - 106 mg/dL [facility] BLOOD UREA NITROGEN 20.0(H) 7.0 - 18.0 mg/dL TBH CREATININE 0.94 0.70 - 1.30 mg/dL TBH TBH EGFR-AF COLOMBIAN >60 >=60 mL/min/1. 73m 2 TBH TBH EGFR-NON AF COLOMBIAN >60 >=60 mL/min/1. 73m 2 TBH BUN CREATININE RATIO 21.3 TBH CALCIUM 8.8 8.5 - 10.1 mg/dL TBH BILIRUBIN TOTAL 0.4 0.2 - 1.0 mg/dL TBH ASPARTATE AMINO TRANSFERASE 21 15 - 37 U/L TBH ALANINE AMINOTRANSFERASE 50 16 - 63 U/L TBH ALKALINE PHOSPHATASE 114 46 - 116 U/L TBH TOTAL PROTEIN 6.6 6.4 - 8.2 g/dL TBH ALBUMIN LEVEL 3.7 3.4 - 5.0 g/dL TBH GLOBULIN 2.9 g/dL TBH ALBUMIN GLOBULIN RATIO 1.3 TBH 05/22/2024 11:1 9 AM EDT 05/22/2024 11:21 AM EDT Narrative CLINISYNC - 05/22/2024 12:25 PM EDT Zeb Morton MD CLINISYVIRGEN Final Result Performing Organization Address [facility] de Phone Number CLINISYSD TB * (ABNORMAL) ALL THYROXINE (T4) FREE (05/22/2024 11:19 AM EDT) FREE T4 0.68(L) 0.76 - 1.46 ng/dL TBH 05/22/2024 11:1 9 AM EDT 05/22/2024 11:21 AM EDT Narrative CLINISYNC - 05/22/2024 12:25 PM EDT Zeb Morton MD CLINISYVIRGEN Final Result Performing Organization Address [facility] Phone Number CLINISYSD TB * ALL TESTOSTERONE (05/22/2024 11:19 AM EDT) TESTOSTERONE 536 264 - 916 ng/dL TBH Comment: Adult male reference interval is based on a population of healthy nonobese males (BMI <30) between 19 and 39 years old. Inna, et.al. JCEM 2017,102;5314-8633. PMID: [id number]. 05/22/2024 11:1 9 AM EDT 05/22/2024 11:21 AM EDT Narrative CLINISYNC - 05/27/2024 8:08 PM EDT Zeb RUSHINGISYVIRGEN Final Result Performing Organization Address [facility] de Phone Number CLINISYSD TB * ALL T3 REVERSE (05/22/2024 11:19 AM EDT) REVERSE T3, SERUM 12.4 9.2 - 24.1 ng/dL TBH Comment: This test was developed and its performance characteristics determined by [facility]. It has not been cleared or approved by the Food and Drug Administration. Performed at: [address] [id number] Manager Package: Halley Traore MD, Phone: [phone] 05/22/2024 11:1 9 AM EDT 05/22/2024 11:21 AM EDT Narrative CLINISYNC - 05/27/2024 8:08 PM EDT Zeb Morton MD CLINISYNC Final Result Performing Organization Address City/[facility]/ZIP Co de Phone Number [facility] * ALL T3 FREE (05/22/2024 11:19 AM EDT) FREE T3 2.43 2.18 - 3.98 pg/mL [facility] 05/22/2024 11:1 9 AM EDT 05/22/2024 11:21 AM EDT Narrative CLINISYNC - 05/22/2024 12:25 PM EDT Zeb Morton MD CLINISYNC Final Result Performing Organization Address [facility] de Phone Number [facility] * ALL MISCELLANEOUS TEST (05/22/2024 11:19 AM EDT) MISCELLANEOUS TEST COMMENT . [facility] Comment: Test Ordered: [id number] Estradiol, Sensitive Estradiol, Sensitive 15.1 pg/mL Reference Range: 8.0-35.0 This test was developed and its performance characteristics determined by [facility]. It has not been cleared or approved by the Food and Drug Administration. Methodology: Liquid chromatography tandem mass spectrometry(LC/MS/MS) Performed at: [address] [id number] Manager Package: Halley Traore MD, Phone: [phone] Performed at: [address] [id number] Manager Package: Pablo Harris PhD, Phone: [phone] 05/22/2024 11:1 9 AM EDT 05/22/2024 11:21 AM EDT Narrative CLINISYNC - 05/28/2024 7:13 PM EDT [id number] Estradiol, Sensitive, Zeb Morton MD CLINISYVIRGEN Final Result Performing Organization Address [facility] de Phone Number [facility] * ALL LIPID PROFILE (FASTING) (05/22/2024 11:19 AM EDT) TRIGLYCERIDES 52 <=150 mg/dL TBH CHOLESTEROL 128 <=200 mg/dL TB HDL CHOLESTEROL 57 40 - 60 mg/dL TB Comment: > or =60 mg/dl - LOW CARDIOVASCULAR RISK <40 mg/dl - HIGH CARDIOVASCULAR RISK LDL CHOLESTEROL CALCULATED 60.6 mg/dL TB Comment: <100 mg/dl OPTIMAL 100-129 mg/dl NEAR OR ABOVE OPTIMAL 130-159 mg/dl BORDERLINE HIGH 160-189 mg/dl HIGH >190 mg/dl VERY HIGH VLDL CHOLESTEROL 10.4 mg/dL TB CHOL HDL RATIO 2.2 TB Comment: 3.3 - 4.4 LOW RISK 4.4 - 7.1 AVERAGE RISK 7.1 - 11.0 MODERATE RISK >11.0 HIGH RISK 05/22/2024 11:1 9 AM EDT 05/22/2024 11:21 AM EDT Narrative CLINISYNC - 05/22/2024 12:25 PM EDT Zeb Morton MD CLINISYVIRGEN Final Result Performing Organization Address [facility] Phone Number [facility] * ALL DHEA SULFATE (05/22/2024 11:19 AM EDT) DHEA-SULFATE 153.0 48.9 - 344.2 ug/dL TB 05/22/2024 11:1 9 AM EDT 05/22/2024 11:21 AM EDT Narrative CLINISYNC - 05/27/2024 8:08 PM EDT Zeb Morton MD CLINISYVIRGEN Final Result Performing Organization Address [facility] de Phone Number [facility] * Colonoscopy (02/28/2017) Anatomical Region Laterality Modality Endoscopy 02/28/2017 Narrative 02/28/2017 12:00 AM EST PERFORMED AT [facility] LOCATION:[place] [address] Procedure Note CONVERSION, GENERIC - 07/18/2022 PERFORMED AT [facility] LOCATION:[place] [address] Zeb Morton MD ENDOSCOPY PROCEDURE ORDERABL ES Final Result from Last 3 Months or Most Recently Relevant to Health Maintenance Insurance [employer] Member Subscriber Plan / Payer (Ef fective 2022-Present) Name:Davidson Kilgore Relation to Subscriber:Self Name:Davidson Kilgore Payer ID:Not on file Type:Not on file Address: [place] [phone] Advance Directives Documents on File Type Date Recorded Patient Pillar Man Expl anation Advance Directives and Living Will 05/29/2022 2016-10-22 [employer] e Power Of Belt Repairer Care Teams Smearer Relationship Specialty Start Date End Date Zeb Morton MD [address] [place] [address] [address] [place] [address] PCP - General Family Medicine 07/19/22 Ninoska Green APRN-BIODIESEL ENGINE SPECIALIST [address] [place] [address] PCP - Medical [place] [employer] 01/31/13 03/02/99
--- OUTSIDE RECORDS SUMMARY | 2024-08-04 08:46 | XMS_ITS | Encounter Summary ---
Author Organization [facility] Address [address] [place] [address] Care Team Providers Care Flame Gouger Name Role Phone Zeb Morton MD Primary Care Provider [phone] Encounter Details Date Type Department Care Team (Late st Contact Info) Description 11/02/2020 Abstract [facility] OUTREACH [facility] Part of [address] [phone] Ricky Ritter MD [address] [facility] [address] [place] [address] Social History Tobacco Use Types Packs/Day Years Used Date Smoking Tobacco: Never Smokeless Tobacco: Never Alcohol Use Standard Drinks/Week Comments Yes 0 (1 standard drink = 0.6 oz pur e alcohol) weekends Sex and Gender Information Value Date Recorded Sex Assigned at Not on file Legal Sex Male 6:44 PM EST Gender Identity Not on file Sexual Orientation Not on file COVID-19 Exposure Response Date Recorded In the last month, have you been in contact with someone who was confirmed or suspected to have Coronavirus / COVID-19? No / Unsure 11/02/2020 2:50 PM EDT documented as of this encounter Plan of Treatment Not on file documented as of this encounter Visit Diagnoses Not on filedocumented in this encounter Care Teams Flame Gouger Relationship Specialty Start Date End Date Zeb Morton MD (Fax) PCP - General 07/30/12 documented as of this encounter
--- OUTSIDE RECORDS SUMMARY | 2024-08-04 08:46 | XMS_ITS | Encounter Summary ---
Author Organization [facility] Address [address] [place] [address] Care Team Providers Care Slot Technician Name Role Phone Zeb Morton MD Primary Care Provider + [phone] Ninoska Green MANAGER CUSTOM-MECHANICAL DOOR REPAIRER Unavailable Reason for Visit * Reason Comments Med Refill Encounter Details Date Type Department Care Team (Late st Contact Info) Description 10/13/2023 Refill [facility] [address] [facility] [place] [place] [address] Zeb Morton MD [address] [facility] [address] [place], [place] [id number] (Fax) Mixed anxiety and depressive disorder Social [...] declined 01/28/2023 How often do you attend christian or mormon serv ices? Patient declined 01/28/2023 Do you belong to any clubs o r organizations such as christian groups, unions, fraternal or athletic groups, or [...] Date Recorded Patient Health Questionnaire-2 Score 0 09/10/2023 [facility] - Occupational [...] place to sleep or slept in a senior care (including now)? Patient refused 01/28/2023 Education Answer [...] [address] [place] [address] Zeb Morton MD [address] [place] [address] (Fax) 11/29/2024 4:30 PM EDT Office Visit [facility] [address] [place] [address] Zeb Morton MD [address] [place] [address] 03/01/2025 4:30 PM EST Office Visit [facility] [address] [place] [address] Zeb Morton MD [address] [place] [address] documented as of this encounter Visit Diagnoses Diagnosis Mixed anxiety and depressive disorder Dysthymic disorder documented in this encounter Care Teams Slot Technician Relationship Specialty Start Date End Date Zeb Morton MD [address] [place] [address] PCP - General Family Medicine 07/19/22 Ninoska Green APRN-MECHANICAL DOOR REPAIRER [address] [place] [address] PCP - Medical [employer] 01/31/13 03/02/99 documented as of this encounter
--- OUTSIDE RECORDS SUMMARY | 2024-08-04 08:46 | XMS_ITS | Encounter Summary ---
Author Organization [facility] Address [address] [facility] [address] Care Team Providers Care Split Leather Mosser Name Role Phone Zeb Morton MD Primary Care Provider [phone] Ninoska Green VP [employer]-DERMATOLOGY PROCEDURAL PHYSICIAN Unavailable Encounter Details Date Type Department Care Team (Late st Contact Info) Description 03/10/2024 Orders Only [facility] [address] [place] [address] Zeb Morton MD [address] [place] [address] Social History Tobacco Use Types Packs/Day Years [...] declined 01/28/2023 How often do you attend scientologist or taoist serv ices? Patient declined 01/28/2023 Do you belong to any clubs o r organizations such as scientologist groups, unions, fraternal or athletic groups, or [...] Recorded Patient Health Questionnaire-2 Score 4 10/30/2023 [facility] - [facility] Stress Questionnaire Answer Date Recorded [...] place to sleep or slept in a halfway (including now)? Patient refused 01/28/2023 Education Answer [...] [facility] [address] [place] [address] [place] [address] Zeb Morton MD [address] [place] [address] (Fax) 11/29/2024 4:30 PM EDT Office Visit [facility] [address] [place] [address] Zeb Morton MD [address] [place] [address] (Fax) 03/01/2025 4:30 PM EST Office Visit [facility] [address] [place] [address] Zeb Morton MD [address] [facility] [address] [place] [address] documented as of this encounter Visit Diagnoses Not on filedocumented in this encounter Additional Health Concerns Assessment Noted Time PHQ-9 Depression Total Score: 18 024 4:03 PM EDT documented as of this encounter Care Teams Split Leather Mosser Relationship Specialty Start Date End Date Zeb Morton MD [address] [facility] [address] [place] [address] PCP - General Family Medicine 07/19/22 Ninoska Green APRN-DERMATOLOGY PROCEDURAL PHYSICIAN [address] [place] [address] PCP - Medical [employer] 01/31/13 03/02/99 documented as of this encounter
--- OUTSIDE RECORDS SUMMARY | 2024-08-04 08:46 | XMS_ITS | Encounter Summary ---
Author Organization [facility] Address [address] [place] [address] Care Team Providers Care Coal Trimmer Machine Operator Name Role Phone Zeb Morton MD Primary Care Provider [phone] Ninoska Green FLUMER-REMOTE RUBY ON RAILS DEVELOPER Unavailable Encounter Details Date Type Department Care Team (Late st Contact Info) Description 10/28/2022 Orders Only [facility] [address] [place] [address] Zeb Morton MD [address] [facility] [address] [place] [address] (Fax) Motion sickness, initial encounter (Primary Dx); Vertigo; COVID-19 Social History Tobacco Use Types Packs/Day Years [...] [address] [place] [address] Zeb Morton MD [address] [place] [address] (Fax) 11/29/2024 4:30 PM EDT Office Visit [facility] [address] [place] [address] eZb Morton MD [address] [place] [address] (Fax) 03/01/2025 4:30 PM EST Office Visit [facility] [address] [place] [address] Zeb Morton MD [address] [place] [address] (Fax) documented as of this encounter Visit Diagnoses Diagnosis Motion sickness, initial encounter- Primary Vertigo Dizziness and giddiness COVID-19 documented in this encounter Care Teams Coal Trimmer Machine Operator Relationship Specialty Start Date End Date Zeb Morton MD [address] [place] [address] (Fax) PCP - General Family Medicine 07/19/22 Ninoska Green APRN-REMOTE RUBY ON RAILS DEVELOPER [address] [place] [address] PCP - Medical [place] [employer] 01/31/13 03/02/99 documented as of this encounter
--- OUTSIDE RECORDS SUMMARY | 2024-08-04 08:46 | XMS_ITS | Encounter Summary ---
Author Organization [facility] Address [address] [place] [address] Care Team Providers Care Product Development Manager Name Role Phone Zeb Morton MD Primary Care Provider Ninoska Green SALES OFFICER-SEO ASSOCIATE Unavailable Encounter Details Date Type Department Care Team (Late st Contact Info) Description 08/27/2022 Abstract [facility] [address] [place] [address] Alexandre De La Rosa, PT [address] [place] [address] Social History Tobacco Use Types Packs/Day Years Used Date Smoking Tobacco: Never Smokeless Tobacco: Never Alcohol Use Standard Drinks/Week Comments Not Currently [...] Recorded In the last 10 days, have yo u been in contact with someone who was [...] Not at all 08/27/2022 11:13 AM EDT Dionisio MuluAbby A Feeling down, depressed, or hopeless Not at all 08/27/2022 11:13 AM EDT Mulu Nichole M A Patient Health Questionnaire -2 Score 0 08/27/2022 11:13 AM EDT Dionisio June, M A documented as of this encounter Plan of Treatment Upcoming Encounters Date Type Department Care Team (Late st Contact Info) Description 08/30/2024 4:30 PM EDT Office Visit [facility] [address] [place] [address] Zeb Morton MD [address] [place] [address] (Fax) 11/29/2024 4:30 PM EDT Office Visit [facility] [address] [place] [address] Zeb Morton MD [address] [place] [address] (Fax) 03/01/2025 4:30 PM EST Office Visit [facility] [address] [place] [address] Zeb Morton MD [address] [place] [address] (Fax) documented as of this encounter Visit Diagnoses Not on filedocumented in this encounter Care Teams Product Development Manager Relationship Specialty Start Date End Date Zeb Morton MD [address] [place] [address] (Fax) PCP - General Family Medicine 07/19/22 Ninoska Green, ARIELA-SEO ASSOCIATE [address] [place] [address] PCP - Medical [place] [employer] 01/31/13 03/02/99 documented as of this encounter
--- OUTSIDE RECORDS SUMMARY | 2024-08-04 08:46 | XMS_ITS | Encounter Summary ---
Author Organization [facility] Address [address] [place] [address] Care Team Providers Care Optical Fabricator Name Role Phone Zeb Morton MD Primary Care Provider Ninoska Green GAS OR PETROLEUM OPERATOR-ASSEMBLER CAMPER Unavailable Encounter Details Date Type Department Care Team (Late st Contact Info) Description 09/03/2022 Abstract [facility] [address] [facility] [address] [place] [address] Pepe Lozano, PT [address] [place] [address] Social History Tobacco Use Types Packs/Day Years [...] AM EDT documented as of this encounter Plan of Treatment Upcoming Encounters Date Type Department Care Team (Late st Contact Info) Description 08/30/2024 4:30 PM EDT Office Visit [facility] [address] [place] [address] Zeb Morton MD [address] [place] [address] (Fax) 11/29/2024 4:30 PM EDT Office Visit [facility] [address] [place] [address] Zeb Morton MD [address] [place] [address] (Fax) 03/01/2025 4:30 PM EST Office Visit [facility] [address] [facility] [address] [place] [address] Zeb Morton MD [address] [place] [address] (Fax) documented as of this encounter Visit Diagnoses Not on filedocumented in this encounter Care Teams Optical Fabricator Relationship Specialty Start Date End Date Zeb Morton MD [address] [place] [address] (Fax) PCP - General Family Medicine 07/19/22 Ninoska Green APRN-ASSEMBLER CAMPER [address] [place] [address] PCP - Medical [place] [employer] 01/31/13 03/02/99 documented as of this encounter
--- OUTSIDE RECORDS SUMMARY | 2024-08-04 08:46 | XMS_ITS | Encounter Summary ---
Author Organization [facility] Address [address] [place] [address] Care Team Providers Care Repair Coil Winder Name Role Phone Zeb Morton MD Primary Care Provider [phone] Ninoska Green TURNSTILE COLLECTOR-WIG DRESSER Unavailable Reason for Visit * Reason Onset Date Comments Med Refill LDI 09/01/2023 Encounter Details Date Type Department Care Team (Late st Contact Info) Description 09/01/2023 Refill [facility] [address] [place] [address] Zeb Morton MD [address] [place] [address] (Fax) Gastroesophageal reflux disease without esophagitis; Mixed anxiety and depressive disorder Social History [...] declined 01/28/2023 How often do you attend shinto or muslim serv ices? Patient declined 01/28/2023 Do you belong to any clubs o r organizations such as shinto groups, unions, fraternal or athletic groups, or [...] Recorded Patient Health Questionnaire-2 Score 0 02/06/2023 [facility] - Occupational Stress [...] place to sleep or slept in a fci (including now)? Patient refused 01/28/2023 Education Answer [...] Telephone Encounter - Layne Mims RN - 09/09/2023 1:22 PM EDT Norah requested pt's next LDI Core Doses. documented in this encounter Plan of Treatment Upcoming Encounters Date Type Department Care Team (Late st Contact Info) Description 08/30/2024 4:30 PM EDT Office Visit [facility] 100 [address] [facility] 100 [place] [address] Zeb Morton MD [address] [place] [address] (Fax) 11/29/2024 4:30 PM EDT Office Visit [facility] [address] [place] [address] Zeb Morton MD [address] [place] [address] (Fax) 03/01/2025 4:30 PM EST Office Visit [facility] [address] [place] [address] Zeb Morton MD [address] [place] [address] (Fax) documented as of this encounter Visit Diagnoses Diagnosis Gastroesophageal reflux disease without esophagitis Esophageal reflux Mixed anxiety and depressive disorder Dysthymic disorder documented in this encounter Care Teams Repair Coil Winder Relationship Specialty Start Date End Date Zeb Morton MD [address] [place] [address] (Fax) PCP - General Family Medicine 07/19/22 Ninoska Green APRN-WIG DRESSER [address] [place] [address] PCP - Medical [place] [employer] 01/31/13 03/02/99 documented as of this encounter
--- OUTSIDE RECORDS SUMMARY | 2024-08-04 08:46 | XMS_ITS | Encounter Summary ---
Author Organization [facility] Address [address] [place] [address] Care Team Providers Care Sweater Designer Name Role Phone Zeb Morton MD Primary Care Provider [phone] Ninoska Green BOBBIN HANDLER-MRB ENGINEER Unavailable Encounter Details Date Type Department Care Team (Late st Contact Info) Description 10/27/2022 Abstract [facility] [address] [place] [address] Diego Sánchez, SOLANGE Social History Tobacco Use Types Packs/Day Years Used Date Smoking Tobacco: Never Smokeless Tobacco: Never Tobacco Cessation:Counseling Given: Not Answered Alcohol Use Standard Drinks/Week Comments Yes 2 (1 standard drink = 0.6 oz pure alcohol) Caffeine intake: 3-4 cups per day PHQ-2 Answer [...] FM [address] [place] [address] Zeb Morton MD [address] [place] [address] (Fax) 11/29/2024 4:30 PM EDT Office Visit [facility] [address] [facility] 100 [place] [address] Zeb Morton MD [address] [place] [address] (Fax) 03/01/2025 4:30 PM EST Office Visit [facility] [address] [facility] [address] [place] [address] Zeb Morton MD [address] [facility] [place] [address] (Fax) documented as of this encounter Visit Diagnoses Not on filedocumented in this encounter Care Teams Sweater Designer Relationship Specialty Start Date End Date Zeb Morton MD [address] [facility] [place] [address] (Fax) PCP - General Family Medicine 07/19/22 Ninoska Green APRN-MRB ENGINEER [address] [facility] [address] [place] [address] PCP - Medical [place] [employer] 01/31/13 03/02/99 documented as of this encounter
--- OUTSIDE RECORDS SUMMARY | 2024-08-04 08:46 | XMS_ITS | Encounter Summary ---
Author Organization [facility] Address [address] [place] [address] Care Team Providers Care Eye Clinic Manager Name Role Phone Zeb Morton MD Primary Care Provider [phone] Ninoska Green HISTORIC CLOTHING AND COSTUME MAKER-SAFETY AND SECURITY MANAGER Unavailable Encounter Details Date Type Department Care Team (Late st Contact Info) Description 10/01/2022 Abstract [facility] [address] [place] [address] Zeb Morton MD [address] [facility] [address] [place] [address] (Fax) Social History Tobacco Use Types Packs/Day Years [...] suspected to have Coronavirus/COVID-19? No / Unsure 09/26/2022 7:31 AM EDT documented as of this encounter Plan of Treatment Upcoming Encounters Date Type Department Care Team (Late st Contact Info) Description 08/30/2024 4:30 PM EDT Office Visit [facility] [address] [place] [address] Zeb Morton MD [address] [place] [address] (Fax) 11/29/2024 4:30 PM EDT Office Visit [facility] [address] [place] [address] Zeb Morton MD [address] [place] [address] (Fax) 03/01/2025 4:30 PM EST Office Visit [facility] [address] [facility] 100 [place] [address] Zeb Morton MD [address] [place] [address] (Fax) documented as of this encounter Visit Diagnoses Not on filedocumented in this encounter Care Teams Eye Clinic Manager Relationship Specialty Start Date End Date Zeb Morton MD [address] [place] [address] (Fax) PCP - General Family Medicine 07/19/22 Ninoska Green APRN-SAFETY AND SECURITY MANAGER [address] [place] [address] PCP - Medical [place] [employer] 01/31/13 03/02/99 documented as of this encounter
--- OUTSIDE RECORDS SUMMARY | 2024-08-04 08:46 | XMS_ITS | Encounter Summary ---
Author Organization [facility] Address [address] [place] [address] Care Team Providers Care Poultry Field Service Technician Name Role Phone Zeb Morton MD Primary Care Provider [phone] Ninoska Green STAFFING OPERATIONS MANAGER-COIN MACHINE ASSEMBLER Unavailable Encounter Details Date Type Department Care Team (Late st Contact Info) Description 05/13/2023 Abstract [facility] [address] [place] [address] Zeb Morton MD [address] [place] [address] [address] [place] [address] Social History Tobacco Use Types Packs/Day Years [...] declined 01/28/2023 How often do you attend yazidi or islam serv ices? Patient declined 01/28/2023 Do you belong to any clubs o r organizations such as yazidi groups, unions, fraResonate or athletic groups, or school groups? Patient [...] Recorded Patient Health Questionnaire-2 Score 0 02/06/2023 [facility] Occupat ional Health - Occupational [...] [facility] [address] [place] [address] [place] [address] Zeb Morton MD [address] [place] [address] (Fax) 11/29/2024 4:30 PM EDT Office Visit [facility] [address] [place] [address] Zeb Morton MD [address] [place] [address] (Fax) 03/01/2025 4:30 PM EST Office Visit [facility] [address] [place] [address] Zeb Morton MD [address] [place] [address] documented as of this encounter Visit Diagnoses Not on filedocumented in this encounter Care Teams Poultry Field Service Technician Relationship Specialty Start Date End Date Zeb Morton MD [address] [facility] 100 [place] [address] PCP - General Family Medicine 07/19/22 Ninoska Green APRN-COIN MACHINE ASSEMBLER [address] [place] [address] PCP - Medical [place] [employer] 01/31/13 03/02/99 documented as of this encounter
--- NOTE | 2024-08-04 09:00 | CA_ITS ---
Patient Name: KATHERINE HOGAN MR#: [id number] : 1965 Exam Date: 08/04/2024 Ordering Doctor: DR ERIN GALLEGOS M.D. ECHOCARDIOGRAM REPORT PROCEDURE: CA ECHO DOPPLER COMPLETE INDICATIONS: Nonrheumatic mitral valve regurgitation, hypertension COMPARISON: None. DESCRIPTION: COMPLETE ECHOCARDIOGRAM Real-time transthoracic echocardiography with 2D, M-mode, spectral and color flow Doppler performed. QUALITY: Technical quality was good. LEFT VENTRICLE: Normal chamber size. Mild concentric left ventricular hypertrophy. Normal systolic function. LV EF: Normal left ventricular ejection fraction, (>55%). DIASTOLIC: Normal diastolic function. ATRIAL SEPTUM: Visually appears intact. LEFT ATRIUM: Normal chamber size. RIGHT ATRIUM: Normal chamber size. RIGHT VENTRICLE: Normal chamber size. Normal right ventricular systolic function. TRICUSPID VALVE: Normal mobility and thickness. No stenosis with no regurgitation. Unable to assess right sided pressures due to lack of measurable tricuspid regurgitation. MITRAL VALVE: Mildly thickened with normal mobility. No evidence of mitral valve stenosis. There is no mitral annular calcification. Mild mitral regurgitation. AORTIC VALVE: Normal trileaflet appearance. Mildly calcified aortic valve. Normal leaflet mobility. No evidence of aortic valve stenosis. No aortic regurgitation. AORTIC ROOT: Normal diameter and appearance, measuring 3.7 cm. Ascending aorta is normal in size, measuring 3.2 cm. PULMONIC VALVE: Normal thickness and mobility. No stenosis. Trivial regurgitation. PERICARDIUM: No evidence of pericardial effusion. IVC: Collapses with inspirations. IVC is normal in size. PLEURA: CONCLUSION: 1. Mild concentric left ventricular hypertrophy with normal systolic function. LVEF is estimated at 55-60%. 2. Normal right ventricular systolic function. 3. Normal diastolic function. 4. Mild mitral regurgitation. 5. Unable to assess right sided pressures due to lack of measurable tricuspid regurgitation. Adult Echocardiography Procedure Report Left Ventricle LVEDD (3.7 - 5.6 cm): 4.19 cm LVESD (2.2 - 4.0 cm): 2.48 cm LVIVS thickness (0.6 - 1.2 cm): 1.26 cm LVPW thickness (0.5 - 1.0 cm): 1.23 cm e': 0.12 m/s E - e': 6.13 LVOT Max Gradient: 3.78 mm[Hg] LVOT Area (cm2): 0.97 m/s Peak Velocity (LVOT): 0.97 m/s Mean Velocity (LVOT): 0.67 m/s LVOT Diameter 2.52 cm Left Atrium LA Volume Index (2D A2C): 26.74 ml/m2 Left Atrium Systolic Dimension: 4.07 cm Mitral Valve MV E to A Ratio: 0.90 Mitral Valve A-Wave Peak Velocity: 0.84 m/s Mitral Valve E-Wave Peak Velocity: 0.76 m/s Right Ventricle Aorta AO Root Diam: 3.70 cm Ascending Ao Diam: 3.23 cm Aortic Valve AoV Area (Peak Antoine): 3.40 cm2, 3.40 cm2 AoV Area (VTI): 3.59 cm2, 3.59 cm2 Peak Velocity(Antegrade Flow): 1.42 m/s Peak Gradient(Antegrade Flow): 8.09 mm[Hg] Mean Velocity(Antegrade Flow): 0.93 m/s Mean Gradient(Antegrade Flow): 3.99 mm[Hg] Velocity Time Integral: 32.26 cm Tricuspid Valve Pulmonic Valve Peak Gradient: 6.49 mm[Hg], 4.13 mm[Hg] Right Atrium Right Atrium Systolic Pressure: 23.59 ml, 23.59 ml Dictated by: James Wells M.D. on 08/04/2024 at 18:44 Approved by: James Wells M.D. on 08/04/2024 at 18:49
--- OUTSIDE RECORDS SUMMARY | 2024-08-04 09:03 | XMS_ITS | CCD ---
Author Organization [facility] Care Team Providers Care Vp [employer] Name Role Phone AYDE, DR BERMEO Primary [...] Unavailable NONE, XXXX Primary Care Physician Unavailab ZEB Magallon Primary Care Physician Unavail able Katherin Alcazar Unavailable Unavailable Nils Finney Admitting Unavailable Nils Finney Referring Unavailable Nils Finney Attending Unavailable Nils Finney Referring Unavailable Nils Finney Attending Unavailable Nils Finney Admitting Unavailable HemeZeb prescott MD Primary Care Provider [phone] Berenice Tolbert Unavailable Zeb Messer MD Primary Care Provider [phone] Zeb Messer MD Primary Care Provider BERENICE GREEN Attending Unavailable ZEB MESSER Attending Unavailable ZEB MESSER Attending Unavailable ZEB MESSER Attending Unavailable ZEB MESSER Attending Unavailable ZEB MESSER Attending Unavailable ZEB MESSER Attending Unavailable ZEB MESSER Attending Unavailable ERIN GALLEGOS Attending Unavailable Allergies Allergy Classification Reported Allergen(s) Allergy Type Date of Onset Reaction(s) Facility (1 source) Acetaminophen / oxyCODONE Drug Allergy [facility] Repository (1 source) Codeine Drug Allergy [facility] Repository (2 sources) Cortisone; Translations: [CORTISONE] Drug Allergy 6 [facility] Repository (1 source) Lactose Drug Allergy 6 [facility] Repository (20 sources) Acetaminophen / oxyCODONE; Translations: [OXYCODONE-ACETAM INOPHEN] Drug Allergy 1 Unknown [facility] Healthcare (20 sources) Cortisone Drug Allergy 1 Rash [facility] Work Phone: (20 sources) Milk-Related Compounds Propensity to adverse reactions 3 [facility] Work Phone: (20 sources) Neomycin-Bacitrac in Zn-Polymyx Drug Intolerance 1 Rash [facility] (1 source) Milk; Translations: [MILK] Propensity to adverse reactions to drug (disorder) 1 [facility] Repository Medications Current Medications Medication Drug Class(es) [...] 0, 1-2 tab(s) Oral q4hr, [id number], 173.5, cm, 05/14/22 11:51:00 EDT, Height/Length Dosing, [...] Ordered ascorbic acid 1000 mg oral tablet (6 sources) Vitamin C take 1 tablet by mouth [...] High cholesterol Start Date: 05/14/22 Status: Ordered azelastine hydrochloride 0.137 mg/actuat metered dose nasal spray (5 sources) Histamine-1 Receptor Antagonist Start: 04-29-2024 End: 04-29-2025 take 1 spray(s) nasal route in the morning azelastine (Astelin) 0.1 % nasal spray Indications: Eustachian tube dysfunction, bilateral Administer 1 spray into each nostril in the morning and 1 spray before bedtime. Use in each nostril as directed. 30 mL 1 04/29/2024 04/29/2025 Active Vansea albicans allergenic extract (2 sources) Non-Standardized Food [...] Active Start: 05-14-2022 [facility] carvedilol 25 mg Tab 25 [...] # 60 cap(s), Refills(s) 0, [facility]: [facility][id number], 173.5, cm, 05/14/22 11:51:00 EDT, Height/Length Dosing, 98.2, kg, 05/14/22 11:51:00 EDT, Weight Dosing Start Date: 05/31/22 Status: Ordered Start: 05-14-2022 take 1 capsule by mo [facility] twice daily CeleBREX 200 mg Cap 200 mg = 1 cap(s), Oral, BID, Pain Start Date: 05/14/22 Status: Ordered cholecalciferol 0.025 mg oral capsule (20 sources) Vitamin D take 1 capsule by mouth in the morning cholecalciferol (Vitamin D-3) 25 MCG (1000 UT) capsule Take 5,000 Units by mouth in the morning. Active CoQ10 (2 sources) Start: 023 take 100 mg by mouth once daily CoQ10 100 mg, Oral, Daily, Prophylaxis Start Date: 05/14/22 Status: Ordered diclofenac sodium 20 mg/ml topical solution (20 sources) Nonsteroidal Anti-inflammatory Drug Start: 023 diclofenac 2% topical solution 1 application, Topical, [...] constipation, # 20 cap(s), Refills(s) 0, Pharmacy: [facility] #[id number], 173.5, cm, 05/14/22 11:51:00 EDT, Height/Length Dosing, [...] mg oral capsule (20 sources) Krill Oil (Neoga -3) 500 MG capsule Take by mouth. [...] Start: 05-14-2022 take 1 tablet by selina twice daily lamotrigine 200 mg oral tablet, [...] 1 tablet by selina th once daily lisinopril 20 mg Tab 20 [...] 09/10/2023 Active Misc Natural Products (DETOX PO) (6 sources) take 2 tablets by mouth once daily [...] PRN Nausea Start Date: 05/14/22 Status: Ordered oseltamivir 75 mg oral capsule (1 source) Neuraminidase Inhibitor Start: 06-22-2024 End: 06-27-2024 take 1 capsule by mouth in the morning oseltamivir (Tamiflu) 75 MG capsule Indications: Influenza A Take 1 capsule (75 mg) by mouth in the morning and 1 capsule (75 mg) before bedtime. Do all this for 5 days. 10 capsule 06/22/2024 06/27/2024 Active Prasterone, DHEA, (DHEA PO) (6 sources) take 1 tablet by mouth once daily Prasterone, DHEA, (DHEA PO) Place 1 tablet under the tongue Daily Active Probiotic Product (PROBIOTIC PO) (6 sources) take 1 capsule by mouth three times weekly Probiotic Product (PROBIOTIC PO) Take 1 capsule by mouth 3 (three) times a week Active Saw Montague (2 sources) Start: 05-14-2022 take 450 mg by mouth twice daily Saw Montague 450 mg, Oral, BID, Prophylaxis Start Date: 05/14/22 Status: Ordered therapeutic multivitamin-minera ls (Theragran-M) tablet (20 sources) take 2 tablets by mouth in the morning therapeutic multivitamin-minera ls (Theragran-M) tablet Take 2 tablets by mouth in the morning. Active thyroid (mcc) 60 mg oral tablet (20 sources) Start: 06-08-2024 End: 09-06-2024 take 1 tablet by mouth in the morning thyroid (Overton Thyroid) 60 MG tablet Indications: Central hypothyroidism (CMS/HCC) , Euthyroid sick syndrome Take 1 tablet (60 mg) by mouth in the morning and 1 tablet (60 mg) before bedtime. 180 tablet 06/08/2024 09/06/2024 Active Start: 11-25-2023 End: 09-04-2024 take 3 tablets by mouth in the morning thyroid (Overton Thyroid) 15 MG tablet Indications: Central hypothyroidism (CMS/HCC) , Euthyroid sick syndrome Take 3 tablets (45 mg) by mouth in the morning and 3 tablets (45 mg) before bedtime. 540 tablet 1 03/08/2024 06/08/2024 Discontinued (Reorder) traMADol hydrochloride 50 mg oral tablet (1 [...] Active Start: 05-14-[address] [facility] once daily venlafaxine 75 mg Cap-ER 75 [...] Prophylaxis Start Date: 05/14/22 Status: Ordered Zn-Pyg Iznc-Elwspy-Lwo Palmet (SAW PALMETTO COMPLEX PO) (20 sources) [...] hypertension; Translations: [Hypertensive disorder] Onset: 02-16-2015 Chronic Heart valve disorders (2 sources) Nonrheumatic mitral (valve) insufficiency; Translations: [Nonrheumatic mitral (valve) insufficiency] Onset: 07-14-2024 Chronic Hyperplasia of prostate (20 sources) Lower urinary tract symptoms due to benign prostatic hypertrophy; Translations: [Benign prostatic hyperplasia with lower urinary tract symptoms] Onset: 10-01-2017 08-27-2022 Chronic Influenza (1 source) Influenza due to Influenza A virus; Translations: [Influenza due to other identified influenza virus with other respiratory manifestations] 06-22-2024 Episodic Malaise and fatigue (20 sources) Fatigue; Translations: [Chronic fatigue, unspecified] Onset: 12-04-2015 Resolved: 03-04-2024 11-25-2023 Chronic Noninfectious gastroenteritis (2 sources) Gastroenteritis; Translations: [Noninfective gastroenteritis and colitis, unspecified] 01-05-2024 Episodic Osteoarthritis (20 sources) Arthritis; Translations: [Degenerative joint disease involving multiple joints] Onset: 10-06-2018 Resolved: 02-06-2023 05-14-2022 Chronic Other endocrine disorders (8 sources) Hypotestosteronism; Translations: [Endocrine disorder, unspecified] Onset: 06-02-2024 10-30-2023 Episodic Other endocrine disorders (8 sources) Hyperestrogenism; Translations: [Other specified endocrine disorders] Onset: 06-02-2024 10-30-2023 Episodic Other hereditary and degenerative nervous system conditions (20 sources) Impaired cognition; Translations: [Mild cognitive impairment, so stated] Onset: 11-06-2017 08-27-2022 Chronic Other infections; including parasitic (20 sources) Late effects of other and unspecified [...] 02-18-2024 Chronic Residual codes; unclassified (2 sources) Active advance directive (copy within chart) ; Translations: [Other specified health status] 02-11-2024 Episodic Thyroid disorders (6 sources) Central hypothyroidism; 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] 11-25-2023 Chronic Thyroid disorders (10 sources) Sick-euthyroid syndrome; Translations: [Sick-euthyroid syndrome] Onset: 06-02-2024 11-25-2023 Episodic Unclassified (3 sources) CONTACT W/AND [...] aftercare (20 sources) Polypharmacy ; Translations: [Other mcc (current) drug therapy] Onset: 09-11-2023 11-26-2023 Episodic [...] (chronic) (peripheral)] Onset: 02-16-2015 08-27-2022 Episodic Other gastrointestinal disorders (20 sources) History [...] (SUSP) EXPOS COVID-19] Onset: 02-13-2021 Viral infection (20 sources) Disease caused by 2019-nCoV; Translations: [COVID-19] Onset: 11-26-2023 Resolved: 02-18-2024 11-26-2023 Episodic Results Test Name Value Interpretation Reference Range Facility Office Visiton 07-14-2024 Follow-up visit [id number] Katherine Hogan 1965 M Date Provider Department Center 07/14/2024 Vel-ERIN GLALEGOS Family History Problem Relation Age of Onset Heart attack Brother Coronary artery disease Brother Other Brother Family Status - Relation Status Age at Mother Father Sister Alive Brother Level of Service:42334 [place] OFFICE/OUTPATIENT ESTABLISHED MOD MDM 30 MIN Normal [facility] T3 REVERSE, LC/MS/MSon 02-21 T3 REVERSE, LC/MS/MS 12 ng/dL Normal 8-25 [facility] Comment on above: Order Comment: FASTI NG:YES FASTING: YES Result Comment: This test was developed and its analytical performance characteristics have been determined by [facility] [place], [place]. It has not been cleared or approved by the U.S. Food and Drug Administration. This assay has been validated pursuant to the CLIA regulations and is used for clinical purposes. Performed By: #### 3 4429, 866, 859 #### [facility] [address], [address] [place] [address] Bridge Welder: Carlos Manuel Sevilla MD #### [id number] #### [facility]/[address] [place], [place] Bridge Welder: Krunal Mcgee M.D.,PhD T3, [facility] 02-22-2024 Free T3 [Mass/Vol] 4.0 pg/mL Normal 2.3-4.2 [facility] Comment on above: Performed By: #### 3 4429, 866, 859 #### [facility] [address], [address] [place] [address] Bridge Welder: Carlos Manuel Sevilla MD #### [id number] #### [facility]/[place] [id number] [facility] [place], [place] Bridge Welder: Krunal Mcgee M.D.,PhD T3, TOTALon 02-22-2024 T3, TOTAL 122 ng/dL Normal 76-181 [facility] Comment on above: Performed By: #### 3 4429, 866, 859 #### [facility] [address], [address] [place] [address] Bridge Welder: Carlos Manuel Sevilla MD #### [id number] #### [facility]/[place] [id number] [facility] [place], [place] Bridge Welder: Krunal Mcgee M.D.,PhD T4, FREEon 02-22-2024 Free T4 [Mass/Vol] 1.0 ng/dL Normal 0.8-1.8 [facility] Comment on above: Performed By: #### 3 4429, 866, 859 #### [facility] [address], [address] [place] [address] Bridge Welder: Carlos Manuel Sevilla MD #### [id number] #### [facility]/[place] [id number] [facility] [place], [place] Bridge Welder: Krunal Mcgee M.D.,PhD HEMOGLOBIN A1con 02-21-2024 HEMOGLOBIN [...] diagnosis of diabetes in children. According to [place] Diabetes Association (ADA) guidelines, hemoglobin A1c <7.0% represents optimal control in non- diabetic patients. Different metrics may apply to specific patient populations. Standards of Medical Care in Diabetes(ADA). Performed By: #### 4 96 #### [facility] [address] Bridge Welder: Carlos Manuel Sevilla MD COMPREHENSIVE METABOLIC PANE [facility] 02-19-2024 Albumin [Mass/Vol] 4.5 g/dL Normal 3.6-5.1 [facility] Comment on above: Performed By: #### 1 6071, 5310 #### [facility] [address] Bridge Welder: Carlos Manuel Sevilla MD Albumin/Globulin [Mass ratio] 2.0 {ratio} Normal 1.0-2.5 [facility] Comment on above: Performed By: #### 1 0231, 7140 #### [facility] [address], [address] [place] [address] Bridge Welder: Carlos Manuel Sevilla MD ALP [Catalytic activity/Vol] 94 U/L Normal 35-144 [facility] Comment on above: Performed By: #### 1 0231, 7600 #### [facility] of [address], [address] [place] [address] Bridge Welder: Carlos Manuel Sevilla MD ALT [Catalytic activity/Vol] 71 U/L High 9-46 [facility] Comment on above: Performed By: #### 1 0231, 7600 #### [facility] of [address], [address] [place] [address] Bridge Welder: Carlos Manuel Sevilla MD AST [Catalytic activity/Vol] 27 U/L Normal 10-35 [facility] Comment on above: Performed By: #### 1 023, 7600 #### [facility] of [place] [address] Bridge Welder: Carlos Manuel Sevilla MD Bilirubin [Mass/Vol] 0.5 mg/dL Normal 0.2-1.2 [facility] Comment on above: Performed By: #### 1 0231, 7600 #### [facility] of [place] [address] Bridge Welder: Carlos Manuel Sevilla MD BUN/CREATININE RATIO SEE NOTE: Normal 6-22 [facility] Comment on above: Result Comment: Not Reported: BUN and Creatinine are within reference range. Performed By: #### 1 0231, 7600 #### [facility] of [address], [address] [place] [address] Bridge Welder: Carlos Manuel Sevilla MD Calcium [Mass/Vol] 9.9 mg/dL Normal 8.6-10.3 [facility] Comment on above: Performed By: #### 1 0231, 7600 #### [facility] of [address], [address] [place] [address] Bridge Welder: Carlos Manuel Sevilla MD Chloride [Moles/Vol] 101 mmol/L Normal 98-110 [facility] Comment on above: Performed By: #### 1 023, 7600 #### [facility] [place] [address] Bridge Welder: Carlos Manuel Sevlila MD CO2 [Moles/Vol] 29 mmol/L Normal 20-32 [facility] Comment on above: Performed By: #### 1 023, 7600 #### [facility] [place] [address] Bridge Welder: Carlos Manuel Sevilla MD Creatinine [Mass/Vol] 0.97 mg/dL Normal 0.70-1.[address] [facility] [address] [facility] [address] [facility] Comment on above: Performed By: #### 1 023, 7600 #### [facility] [place] [address] Bridge Welder: Carlos Manuel Sevilla MD GFR/1.73 sq M.predicted among non-blacks MDRD (S/P/Bld) [Vol rate/Area] 89 mL/min/{1.73_m2} Normal > OR = 60 [facility] Comment on above: Performed By: #### 1 023, 7600 #### [facility] [place] [address] Bridge Welder: Carlos Manuel Sevilla MD Globulin (S) [Mass/Vol] 2.3 g/dL Normal 1.9-3.7 [facility] Comment on above: Performed By: #### 1 023, 7600 #### [facility] [place] [address] Bridge Welder: Carlos Manuel Sevilla MD Glucose [Mass/Vol] 122 mg/dL High 65-99 [facility] Comment on above: Result Comment: Fasting reference interval For someone without known diabetes, a glucose value between 100 and 125 mg/dL is consistent with prediabetes and should be confirmed with a follow-up test. Performed By: #### 1 023, 7600 #### [facility] [place] [address] Bridge Welder: Carlos Manuel Sevilla MD Potassium [Moles/Vol] 3.7 mmol/L Normal 3.5-5.[address] [facility] [address] [facility] Comment on above: Performed By: #### 1 0231, 7600 #### [facility] of [address], [address] [place] [address] Bridge Welder: Carlos Manuel Sevilla MD Protein [Mass/Vol] 6.8 g/dL Normal 6.1-8.1 [facility] Comment on above: Performed By: #### 1 0231, 7600 #### [facility] of [address], [address] [place] [address] Bridge Welder: Carlos Manuel Sevilla MD Sodium [Moles/Vol] 138 mmol/L Normal 135-146 [facility] Comment on above: Performed By: #### 1 0231, 7600 #### [facility] of [address], [address] [place] [address] Bridge Welder: Carlos Manuel Sevilla MD Urea nitrogen [Mass/Vol] 14 mg/dL Normal 7-25 [facility] Comment on above: Performed By: #### 1 023, 7600 #### [facility] of [place] [address] Bridge Welder: Carlos Manuel Sevilla MD LIPID PANEL, [place] [address]-1 Cholesterol [Mass/Vol] 151 mg/dL Normal <200 [facility] Comment on above: Order Comment: FASTI NG:YES FASTING: YES Performed By: #### 1 023, 7600 #### [facility] of [place] [address] Bridge Welder: Carlos Manuel Sevilla MD Cholesterol in HDL [Mass/Vol] 53 mg/dL Normal > OR = 40 [facility] Comment on above: Order Comment: FASTI NG:YES FASTING: YES Performed By: #### 1 0231, 7600 #### [facility] of [place] [address] Bridge Welder: Carlos Manuel Sevilla MD Cholesterol in LDL [...] LDL-C. Stephen SS et al. MAY. 2013;310(19): 6842-5832 (http://education.My Visual Brief/faq/OKH966) Performed By: #### 1 023, 7600 #### [facility] [address], [address] [place] [address] Bridge Welder: Carlos Manuel Sevilla MD Cholesterol.total/Cho lesterol in HDL [Mass ratio] 2.8 {ratio} Normal <5.0 [facility] Comment on above: Order Comment: FASTI NG:YES FASTING: YES Performed By: #### 1 023, 0 #### [facility] [address], [address] [place] [address] Bridge Welder: Carlos Manuel Sevilla MD NON HDL CHOLESTEROL 98 mg/dL (calc) Normal <130 [facility] Comment on above: Order Comment: FASTI NG:YES FASTING: YES Result Comment: For patients with diabetes plus 1 major ASCVD risk factor, treating to a non-HDL-C goal of <100 mg/dL (LDL-C of <70 mg/dL) is considered a therapeutic option. Performed By: #### 1 023, 7600 #### [facility] [address], [address] [place] [address] Bridge Welder: Carlos Manuel Sevilla MD Triglyceride [Mass/Vol] 103 mg/dL Normal <150 [facility] Comment on above: Order Comment: FASTI NG:YES FASTING: YES Performed By: #### 1 023, 7600 #### [facility] [address], [address] [place] [address] Bridge Welder: Carlos Manuel Sevilla MD Laboratory - Chemistry and C hemistry - challengeon 02-19-2024 Albumin [Mass/Vol] 4.5 g/dL 3.6 - 5.1 g/dL [facility] Albumin/Globulin [Mass ratio] 2 {ratio} [facility] ALP [Catalytic activity/Vol] 94 U/L 35 - 144 U/L [facility] ALT [Catalytic activity/Vol] 71 U/L High 9 - 46 U/L [facility] AST [Catalytic activity/Vol] 27 U/L 10 - 35 U/L [facility] Bilirubin [Mass/Vol] 0.5 mg/dL 0.2 - 1 .2 mg/dL [facility] Calcium [Mass/Vol] 9.9 mg/dL 8.6 - 10. 3 mg/dL [facility] Chloride [Moles/Vol] 101 mmol/L 98 - 11 0 mmol/L [facility] CO2 [Moles/Vol] 29 mmol/L 20 - 32 mmol/L [facility] Creatinine [Mass/Vol] 0.97 mg/dL 0.70 - 1.35 mg/dL [facility] GFR/1.73 sq M.predicted among non-blacks MDRD (S/P/Bld) [Vol rate/Area] 89 mL/min/{1.73_m2} > OR = 60 mL/min/1.73m2 [facility] Globulin (S) [Mass/Vol] 2.3 g/dL [facility] Glucose [Mass/Vol] 122 mg/dL High 65 - 99 mg/dL [facility] Comment on above: Fasting reference interval For someone without known diabetes, a glucose value between 100 and 125 mg/dL is consistent with prediabetes and should be confirmed with a follow-up test. Potassium [Moles/Vol] 3.7 mmol/L 3.5 - 5.3 mmol/L [facility] Protein [Mass/Vol] 6.8 g/dL 6.1 - 8.1 g/dL [facility] Sodium [Moles/Vol] 138 mmol/L 135 - 146 mmol/L [facility] Urea nitrogen [Mass/Vol] 14 mg/dL 7 - 25 mg/dL [facility] Urea nitrogen/Creatinine [Mass ratio] SEE NOTE: [facility] Comment on above: Not Reported: BUN an d Creatinine are within reference range. Lipid 1996 panelon 4 Cholesterol [Mass/Vol] 151 mg/dL NINF - 200 mg/dL [facility] Cholesterol in HDL [Mass/Vol] 53 mg/dL > OR = 40 [facility] Cholesterol in LDL [Mass/Vol] 79 mg/dL mg/dL (calc) [facility] Comment on above: Reference range: <10 [...] LDL-C. Stephen SS et al. MAY. 2013;310(19): 2677-7592 (http://education.My Visual Brief/faq/SVA126) Cholesterol non HDL [Mass/Vol] 98 mg/dL [facility] Comment on above: For patients with di abetes plus 1 major ASCVD risk factor, treating to a non-HDL-C goal of <100 mg/dL (LDL-C of <70 mg/dL) is considered a therapeutic option. Cholesterol.total/Cho lesterol in HDL [Mass ratio] 2.8 {ratio} [facility] Triglyceride [Mass/Vol] 103 mg/dL [facility] - 150 mg/dL [facility] No Panel Informationon 02-18 Interpretation and review of laboratory results Abnormal [facility] FASTING:YES FASTING: YES [facility] [employer] Organization Information Site ID: QPT Name: [facility] Address: [address] [place] [id number] Director: Carlos Manuel Sevilla MD [facility] ALL THYROXINE (T4) FREEon Free T4 [Mass/Vol] 0.71 ng/dL Low 0.76 - 1. 46 ng/dL [facility] Interpretation and review of laboratory results Abnormal [facility] CBC W Auto Differential pane l (Bld)on 10-31-2023 Band form neutrophils (Bld) [#/Vol] CANCELED [facility] Comment on above: Result canceled by t ancillary. Band form neutrophils/100 WBC (Bld) CANCELED % [facility] Comment on above: Result canceled by t he ancillary. Basophils (Bld) [#/Vol] 19 10*3/uL [facility] Basophils/100 WBC (Bld) 0.4 % [facility] Blasts (Bld) [#/Vol] CANCELED 0 cells/uL [facility] Comment on above: Result canceled by t he ancillary. Blasts/100 WBC (Bld) CANCELED % [facility] Comment on above: Result canceled by t he ancillary. Eosinophils (Bld) [#/Vol] 312 10*3/uL [facility] Eosinophils/100 WBC (Bld) 6.5 % [facility] Erythrocyte distribution width (RBC) [Ratio] 13.4 % 11.0 - 15.0 % [facility] Hematocrit (Bld) [Volume fraction] 44.4 % 38.5 - 50.0 % [facility] Hemoglobin (Bld) [Mass/Vol] 15.1 g/dL 13.2 - 17.1 g/dL [facility] Lymphocytes (Bld) [#/Vol] 1147 10*3/uL [facility] Lymphocytes/100 WBC (Bld) 23.9 % [facility] MCH (RBC) [Entitic mass] 32.3 pg 27.0 - 33.0 pg [facility] MCHC (RBC) [Mass/Vol] 34.0 g/dL 32.0 - 36.0 g/dL [facility] MCV (RBC) [Entitic vol] 95.1 fL 80.0 - 100.0 fL [facility] Metamyelocytes (Bld) [#/Vol] CANCELED 0 cells/uL [facility] Comment on above: Result canceled by t he ancillary. Metamyelocytes/100 WBC (Bld) CANCELED % [facility] Comment on above: Result canceled by t he ancillary. Monocytes (Bld) [#/Vol] 494 10*3/uL [facility] Monocytes/100 WBC (Bld) 10.3 % [facility] Myelocytes (Bld) [#/Vol] CANCELED 0 cells/uL [facility] Comment on above: Result canceled by t he ancillary. Myelocytes/100 WBC (Bld) CANCELED % [facility] [facility] Comment on above: Result canceled by t he ancillary. Neutrophils (Bld) [#/Vol] 2827 10*3/uL [facility] Neutrophils/100 WBC (Bld) 58.9 % [facility] Nucleated RBC (Bld) [#/Vol] CANCELED 0 cells/uL [facility] Comment on above: Result canceled by t he ancillary. Nucleated RBC/100 WBC (Bld) [Ratio] CANCELED 0 /100 WBC [facility] Comment on above: Result canceled by t he ancillary. Platelet mean volume (Bld) [Entitic vol] 8.9 fL 7.5 - 12.5 fL [facility] Platelets (Bld) [#/Vol] 287 10*3/uL [facility] Promyelocytes (Bld) [#/Vol] CANCELED 0 cells/uL [facility] Comment on above: Result canceled by t he ancillary. Promyelocytes/100 WBC (Bld) CANCELED % [facility] Comment on above: Result canceled by t he ancillary. RBC (Bld) [#/Vol] 4.67 10*6/uL [facility] Service comment (Unsp spec) [Interp] CANCELED [facility] Comment on above: Result canceled by t he ancillary. Variant lymphocytes/100 WBC (Bld) CANCELED 0 - 10 % [facility] Comment on above: Result canceled by t he ancillary. WBC (Bld) [#/Vol] 4.8 10*3/uL [facility] Performing Organization Information Site ID: QTW Name: [facility] Address: [address] [place] [phone] Director: Shelia Bello [facility] Operative Reporton 3 Operative Report Patient: KATHERINE [...] pain, # 60 cap(s), Refills(s) 0, Pharmacy: [facility] #[id number], 173.5, cm, 05/14/22 11:51:00 EDT, Height/Length Dosing, 98.2, kg, 05/14/22 11:51:00 EDT, Weight Dosing Colace 100 mg Cap: 100 mg = 1 cap(s), Oral, BID, PRN for constipation, # 20 cap(s), Refills(s) 0, [facility]: [facility] #[id number], 173.5, cm, 05/14/22 11:51:00 EDT, Height/Length Dosing, 98.2, kg, 05/14/22 11:51:00 EDT, Weight Dosing Percocet 5 mg-325 mg oral tablet: See Instructions, 40 tab(s), Refill(s) 0, 1-2 tab(s) Oral q4hr, [facility] #[id number], 173.5, cm, 05/14/22 11:51:00 EDT, Height/Length Dosing, [...] Oil: 500 mg, Oral, Daily, Prophylaxis Saw Montague: 450 mg, Oral, BID, Prophylaxis Triamcinolone Acetonide: [...] list: All Problems Anxiety / SNOMED CT 05327199 / Confirmed Apnea, sleep / SNOMED CT 922309625 / Confirmed uses Cpap Arthritis / SNOMED CT 6286427 / Confirmed Hernia, hiatal / SNOMED CT 167086682 / Confirmed High cholesterol / SNOMED CT 03170236 / Confirmed History of IBS / SNOMED CT 6932657437 / Confirmed Hypertension / SNOMED CT 4811372145 / Confirmed Vertigo / SNOMED CT 4267092000 / Confirmed, Active Problems (8) Anxiety Apnea, sleep Arthritis Hernia, hiatal High cholesterol History of IBS Hypertension Vertigo Histories Pa (more content not included)... [facility] Comment on above: Result Comment: Elec tronically Signed By: Brandan Connor CRNA.ron\Date and Time Signed: 05/31/22 07:50 EDT Progress Note-Physicianon Progress Note-Physician [id number]# 1.00CD:127 [facility] IntraOperative Documentson 0 06-06-2022 IntraOperative Documents [id number]# 1.00CD:127 [facility] Coding Summary.on 06-04-2022 Coding Summary. CD:[id number] W w+PGhlYWQ+AM5HTOVrQ21 mhFIukX7cA9LWAFyYHafs TQPWTJpSMzXpqyVvUB5xy XNjZXJu IC8+MZ6xVCPpMdgguXCqw 1P3qSB6E08vzy5jCAhkdT W2PVGhLnZhfgxyj8lpeFe 6IDcuNmluOyBt HTBjyS40ZOZ7wA48Yk64j PHyaLTdp6ewlMx6UyRnQC LkGBG0mKtnTXphu8DvNHF aH37qiCUow6F0 TQFepUpzlDFnBtZmjHL7m V5sMEeludlyz0vmdelgOk z1dd50bRTdc4H4wBQ0H3A zciW4EUBchFLg VhbquETDsY2wzhmff3jyf neqXkDfUYEvUQt7AXq4JU LtuLhwAyYiGF76YRN3KFI bzcCxX1WbVYHe pPwaMeQ4g2R0Ll4ER0JIL pvxA8OYODNVXTknhZP+PC 90al93F4RdQvnmZnm8NFT vPQS1eNS1rN0n YPHvNCmww2V1mNB3C7Bcb fZptn7fa5idCBTjXTnoW1 8weTBfr1M1WLPkoJU8OUS dwClqZhOcoR96 Oyc+RAKegKqli3QpCabcs 7mog4lbvXr1NvbwYHEapb LdjDjpNOE6r0XwHt7eXIF oiHY5uJW5hO5l IxNlYbX6KSdsX922AwFns ZEePumeB82sO8LpkBT+PH QlBjs2TASwmRsyXG6sE9Q hZGRpbmctbGVm nVymZB2wNAPtdmwpAYTyh Q8aQKYwL1n0ZuPvLdR3JI cbH4BaGTAdfmsuQo62gO2 qWaOfQbB9QLto L0UwvdN9UTQyoLYsLOjuY DI5C21dn5F9CJUsXNSpYV W3jUG8nA9ugIqxhdchuDS mdDsgdmVydGlj TPujBHytZ615GPYxbEvlW kNvZGluZyBEYXRlOiAgMD QvMDQvMjAyMzwvdGQ+PHR eQHB0gIwwQTKs iSHnVSwcVk1trMpwlYqeV A4eDZOjazgaSADexL9zZW WekJJihOtsNC2zJUMvorz sf397QyBfPWI5 DWGujJRsM5EgpT9eNnJbU NVgPSZdH7LdiYQxCRqmI7 97RExnVwL2WERddwQuC9V sLWFsaWduOiB0 d3I4Ve1Gn3CtvbdyO7Xcd WMuJsRpRwecEFi7Z2QtWa wvdHI+GF75KVPoKW05LWa 6MRB0pAgsYZto LLCjK6SpeR2tEpIgGMTnO GRkOyc+PHRhYmxlIHdpZH RoPScxMDAlJyBzdHlsZT0 sAp3wDGWjMLPx dDtgkRRoXhGxf8tcSTGwL RulPS6ntLwdY2AkaBB6YT Kpi0f7Ry78P83wC1RayZR +XOOueDQ1uKY5 qI6fBaUjNwF2SJliE509W nYesHVlZacca0ass5xhfF p9OmO9HYIwodJfbYprCSX 4l7ReIr34J17i IHdpZHRoPSIxNSUiIHZhb Zakhw5dcA9zRh8+PGNvbC N0aSF5vK7rFvVzNlR4PPh bS215AdIanPJi Nzbrr0vqr6jrrXp9EvBrB VYqgwEfzYgvXTD5g0DqIn 10Q9RvxBqma6XtChq5nz2 2nWGyl6N7bEZ5 I4FcJDTqzdywmARhgVuqY Y4eAXGhtzwoQFBylQ6yQZ YrJ9j8OoYkJfU7FQncB6W vnqA1ABZxxWSh RSBfxHCDlA6arstvx1qrp bzxHbJgQIInLAk0BLd2XV CshVjeKiOhAFQ3XuE5VKB 5sLNdsE5fiRkk vyiosB7aNtr+WCZ5rVIva YLFHY0vKczxdEA+PHRkIH G8bXxkDXfcAGYifF7pPAV gT9d5OhLxPtQ0 BPrxB1JulyJ5SFKdnWVuI VDhrLJLjS6mhmqex9pftw npGcPeHVXyBCc6EQt0UTZ saWduOiBsZWZ0 HyA1VYG0wSAwiK8raSnur gmqrN8kDnt+QmlydGggRG Q1QHm3Z5GwOdx6RJLwaCt hOM3gdBBgSBav Ek3hsBdwxBvsXO0kJPShr piau831BgHrf8ixZRUlyV BrNXnoCDT0O49pm5Z9FID mFGWqUMO8mBS6 cQ2saFowpwlfiIUbjDpif wLnkNcqPCjjABhpU036YM TplVpiNtBqOZd0A3AzFoz 0IHAtdJnxYL8c dWBqKIlyOd8vtTgrhWxdN V4tUFCakppfa519YhQee1 ssBVTctLKlATsiGAH4V02 id9Y7JGIcQWLv CZT7vHF8kT5iaVzyifixa GVmdDsgdmVydGljYWwtYW ytD972RUIthUgmSkJfaXc 0E1KiTlm2EHLy zOfrPR6pqEPsRQvnNz8uu QpgfDdwAH4cIEFxcmxse7 65WfRtq1opNPPilDZdPDg nEWE4M32tb5V9 BCYwLEYlDEC5kWQ8qX8jw GlnbjogbGVmdDsgdmVydG beYVvsYWdgV449OVErcMb nPlBhdGllbnQg UYgbJAw1M0NhSfkiiKC+P R21XEHzKQ67dWZpsBBnb0 aaaYn2MpUyJVCdVQN0zLd rYHzcw9TyCYEg U08weEJoi4O0GYFoqKtzy OZoFsFfuBO3hA1lMDozdm fxf2lbvddqFjbvi0efnp2 2vV84E86sGJbt ZHRoPSIzMCUiIHZhbGlnb n8fpS9uGg8+RABtdLD7jR Q7fB6xLANzKxA5HRsvK48 9InRvcCIvPjxj p9iug3sxhJz5UhQ6SXCcl pSaiQxwNED0c8ZhEy72U3 9sIHdpZHRoPSIyMCUiIHZ dnJmuau7fsT8d Ii8+OSXefAP9tJX3aU4fR mBqAcF3ACckP617YvRvlQ XrOoxoC05yJ3DoaLK+PHR aGjm0RPMmaAqj CU8zbZOgYOzgZb7iRZY3J rXsRuCpDWwjH1LnWKBvww ltfrsovIE1DNKePIPenO9 6Aq6tiTvoXBPr aGSEtV2nccbns1xuolsqB jRcHQMeUUs3GVm9BQQuvC rgXcVlFNO0EuH9NUU4aCV ivU9wdWbfmazk oB6sF1IoUSXzieszCq24e I1oGcEgQgN1BAuiVfa+Uk mNFAypGZ7PHLLUZNaqMac vdGQ+PHRkIHN0 tRlbZJgcFMAxbK3vDVSmY 7y8RnXrBxT1ENmwT0OxBX IsosgpCz25yX9sEmVhIgX 6QGmeU6UppnQ8 KVHspZYdKLaiFJK2I90jt 0Z5VPJpJGZzXMH9kUP0cD 1hbGlnbjogbGVmdDsgdmV ydGljYWwtYWxp C919FSNivAphOlXlNzW8X bC0HhP0W0YrXbv4RIBktH pwQS5aeZEmANvfKl7eaTu hiTahHZ8oEVZh gfzlKWHbtN5qJBDnnXKqg NrxMG1gHVAsombyo753Zl RiXMQ4TATasRHfG7UuvY5 yOiAjMDAwMDAw O8FxtIOqDDhzQ831MYcjN iM7RKYoncOcH7VeJFVwqI diTpH5u4G6Xl13DTLDRLN yczwvdGQ+PHRk EDZ5mTibUTctVOUijY1nI IWjQ2g7EcWfWiP4IYhvE1 KcLCRwcphwRd21rV5iXaD xUhF2BBbbE3Wo drA6DXHwkJJfDUvkUBX5C 68xk4F6MGLbCZBwUKU6wA V0xB2eeTfelawruHTpoOb gdmVydGljYWwt TLeeL343UFNzjGppJl6tx XZ2D9HqDzv0OMQooMmxVP 9gjUEaAQkoIe9cgTlztLk cFX0lAKJteryu TZUjjA5rATAoyWSqsApvX V1gRZUiqzvft998VvYmED X9WGGpsKMlG2DenW9mGvH jNCOeMHKyV8Dq qAZhERzfD297WViuZnM0O UFekkWqF9WyIDOvcEtfNv P2s0K8Rp2HgIY3zPD4e0S 5O5CojSFkNLV1 LXY3lxgjasq6R2CqZyyok HI+RR27WHUlVM09sSAuiM Cpi3uvmDw2OlYqGJWvFGM 8tZmsLBhww0Gu RMTaQ87ljQMry5Y4KBKwn DoovPGhCnEgkGB4dP0fJJ gadeswq0ejwwggMxdmw1r jmd05eC39D60j IHdpZHRoPSIzMCUiIHZhb Rpdlh2ifM0pLs8+PGNvbC L3rDP8eO2cSkBaGzL4AJi mS254XcWvdGEg Lrhzz2def5tkyPz3WcTbV SCroeYndZetDNL3o7NmXb 18Y77aULjeZAWeHOOyZQS nAEFvcNlccs6a gY1xFj1+YX0kb6ornz55f D48dHI+HQGnTXD4lWqiQR fgOHZjeV1qSHhrIsK8QVM yZqWevP62aPYh YAfpUq3puKhjcUztRQ2xZ XUhvlror384GhCpz4ptTA BqsMMdHXsfKZC7U88yh7O 7ATVdCDTeBWD5 dKK0fJ1puCmuliwxiCPqq DsgdmVydGljYWwtYWxpZ2 95OJZtjTqiGjGlcKOgC1m qpgGDLG9jYutg dGQ+SSRzHIN7nBwgIBraA LJrcO4vLCBzF1f0JrAzTc H9IGhlW2SnrnE3XEHhiOD uZKTazQKOkP6e qehbu8zaiskxDkQkGCIxH Xo1XLx6CQWotYapOzTjAP X6HdM4KYZ2fRNiaR7hbPs hhoqvqH1oHrc+ RklOOjwvdGQ+CIGdQYR5z MmeEIygYJDeiU7hEOCjT0 w4VuWcSjG2HEutV8MfjbI 6IGJvbGQgMTBw wNAPmY2ibnhvp3czqhnlR nVwKJMnXKr7KWt2BEOstQ ebYdSeVXC7MjD7ZKI3bWJ svF2fsUfjrgih lY4iUjk+TVJOOjwvdGQ+P IIdMGP6bAhpOFsyPBJvaJ 4iOHRqV5f9FtTdMpX2LFd uQ7UengN2ODGi mEQyAIBynTEMoL0wmihaj 9bxpktfLqCdEUTdHAc5QY n4QPYmgMuaIpNxGYF6KmC 5GMI7iEPyeG7f wClyiiyiqH4iGjw+UGF5Z UP9WP39BS42V5BbJyjccI FibGU+PHRhYmxlIHdpZHR oPScxMDAlJyBz eSjxMI3j (more content not included)... [facility] Consent for Anesthesiaon Consent for Anesthesia [id number]# 1.00CD:127 [facility] Discharge Instructionson Discharge Instructions [id number]# 1.00CD:127 [facility] IntraOperative Documentson 0 06-03-2022 IntraOperative Documents [id number]# 1.00CD:127 [facility] Main OR Intraoperative Recor don 06-03-2022 Main OR Intraoperative Record IntraOp Document Type FT Summary Primary Physician: Nils Finney DO Finalized Date/Time: 06/03/22 10:25:02 Pt. Name: KATHERINE HOGAN/Sex: 1965 Male Med Rec #: [id number] Physician: Nils Finney DO Financial #: [id number] Pt. Type: A Room/Bed: [place] [address] Admit/Disch: 05/31/22 05:30:31 - 05/31/22 10:30:00 Institution: Case Times FT Entry 1 Patient Times In Room 05/31/22 07:14:00 Out Room 05/31/22 08:42:00 Procedure Times Start 05/31/22 07:51:00 Stop 05/31/22 08:30:00 Anesthesia Times Start 05/31/22 07:14:00 Stop 05/31/22 08:42:00 Block Timeout w05/31/22 07:02:00 Anesthesia Last Modified By: Lopez AMADOR, Conrado Wilson 05/31/22 08:59:22 General Comments: Unilateral right shoulder nerve block done by HOLLY Castle at 0702 with Rosie, MARJORIE assisting, HR 66bpm, SpO2 95% on room air, no issues, wheeled back to OR for surgery. MARJORIE Jack 06/03/22 Chart opened to review and send charges [facility] Case Attendance FT Entry 1 Entry 2 Entry 3 Case Attendee Geeta BARRERA, Brandan Finney DO, Nils Marroquin RN, Conrado Wilson Role Performed BOILERMAKING SUPERVISOR Surgeon - Primary Special Needs Librarian - Primary Time In 05/31/22 07:14:00 05/31/22 [...] Humphreys RN, Cristobal Hdez CST Role Performed Special Needs Librarian - Primary Staff - Other SNOW SHOVELER/SA Time In 05/31/22 07:14:00 05/31/22 07:14:00 05/31/22 07:14:00 Time Out 05/31/22 07:52:00 05/31/22 07:15:00 05/31/22 08:42:00 Procedure SHOULDER ARTHROSCOPY W/ SHOULDER ARTHROSCOPY W/ SHOULDER ARTHROSCOPY W/ POSSIBLE REPAIR(Right), POSSIBLE REPAIR(Right), POSSIBLE REPAIR(Right), SHOULDER BICEPS SHOULDER BICEPS SHOULDER BICEPS TENODESIS(Right) TENODESIS(Right) TENODESIS(Right) Comments RN assisting with skin RN assisting with blocks prep and positioning Last Modified By: Lopez RN, Conrado Marroquin RN, SheminConrado Tidwell RN 05/31/22 08:59:33 05/31/22 08:59:33 05/31/22 08:59:33 General Comments: Oneil Gant, Krysta primary, and Ottoniel Lazcano, Arthrex rep, also in attendance. MARJORIE Jacksenior publications specialist Protocols FT Pre-Care Text: Implements protective measures [...] by extraneous objects General Comments: Oneil Gant also in attendance with timeout. MARJORIE Jack [...] RN, She (more content not included)... [facility] Preoperative Documentson Preoperative Documents [id number]# 1.00CD:127 [facility] Progress Note-Physicianon Progress Note-Physician Patient: KATHERINE HOGAN [...] meets criteria ( To home ). [facility] Comment on above: Result Comment: Elec tronically Signed By: Power Toledo Jr, DO\.br\Date and Time Signed: 06/03/22 10:12 EDT Consent for Treatmenton 05-03 Consent for Treatment [id number]#1 .00CD:127 [facility] H&P Updateon 05-31-2022 H&P Update [id number]#1. 00CD:127 [facility] Inpatient Patient Summaryon 05-31-2022 Inpatient Patient Summary [place] [id number] [facility] Clinical Discharge Instructions PERSON INFORMATION Name: KATHERINE HOGAN PHYSICIANS Admitting Physician: Nils Finney DO Attending Physician: Nils Finney DO PCP: AYDE FRIEND, ZEB Jeffrey Discharge Diagnosis: Comment: PATIENT EDUCATION INFORMATION Instructions: Shoulder Cryocuff Patient Instructions - FT (CUSTOM); Post Op Patient Instructions - FT (CUSTOM); Wojciech Finney. - After Your Shoulder Arthroscopy (Custom) Medication Leaflets: Follow up: MEDICATION LIST New Medications [id number], [address], [place] [id number], [phone] acetaminophen-oxycodo ne (Percocet 5 mg-325 mg oral tablet) 1-2 tab(s) Oral q4hr. Refills: 0. docusate (Colace 100 mg Cap) 1 Capsules By Mouth 2 times a day as needed for constipation. Refills: 0. Medications to Continue Taking That Have Changed [id number], [address], [place] [phone], [phone] START: celecoxib (CeleBREX 100 mg Cap) 1 [...] Mouth as needed Nausea. saw palmetto (Saw Montague) 450 Milligram By Mouth 2 times a [...] hours as needed for pain. Comment: [facility] Living Will/POAon 05-31-2022 Living Will/POA [id number]# 1.00CD:127 [facility] Main OR PACU I Recordon 05-03 Main OR PACU I Record PACU Phase I Docum ent Type FT Summary Primary Physician: Nils Finney DO Finalized Date/Time: 05/31/22 10:25:25 Pt. Name: SAMIRAKATHERINE/Sex: 1965 Male Med Rec #: [id number] Physician: Nils Finney DO Financial #: [id number] Pt. Type: A Room/Bed: [facility]/ Admit/Disch: 05/31/22 05:30:31 - Institution: Case Times [...] By: Sveta Cullen RN 05/31/22 10:25 Normal [facility] Main OR PACU II Recordon Main OR PACU II Record PACU Phase II Document Type FT Summary Primary Physician: Nils Finney DO Finalized Date/Time: 05/31/22 11:33:25 Pt. Name: KATHERINE HOGAN/Sex: 1965 Male Med Rec #: [id number] Physician: Nils Finney DO Financial #: [id number] Pt. Type: A Room/Bed: [facility]04/03 Admit/Disch: 05/31/22 05:30:31 - Institution: Case Times [...] By: Ruben Mancera RN 05/31/22 11:33 Normal [facility] Main OR Preoperative Recordo n 05-31-2022 Main OR Preoperative Record PreOp Document Type FT Summary Primary Physician: Nils Finney DO Finalized Date/Time: 05/31/22 07:56:00 Pt. Name: KATHERINE HOGAN/Sex: 1965 Male Med Rec #: [id number] Physician: Nils Finney DO Financial #: [id number] Pt. Type: A Room/Bed: [place] [address] Admit/Disch: 05/31/22 05:30:31 - Institution: Case Times [...] By: Conrado Marroquin RN 05/31/22 07:56 [facility] Monitor Recordon 05-31-2022 Monitor Record [id number]# 1.00CD:127 Normal [facility] Monitor Record [id number]# 1.00CD:127 [facility] Operative Reporton Operative Report Patient: KATHERINE HOGAN Age: 57 years Sex: Male : 1965 Associated Diagnoses: None Author: Nils Finney DO DATE OF SURGERY: 05/31/2022 SURGEON: Nils Finney D.O. HEALTH TYPE TECHNICIAN: Gerald Mott CFA PREOPERATIVE DIAGNOSIS: Glenohumeral osteoarthrosis, [...] anchor OPERATIVE INDICATIONS: Katherine is a 57-year-old [id number]-rxyxqlmf male who has had persistent pain in [...] fashion. The forearm was secured in the [employer] tenet pneumatic arm isaac. Landmarks were demarcated. [...] changes. Rotator interval was opened with the [place] wand and motorized shaver. The superior and [...] The pass (more content not included)... Normal [facility] Comment on above: Result Comment: Elec tronically [...] Using maximal sterile barrier technique per current [facility] guidelines including hand hygeine, Guidance (Ultrasound used [...] resolved after completion of block. . Normal [facility] Comment on above: Result Comment: Elec tronically Signed By: Brandan Connor CRNA.ron\Date and Time Signed: 05/31/22 07:51 EDT Outpatient Surgery Discharge Instructionon 05-31-2022 Outpatient Surgery Discharge Instruction [place] [id number] Patient Discharge Instructions PERSON INFORMATION Name: KATHERINE [...] Information: You may receive a survey from [employer] asking you to rate your care experience. Your feedback is important and will help us understand what we do well and how we can improve the quality of care we provide to you, your loved ones and our community. It?s an honor to serve you. Thank you for choosing [facility] HERE ARE THE MEDICATION CHANGES THAT OCCURRED DURING YOUR HOSPITAL STAY New Medications [id number], [address], [place] [phone], [phone] acetaminophen-oxycodo ne (Percocet 5 mg-325 mg oral tablet) 1-2 tab(s) Oral q4hr. Refills: 0. docusate (Colace 100 mg Cap) 1 Capsules By Mouth 2 times a day as needed for constipation. Refills: 0. Medications to Continue Taking That Have Changed [id number], [address], [place] [id number], [phone] START: celecoxib (CeleBREX 100 mg Cap) 1 [...] 7 weeks Prophylaxis. omega-3 polyunsaturated fatty acids ([employer] Oil) 500 Milligram By Mouth every day. ondansetron (ondansetron 4 mg Tab) 1 Tablets By Mouth as needed Nausea. saw palmetto (Saw Montague) 450 Milligram By Mouth 2 times a [...] needed for pain. PATIENT EDUCATION INFORMATION Instructions: [place], [place] [facility] AFTER YOUR SHOULDER ARTHROSCOPY [...] Keep yo (more content not included)... Normal [facility] Patient Education - Texton 0 05-31-2022 Patient Education - Text [place], [place] [facility] AFTER YOUR SHOULDER ARTHROSCOPY [...] your appointment. Nils Finney, DO [facility] [address] [place] [address] Reviewed: [facility] Consent for Procedure/Surger yon 05-30-2022 Consent for Procedure/Surgery [id number]# 1.00CD:127 [facility] Coding Summary.on 05-22-2022 Coding Summary. CD:[id number] W w+PGhlYWQ+RL1DNWEjG26 ksQXzqW1qM8TGJHeAXfcy OWPFHOhSCrQqwsXiOK1ln XNjZXJu IC8+QG8yDPQcEufxlGTcs 8B0xEX3Q12fty9zJJlfoB I5DCSuEqDfqrsjw3kwqOv 6IDcuNmluOyBt HXJekA84SHK3vR54Co96f EXlkIQnt4axkMm6AtGpVN HzITG4bCuhRXmvl9CoXWA aY30ceFVwv6V5 HGFeyWgaaMKuNvIioUQ1v B2vVDlmepumo0etpvkzFm j2ow39yLGpi8S6xOB9J5O khkE6MXUkxRDz OwxoaEVIcQ9eouyne0yox fggEkIxWGWoTLg7TEz3HK NlfPryNqNtPS94PGB2WTB spqKzM5HeXHUi tJmcVfA3i2D2Sn1NC0CND fppS6HLKDPZHObfyDI+PC 32nv34B6ZiMsywVay2WBV sGMW3jKM7sU2l NGMeYIorb1L3kCS4K1Zue cCdqp1kh3igRZVbROdfY7 9aaQJwe4U6NSIypKL1QDW wtRacLmNtwV58 Oyc+LICfjAwtq4TjVzqpx 9mkz5mxaFy1CmzpWBEexb BeaGexNCB6w9LbVj1uQHG qiEL8ePK8cV5w OxMlNsN7RImaM193JmKzq SWlWcyiP36oE0InkNN+PH GsHtu7SDZwmNbqLA8wU3W hZGRpbmctbGVm zFpqGE2sYDHgjrulWLGfy R3nTHAnC3a7VtYtIdF4DB fhO6MsRITjjevzLr68pP5 jFkDpUxU9ODtd F9NguzA3ICVzyOWsTRixR HI6Y47vc5O6TUVcEJXvJA W8fHD2hO0slBtemodivGM mdDsgdmVydGlj FLsmAFgvR766TUGapYuaB kNvZGluZyBEYXRlOiAgMD MvMjIvMjAyMzwvdGQ+PHR gBHT5nJlpPLKt vATnTJqeIp2suFkzzEjjO P7oAJBvgapjAPIibK4dCN XdgMHswZfzDT9nSFEsxtv on901MmVcGLN8 HJHyzDYuE3BckH2uSjCoT UGrRADlT7ScwVXaVJsbX1 93SEinYeX4HZMyqlYzJ4F sLWFsaWduOiB0 y9G7Rj4Yv9WgqmotX4Agx GXgUwHhIwmqARu0U4WdQc wvdHI+WN82QWUpNH97OBy 1MAQ4rIkyLVgq RGWaW3ZqhS2fJzWcKECzQ GRkOyc+PHRhYmxlIHdpZH RoPScxMDAlJyBzdHlsZT0 tVz9lUINkIVJy mJpufZUfKyHmf6ivMBQpS NdtSV7jyGghU6YgyFK3GZ Gnh2b0Ud19A45iS6CjkOA +IFYldCV0fIQ6 iS9zCqTbFtO6MLbuZ001Z rYwbBEeHmtjf9utw1dcnX k9NyL3IBRhycPqjJftMIF 2n1OtNk22V95y IHdpZHRoPSIxNSUiIHZhb Vokef9jbQ1eZc4+PGNvbC G7zAD0qI7jDrAiWuO0WPn zT789TdRlsPSt Kftaw0ato2mprMh2HuRiI GJvjkAgmVhoKSF8m6DaLt 50O1FqxUdfl3YyDuu1ya4 1eMAcv8O7bEG3 S3PvISApfrxgwJYvcJolS P3mABEuuernVDKieW2pZI BdO8x0TqMuFrC3RGnoM7X nfbP8TFDprQEp JYWoyNSIrP0pvsqsn1nxu qrqGxIaAEItMPa2PHc9JJ YtjXviFxQjTCF4ToI1GXA 0tUMlnH1tkHrv whkniO9mNfp+MHG6fZXqh DXHEL7dCubgeVK+PHRkIH D6oVuoUGjgERGrsV9dAKZ uG5c7PqOkLpJ0 CRzeI5IqbjB0SLFwqTCxY ZZkiQNWtX4tqdoff1bhgx jeYqZoQMCmNTl8YUa5XLX saWduOiBsZWZ0 NzJ9UMD1cVYwiK2ncGafq nkzbG3qHgi+QmlydGggRG V2ZMt3U6KaKqt5LETpwLf zKI7rvQMrONvr Nd6lrEkmsAzjUY5kJLUek ffgd483QdFsf0aqOLQqwZ WcWLgoIMM3V98ue6K9RUC bCOCbIHG9mGG4 aC3ifGkycxknhLCqkJqgt xMvkLcvALvuRUetG207IW YuwKrrIsBhHCw3H7TmXtt 4CKXfeMzzLK4d mJOdKErtEx6sbIfafElhH I4cDCWjnuzaw901LlAky6 pqIMIktULeWKdqVGM5Q90 sd2R8AMYrWPSh UHS0uOS3aA3cdBvxadmvu GVmdDsgdmVydGljYWwtYW omO929PSSxhOruVaUxdHr 2E3QfOya2EHIq qDliHE2vlUQsXWxjLy7gv BzrzXyzEE7uWITqyolbc1 12ZjZzh8gvNJGsbGGnWNm rQCX6N59tr5Q3 YMOlAKGfXKJ7uGT4hS3nc GlnbjogbGVmdDsgdmVydG ebFLdcKCpeO653JINppPt nPlBhdGllbnQg EDfcEXx6H0IiLrfbyDB+P Q04RITbVR93xQOzkMJam2 bbxXp5AvTiSBCiHFY1wHq aMLxgo6MxSIZc N33voPDkc5X7JDFrpSvep PZxGvNgnSV8iQ5oQFizfn bvg0oxjzoeAdyfu8zvkp9 0vM88Q56xEKso ZHRoPSIzMCUiIHZhbGlnb v2tbU7uEn8+WDYijIM2aE C0hC8xDGCbSkB7KRmkF59 9InRvcCIvPjxj y5xhd0wffBh7EnK2JWLgb nMgbDgyEBS6v6XvZb25S6 9sIHdpZHRoPSIyMCUiIHZ vpGypwk2tfI2x Ii8+QQAswBD9mPY7vI4vY uUjPaW0HHttW967RgQcgO XbTrqlY51eI5KlxJN+PHR aFsu2CMMauQrt RB2ejHCmTWdxWi6pROZ3A cCtBuFgJVkgZ2SkPWNyds pdporlhTM7TTRiHMJsfH8 1Th1lmGazVAAq qTYMfD5czyiyx6xerxoiW hToAGDzZXm9TPj4JNBvvL geZdCfVBG6RmI8DCZ8fAF iuJ3ifAhrienb kB6kH3TkVAAwwquxTj74x V7pZdLpQjX0PQhjNii+Uk wGEVkyQX0VLCXMEMlsMxb vdGQ+PHRkIHN0 iNvuVLcsCNSdsU7jFCQgX 3a2EpGfEkX7QVtqU4LnPJ FsvgkpZe89hF3sEzMrUsB 8NAsaK5RkokO7 HHWasWPhRDpwLFG4H36gz 4P4JHGzGUYfKML7jNX0uN 1hbGlnbjogbGVmdDsgdmV ydGljYWwtYWxp R006UKCiaAgsMxLsAtZ1H mL8UeT7I9BhAki0WYVoiN ygXJ5pxLXrCRxoDh4yaNc ttIpjZO6pGBCn rvupPCXsiC9dYGEvoFTmm TngEB8zGBCjjxksk226Es MqGQR4RJBkjOXxE7IyaC5 yOiAjMDAwMDAw N5QkuUSeHTmpN849CBtxD eY2KOAjozWxR3DcXQZzrX jhBdW7m6T7Uk38NFFAAKT yczwvdGQ+PHRk BAP1iNcfYWdfGGLleY8bL MFkS1b9GpJwNcS6NTkgJ6 YgFDOzyfreZt13aW3nVgV iDjW4GOlvX9Cz qeC7YLOpqSQeJHuxOON0C 42fs0L9QWJwIREqZIW9oJ S6xC0ekCfxsnmttZYfhDx gdmVydGljYWwt QXlzR773QFChqDsfGg0dp BY2I1KaRrw4JXOxaDbrSX 3acEIyQSxeZt8oiSqsmUw iUC7tWIPjkbjb HBEhnM5oELLuhJEimOwiS R6nHFPxwqynv867OyUkCM O0NJUpyNKnV4GujO9vOwJ eOYBxOAOgJ3Ep uCXlWFhvY282VQevIsP9G MOiwiKkM7EgZBUjjXgnOy R1e8F2Rp8HaMWgFFRvAE2 4DR95DB09F0Nu PjwvdGFibGU+PHRhYmxlI HdpZHRoPScxMDAlJyBzdH lcBS2hTl1bIVWqZGOyxSe xyKRbGiMco9ek PEYxTVpwTF6sqHyvR8Fki RX2PGCil5o0Js55L83oA2 JvdXA+TDXvkXA5iCT2kN4 mYtKkGoS0IAxh S905ToUrhFZoYbyjt1dpt 3kzxJl3RdVlZMSaxuOcmE sdXFU6r8ZeJk09Q05wBHi pZHRoPSIyMCUi QLXktDcgln5npL3aDn8+P WTjxLD4aIU8fR4cQnUhXc N4XIawV940LzGlgDWlJuz yK40eX9NevWJ+ JONyDop2ISKjuLunJO6zn JQzSHtvAs9aAIK3NnRmDm CgGXrsT4TeOHHrclmsxvn aiNB7RPFmXMBw eL66Tp0qzYavYr0mMJKgF IW7APAfvRAyR4IfrV3rLx JiKXSmHKEvC8PqiIVyDJp hG797KJbjAdF0 KDCqeiAtL0NvYSXrkZheA pD3y9S4Ca0KeDiywVJpZC 3jFxJbLGd5A2CmYyv4SFY tpFjeTP9zkPTg OYmfWv6kdIiljIogHY6fC SBkmhyxh063VzXnp4ceDY LecWTnAAyqLGW9Q31nf9W 5FAWoDOLtBEL2 pTX7qL3jxUrvcaorfHFbs DsgdmVydGljYWwtYWxpZ2 09VGFhySsyWvQJBkx6N2Q cZym5COWkrIuu IO7llXQxLJttEx9eeHmuw VzmEP4zHNSphdqwe298Ne Ckq7xsUJBajUNfLChbXAR 8N04il2Z6YBDa DJXqFWC4uEX8aN9rmXsuq jogbGVmdDsgdmVydGljYW niYSsrO532VGRtfOrmOm5 UBkz7A9AiUrb7 VWOpwInfER1ytUEjGVvaU i1zcTkpjVovTD0qCVIfuf bdj046SpTlx9mjCMAnaRQ jAIukZOI7X94p d3P9ZMNyZAMjIVT5rIR3y P2sjJwmpawnlEAziLuaam JwrNrdQUlkKUwoI703YKH vcDsnPlBheWVy OjwvdGQ+VL67rf20Y8JoA moiSbm5MELkVIK1zCA5dY 7jLDZtCQmwr6V6hFY6M0P ifqXihc4zl8eh YXBzZTog (more content not included)... Normal [facility] Outside Recordson 05-15-2022 Outside Records [id number] Normal [facility] BUNon 05-14-2022 Urea nitrogen [Mass/Vol] 17 mg/dL Normal 5-21 [facility] Comment on above: Performed By: #### 2 [id number] ####[facility] [id number] [place] [address] CBC w/Indiceson 05-14-2022 Erythrocyte distribution width (RBC) [Ratio] 13.1 % Normal 10.9-14.2 [facility] Comment on above: Performed By: #### 2 [id number] ####[facility] [id number] [place] [address] Hematocrit (Bld) [Volume fraction] 44.2 % Normal 37.7-49.0 [facility] [facility] Comment on above: Performed By: #### 2 318827, 6949772, 4535346, 8403635, 9372439, [id number] ####[facility] [address] [place] [address] Hemoglobin (Bld) [Mass/Vol] 15.2 g/dL Normal 13.5-17.5 [facility] Comment on above: Performed By: #### 2 122563, 4128912, 7503521, 7423000, 5907478, 93493059 ####[facility] [address] [place] [address] MCH (RBC) [Entitic mass] 32.0 pg Normal 27.0-34.0 [facility] Comment on above: Performed By: #### 2 307346, 8785427, 6482065, 9449653, 3627144, 53771064 ####[facility] [address] [place] [address] MCHC (RBC) [Mass/Vol] 34.4 g/dL Normal 31.4-36.0 [facility] Comment on above: Performed By: #### 2 505886, 6031691, 8183776, 6039018, 4908199, 76302838 ####[facility] [address] [place] [address] MCV (RBC) [Entitic vol] 92.9 fL Normal 80.0-100.0 [facility] Comment on above: Performed By: #### 2 660903, 8138690, 5048662, 0143181, 6805264, 46931378 ####[facility] [address] [place] [address] Platelet mean volume (Bld) [Entitic vol] 7.1 fL Normal 6.4-10.8 [facility] Comment on above: Performed By: #### 2 237964, 9016266, 7931282, 0372807, 3409368, 37479845 ####[address] [address] Platelets (Bld) [#/Vol] 274.0 E9/L Normal 150.0-500.0 [facility] Comment on above: Performed By: #### 2 069135, 2431882, 1248798, 0825874, 0631021, 42814906 ####[address] [address] RBC (Bld) [#/Vol] 4.8 E12/L Normal 4.3-5.9 [facility] Comment on above: Performed By: #### 2 326534, 9971623, 2558614, 2503444, 6370907, 23549349 ####[address] [place] [address] WBC corrected for nucl RBC Auto (Bld) [#/Vol] 5.8 E9/L Normal 4.0-11.0 [facility] Comment on above: Performed By: #### 2 991806, 7320033, 8688497, 9581007, 2376356, 67094498 ####[address] [address] CHEMISTRYOrdered By: SYSTEM SYSTEM on 05-14-2022 Anion gap [Moles/Vol] 16 mmol/L Normal 6 - 16 mEq/L [facility] Remisol Chloride [Moles/Vol] 98 mmol/L Low 101 - 1 11 mmol/L [facility] Remisol CO2 [Moles/Vol] 25 mmol/L Normal 21 - 31 mmol/L [facility] Remisol Creatinine [Mass/Vol] 0.9 mg/dL Normal 0.5 - 1.3 mg/dL [facility] Remisol GFR/1.73 sq M.predicted among blacks MDRD (S/P/Bld) [Vol rate/Area] mL/min/1.73 m2 Normal >=59mL/min/1. [address] [facility] Chem S GFR/1.73 sq M.predicted among non-blacks MDRD (S/P/Bld) [Vol rate/Area] mL/min/1.73 m2 Normal >=59mL/min/1. [address] [facility] Chem S Glucose [Mass/Vol] 100 mg/dL Normal 55 - 199 mg/dL [facility] Remisol Potassium [Moles/Vol] 3.6 mmol/L Normal 3.5 - 5.3 mmol/L [facility] Remisol Sodium [Moles/Vol] 135 mmol/L Normal 135 - 145 mmol/L [facility] Remisol Urea nitrogen [Mass/Vol] 17 mg/dL Normal 5 - 21 mg/dL [facility] Remisol Consent for Treatmenton 05-01 Consent for Treatment [id number] .[id number]:127 Normal [facility] Creatinineon 05-14-2022 Creatinine [Mass/Vol] 0.9 mg/dL Normal 0.5-1.3 [facility] Comment on above: Performed By: #### 2 053609, 7243365, 1385324, 4912429, 5829334, 70199029 ####[facility] [address] [place] [address] Glucoseon 05-14-2022 Glucose [Mass/Vol] 100 mg/dL Normal 55-199 [facility] Comment on above: Performed By: #### 2 829594, 4565242, 7895694, 2148443, 9024842, 82791463 ####[facility] [address] [place] [address] HEMATOLOGYOrdered By: Ronda Webster on 05-14-2022 Erythrocyte distribution width (RBC) [Ratio] 13.1 % Normal 10.9 - 14.2 % [facility] Hematocrit (Bld) [Volume fraction] 44.2 % Normal 37.7 - 49.0 % [facility] Hemoglobin (Bld) [Mass/Vol] 15.2 g/dL Normal 13.5 - 17.5 gm/dL [facility] MCH (RBC) [Entitic mass] 32.0 pg Normal 27.0 - 34.0 pg [facility] MCHC (RBC) [Mass/Vol] 34.4 g/dL Normal 31.4 - 36.0 gm/dL [facility] MCV (RBC) [Entitic vol] 92.9 fL Normal 80.0 - 100.0 fL [facility] Platelet mean volume (Bld) [Entitic vol] 7.1 fL Normal 6.4 - 10.8 fL [facility] Platelets (Bld) [#/Vol] 274.0 E9/L Normal 150.0 - 500.0 E9/L [facility] RBC (Bld) [#/Vol] 4.8 E12/L Normal 4.3 - 5.9 E12/L [facility] WBC corrected for nucl RBC Auto (Bld) [#/Vol] 5.8 E9/L Normal 4.0 - 11.0 E9/L [facility] Lyteson 05-14-2022 Anion gap [Moles/Vol] 16 mmol/L Normal 6-16 [facility] Comment on above: Performed By: #### 2 339815, 8053925, 9333365, 2713387, 0928885, 49911086 ####[facility] [address] [place] [address] Chloride [Moles/Vol] 98 mmol/L Low 101-111 [facility] Comment on above: Performed By: #### 2 882896, 5024126, 2719565, 0369128, 1010813, 46808610 ####[facility] [address] [place] [address] CO2 [Moles/Vol] 25 mmol/L Normal 21-31 [facility] Comment on above: Performed By: #### 2 086538, 4759727, 1209880, 5400362, 1530836, 54961164 ####[facility] [address] [place] [address] Potassium [Moles/Vol] 3.6 mmol/L Normal 3.5-5.3 [facility] Comment on above: Performed By: #### 2 649117, 3916145, 2880665, 4948287, 2157242, 71349892 ####[facility] [address] [place] [address] Sodium [Moles/Vol] 135 mmol/L Normal 135-145 [facility] Comment on above: Performed By: #### 2 735035, 8387370, 6169022, 0012259, 6205080, 52367389 ####[facility] [address] [place] [address] XR Chest 2 Viewson 3 XR Chest [...] mGy = na DAP = na Normal [facility] eGFRon 05-14-2022 GFR/1.73 sq M.predicted among blacks MDRD (S/P/Bld) [Vol rate/Area] mL/min/{1.73_m2} Normal >=59 [facility] Comment on above: Order Comment: Order added by Discern Expert. Result Comment: eGFR is race adjusted. AA=. Performed By: #### 2 747387, 4829098, 9432283, 3623683, 0803339, 97715030 ####[facility] [address] [place] [address] GFR/1.73 sq M.predicted among non-blacks MDRD (S/P/Bld) [Vol rate/Area] mL/min/{1.73_m2} Normal >=59 [facility] Comment on above: Order Comment: Order added by Discern Expert. Result Comment: Director Of Annual Giving florentin kidney disease could be indicated at eGFR's of less than 60 mL/min/1.73m2. Kidney failure is indicated at less than 15 mL/min/1.73m2. Performed By: #### 2 591612, 5936643, 1395869, 3211107, 1609063, 31327735 ####[facility] [address] [place] [address] Physician Orderon 02-01-2022 Physician Order [id number] .[id number]:127 Normal [facility] MRI Shoulder w/o Righton MRI Shoulder w/o [...] by MARCELINA MORGAN on 01/09/2022 1544 Normal [facility] XR Shoulder Complete Right*o n 01-01-2022 XR [...] 0705 Normal [facility] Comprehensive Metabolic Pane [facility] 03-29-2021 Albumin [Mass/Vol] 4.6 g/dL Normal 3.6-5.1 [facility] Comment on above: Performed By: #### L IPD, CMP #### [facility] [address] [place], [place] [id number] Albumin/Globulin [Mass ratio] 2.4 {ratio} Normal 1.0-2.5 [facility] Comment on above: Performed By: #### L IPD, CMP #### [facility] [address] [place], [place] [id number] ALP [Catalytic activity/Vol] 108 U/L Normal 40-129 [facility] Comment on above: Performed By: #### L IPD, CMP #### [facility] [address] [place], [place] [id number] ALT [Catalytic activity/Vol] 59 U/L High 9-46 [facility] Comment on above: Result Comment: 01/31 Female reference range changed. Performed By: #### L IPD, CMP #### [facility] [address] [facility] [place] [id number] Anion gap [Moles/Vol] 18 mmol/L Normal 12-20 [facility] Comment on above: Result Comment: Effrbody ctive 03/08/2019 reference range changed. Performed By: #### L IPD, CMP #### [facility] [address] [facility] [place] [id number] AST [Catalytic activity/Vol] 26 U/L Normal 10-40 [facility] Comment on above: Performed By: #### L IPD, CMP #### [facility] [address] [facility] [place] [id number] Bilirubin [Mass/Vol] 0.33 mg/dL Normal 0.30-1.20 [facility] Comment on above: Performed By: #### L IPD, CMP #### [facility] [address] [facility] [place] [id number] BUN/CREA 23 Ratio High 6-22 [facility] Comment on above: Performed By: #### L IPD, CMP #### [facility] [address] [facility] [place] [id number] Calcium [Mass/Vol] 10.5 mg/dL High 8.6-10.2 [facility] Comment on above: Performed By: #### L IPD, CMP #### [facility] [address] [facility] [place] [id number] Chloride [Moles/Vol] 99 mmol/L Normal 98-107 [facility] Comment on above: Performed By: #### L IPD, CMP #### [facility] [address] [facility] [place] [id number] CO2 [Moles/Vol] 24 mmol/L Normal 20-31 [facility] Comment on above: Performed By: #### L IPD, CMP #### [facility] [address] [facility] [place] [id number] Creatinine [Mass/Vol] 1.0 mg/dL Normal 0.7-1.4 [facility] Comment on above: Performed By: #### L IPD, CMP #### [facility] [address] [place], [place] [id number] eGFRAA 89 mL/min/1.73m2 Normal >60 [facility] Comment on above: Performed By: #### L IPD, CMP #### [facility] [address] [place], [place] [id number] eGFRNAA 74 mL/min/1.73m2 Normal >60 [facility] Comment on above: Performed By: #### L IPD, CMP #### [facility] [address] [place], [place] [id number] Globulin (S) [Mass/Vol] 1.9 g/dL Normal 1.9-3.7 [facility] Comment on above: Performed By: #### L IPD, CMP #### [facility] [address] [place], [place] [id number] Glucose [Mass/Vol] 93 mg/dL Normal 65-99 [facility] [employer] Comment on above: Result Comment: For FASTING Glucose --- ADA reference ranges: Normal 65-99 mg/dl Prediabetes 100-125 Diabetes >/= 126 Performed By: #### L IPD, CMP #### [facility] [address] [place], [place] [id number] Potassium [Moles/Vol] 4.1 mmol/L Normal 3.5-5.5 [facility] Comment on above: Performed By: #### L IPD, CMP #### [facility] [address] [place], [place] [id number] Protein [Mass/Vol] 6.5 g/dL Normal 6.1-8.1 [facility] Comment on above: Performed By: #### L IPD, CMP #### [facility] [address] [place], [place] [id number] Sodium [Moles/Vol] 137 mmol/L Normal 135-146 [facility] [employer] Comment on above: Performed By: #### L IPD, CMP #### [facility] [address] [place], [place] [id number] Urea nitrogen [Mass/Vol] 24 mg/dL Normal 7-25 [facility] Comment on above: Performed By: #### L IPD, CMP #### [facility] [address] [facility] [place] [id number] Lipid Panelon 03-29-2021 Cholesterol [Mass/Vol] 153 mg/dL Normal 125-200 [facility] Comment on above: Result Comment: Low risk < 200mg/dL Borderline risk 201-239 mg/dl High risk > or equal to 240 Performed By: #### L IPD, CMP #### [facility] [address] [place], [place] [id number] Cholesterol in HDL [Mass/Vol] 45 mg/dL Normal >40 [facility] Comment on above: Result Comment: High Cardiovascular Risk HDL <40 mg/dL Low Cardiovascular Risk HDL > or equal to 60 mg/dl Performed By: #### L IPD, CMP #### [facility] [address] [place], [place] [id number] Cholesterol in LDL [Mass/Vol] 83 mg/dL Normal [facility] Comment on above: Result Comment: LDL ATP III CLASSIFICATION LDL less than 100 mg/dl Optimal LDL 100-129 mg/dl Near or above optimal LDL 130-159 Borderline high LDL 160-189 High LDL greater than 189 mg/dl Very High Performed By: #### L IPD, CMP #### [facility] [address] [place], [place] [id number] Cholesterol in VLDL [Mass/Vol] 25 mg/dL Normal [facility] Comment on above: Performed By: #### L IPD, CMP #### [facility] [address] [place], [place] [id number] Cholesterol.total/Cho lesterol in HDL [Mass ratio] 3 {ratio} Normal [facility] Comment on above: Performed By: #### L IPD, CMP #### [facility] [address] [facility] [place] [id number] Triglyceride [Mass/Vol] 126 mg/dL Normal 30-150 [facility] [employer] Comment on above: Result Comment: TRIG ATPIII CLASSIFICATIONS TRIG less than 150 mg/dl Normal TRIG 150-199 mg/dl Borderline High TRIG 200-500 mg/dl High TRIG greather than 500 mg/dl Very High Performed By: #### L IPD, CMP #### [facility] [address] [place], [place] [id number] Covid-19 PCR (CVDTBH)on 12-1 4-2021 SARS-CoV-2 (COVID-19) RNA ZAIRA+probe Ql (Unsp spec) Not detected Normal NOT DETECTED [facility] Comment on above: Result Comment: This test is not yet approved or cleared by the [place] FDA. When there are no FDA-approved or cleared tests available, and other criteria are met, FDA can make tests available under an emergency access mechanism called an Emergency Use Authorization (EUA). The EUA for this test is supported by the Supervisor Vendor Quality of Health and Human Service's (HHS's) declaration [...] SARS-CoV-2. Performed By: #### C VDTBH #### [facility] [address] [place] [address] Dr. Luis Fernando Pagan PROF CHEM 8 (BAS METB)on Anion gap [Moles/Vol] 13.1 mmol/L Normal [facility] Comment on above: Performed By: #### B MP #### [facility] [address] [place] [address] Lori Fátima Calcium [Mass/Vol] 9.8 mg/dL Normal 8.4-10.2 [facility] Comment on above: Performed By: #### B MP #### [facility] [id number] Lori Fátima Chloride [Moles/Vol] 101 mmol/L Normal 98-107 [facility] Comment on above: Performed By: #### B MP #### [facility] [address] [address] Lori Fátima CO2 [Moles/Vol] 31.0 mmol/L Critically high 22.0-30.0 [facility] Comment on above: Performed By: #### B MP #### [facility] [address] [phone] Lori Fátima Creatinine [Mass/Vol] 1.28 mg/dL Critically high 0.66-1.25 [facility] Comment on above: Performed By: #### B MP #### [facility] [address] [phone] Lori Fátima EGFR-AF EGYPTIAN >60 Normal >=60 [facility] Comment on above: Performed By: #### B MP #### [facility] [address] [phone] Lori Fátima EGFR-NON AF EGYPTIAN 58 mL/min/1.73m2 Critically low >=60 [facility] Comment on above: Performed By: #### B MP #### [facility] [address] [address] Lori Fátima Glucose [Mass/Vol] 127 mg/dL Critically high 74-106 [facility] Comment on above: Performed By: #### B MP #### [facility] [address] [phone] Lori Fátima Potassium [Moles/Vol] 4.1 mmol/L Normal 3.4-5.0 [facility] Comment on above: Performed By: #### B MP #### [facility] [address] [phone] Lori Fátima Sodium [Moles/Vol] 141 mmol/L Normal 137-145 [facility] Comment on above: Performed By: #### B MP #### [facility] [address] [phone] Lori Fátima Urea nitrogen [Mass/Vol] 19.0 mg/dL Normal 9.0-20.0 [facility] Comment on above: Performed By: #### B MP #### [facility] [address] [phone] Lori Fátima Urea nitrogen/Creatinine [Mass ratio] 14.8 mg/mg Normal [facility] Comment on above: Performed By: #### B MP #### [facility] [address] [place], [place] [address] Lori Moralesen NM STRESS/REST MULTIon 03-22 NM STRESS/REST MULTI Patient: KATHERINE HOGAN Exam Date: 03/22/2020 : 1965 Gender:M 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 Order #: [id number] CLICK HERE TO VIEW EXAM RADIOLOGY REPORT [...] Miller MD on 03/22/2020 at 13:26 Normal [facility] LIPID PROFILEon 03-17-2020 CHOL-HDL RATIO NORM SEE BELOW Normal [facility] Comment on above: Result Comment: 3.3 - 4.4 LOW RISK 4.4 - 7.1 AVERAGE RISK 7.1 - 11.0 MODERATE RISK >11.0 HIGH RISK Performed By: #### B MP, LIPID, LIVER #### [facility] [address] [place], [place] [address] Lori Shine Cholesterol [Mass/Vol] 162 mg/dL Normal <=200 [facility] Comment on above: Performed By: #### B MP, LIPID, LIVER #### [facility] [address] [phone] Lori Fátima Cholesterol in HDL [Mass/Vol] 39 mg/dL Normal [facility] Comment on above: Performed By: #### B MP, LIPID, LIVER #### [facility] [address] [phone] Lori Fátima Cholesterol in LDL [Mass/Vol] 97.4 mg/dL Normal [facility] Comment on above: Performed By: #### B MP, LIPID, LIVER #### [facility] [address] [phone] Lori Fátima Cholesterol.total/Cho lesterol in HDL [Mass ratio] 4.2 {ratio} Normal [facility] Comment on above: Performed By: #### B MP, LIPID, LIVER #### [facility] [address] [phone] Lori Fátima HDL NORMAL > or = 60 mg/dl - LO W CARDIOVASCULAR RISK <40 mg/dl - HIGH CARDIOVASCULAR RISK Normal [facility] Comment on above: Performed By: #### B MP, LIPID, LIVER #### [facility] [address] [phone] Lori Fátima LDL CALC NORMAL SEE BELOW Normal [facility] Comment on above: Result Comment: <100 mg/dl OPTIMAL 100 - 129 mg/dl NEAR OR ABOVE OPTIMAL 130 - 159 mg/dl BORDERLINE HIGH 160 - 189 mg/dl HIGH >190 mg/dl VERY HIGH Performed By: #### B MP, LIPID, LIVER #### [facility] [address] [phone] Lori Fátima Triglyceride [Mass/Vol] 128 mg/dL Normal <=150 [facility] Comment on above: Performed By: #### B MP, LIPID, LIVER #### [facility] [address] [phone] Lori Fátima VLDL CALC 25.6 mg/dL Normal [facility] Comment on above: Performed By: #### B MP, LIPID, LIVER #### [facility] [address] [place], [place] [address] Lori Fátima LIVER PROFILEon 03-17-2020 Albumin [Mass/Vol] 4.2 g/dL Normal 3.5-5.0 [facility] Comment on above: Performed By: #### B MP, LIPID, LIVER #### [facility] [address] [place], [place] [address] Lori Fátima Albumin/Globulin [Mass ratio] 1.3 {ratio} Normal [facility] Comment on above: Performed By: #### B MP, LIPID, LIVER #### [facility] [address] [phone] Lori Fátima ALP [Catalytic activity/Vol] 83 U/L Normal 38-126 [facility] Comment on above: Performed By: #### B MP, LIPID, LIVER #### [facility] [address] [phone] Lori Fátima ALT [Catalytic activity/Vol] 47 U/L Normal 21-72 [facility] Comment on above: Performed By: #### B MP, LIPID, LIVER #### [facility] [address] [phone] Lori Fátima AST [Catalytic activity/Vol] 17 U/L Normal 17-59 [facility] Comment on above: Performed By: #### B MP, LIPID, LIVER #### [facility] [address] [phone] Lori Fátima BILI, CONJUGATED 0.1 mg/dL Normal 0.0-0.3 [facility] Comment on above: Performed By: #### B MP, LIPID, LIVER #### [facility] [address] [phone] Lori Fátima Bilirubin [Mass/Vol] 0.5 mg/dL Normal 0.2-1.3 [facility] Comment on above: Performed By: #### B MP, LIPID, LIVER #### [facility] [address] [place], [place] [address] Lori Fátima Globulin (S) [Mass/Vol] 3.2 g/dL Normal [facility] Comment on above: Performed By: #### B MP, LIPID, LIVER #### [facility] [address] [phone] Lori Fátima Protein [Mass/Vol] 7.4 g/dL Normal 6.1-8.2 [facility] Comment on above: Performed By: #### B MP, LIPID, LIVER #### [facility] [address] [phone] Lori Fátima PROF CHEM 8 (BAS METB)on Anion gap [Moles/Vol] 11.2 mmol/L Normal [facility] Comment on above: Performed By: #### B MP, LIPID, LIVER #### [facility] [address] [phone] Lori Fátima Calcium [Mass/Vol] 9.7 mg/dL Normal 8.4-10.2 [facility] Comment on above: Performed By: #### B MP, LIPID, LIVER #### [facility] [address] [place] [address] Lori Fátima Chloride [Moles/Vol] 100 mmol/L Normal 98-107 [facility] Comment on above: Performed By: #### B MP, LIPID, LIVER #### [facility] [address] [place] [address] Lori Fátima CO2 [Moles/Vol] 28.1 mmol/L Normal 22.0-30.0 [facility] Comment on above: Performed By: #### B MP, LIPID, LIVER #### [facility] [address] [place] [address] Lori Fátima Creatinine [Mass/Vol] 1.55 mg/dL Critically high 0.66-1.25 [facility] Comment on above: Performed By: #### B MP, LIPID, LIVER #### [facility] [address] [place], [place] [phone] Lori Fátima EGFR-AF EGYPTIAN 56 mL/min/1.73m2 Critically low >=60 [facility] Comment on above: Performed By: #### B MP, LIPID, LIVER #### [facility] [address] [phone] Lori Fátima EGFR-NON AF EGYPTIAN 47 mL/min/1.73m2 Critically low >=60 [facility] Comment on above: Performed By: #### B MP, LIPID, LIVER #### [facility] [address] [phone] Lori Fátima Glucose [Mass/Vol] 101 mg/dL Normal 74-106 [facility] Comment on above: Performed By: #### B MP, LIPID, LIVER #### [facility] [address] [phone] Lori Fátima Potassium [Moles/Vol] 3.3 mmol/L Critically low 3.4-5.0 [facility] Comment on above: Performed By: #### B MP, LIPID, LIVER #### [facility] [address] [place] [address] Lori Fátima Sodium [Moles/Vol] 136 mmol/L Critically low 137-145 [facility] [place] [facility] Comment on above: Performed By: #### B MP, LIPID, LIVER #### [facility] [address] [address] Lori Fátima Urea nitrogen [Mass/Vol] 21.0 mg/dL Critically high 9.0-20.0 [facility] Comment on above: Performed By: #### B MP, LIPID, LIVER #### [facility] [address] [place] [address] Lori Fátima Urea nitrogen/Creatinine [Mass ratio] 13.5 mg/mg Normal [facility] Comment on above: Performed By: #### B MP, LIPID, LIVER #### [facility] [address] [place] [address] Lori Fátima Consent Formson 02-01-2020 Consent Forms [id number] .[id number]erson 02-01-2020 Provider Orders [id number] Summary[facility] 01-24-2020 Coding Summary CODING DATE: 01/24/2020 [facility] STATUS: Home PAYOR: Commercial Insurance ADMIT [...] Oneyda Hendricks Date Saved: 01/24/2020 09:[address] [facility] 2019 Novel Coronavirus (CoVI D-19), ZAIRA LCon 01-22-2020 Employed in healthcare? No [facility] Comment on above: Order Comment: [id number] Results Called To Dr. Messer's office and left message By ZAINA On 01/22/2020 09:05:43 EST Results Called To Patient by Dolores on house By GOMEZ And Read Back For Confirmation On 01/22/2020 09:30:27 EST Performed By: #### 6 [id number] #### [facility] (DEFAULT) [address] [place] [address] Group care resident? No [facility] Comment on above: Order Comment: [id number] Results Called To Dr. Messer's office and left message By ZAINA On 01/22/2020 09:05:43 EST Results Called To Patient by Dolores on house By GOMEZ And Read Back For Confirmation On 01/22/2020 09:30:27 EST Performed By: #### 6 [id number] #### [facility] (DEFAULT) [address] [place] [address] Hospitalized due to COVID-19? No [facility] Comment on above: Order Comment: [id number] Results Called To Dr. Messer's office and left message By ZAINA On 01/22/2020 09:05:43 EST Results Called To Patient by Dolores on house By GOMEZ And Read Back For Confirmation On 01/22/2020 09:30:27 EST Performed By: #### 6 [id number] #### [facility] (DEFAULT) [address] [place] [address] In ICU? No [facility] Comment on above: Order Comment: [id number] Results Called To Dr. Messer's office and left message By ZAINA On 01/22/2020 09:05:43 EST Results Called To Patient by Dolores on house By GOMEZ And Read Back For Confirmation On 01/22/2020 09:30:27 EST Performed By: #### 6 [id number] #### [facility] (DEFAULT) [address] [place] [address] status? Not [facility] Comment on above: Order Comment: [id number] Results Called To Dr. Messer's office and left message By ZAINA On 01/22/2020 09:05:43 EST Results Called To Patient by Dolores on house By GOMEZ And Read Back For Confirmation On 01/22/2020 09:30:27 EST Performed By: #### 6 [id number] #### [facility] (DEFAULT) [address] [place] [address] Symptomatic as defined by CDC? No [facility] Comment on above: Order Comment: [id number] Results Called To Dr. Messer's office and left message By ZAINA On 01/22/2020 09:05:43 EST Results Called To Patient by Dolores on house By GOMEZ And Read Back For Confirmation On 01/22/2020 09:30:27 EST Performed By: #### 6 [id number] #### [facility] (DEFAULT) [address] [place] [address] SARS-CoV-2, ZAIRA (COVID-19) LC Detected Abnormal Not Detected [facility] Comment on above: Order Comment: [id number] Results Called To Dr. Messer's office and left message By ZAINA On 01/22/2020 09:05:43 EST Results Called To Patient by Dolores on house By GOMEZ And Read Back For Confirmation On 01/22/2020 09:30:27 EST Result Comment: This nucleic acid amplification test was developed and its performance characteristics determined by [employer]. Nucleic acid amplification tests include PCR and [...] detected) result in this assay. Performed At: [facility] [address] [facility] [place] [id number] Luis Alberto [place] MD Ph:[phone] Performed By: #### [id number] #### [facility] (DEFAULT) [address] [place] [address] Progress Note - Nurseon 01-01 Progress Note - Nurse Nasal swab perform ed without complication. Patient tolerated well. Education given. Patient verbalized understanding. [Electronically Signed on: 01/20/2020 16:47 EST] Jenna Barrera RN [Verified on: 01/20/2020 16:47 EST] Jenna Barrera RN Normal [facility] Vital Signs Date Time Vital Sign Value Performing Clinician Facility 06-08-2024 16:12-0400 Body height 175.3 cm Zeb Messer MD Work Phone: [facility] 06-08-2024 16:12-0400 Body mass index (BMI) [Ratio] 32.64 kg/m2 Zeb Messer MD Work Phone: [facility] 06-08-2024 16:12-0400 Body weight 100.25 kg Edward Hemeyer MD Work Phone: [facility] 03-08-2024 16:24-0500 Body height 175.3 cm Zeb Messer MD Work Phone: [facility] 03-08-2024 16:24-0500 Body mass index (BMI) [Ratio] 32.19 kg/m2 Zeb Messer MD Work Phone: [facility] 03-08-2024 16:24-0500 Body weight 98.88 kg Zeb Messer MD Work Phone: [facility] 03-08-2024 16:24-0500 Diastolic blood pressure 70 mm[Hg] Zeb Messer MD Work Phone: [facility] 03-08-2024 16:24-0500 Heart rate 73 /min Zeb Messer MD Work Phone: [facility] 03-08-2024 16:24-0500 SaO2% (BldA) [Mass fraction] 96 % Zeb Messer MD Work Phone: [facility] 03-08-2024 16:24-0500 Systolic blood pressure 124 mm[Hg] Zeb Messer MD Work Phone: [facility] 02-18-2024 11:38-0500 Body height 175.3 cm Zeb Messer MD Work Phone: [facility] 02-18-2024 11:38-0500 Body mass index (BMI) [Ratio] 32.19 kg/m2 Zeb Mesesr MD Work Phone: [facility] 02-18-2024 11:38-0500 Body weight 98.88 kg Zeb Messer MD Work Phone: [facility] 11-25-2023 16:19-0400 Body height 175.3 cm Zeb Messer MD Work Phone: [facility] 11-25-2023 16:19-0400 Body mass index (BMI) [Ratio] 33.37 kg/m2 Zeb Messer MD Work Phone: [facility] 11-25-2023 16:19-0400 Body weight 102.51 kg Zeb Messer MD Work Phone: [facility] 10-30-2023 16:03-0400 Body height 175.3 cm Zeb Messer MD Work Phone: [facility] 10-30-2023 16:03-0400 Body mass index (BMI) [Ratio] 33.37 kg/m2 Zeb Messer MD Work Phone: [facility] 10-30-2023 16:03-0400 Body weight 102.51 kg Zeb Messer MD Work Phone: [facility] 05-31-2022 10:00-0400 Diastolic blood pressure 43 mm[Hg] Nils Duel [facility] 05-31-2022 10:00-0400 Heart rate 68 /min Nils Finney [facility] 05-31-2022 10:00-0400 SaO2% (BldA) [Mass fraction] 97 % Nils Duel [facility] 05-31-2022 10:00-0400 Systolic blood pressure 120 mm[Hg] Nils Duel [facility] 05-31-2022 09:20-0400 SaO2% (BldA) [Mass fraction] 95 % Nils Finney [facility] 05-31-2022 09:19-0400 Heart rate 62 /min Nils Finney [facility] 05-31-2022 09:19-0400 SaO2% (BldA) [Mass fraction] 96 % Nils Duel [facility] 05-31-2022 09:18-0400 Diastolic blood pressure 77 mm[Hg] Nils Reg [facility] 05-31-2022 09:18-0400 Mean blood pressure 91 mm[Hg] Nils Brown [facility] 05-31-2022 09:18-0400 Systolic blood pressure 118 mm[Hg] Nils Brown [facility] 05-31-2022 09:17-0400 Respiratory rate 20 /min Nils Brown [facility] 05-31-2022 09:15-0400 Body temperature 96.98 [degF] Nils Brown [facility] 05-31-2022 09:15-0400 Body temperature 97.16 [degF] Nils Brown [facility] 05-31-2022 09:15-0400 Diastolic blood pressure 86 mm[Hg] Nils Brown [facility] 05-31-2022 09:15-0400 Diastolic blood pressure 94 mm[Hg] Nils Brown [facility] 05-31-2022 09:15-0400 Heart rate 65 /min Nils Brown [facility] 05-31-2022 09:15-0400 Mean blood pressure 99 mm[Hg] Nils Brown [facility] 05-31-2022 09:15-0400 Mean blood pressure 108 mm[Hg] Nils Brown [facility] 05-31-2022 09:15-0400 Respiratory rate 15 /min Nils Brown [facility] 05-31-2022 09:15-0400 Respiratory rate 5 /min Nils Brown [facility] 05-31-2022 09:15-0400 Systolic blood pressure 124 mm[Hg] Nils Brown [facility] 05-31-2022 09:15-0400 Systolic blood pressure 135 mm[Hg] Nils Brown [facility] 05-31-2022 09:00-0400 Mean blood pressure 96 mm[Hg] Nils Brown [facility] 05-31-2022 09:00-0400 Respiratory rate 13 /min Nils Brown [facility] 05-31-2022 08:44-0400 Body temperature 97.16 [degF] Nils Brown [facility] 05-31-2022 08:40-0400 FIO2 100 % Nils Brown [facility] 05-31-2022 08:35-0400 FIO2 30 % Nils Brown [facility] 05-31-2022 08:35-0400 Respiratory rate 16 /min Nils Brown [facility] 05-31-2022 08:30-0400 FIO2 50 % Nisl Brown [facility] 05-31-2022 08:30-0400 Respiratory rate 16 /min Nils Brown [facility] 05-31-2022 06:20-0400 Heart rate 64 /min Nils Brown [facility] 05-31-2022 06:03-0400 Mean blood pressure 95 mm[Hg] Nils Brown [facility] 05-31-2022 06:01-0400 Body temperature 97.52 [degF] Nils Brown [facility] 05-31-2022 06:01-0400 Mean blood pressure 91 mm[Hg] Nils Brown [facility] 05-14-2022 09:37-0400 Diastolic blood pressure 87 mm[Hg] Nils Brown [facility] 05-14-2022 09:37-0400 Heart rate 60 /min Nils Finney [facility] 05-14-2022 09:37-0400 Mean blood pressure 108 mm[Hg] Nils Finney [facility] 05-14-2022 09:37-0400 Systolic blood pressure 149 mm[Hg] Nils Finney [facility] 05-14-2022 09:37-0400 Blood Pressure Location Nils Finney [facility] 05-14-2022 09:36-0400 Heart rate 60 /min Nils Finney [facility] 05-14-2022 09:36-0400 SaO2% (BldA) [Mass fraction] 99 % Nils Finney [facility] 05-14-2022 09:35-0400 Body temperature 97.88 [degF] Nils Finney [facility] 05-14-2022 09:35-0400 Respiratory rate 18 /min Nils Finney [facility] 05-14-2022 09:35-0400 Diastolic blood pressure 80 mm[Hg] Nils Finney [facility] 05-14-2022 09:35-0400 Mean blood pressure 99 mm[Hg] Nils Finney [facility] 05-14-2022 09:35-0400 Systolic blood pressure 136 mm[Hg] Nils Finney [facility] 05-14-2022 09:35-0400 Blood Pressure Location Nils Finney [facility] Encounters Encounter Date Encounter Type Care Provider Facility Start: 07-14-2024 End: 07-14-2024 ambulatory [facility] Start: 06-22-2024 End: 06-22-2024 Telephone encounter Zeb Messer MD Work Phone: [facility] Start: 06-08-2024 End: 06-08-2024 Office outpatient visit 25 minutes Zeb Messer MD Work Phone: [facility] Comment on above: Central hypothyroidi sm (CMS/HCC); Euthyroid sick syndrome; Excess estrogen in male; Testosterone deficiency; Chronic fatigue; Polypharmacy; Non morbid obesity due to excess calories Start: 06-08-2024 End: 06-08-2024 ambulatory ZEB MESSER Not Available Start: 06-08-2024 End: 06-08-2024 Bamboo flowsheet Zeb Messer MD Work Phone: [facility] Start: 06-08-2024 End: 06-08-2024 Bamboo flowsheet Zeb Messer MD Work Phone: [facility] Start: 05-23-2024 End: 05-27-2024 Telephone encounter Zeb Messer MD Work Phone: [facility] Start: 04-29-2024 End: 04-29-2024 ambulatory ZEB MESSER [...] Available Start: 07-31-2023 End: 07-31-2023 ambulatory BERENICE BLANCHARDJAXOSN Not Available Start: 05-31-2022 End: 05-31-2022 ambulatory Nils Finney Facility:[facility] Start: 05-31-2022 End: 05-31-2022 Admission to same day surgery center Nils Finney [facility] Start: 05-14-2022 End: 05-15-2022 ambulatory Nils Finney Facility:[facility] Start: 05-14-2022 End: 05-14-2022 Patient encounter procedure Nils Finney [facility] Start: 02-13-2021 End: 02-13-[address] ZEB MESSER Facility:[facility] Start: 06-01-[address] ZEB MESSER [facility] ity:[facility] Start: 04-22-2020 End: 04-23-[address] ZEB MESSER Facility:[facility] Start: 03-22-2020 End: 03-23-[address] ZEB MESSER Facility:[facility] Start: 03-17-2020 End: 03-18-2020 ambulatory MAGUE WILDER Facility:[facility] Procedures Date Procedure Procedure Detail Performing Clinician Start: 02-18-2024 Comprehensive metabolic panel Zeb simmons MD Work Phone: Start: 02-18-2024 Lipid panel Zeb Messer MD Work Phone: Start: 11-08-2023 ALL THYROXINE (T4) FREE Zeb Messer MD Work Phone: Start: 10-31-2023 Complete blood count with white cell differential, automated Zeb Messer MD Work Phone: Start: 05-31-2022 Arthroscopy of shoulder Nils Finney Start: 02-28-2017 Colonoscopy Zeb Messer MD Work Phone: Bilateral inguinal hernia repair Nlis Finney Cholecystectomy Nils Finney Colonoscopy Nils Finney Esophagogastroduodenoscopy Wojciech Finney H/O: vasectomy Nils Reg Plan of Treatment Date Care Activity Detail Author Start: 02-28-2027 Screening for malign ant neoplasm of colon [facility] Start: 03-01-2025 End: 03-01-2025 Patient encounter procedure [facility] Start: 11-30-2024 End: 11-30-2024 Patient encounter procedure [facility] Start: 11-01-2024 Influenza vaccination Influenz a Vaccine (Season Ended) [facility] Start: 08-30-2024 End: 08-30-2024 Patient encounter procedure [facility] Start: 08-30-2024 Influenza vaccination Influenza Vacc ine (#1) [facility] Comment on above: Postponed from 11/01 (Patient Refused) Start: 08-09-2024 End: 08-09-2024 Patient encounter procedure 08/09/2024 4:05 PM EDT Office Visit [facility] [address] [place] [phone] Berenice Green APRN-[facility] [employer]OWER [address] [place] [address] [facility] Start: 08-08-2024 End: 12-08-2024 T3, reverse T3, reverse Lab Routine Euthyroid sick syndrome Chronic fatigue Expected: 08/08/2024 (Approximate), Expires: 12/08/2024 [facility] Work Phone: Comment on above: Expected: 08/08/2024 (Approximate), Expires: 12/08/2024 Start: 08-08-2024 End: 06-08-2025 Thyroxine (T4) free [Mass/volume] in Serum or Plasma T4, free Lab Routine Central hypothyroidism (CMS/HCC) Chronic fatigue Expected: 08/08/2024, Expires: 06/08/2025 [facility] Comment on above: Expected: 08/08/2024 , Expires: 06/08/2025 Start: 08-08-2024 End: 06-08-2025 Triiodothyronine (T3) [Mass/volume] in Serum or Plasma T3 Lab Routine Euthyroid sick syndrome Chronic fatigue Expected: 08/08/2024, Expires: 06/08/2025 [facility] Comment on above: Expected: 08/08/2024 , Expires: 06/08/2025 Start: 08-08-2024 End: 06-08-2025 Triiodothyronine (T3) Free [Mass/volume] in Serum or Plasma T3, free Lab Routine Central hypothyroidism (CMS/HCC) Chronic fatigue Expected: 08/08/2024, Expires: 06/08/2025 [facility] Comment on above: Expected: 08/08/2024 , Expires: 06/08/2025 Start: 08-02-2024 End: 08-02-2024 Patient encounter procedure 08/02/2024 4:05 PM EDT Office Visit [facility] [address] [place] [id number] Berenice Green, SQL DATA ARCHITECT-[employer] [employer] [address] [place] [address] [facility] Start: 06-08-2024 End: 06-08-2024 Patient encounter procedure [facility] Comment on above: Central hypothyroidi sm (CMS/HCC); Euthyroid sick syndrome; Excess estrogen in male; Testosterone deficiency; Chronic fatigue; Polypharmacy; Non morbid obesity due to excess calories Start: 06-01-2024 End: 06-01-2024 Patient encounter procedure 06/01/2024 4:00 PM EDT Office Visit [facility] [address] [place] [phone] Zeb Messer MD [address] [place] [address] (Fax) [facility] Start: 04-29-2024 End: 04-29-2024 Patient encounter procedure 04/29/2024 4:30 PM EST Office Visit [facility] [address] [place] [address] Zeb Messer MD [address] [place] [address] (Fax) Arrived [facility] Comment on above: Arrived Start: 03-08-2024 End: 03-08-2024 Patient encounter procedure [facility] Start: 03-04-2024 End: 03-04-2024 Patient encounter procedure 03/04/2024 4:00 PM EST Office Visit [facility] [address] [place] [address] Zeb Messer MD [address] [place] [address] (Fax) [facility] Start: 02-18-2024 End: 02-18-2024 Patient encounter procedure 02/18/2024 11:30 AM EST Office Visit [facility] [address] [place] [address] Zeb Messer MD [address] [place] [address] Encounter for wellness examination in adult; Advance [...] Chronic fatigue Expected: 01/26/2024 (Approximate), Expires: 11/25/2024 [facility] Comment on above: Expected: 01/26/2024 (Approximate), Expires: 11/25/2024 Start: 01-26-2024 End: 11-25-2024 Thyroxine (T4) free [Mass/volume] in Serum or Plasma T4, free Lab Routine Central hypothyroidism (CMS/HCC) Euthyroid sick syndrome Chronic fatigue Expected: 01/26/2024 (Approximate), Expires: 11/25/2024 [facility] Comment on above: Expected: 01/26/2024 (Approximate), Expires: 11/25/2024 Start: 01-26-2024 End: 11-25-2024 Triiodothyronine (T3) [Mass/volume] in Serum or Plasma T3 Lab Routine Central hypothyroidism (CMS/HCC) Euthyroid sick syndrome Chronic fatigue Expected: 01/26/2024 (Approximate), Expires: 11/25/2024 [facility] Work Phone: Comment on above: Expected: 01/26/2024 [...] FM [address] [place] [address] Zeb Messer MD [address] [place] [address] (Fax) Arrived [facility] Comment on above: Arrived Start: 11-02-2023 Influenza vaccination Influenza Vacc ine (#1) [facility] Start: 10-30-2023 End: 10-30-2023 Patient encounter procedure 10/30/2023 4:00 PM EDT Office Visit [facility] [address] [place] [address] Zeb Messer MD [address] [place] [address] (Fax) Arrived [facility] Comment on above: Arrived Start: 10-30-2023 End: 10-29-2024 ACTH ACTH Lab Routine Chronic fatigue Expected: 10/30/2023 (Approximate), Expires: 10/29/2024 [facility] Comment on above: Expected: 10/30/2023 (Approximate), Expires: 10/29/2024 Start: 10-30-2023 End: 10-29-2024 Cortisol Cortisol Lab Routine Chronic fatigue Expected: 10/30/2023 (Approximate), Expires: 10/29/2024 [facility] Comment on above: Expected: 10/30/2023 (Approximate), Expires: 10/29/2024 Start: 10-30-2023 End: 10-29-2024 DHEA-sulfate DHEA-sulfate Lab Routine Chronic fatigue Low libido Expected: 10/30/2023 (Approximate), Expires: 10/29/2024 [facility] Work Phone: Comment on above: Expected: 10/30/2023 (Approximate), Expires: 10/29/2024 Start: 10-30-2023 End: 10-29-2024 ESTRADIOL, ULTRASENSITIVE, LC/MS ESTRADIOL, ULTRASENSITIVE, LC/MS Lab Routine Chronic fatigue Low libido Excess estrogen in male Expected: 10/30/2023 (Approximate), Expires: 10/29/2024 [facility] Comment on above: Expected: 10/30/2023 (Approximate), Expires: 10/29/2024 Start: 10-30-2023 End: 10-29-2024 Testosterone [Mass/volume] in Serum or Plasma Testosterone Lab Routine Chronic fatigue Low libido Expected: 10/30/2023 (Approximate), Expires: 10/29/2024 [facility] Comment on above: Expected: 10/30/2023 (Approximate), Expires: 10/29/2024 Start: 1965 Screening for malign ant neoplasm of colon [facility] Immunizations Immunization Date Immunization Notes Care Provider [facility] 11-18-2022 influenza, injectabl e, quadrivalent, preservative free Zeb Messer MD Work Phone: [facility] 11-18-2022 influenza virus vacc ine, unspecified formulation Zeb Messer MD Work Phone: [facility] 01-09-2022 influenza, injectabl e, quadrivalent, preservative free Zeb Messer MD Work Phone: [facility] 03-01-2021 Influenza, injectabl e, Madin [place] Canine Kidney, preservative free, quadrivalent Zeb Messer MD Work Phone: [facility] 12-02-2019 influenza, injectabl e, quadrivalent, preservative free Zeb Messer MD Work Phone: [facility] 12-23-2018 influenza, injectabl e, quadrivalent, preservative free Zeb Messer MD Work Phone: [facility] 12-22-2018 influenza, high dose seasonal, preservative-free Zeb Messer MD Work Phone: [facility] 12-13-2017 influenza, seasonal, injectable, preservative free Zeb Messer MD Work Phone: [facility] 12-12-2017 influenza, injectabl e, quadrivalent, preservative free Zeb Messer MD Work Phone: [facility] 12-06-2016 influenza, seasonal, injectable, preservative free Zeb Messer MD Work Phone: [facility] 11-28-2016 influenza, injectabl e, quadrivalent, preservative free Zeb Messer MD Work Phone: [facility] 11-29-2015 influenza, seasonal, injectable, preservative free Zeb Messer MD Work Phone: [facility] 11-28-2015 influenza, injectabl e, quadrivalent, preservative free Zeb Messer MD Work Phone: [facility] 10-26-2015 tetanus and diphther ia toxoids, adsorbed, preservative free, for adult use (5 Lf of tetanus toxoid and 2 Lf of diphtheria toxoid) Zeb Messer MD Work Phone: [facility] 01-01-2014 influenza virus vacc ine, unspecified formulation Zeb Messer MD Work Phone: [facility] 11-15-2013 influenza, injectabl e, quadrivalent, preservative free Zeb Messer MD Work Phone: [facility] Payers Date Payer Category Payer Private Health Insurance [employer] [id number] 2022 Unknown [employer] [id number] 2022-Present [address] [place] [address] [id number] 1964 Unknown [id number] 2.16.840.1.059692.3.579.2. 593 1964 Unknown [id number] 2.16.840.1.042142.3.579.2. 593 1964 Unknown [id number] 2.16.840.1.870300.3.579.2. 593 1964 Unknown [id number] 2.16.840.1.396583.3.579.2. 593 1964 Unknown [id number] 2.16.840.1.325343.3.579.2. 593 1964 Unknown [id number] 2.16.840.1.850900.3.579.2. 727 1964 Unknown [id number] 2.16.840.1.011788.3.579.2. 727 1964 Unknown [id number] 2.16.840.1.887116.3.579.2. 1259 1964 Unknown [id number] 2.16.840.1.213839.3.579.2. 1259 1964 Unknown [id number] 2.16.840.1.265550.3.579.2. 1259 1964 Unknown [id number] 2.16.840.1.774428.3.579.2. 1259 1964 Unknown [id number] 2.16.840.1.222178.3.579.2. 1259 1964 Unknown [id number] 2.16.840.1.895149.3.579.2. 1259 1964 Unknown [id number] 2.16.840.1.763993.3.579.2. 1259 1964 Unknown [id number] 2.16.840.1.751206.3.579.2. 1259 1959 Unknown [id number] Social History Date Type Detail Facility Start: 05-14-2022 End: 07-31-2022 Tobacco smoking status Never smoked tobacco (finding) [facility] Start: 01-28-2023 End: 10-30-2023 Sex Assigned At Male [facility] Start: 07-31-2022 Tobacco use and exposure Smokeless tobacco non-user [facility] Start: 11-25-2023 End: 06-08-2024 Alcoholic beverage intake Current drinker of alcohol (finding) [facility] Start: 01-28-2023 End: 11-25-2023 Alcoholic beverage intake [facility] Within the last year , have you been afraid of your partner or ex-partner? Patient declined [facility] Start: 08-27-2022 Education 21 [facility] Start: 12-23-2022 Alcohol Comment Caffeine intak e: 3-4 cups per day [facility] Start: 1965 Sex assigned at Not on file [facility] Start: 05-15-2022 Gender identity Identifies as male gender (finding) [facility] Medical Equipment Procedure Code Equipment Code Equipment Origin al Text Equipment Identifier Dates SHOULDER ARTHROS COPY W/ POSSIBLE REPAIR Nils Finney DO 05/31/22 Unknown Shoulder R FDA Start: 05-31-2022 Functional Status Date Assessment Result Facility 05-14-2022 Functional Status No [facility] Clinical Notes 05-30-2022 to 07-14-2024 Telephone Encounter - Zeb Messer MD - 06/22/2024 10:37 AM EDTTelephone Encounter - Zeb Messer MD - 06/22/2024 10:37 AM EDTTelephone Encounter - Samra Samira - 06/22/2024 10:12 AM EDT Note Date & Type Note Facility 07-14-2024 Note [facility] Cardiology Clinic Note Chief Complaint: Patient here for 1 year follow up. Patient states he is feeling good. Patient has no cardiac complaints at this time. HPI: Katherine Hogan is a 59 y.o. male Mr. Hogan is being seen [...] brothers sudden cardiac with massive heart attacks 07/14/2024 Doing very well; no new concerning symptoms Still very physically active at work without exertional chest pain Has occasional shortness of breath with exertion Cardiology ROS: Review of Systems Respiratory: Positive for snoring. Musculoskeletal: Positive for arthritis, back pain, joint pain, joint swelling, muscle cramps, muscle weakness, neck pain and stiffness. Neurological: Positive for light-headedness ( every once in awhile ). All other systems reviewed and are negative. Past Medical History He has a past medical history of Abnormal ECG, Hyperlipidemia, and Hypertension. Surgical History He has a past surgical history that includes Shoulder surgery. Social History He reports that he has never smoked. He has never used smokeless tobacco. He reports current alcohol use. No history on file for drug use. Family History Family History Problem Relation Name Age of Onset Heart attack Brother Coronary artery disease Brother Other (carotid artery stenosis) Brother Allergies Milk, Oxycodone-acetaminophen, and Cortisone Medications Current Outpatient Medications: amLODIPine (Norvasc) 5 mg tablet, TAKE 1 TABLET DAILY, Disp: 90 tablet, Rfl: 3 aspirin 81 mg EC tablet, TAKE 1 TABLET DAILY, Disp: 90 tablet, Rfl: 3 atorvastatin (Lipitor) 40 mg tablet, TAKE 1 TABLET DAILY, Disp: 90 tablet, Rfl: 3 carvedilol (Coreg) 25 mg tablet, TAKE 1 TABLET DAILY (Patient taking differently: Take 25 mg by mouth with breakfast and with evening meal.), Disp: 90 tablet, Rfl: 3 carvedilol (Coreg) 25 mg tablet, Take 1 tablet (25 mg) by mouth with breakfast and with evening meal., Disp: 180 tablet, Rfl: 3 chlorthalidone (Hygroton) 25 mg tablet, TAKE ONE-HALF (1/2) TABLET DAILY, Disp: 45 tablet, Rfl: 3 famotidine (Pepcid) 20 mg tablet, Take 20 mg by mouth., Disp: , Rfl: finasteride (Proscar) 5 mg tablet, Take 1 tablet by mouth in the morning., Disp: , Rfl: lamoTRIgine (LaMICtal) 200 mg tablet, Take 200 mg by mouth twice a day., Disp: , Rfl: lisinopril 20 mg tablet, TAKE 1 TABLET DAILY, Disp: 90 tablet, Rfl: 3 venlafaxine XR (Effexor-XR) 75 mg 24 hr capsule, Take 225 mg by mouth in the morning., Disp: , Rfl: Last Recorded Vitals There were no vitals taken for this visit. Physical Examination: GENERAL: alert and oriented x3, [...] normal right sided pressures Assessment: Essential hypertension Mitral regurgitation - mild 2019 Family history of premature coronary artery disease Dyspnea on exertion Dyspnea post COVID Palpitations with a history of PVCs Dyslipidemia Plan: He is to check his blood pressure at home 2-3 times a week and to keep a log; i (more content not included)... [facility] 06-22-2024 Telephone encounter Note Prescription sent [facility] 06-22-2024 Miscellaneous Notes Prescription sent John stared not feeling good last evening. He took a home Covid/Influenza test this morning and he was positive for Influenza A. He is requesting something be sent in for him. documented in this encounter [facility] 06-22-2024 Telephone encounter Note John stared not feeling good last evening. He took a home Covid/Influenza test this morning and he was positive for Influenza A. He is requesting something be sent in for him. [facility] 06-08-2024 History of Presen t illness Narrative Images from the original note were not included. Patient ID: Katherine Hogan is a 59 y.o. male who presents for: Thyroid: Pt here today to review his/hers thyroid labs and any medication changes needed. Fatigue: Absent Weight Gain: Absent Inability to lose weight: Present, Unchanged Hair Changes: Present He/She is following the thyroid diet: Good He/She are taking medications as directed: Good He/She are exercising at least 3 days out of the week for 30 minutes or more: Good Review of Systems Constitutional: Negative for appetite change and fatigue. HENT: Negative for trouble swallowing and voice change. Cardiovascular: Negative for palpitations. Musculoskeletal: Positive for arthralgias and myalgias. Psychiatric/Behavioral: Negative for sleep disturbance. The patient is not nervous/anxious. Endocrine: Negative for cold intolerance and heat intolerance. Clinis[facility] Result Encounter on 05/22/2024 Component Date Value Ref Range Status SODIUM 05/22/2024 141 136 - 145 mmol/L Final POTASSIUM 05/22/2024 3.9 3.5 - 5.1 mmol/L Final CHLORIDE 05/22/2024 107 98 - 107 mmol/L Final CARBON DIOXIDE 05/22/2024 25.8 21.0 - 32.0 mmol/L Final ANION GAP 05/22/2024 12.1 Final GLUCOSE 05/22/2024 134 (H) 74 - 106 mg/dL Final BLOOD UREA NITROGEN 05/22/2024 20.0 (H) 7.0 - 18.0 mg/dL Final CREATININE 05/22/2024 0.94 0.70 - 1.30 mg/dL Final [facility] EGFR-AF EGYPTIAN 05/22/2024 >60 >=60 mL/min/1.73m 2 Final [facility] EGFR-NON AF EGYPTIAN 05/22/2024 >60 >=60 mL/min/1.73m 2 Final BUN CREATININE RATIO 05/22/2024 21.3 Final CALCIUM 05/22/2024 8.8 8.5 - 10.1 mg/dL Final BILIRUBIN TOTAL 05/22/2024 0.4 0.2 - 1.0 mg/dL Final ASPARTATE AMINO TRANSFERASE 05/22/2024 21 15 - 37 U/L Final ALANINE AMINOTRANSFERASE 05/22/2024 50 16 - 63 U/L Final ALKALINE PHOSPHATASE 05/22/2024 114 46 - 116 U/L Final TOTAL PROTEIN 05/22/2024 6.6 6.4 - 8.2 g/dL Final ALBUMIN LEVEL 05/22/2024 3.7 3.4 - 5.0 g/dL Final GLOBULIN 05/22/2024 2.9 g/dL Final ALBUMIN GLOBULIN RATIO 05/22/2024 1.3 Final TRIGLYCERIDES 05/22/2024 52 <=150 mg/dL Final CHOLESTEROL 05/22/2024 128 <=200 mg/dL Final HDL CHOLESTEROL 05/22/2024 57 40 - 60 mg/dL Final Comment: > or =60 mg/dl - LOW CARDIOVASCULAR RISK <40 mg/dl - HIGH CARDIOVASCULAR RISK LDL CHOLESTEROL CALCULATED 05/22/2024 60.6 mg/dL Final Comment: <100 mg/dl OPTIMAL 100-129 mg/dl NEAR OR ABOVE OPTIMAL 130-159 mg/dl BORDERLINE HIGH 160-189 mg/dl HIGH >190 mg/dl VERY HIGH VLDL CHOLESTEROL 05/22/2024 10.4 mg/dL Final CHOL HDL RATIO 05/22/2024 2.2 Final Comment: 3.3 - 4.4 LOW RISK 4.4 - 7.1 AVERAGE RISK 7.1 - 11.0 MODERATE RISK >11.0 HIGH RISK FREE T3 05/22/2024 2.43 2.18 - 3.98 pg/mL Final FREE T4 05/22/2024 0.68 (L) 0.76 - 1.46 ng/dL Final [facility] TRIIODOTHYRONINE (T3) 05/22/2024 98 71 - 180 ng/dL Final Comment: Performed at: [address] [id number] [employer] Process Engineer: Pablo Harris PhD, Phone: [phone] DHEA-SULFATE 05/22/2024 153.0 48.9 - 344.2 ug/dL Final TESTOSTERONE 05/22/2024 536 264 - 916 ng/dL Final Comment: Adult male reference interval is based on a population of healthy nonobese males (BMI <30) between 19 and 39 years old. Inna, et.al. JCEM 2017,102;3386-3240. PMID: [id number]. REVERSE T3, SERUM 05/22/2024 12.4 9.2 - 24.1 ng/dL Final Comment: This test was developed and its performance characteristics determined by [employer]. It has not been cleared or approved by the Food and Drug Administration. Performed at: [address] [id number] [employer] Process Engineer: Halley Traore MD, Phone: [phone] MISCELLANEOUS TEST 05/22/2024 COMMENT . Final Comment: Test Ordered: [id number] Estradiol, Sensitive Estradiol, Sensitive 15.1 pg/mL Reference Range: 8.0-35.0 This test was developed and its performance characteristics determined by [employer] [facility]. It has not been cleared or approved by the Food and Drug Administration. Methodology: Liquid chromatography tandem mass spectrometry(LC/MS/MS) Performed at: [address] [id number] [employer] Process Engineer: Halley Traore MD, Phone: [phone] Performed at: [address] [id number] [employer] Process Engineer: Pablo Harris PhD, Phone: [phone] Calculated THY Ratio: 8 Objective The patient is pleasant and in no acute distress The patient has good eye contact and clear speech Visit Vitals Ht 5' 9 Wt 221 lb BMI 32.64 kg/m Smoking Status Never BSA 2.21 m Allergies Allergen Reactions Milk-Related Compounds Oxycodone-Acetaminophen Unknown Cortisone Rash Neomycin-Bacitracin Zn-Polymyx Rash Current Outpatient Medications on File Prior to Visit Medication Sig Dispense Refill amLODIPine (Norvasc) 5 MG tablet Take 1 tablet (5 mg) by mouth Daily 90 tablet 1 Ascorbic Acid (vitamin C) 1000 MG tablet Take 1,000 mg by mouth Daily aspirin 81 MG EC tablet Take 81 mg by mouth in the morning. atorvastatin (Lipitor) 40 MG tablet Take 1 tablet (40 mg) by mouth Daily 90 tablet 1 azelastine (Astelin) 0.1 % nasal spray Administer 1 spray into each nostril in the morning and 1 spray before bedtime. Use in each nostril as directed. 30 mL 1 carvedilol (Coreg) 25 MG tablet Take 1 tablet (25 mg) by mouth in the morning and 1 tablet (25 mg) in the evening. Take with meals. 180 tablet 1 cholecalciferol (Vitamin D-3) 25 MCG [...] 5 % cream Apply topically. Krill Oil (Neoga-3) 500 MG capsule Take by mouth. lamoTRIgine [...] if needed for VERTIGO 270 tablet 0 Misc Natural Products (DETOX PO) Take 2 tablets by mouth Daily Prasterone, DHEA, (DHEA PO) Place 1 tablet under the tongue Daily Probiotic Product (PROBIOTIC PO) Take 1 capsule by mouth 3 (three) times a week therapeutic multivitamin-minerals (Theragran-M) tablet Take 2 tablets by mouth in the morning. venlafaxine XR (Effexor XR) 75 MG 24 hr capsule Take 3 capsules (225 mg) by mouth Daily 270 capsule 1 Zn-Pyg Slmi-Nkgbyx-Wtp Palmet (SAW PALMETTO COMPLEX PO) Take by mouth. No current facility-administered medications on file prior to visit. 1. Central hypothyroidism (CMS/HCC) This is a complex chronic problem, stable, to goal; management requires moderate decision making I reviewed diet and exercise with the patient. I discussed the patient's current psychosocial and physical condition and the stress impact upon them. I reviewed the multiple unique laboratories and explained the results to the patient. The patient has been re-educated concerning the above diagnoses and that the treatment for some of these may not be considered the standard of care, including TSH suppression when utilized. The patient has been re-educated and instructed concerning medication timing, diet, exercise, and stress reduction as appropriate. I reviewed the patient's current prescriptions and discussed the possibilities of medication renewals, adjustments, new medication start, or stop medication as appropriate. The patient has been instructed to follow up and bring a diet and exercise log, obtain the unique laboratory tests ordered, and the importance of follow up and compliance. The patient was given a chance to ask questions today and all questions were answered. The patient is to contact us if any other questions arise or if any problems occur. - thyroid (Overton Thyroid) 60 MG tablet; Take 1 tablet (60 mg) by mouth in the morning and 1 tablet (60 mg) before bedtime. Dispense: 180 tablet; Refill: 0 - T3, free; Future - T4, free; Future - T3, free - T4, free 2. Euthyroid sick syndrome In prescribing a renewal to their current [...] if any problems occur. (Utilizing the original guidelines or the 2020 office/outpatient code guidelines for selecting the level of E/M service, In both sets of guidelines, prescription drug management appears in the moderate medical decision making (MDM) row. Neither the original guidelines nor the new guidelines state that a new prescription or change is needed in order to credit prescription drug management) - thyroid (Overton Thyroid) 60 MG tablet; Take 1 tablet (60 mg) by mouth in the morning and 1 tablet (60 mg) before bedtime. Dispense: 180 tablet; Refill: 0 - T3, reverse; Future - T3; Future - T3, reverse - T3 3. Excess estrogen in male Dealt with previously. No adjustments today. 4. Testosterone deficiency Dealt with previously. No adjustments today. 5. Chronic fatigue Chronic problem, stable, complex in nature with moderate decision making. overall much improved I discussed with the patient and/or their employment program representative, their fatigue issues. We discussed how this is improved significantly. We discussed that the patient will almost certainly need to continue to make lifestyle changes including diet, sleep, exercise, and stress management as appropriate. We discussed how this is almost always a multifactorial problem. We further discussed how we will continue [...] free; Future - T4, free; Future - T3, reverse - T3 - T3, free - T4, free 6. Polypharmacy Chronic problem The patient meets [...] Non morbid obesity due to excess calories Encouraged avoidance of simple sugars and some aerobic exercise. documented in this encounter [facility] 05-27-2024 Telephone encounter Note Created in error [facility] 05-27-2024 Miscellaneous Notes Created in error documented in this encounter [facility] 03-08-2024 History of Presen t illness Narrative [...] cyclosporine, olanzapine). Exercise: three times a week. HELEN Martinez complains of heartburn. This has been associated [...] 5 % cream Apply topically. Krill Oil (Neoga-3) 500 MG capsule Take by mouth. lamoTRIgine [...] tablets by mouth in the morning. Zn-Pyg Krwt-Plzdma-Vmv Palmet (SAW PALMETTO COMPLEX PO) Take by [...] 7 days. 14 tablet 0 [DISCONTINUED] thyroid (Overton Thyroid) 15 MG tablet Take 3 tablets (45 mg) by mouth in the morning and 3 tablets (45 mg) before bedtime. 540 tablet 0 [DISCONTINUED] thyroid (Overton Thyroid) 15 MG tablet Take 3 tablets [...] diet and exercise. documented in this encounter [facility] 03-08-2024 Telephone encounter Note I talked with Norah. Prescription resent. [facility] 03-08-2024 Miscellaneous Notes I talked with Norah. Prescription resent. John got a notice from [employer] for him to check with his doctor that his Armor Thyroid could not be filled and he needed to see his physician. We discussed his results last week and his labs were looking really good. DR. Messer was suppose to send in new refills for him? The notice from [employer] came on Mar 06. documented in this encounter [facility] 03-08-2024 Telephone encounter Note John got a notice from [employer] for him to check with his doctor that his Armor Thyroid could not be filled and he needed to see his physician. We discussed his results last week and his labs were looking really good. DR. Messer was suppose to send in new refills for him? The notice from [facility] came on Mar 06. [facility] 03-02-2024 Telephone encounter Note Reviewed with them, renew RX [facility] 03-02-2024 Miscellaneous Notes Reviewed with them, renew RX John was to get his thyroid labs done after starting medication. He states he thought Dr. Messer said that he would just update him when the results came in but he has not heard anything. If possible, can you review. documented in this encounter [facility] 03-02-2024 Telephone encounter Note John was to get his thyroid labs done after starting medication. He states he thought Dr. Messer said that he would just update him when the results came in but he has not heard anything. If possible, can you review. [facility] 02-23-2024 Telephone encounter Note Rx sent [facility] 02-23-2024 Miscellaneous Notes Rx sent John [...] Messer could send him something in to [facility] in [place]. documented in this encounter [facility] 02-23-2024 Telephone encounter Note John started [...] Messer could send him something in to [facility] in [place]. [facility] 02-18-2024 History of Presen t illness Narrative Images from the original note were not included. Patient ID: Katherine Hogan is a 59 y.o. 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 Krill Oil (Neoga-3) 500 MG capsule Take by mouth. lamoTRIgine [...] tablets by mouth in the morning. thyroid (Overton Thyroid) 15 MG tablet Take 3 tablets (45 mg) by mouth in the morning and 3 tablets (45 mg) before bedtime. 540 tablet 0 venlafaxine XR (Effexor XR) 75 MG 24 hr capsule Take 3 capsules (225 mg) by mouth Daily 270 capsule 1 Zn-Pyg Jzxh-Xrvjhu-Nyu Palmet (SAW PALMETTO COMPLEX PO) Take by [...] using his CPAP. documented in this encounter [facility] 12-31-2023 History of Presen t illness [...] 5 % cream Apply topically. Krill Oil (Neoga-3) 500 MG capsule Take by mouth. lamoTRIgine [...] tablets by mouth in the morning. thyroid (Overton Thyroid) 15 MG tablet Take 3 tablets (45 mg) by mouth in the morning and 3 tablets (45 mg) before bedtime. 540 tablet 0 venlafaxine XR (Effexor XR) 75 MG 24 hr capsule Take 3 capsules (225 mg) by mouth Daily 270 capsule 1 Zn-Pyg Lutm-Oqydxo-Ukk Palmet (SAW PALMETTO COMPLEX PO) Take by [...] a sick note. documented in this encounter [facility] 11-25-2023 History of Presen t illness [...] between 7 and 10 AM. Performed at: [facility] [id number] [employer] Process Engineer: Pablo Harris PhD, Phone: [phone] [facility] TRIIODOTHYRONINE (T3) 11/08/2023 93 71 - 180 ng/dL Final Comment: Performed at: [facility] [id number] [employer] Process Engineer: Pablo Harris PhD, Phone: [phone] DHEA-SULFATE 11/08/2023 74.4 48.9 - 344.2 ug/dL [...] and 38 years old. Inna et.al. JCEM 2017,102;6325-4623. PMID: [id number]. REVERSE T3, SERUM 11/08/2023 10.2 9.2 - 24.1 ng/dL Final Comment: This test was developed and its performance characteristics determined by [employer] [facility]. It has not been cleared or approved by the Food and Drug Administration. Performed at: [address] [id number] [employer] Process Engineer: Halley Traore MD, Phone: [phone] MISCELLANEOUS TEST 11/08/2023 COMMENT . Final Comment: Test Ordered: [id number] Estradiol, Sensitive Estradiol, Sensitive 16.0 pg/mL Reference Range: 8.0-35.0 This test was developed and its performance characteristics determined by [employer]. It has not been cleared or approved by the Food and Drug Administration. Methodology: Liquid chromatography tandem mass spectrometry(LC/MS/MS) Performed at: [address] [id number] [employer] Process Engineer: Halley Traore MD, Phone: [phone] Performed at: [address] [id number] [employer] Process Engineer: Pablo Harris PhD, Phone: [phone] External Result Encounter on 10/31/2023 Component Date [...] 5 % cream Apply topically. Krill Oil (Neoga-3) 500 MG capsule Take by mouth. lamoTRIgine [...] by mouth Daily 270 capsule 1 Zn-Pyg Yzjz-Iiqcrf-Xdw Palmet (SAW PALMETTO COMPLEX PO) Take by [...] only starting the levothyroxine versus starting with Overton thyroid and both he and his agreed they wanted to pursue the desiccated thyroid. New, chronic problem, unstable, not to goal, requiring complex clinical decision making. I reviewed the results of any; laboratories, ultrasound, and other labs as appropriate with the patient or their employment program representative. I discussed the patien'ts current psychosocial [...] See the scanned titration sheet - thyroid (Overton Thyroid) 15 MG tablet; Take 3 tablets [...] the adjustment in their medication. - thyroid (Overton Thyroid) 15 MG tablet; Take 3 tablets [...] I discussed with the patient or their employment program representative, their fatigue issues. We discussed how [...] any labs with the patient or their employment program representative. I have educated them concerning the [...] Age: An Overview. In Yanira Cortez & Annabel Cotto (Eds.), Androgens and the Aging Male (pp. 3-14). [place]: [employer].) In prescribing a new medication consideration of [...] activity as tolerated. documented in this encounter [facility] 10-30-2023 History of Presen t illness [...] 5 % cream Apply topically. Krill Oil (Neoga-3) 500 MG capsule Take by mouth. lamoTRIgine [...] by mouth Daily 270 capsule 1 Zn-Pyg Jzil-Ueqaod-Yww Palmet (SAW PALMETTO COMPLEX PO) Take by mouth. methocarbamol (Robaxin) 750 MG tablet Take 1 tablet (750 mg) by mouth 3 (three) times a day as needed for muscle spasms 90 tablet 0 No current facility-administered medications on file prior to visit. 1. Chronic fatigue Chronic problem, unstable, complex in nature with moderate decision making. I discussed with the patient or their employment program representative, their fatigue issues. We discussed how [...] ESTRADIOL, ULTRASENSITIVE, LC/MS documented in this encounter [facility] 05-31-2022 Evaluation + Plan note Extrac noreen from: Title:ANES Pre-operative Note Author:Brandan Connor CRNA Date:05/31/22 Plan [place] [employer] Anesthesiologists (ASA) physical status classification: Class III. Anesthetic Preoperative Plan: Anesthesia General. Regional Brachial plexus block. [facility]03-31-2023 Hospital Discharge instructions Patient Education 05/31/2022 09:09:39 Shoulder Cryocuff Patient Instructions - FT (CUSTOM) 05/31/2022 09:09:39 Post Op Patient Instructions - FT (CUSTOM) 05/31/2022 07:10:07 Segundo Finney - After Your Shoulder Arthroscopy (Custom) [place], [place] [facility] AFTER YOUR SHOULDER ARTHROSCOPY [...] your appointment. 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 Unspecified hypothyroidism Euthyroid sick syndrome Chronic [...] essential hypertension Mixed hyperlipidemia (CMS/HCC) Mixed hyperlipidemia Chronic fatigue syndrome Obstructive sleep [...] Euthyroid sick syndrome documented in this encounter [facility]* Diagnosis Essential hypertension (CMS/HCC) Unspecified essential hypertension documented in this encounter [facility]* Diagnosis Essential hypertension (CMS/HCC) Unspecified essential hypertension Mixed hyperlipidemia (CMS/HCC) Mixed hyperlipidemia Mixed anxiety and depressive disorder Dysthymic disorder Benign prostatic hyperplasia without lower urinary tract symptoms Gastroesophageal reflux disease without esophagitis Esophageal reflux Non morbid obesity due to excess calories documented in this encounter [facility]* Diagnosis Central hypothyroidism (CMS/HCC) Unspecified hypothyroidism Euthyroid sick syndrome Excess estrogen in male Testosterone deficiency Other testicular hypofunction Chronic fatigue Other malaise and fatigue Polypharmacy Issue of repeat prescriptions Non morbid obesity due to excess calories documented in this encounter [facility]* Diagnosis Influenza A- Primary Influenza with other respiratory manifestations documented in this encounter [facility] HealthcareHospital course Narrative No data available for this [facility] No data available for this section [facility] No data available for this section [facility] Summary Purpose Family History No Family History Records FoundNo Family History Records FoundNo Family History Records FoundNo Family History Records FoundNo Family History Records FoundNo Family History Records FoundNo Family History Records Found Advance Directives No Advanced Directives Records FoundDocuments on File Type Date Recorded 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 Advance Directives and Living Will 05/29/2022 2016-10-22 [facility] [employer] Additional Source Comments (unrecognized sect ion and content) No Status Records FoundNo Status Records FoundNo Status Records FoundNo Status Records FoundNo Status Records FoundNo Status Records FoundNo Status Records Found INFORMATION SOURCE (unrecogn ized section and content) DATE CREATED AUTHOR 02/01/2020 [facility] DATE CREATED AUTHOR AUTHOR'S ORGANIZ ATION 02/18/2021 [facility] DATE CREATED AUTHOR AUTHOR'S ORGANIZ ATION 01/10/2022 [facility] Specialist DATE CREATED AUTHOR AUTHOR'S ORGANIZ ATION 06/11/2022 [facility] DATE CREATED AUTHOR AUTHOR'S ORGANIZ ATION 02/24/2024 [facility] DATE CREATED AUTHOR AUTHOR'S ORGANIZ ATION 06/10/2024 [facility] Specialists EPIC DATE CREATED AUTHOR AUTHOR'S ORGANIZ ATION 07/16/2024 [facility] Patient Care team informatio n (unrecognized section and content) [employer] Relationship Specialty Start Date End Date Zeb Messer MD [address] [place] [address] PCP - General Family Medicine 07/19/22 Berenice Green [employer] [address] [facility] [address] [place] [address] PCP - Medical [employer] 01/31/13 03/02/99 [employer] Relationship Specialty Start Date End Date Zeb Messer MD [address] [facility] [place] [address] PCP - General Family Medicine 07/19/22 Berenice Green [employer] ARCHITECT[employer] [address] [address] [place] [address] PCP - Medical [employer] 01/31/13 03/02/99 Personnel Name: ZEB MESSER MD Address: Address: [address] [place] [address] [place] Name: Katherin Alcazar Reason for Visit (unrecogniz ed section and content) Reason Comments Results Reason Comments Headache Diarrhea Reason Comments Fatigue Reason Comments Med Refill Reason Comments Hypertension Reason Comments Hypothyroidism FOR RECORDS PERTAINING TO PATIENTS WHO ARE [...] BE BASED ON THE PRIMARY CLINICAL RECORDS. [employer] [facility]. provides no warranty or guarantee of the accuracy or completeness of information in this document.
== END 2024-08-04 08:45 | disposition home or self-care (01) ==
LOC: CARD 08:44
PROVIDERS: PCP Family Medicine; Visit Provider Internal Medicine Interventional Cardiology
DX: I34.0 Nonrheumatic mitral (valve) insufficiency (principal)
CPT/HCPCS: 93306

== ENCOUNTER 2024-08-07 10:45 | Outpatient (OUT) | payer OTHER, SELFPAY ==
--- OUTSIDE RECORDS SUMMARY | 2024-08-07 10:49 | XMS_ITS | CCD ---
Author Organization [place] Inform ion [facility] Care Team Providers Care Commercial Lease Administrator Name Role Phone AYDE, DR BERMEO Primary [...] Unavailable HEMEYER, DR BERMEO Primary Care Unavailable TNIA, MAGUE Attending Unavailable TINA, MAGUE Admitting Unavailable [...] Finney Attending Unavailable Nils Finney Admitting Unavailable Zeb Messer MD Primary Care Provider Berenice Tolbert Unavailable Zeb Messer MD Primary Care Provider Zeb Messer MD Primary Care Provider BERENICE GREEN Attending Unavailable ZEB MESSER Attending Unavailable ZEB MESSER Attending Unavailable ZEB MESSER Attending Unavailable ZEB MESSER Attending Unavailable ZEB MESSER Attending Unavailable ZEB MESSER Attending Unavailable ZEB MESSER Attending Unavailable DARRELL PABLO Attending Unavailable Allergies Allergy Classification Reported Allergen(s) Allergy Type Date of Onset Reaction(s) Facility (1 source) Acetaminophen / oxyCODONE Drug Allergy [facility] Repository (1 source) Codeine Drug Allergy [facility] (2 sources) Cortisone; Translations: [CORTISONE] Drug Allergy 6 [facility] (1 source) Lactose Drug Allergy 6 [facility] (20 sources) Acetaminophen / oxyCODONE; Translations: [OXYCODONE-ACETAM INOPHEN] Drug Allergy 1 Unknown [facility] Healthcare (20 sources) Cortisone Drug Allergy 1 Rash [facility] Work Phone: (20 sources) Milk-Related Compounds Propensity to adverse reactions 3 [facility] Work Phone: (20 sources) Neomycin-Bacitrac in Zn-Polymyx Drug Intolerance 1 [facility] (1 source) Milk; Translations: [MILK] Propensity to adverse reactions to drug (disorder) 1 [facility] Repository Medications Current Medications Medication Drug Class(es) [...] 0, 1-2 tab(s) Oral q4hr, [facility], 173.5, cm, 05/14/22 11:51:00 EDT, Height/Length Dosing, [...] Ordered ascorbic acid 1000 mg oral tablet (7 sources) Vitamin C take 1 tablet by [...] hydrochloride 0.137 mg/actuat metered dose nasal spray (6 sources) Histamine-1 Receptor Antagonist Start: 04-29-2024 End: 04-29-2025 take 1 spray(s) nasal route in the morning azelastine (Astelin) 0.1 % nasal spray Indications: Eustachian tube dysfunction, bilateral Administer 1 spray into each nostril in the morning and 1 spray before bedtime. Use in each nostril as directed. 30 mL 1 04/29/2024 04/29/2025 Active Vanesa albicans allergenic extract (2 sources) Non-Standardized [...] Active Start: 05-14-2022 [facility] carvedilol 25 mg Tab 25 [...] # 60 cap(s), Refills(s) 0, Pharmacy: [facility] #[id number], 173.5, cm, 05/14/22 11:51:00 EDT, Height/Length Dosing, 98.2, kg, 05/14/22 11:51:00 EDT, Weight Dosing Start Date: 05/31/22 Status: Ordered Start: 05-14-2022 take 1 capsule by mo [facility] twice daily CeleBREX 200 mg Cap [...] constipation, # 20 cap(s), Refills(s) 0, Pharmacy: [facility] #[id number], 173.5, cm, 05/14/22 11:51:00 EDT, Height/Length Dosing, [...] mg oral capsule (20 sources) Krill Oil ([place] -3) 500 MG capsule Take by mouth. [...] 05/14/22 Status: Ordered LDI (20 sources) Start: 06-22-2024 End: 06-22-2025 LDI Indications: [place] is , Borreliosis Place 1 Dose under the tongue See administration instructions LDI: Lyme Mix C15 Units:6 Dose Type: Core 06/22/2024 06/22/2025 Active Start: 06-22-2024 End: 06-22-2025 LDI Indications: Gastroesoph ageal reflux disease, unspecified whether esophagitis present Place 1 Dose under the tongue See administration instructions LDI: Food Mix C8.5 Units:4 Dose Type: Core 06/22/2024 06/22/2025 Active Start: 06-22-2024 End: 06-22-2025 LDI Indications: COVID-[address] 1 Dose under the tongue See administration instructions LDI: Yeast Mix C19 Units:6 Dose Type: Core 06/22/2024 06/22/2025 Active Start: 11-25-2023 End: 11-24-2024 LDI Indications: COVID-19 [...] 09/10/2023 Active Misc Natural Products (DETOX PO) (7 sources) take 2 tablets by mouth once [...] 06/22/2024 06/27/2024 Active Prasterone, DHEA, (DHEA PO) (7 sources) take 1 tablet by mouth once daily Prasterone, DHEA, (DHEA PO) Place 1 tablet under the tongue Daily Active Probiotic Product (PROBIOTIC PO) (7 sources) take 1 capsule by mouth three times weekly Probiotic Product (PROBIOTIC PO) Take 1 capsule by mouth 3 (three) times a week Active Saw [place] (2 sources) Start: 05-14-2022 take 450 mg by mouth twice daily Saw [place] 450 mg, Oral, BID, Prophylaxis Start Date: 05/14/22 Status: Ordered therapeutic multivitamin-minera ls (Theragran-M) tablet (20 sources) take 2 tablets by mouth in the morning therapeutic multivitamin-minera ls (Theragran-M) tablet Take 2 tablets by mouth in the morning. Active thyroid (fci) 60 mg oral tablet (20 sources) Start: 06-08-2024 End: 09-06-2024 take 1 tablet by mouth in the morning thyroid ([place] Thyroid) 60 MG tablet Indications: Central hypothyroidism (CMS/HCC) , Euthyroid sick syndrome Take 1 tablet (60 mg) by mouth in the morning and 1 tablet (60 mg) before bedtime. 180 tablet 06/08/2024 09/06/2024 Active Start: 11-25-2023 End: 09-04-2024 take 3 tablets by mouth in the morning thyroid ([place] Thyroid) 15 MG tablet Indications: Central hypothyroidism [...] Active Start: 05-14-2022 take 1 capsule by [facility] once daily venlafaxine 75 mg Cap-ER 75 [...] Prophylaxis Start Date: 05/14/22 Status: Ordered Zn-Pyg Sfgt-Vmgcqq-Psa Palmet (SAW PALMETTO COMPLEX PO) (20 sources) [...] Resolved: 02-06-2023 05-14-2022 Chronic Other endocrine disorders (9 sources) Hypotestosteronism; Translations: [Endocrine disorder, unspecified] Onset: 06-02-2024 10-30-2023 Episodic Other endocrine disorders (9 sources) Hyperestrogenism; 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 Ordering Physician: Darrell Pablo M.D. Date of Service: 08/04/24 Procedure(s): CA echo doppler complete Accession Number(s): [id number] cc: Darrell Pablo M.D.; ZEB MESSER Patient Name: KATHERINE HOGAN MR#: [id number] : 1965 Exam Date: 08/04/2024 Ordering Doctor: DR DARRELL PABLO M.D. ECHOCARDIOGRAM REPORT PROCEDURE: CA ECHO DOPPLER COMPLETE INDICATIONS: Nonrheumatic mitral valve regurgitation, hypertension COMPARISON: None. DESCRIPTION: COMPLETE ECHOCARDIOGRAM Real-time transthoracic echocardiography with 2D, M-mode, spectral and color flow Doppler performed. QUALITY: Technical quality was good. LEFT VENTRICLE: Normal chamber size. Mild concentric left ventricular hypertrophy. Normal systolic function. LV EF: Normal left ventricular ejection fraction, (>55%). DIASTOLIC: Normal diastolic function. ATRIAL SEPTUM: Visually appears intact. LEFT ATRIUM: Normal chamber size. RIGHT ATRIUM: Normal chamber size. RIGHT VENTRICLE: Normal chamber size. Normal right ventricular systolic function. TRICUSPID VALVE: Normal mobility and thickness. No stenosis with no regurgitation. Unable to assess right sided pressures due to lack of measurable tricuspid regurgitation. MITRAL VALVE: Mildly thickened with normal mobility. No evidence of mitral valve stenosis. There is no mitral annular calcification. Mild mitral regurgitation. AORTIC VALVE: Normal trileaflet appearance. Mildly calcified aortic valve. Normal leaflet mobility. No evidence of aortic valve stenosis. No aortic regurgitation. AORTIC ROOT: Normal diameter and appearance, measuring 3.7 cm. Ascending aorta is normal in size, measuring 3.2 cm. PULMONIC VALVE: Normal thickness and mobility. No stenosis. Trivial regurgitation. PERICARDIUM: No evidence of pericardial effusion. IVC: Collapses with inspirations. IVC is normal in size. PLEURA: CONCLUSION: 1. Mild concentric left ventricular hypertrophy with normal systolic function. LVEF is estimated at 55-60%. 2. Normal right ventricular systolic function. 3. Normal diastolic function. 4. Mild mitral regurgitation. 5. Unable to assess right sided pressures due to lack of measurable tricuspid regurgitation. Adult Echocardiography Procedure Report Left Ventricle LVEDD (3.7 - 5.6 cm): 4.19 cm LVESD (2.2 - 4.0 cm): 2.48 cm LVIVS thickness (0.6 - 1.2 cm): 1.26 cm LVPW thickness (0.5 - 1.0 cm): 1.23 cm e': 0.12 m/s E - e': 6.13 LVOT Max Gradient: 3.78 mm[Hg] LVOT Area (cm2): 0.97 m/s Peak Velocity (LVOT): 0.97 m/s Mean Velocity (LVOT): 0.67 m/s LVOT Diameter 2.52 cm Left Atrium LA Volume Index (2D A2C): 26.74 ml/m2 Left Atrium Systolic Dimension: 4.07 cm Mitral Valve MV E to A Ratio: 0.90 Mitral Valve A-Wave Peak Velocity: 0.84 m/s Mitral Valve E-Wave Peak Velocity: 0.76 m/s Right Ventricle Aorta AO Root Diam: 3.70 cm Ascending Ao Diam: 3.23 cm Aortic Valve AoV Area (Peak Antoine): 3.40 cm2, 3.40 cm2 AoV Area (VTI): 3.59 cm2, 3.59 cm2 Peak Velocity(Antegrade Flow): 1.42 m/s Peak Gradient(Antegrade Flow): 8.09 mm[Hg] Mean Velocity(Antegrade Flow): 0.93 m/s Mean Gradient(Antegrade Flow): 3.99 mm[Hg] Velocity Time Integral: 32.26 cm Tricuspid Valve Pulmonic Valve Peak Gradient: 6.49 mm[Hg], 4.13 mm[Hg] Right Atrium Right Atrium Systolic Pressure: 23.59 ml, 23.59 ml Dictated by: Dennis Villarreal M.D. on 08/04/2024 at 18:44 Approved by: Dennis Villarreal M.D. on 08/04/2024 at 18:49 Dictated By: DENNIS VILLARREAL Signed By: (more content not included)... [facility] Radiology, Radiologist, MD - 08/05/2024 [place] [address] Cardiology Report Signed Patient: KATHERINE HOGAN MR#: [id number] : 1965 Acct:[id number] Age/Sex: 59 / M ADM Date: 08/04/24 Loc: CARD Attending Dr: Darrell Pablo M.D. Ordering Physician: Darrell Pablo M.D. Date of Service: 08/04/24 Procedure(s): CA echo doppler complete Accession Number(s): [id number] cc: Darrell Pablo M.D.; ZEB MESSER Patient Name: KATHERINE HOGAN MR#: [id number] : 1965 Exam Date: 08/04/2024 Ordering Doctor: DR DARRELL PABLO M.D. ECHOCARDIOGRAM REPORT PROCEDURE: CA ECHO DOPPLER COMPLETE INDICATIONS: Nonrheumatic mitral valve regurgitation, hypertension COMPARISON: None. DESCRIPTION: COMPLETE ECHOCARDIOGRAM Real-time transthoracic echocardiography with 2D, M-mode, spectral and color flow Doppler performed. QUALITY: Technical quality was good. LEFT VENTRICLE: Normal chamber size. Mild concentric left ventricular hypertrophy. Normal systolic function. LV EF: Normal left ventricular ejection fraction, (>55%). DIASTOLIC: Normal diastolic function. ATRIAL SEPTUM: Visually appears intact. LEFT ATRIUM: Normal chamber size. RIGHT ATRIUM: Normal chamber size. RIGHT VENTRICLE: Normal chamber size. Normal right ventricular systolic function. TRICUSPID VALVE: Normal mobility and thickness. No stenosis with no regurgitation. Unable to assess right sided pressures due to lack of measurable tricuspid regurgitation. MITRAL VALVE: Mildly thickened with normal mobility. No evidence of mitral valve stenosis. There is no mitral annular calcification. Mild mitral regurgitation. AORTIC VALVE: Normal trileaflet appearance. Mildly calcified aortic valve. Normal leaflet mobility. No evidence of aortic valve stenosis. No aortic regurgitation. AORTIC ROOT: Normal diameter and appearance, measuring 3.7 cm. Ascending aorta is normal in size, measuring 3.2 cm. PULMONIC VALVE: Normal thickness and mobility. No stenosis. Trivial regurgitation. PERICARDIUM: No evidence of pericardial effusion. IVC: Collapses with inspirations. IVC is normal in size. PLEURA: CONCLUSION: 1. Mild concentric left ventricular hypertrophy with normal systolic function. LVEF is estimated at 55-60%. 2. Normal right ventricular systolic function. 3. Normal diastolic function. 4. Mild mitral regurgitation. 5. Unable to assess right sided pressures due to lack of measurable tricuspid regurgitation. Adult Echocardiography Procedure Report Left Ventricle LVEDD (3.7 - 5.6 cm): 4.19 cm LVESD (2.2 - 4.0 cm): 2.48 cm LVIVS thickness (0.6 - 1.2 cm): 1.26 cm LVPW thickness (0.5 - 1.0 cm): 1.23 cm e': 0.12 m/s E - e': 6.13 LVOT Max Gradient: 3.78 mm[Hg] LVOT Area (cm2): 0.97 m/s Peak Velocity (LVOT): 0.97 m/s Mean Velocity (LVOT): 0.67 m/s LVOT Diameter 2.52 cm Left Atrium LA Volume Index (2D A2C): 26.74 ml/m2 Left Atrium Systolic Dimension: 4.07 cm Mitral Valve MV E to A Ratio: 0.90 Mitral Valve A-Wave Peak Velocity: 0.84 m/s Mitral Valve E-Wave Peak Velocity: 0.76 m/s Right Ventricle Aorta AO Root Diam: 3.70 cm Ascending Ao Diam: 3.23 cm Aortic Valve AoV Area (Peak Antoine): 3.40 cm2, 3.40 cm2 AoV Area (VTI): 3.59 cm2, 3.59 cm2 Peak Velocity(Antegrade Flow): 1.42 m/s Peak Gradient(Antegrade Flow): 8.09 mm[Hg] Mean Velocity(Antegrade Flow): 0.93 m/s Mean Gradient(Antegrade Flow): 3.99 mm[Hg] Velocity Time Integral: 32.26 cm Tricuspid Valve Pulmonic Valve Peak Gradient: 6.49 mm[Hg], 4.13 mm[Hg] Right Atrium Right Atrium Systolic Pressure: 23.59 ml, 23.59 ml Dictated by: Dennis Villarreal M.D. on 08/04/2024 at 18:44 Approved by: Dennis Villarreal M.D. on 08/04/2024 at 18:49 Dictated By: DENNIS VILLARREAL Signed By: 08/04/24 185 DD/ 48 TD/TT: [place]: [facility] Radiology Study observation (narrative) [facility] CA ECHO DOPPLER COMPLETEOrde red By: Radiologist Radiology on 08-04-2024 [facility] Work Phone: Office Visiton 07-14-2024 Follow-up visit [id number] Katherine Hogan 1965 M Date Provider Department Center 07/14/2024 Vel-DARRELL PABLO CARD [facility] Family History Problem Relation Age of Onset Heart attack Brother Coronary artery disease Brother Other Brother Family Status - Relation Status Age at Mother Father Sister Alive Brother Level of Service:08318 NE OFFICE/OUTPATIENT ESTABLISHED MOD MDM 30 MIN Normal [facility] T3 REVERSE, LC/MS/MSon 02-21 T3 REVERSE, LC/MS/MS 12 ng/dL Normal 8-25 Ques t Diagnostics Comment on above: Order Comment: FASTI NG:YES FASTING: YES Result Comment: This test was developed and its analytical performance characteristics have been determined by [facility] [place]. It has not been cleared or approved by the U.S. Food and Drug Administration. This assay has been validated pursuant to the CLIA regulations and is used for clinical purposes. Performed By: #### 3 0928, 861, 859 #### 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: Carlos Manuel Sevilla MD #### [id number] #### [facility] [address] [facility] [place] [address] [employer]: Krunal Mcgee M.D.,PhD T3, FREEon 02-22-2024 Free T3 [Mass/Vol] 4.0 pg/mL Normal 2.3-4.2 [facility] Comment on above: Performed By: #### 3 4429, 866, 859 #### [facility] [place] [address] [employer]: Carlos Manuel Sevilla MD #### [id number] #### [facility]/[place] [id number] [facility] [place], [place] [employer] Recovery: Krunal Mcgee M.D.,PhD T3, TOTALon 02-22-2024 T3, TOTAL 122 ng/dL Normal 76-181 [facility] Comment on above: Performed By: #### 3 4429, 866, 859 #### [facility] [place] [address] [employer]: Carlos Manuel Sevilla MD #### [id number] #### [facility]/[place] [id number] [facility] [place] [employer]: Krunal Mcgee M.D.,PhD T4, FREEon 02-22-2024 Free T4 [Mass/Vol] 1.0 ng/dL Normal 0.8-1.8 [facility] Comment on above: Performed By: #### 3 4429, 866, 859 #### [facility] [place] [address] [employer]: Carlos Manuel Sevilla MD #### [id number] #### [facility]/[place] [id number] [facility] [place] [employer]: Krunal Mcgee M.D.,PhD HEMOGLOBIN A1con 02-21-2024 HEMOGLOBIN [...] diagnosis of diabetes in children. According to [place] Diabetes Association (ADA) guidelines, hemoglobin A1c <7.0% represents optimal control in non- diabetic patients. Different metrics may apply to specific patient populations. Standards of Medical Care in Diabetes(ADA). Performed By: #### 4 96 #### [facility] [address], [address] [place] [address] [employer]: Carlos Manuel Sevilla MD [employer] [facility] 02-19-2024 Albumin [Mass/Vol] 4.5 g/dL Normal 3.6-5.1 [facility] Comment on above: Performed By: #### 1 0231, 7600 #### [facility] [address], [address] [place] [address] [employer]: Carlos Manuel Sevilla MD Albumin/Globulin [Mass ratio] 2.0 {ratio} Normal 1.0-2.5 [facility] Comment on above: Performed By: #### 1 0231, 7600 #### [facility] [address], [address] [place] [address] [employer]: Carlos Manuel Sevilla MD ALP [Catalytic activity/Vol] 94 U/L Normal 35-144 [facility] Comment on above: Performed By: #### 1 0231, 7600 #### [facility] [place] [address] [employer]: Carlos Manuel Sevilla MD ALT [Catalytic activity/Vol] 71 U/L High 9-46 [facility] Comment on above: Performed By: #### 1 0231, 7600 #### [facility] [place] [address] [employer]: Carlos Manuel Sevilla MD AST [Catalytic activity/Vol] 27 U/L Normal 10-35 [facility] Comment on above: Performed By: #### 1 0231, 7600 #### [facility] [place] [address] [employer]: Carlos Manuel Sevilla MD Bilirubin [Mass/Vol] 0.5 mg/dL Normal 0.2-1.2 Ques t Diagnostics Comment on above: Performed By: #### 1 023, 7600 #### [facility] [place] [address] [employer]: Carlos Manuel Sevilla MD BUN/CREATININE RATIO SEE NOTE: Normal 6-22 Ques t Diagnostics Comment on above: Result Comment: Not Reported: BUN and Creatinine are within reference range. Performed By: #### 1 023, 7600 #### [facility] [address], [address] [place] [address] [employer]: Carlos Manuel Sevilla MD Calcium [Mass/Vol] 9.9 mg/dL Normal 8.6-10.3 [facility] Comment on above: Performed By: #### 1 230, 0 #### [facility] [place] [address] [employer]: Carlos Manuel Sevilla MD Chloride [Moles/Vol] 101 mmol/L Normal 98-110 Ques t [facility] Comment on above: Performed By: #### 1 230, 7600 #### [facility] [place] [address] [employer]: Carlos Manuel Sevilla MD CO2 [Moles/Vol] 29 mmol/L Normal 20-32 [facility] Comment on above: Performed By: #### 1 230, 7600 #### [facility] [place] [address] [employer]: Carlos Manuel Sevilla MD Creatinine [Mass/Vol] 0.97 mg/dL Normal 0.70-1.[address] [facility] Comment on above: Performed By: #### 1 023, 7600 #### [facility] [place] [address] [employer]: Carlos Manuel Sevilla MD GFR/1.73 sq M.predicted among non-blacks MDRD (S/P/Bld) [Vol rate/Area] 89 mL/min/{1.73_m2} Normal > OR = 60 [facility] Comment on above: Performed By: #### 1 230, 0 #### [facility] [place] [address] [employer]: Carlos Manuel Sevilla MD Globulin (S) [Mass/Vol] 2.3 g/dL Normal 1.9-3.7 [facility] Comment on above: Performed By: #### 1 230, 7600 #### [facility] [place] [address] [employer]: Carlos Manuel Sevilla MD Glucose [Mass/Vol] 122 mg/dL High 65-99 [facility] Comment on above: Result Comment: Fasting reference interval For someone without known diabetes, a glucose value between 100 and 125 mg/dL is consistent with prediabetes and should be confirmed with a follow-up test. Performed By: #### 1 230, 0 #### [facility] [place] [address] [employer]: Carlos Manuel Sevilla MD Potassium [Moles/Vol] 3.7 mmol/L Normal 3.5-5.[address] [facility] Comment on above: Performed By: #### 1 230, 0 #### [facility] [place] [address] [employer]: Carlos Manuel Sevilla MD Protein [Mass/Vol] 6.8 g/dL Normal 6.1-8.1 [facility] Comment on above: Performed By: #### 1 230, 7600 #### [facility] [place] [address] [employer]: Carlos Manuel Sevilla MD Sodium [Moles/Vol] 138 mmol/L Normal 135-146 [facility] Comment on above: Performed By: #### 1 230, 7600 #### [facility] [place] [address] [employer]: Carlos Manuel Sevilla MD Urea nitrogen [Mass/Vol] 14 mg/dL Normal 7-25 [facility] Comment on above: Performed By: #### 1 0231, 7600 #### [facility] [address], [address] [place] [address] [employer]: Carlos Manuel Sevilla MD LIPID PANEL, [place] [address] Cholesterol [Mass/Vol] 151 mg/dL Normal <200 [facility] Comment on above: Order Comment: FASTI NG:YES FASTING: YES Performed By: #### 1 0231, 7600 #### [facility] [address], [address] [place] [address] [employer]: Carlos Manuel Sevilla MD Cholesterol in HDL [Mass/Vol] 53 mg/dL Normal > OR = 40 [facility] Comment on above: Order Comment: FASTI NG:YES FASTING: YES Performed By: #### 1 023, 0 #### [facility] [address], [address] [place] [address] [employer]: Carlos Manuel Sevilla MD Cholesterol in LDL [Mass/Vol] 79 mg/dL Normal [facility] Comment on above: Order Comment: FASTI NG:YES FASTING: YES Result Comment: Refe rence range: <100 Desirable range <100 mg/dL for primary prevention; <70 mg/dL for patients with CHD or diabetic patients with > or = 2 CHD risk factors. LDL-C is now calculated using the Stephen-Vicente calculation, which is a validated novel method providing better accuracy than the Friedewald equation in the estimation of LDL-C. Stephen LAWRENCE et al. MAY. 2013;310(19): 2963-9901 (http://education.[employer] Software/faq/RKU646) Performed By: #### 1 0231, 0 #### [facility] [address], [address] [place] [address] [employer]: Carlos Manuel Sevilla MD Cholesterol.total/Cho lesterol in HDL [Mass ratio] 2.8 {ratio} Normal <5.0 [facility] Comment on above: Order Comment: FASTI NG:YES FASTING: YES Performed By: #### 1 0231, 7600 #### [facility] [address], [address] [place] [address] [employer]: Carlos Manuel Sevilla MD NON HDL CHOLESTEROL 98 mg/dL (calc) Normal <130 [facility] Comment on above: Order Comment: FASTI NG:YES FASTING: YES Result Comment: For patients with diabetes plus 1 major ASCVD risk factor, treating to a non-HDL-C goal of <100 mg/dL (LDL-C of <70 mg/dL) is considered a therapeutic option. Performed By: #### 1 0231, 7600 #### [facility] [address], [address] [place] [address] [employer]: Carlos Manuel Sevilla MD Triglyceride [Mass/Vol] 103 mg/dL Normal <150 [facility] Comment on above: Order Comment: FASTI NG:YES FASTING: YES Performed By: #### 1 0231, 7600 #### [facility] [address], [address] [place] [address] [employer]: Carlos Manuel Sevilla MD Laboratory - Chemistry and C hemistry - challengeon 02-19-2024 Albumin [Mass/Vol] 4.5 g/dL 3.6 - 5.1 g/dL [facility] Albumin/Globulin [Mass ratio] 2 {ratio} [facility] [facility] ALP [Catalytic activity/Vol] 94 U/L 35 - 144 U/L [facility] ALT [Catalytic activity/Vol] 71 U/L High 9 - 46 U/L [facility] AST [Catalytic activity/Vol] 27 U/L 10 - 35 U/L [facility] Bilirubin [Mass/Vol] 0.5 mg/dL 0.2 - 1 .2 mg/dL [facility] Calcium [Mass/Vol] 9.9 mg/dL 8.6 - 10. 3 mg/dL [facility] Chloride [Moles/Vol] 101 mmol/L 98 - 11 0 mmol/L [facility] CO2 [Moles/Vol] 29 mmol/L 20 - 32 mmol/L [facility] Creatinine [Mass/Vol] 0.97 mg/dL 0.70 - 1.35 mg/dL [facility] GFR/1.73 sq M.predicted among non-blacks MDRD (S/P/Bld) [Vol rate/Area] 89 mL/min/{1.73_m2} > OR = 60 mL/min/1.73m2 [facility] Globulin (S) [Mass/Vol] 2.3 g/dL [facility] Glucose [Mass/Vol] 122 mg/dL High 65 - 99 mg/dL [facility] Comment on above: Fasting reference interval For someone without known diabetes, a glucose value between 100 and 125 mg/dL is consistent with prediabetes and should be confirmed with a follow-up test. Potassium [Moles/Vol] 3.7 mmol/L 3.5 - 5.3 mmol/L [facility] Protein [Mass/Vol] 6.8 g/dL 6.1 - 8.1 g/dL [facility] Sodium [Moles/Vol] 138 mmol/L 135 - 146 mmol/L [facility] Urea nitrogen [Mass/Vol] 14 mg/dL 7 - 25 mg/dL [facility] Urea nitrogen/Creatinine [Mass ratio] SEE NOTE: [facility] Comment on above: Not Reported: BUN an d Creatinine are within reference range. Lipid 1996 panelon 4 Cholesterol [Mass/Vol] 151 mg/dL [facility] - 200 mg/dL [facility] Cholesterol in HDL [Mass/Vol] 53 mg/dL > OR = 40 [facility] Cholesterol in LDL [Mass/Vol] 79 mg/dL mg/dL (calc) [facility] Comment on above: Reference range: <10 0 Desirable range <100 mg/dL for primary prevention; <70 mg/dL for patients with CHD or diabetic patients with > or = 2 CHD risk factors. LDL-C is now calculated using the Stephen-Vicente calculation, which is a validated novel method providing better accuracy than the Friedewald equation in the estimation of LDL-C. Stephen LAWRENCE et al. MAY. 2013;310(19): 2495-0818 (http://education.[facility].com/faq/XBK578) Cholesterol non HDL [Mass/Vol] 98 mg/dL [facility] Comment on above: For patients with di abetes plus 1 major ASCVD risk factor, treating to a non-HDL-C goal of <100 mg/dL (LDL-C of <70 mg/dL) is considered a therapeutic option. Cholesterol.total/Cho lesterol in HDL [Mass ratio] 2.8 {ratio} [facility] Triglyceride [Mass/Vol] 103 mg/dL [facility] - 150 mg/dL [facility] No Panel Informationon 02-18 Interpretation and review of laboratory results Abnormal [facility] FASTING:YES FASTING: YES [facility] [employer] Organization Information Site ID: QPT Name: [facility] Address: [address] [place] [address], [address] [place] [id number] Director: Carlos Manuel Sevilla MD [facility] ALL THYROXINE (T4) FREEon Free T4 [Mass/Vol] 0.71 ng/dL Low 0.76 - 1. 46 ng/dL [facility] Interpretation and review of laboratory results Abnormal [facility] CBC W Auto Differential pane l (Bld)on 10-31-2023 Band form neutrophils (Bld) [#/Vol] CANCELED [facility] Comment on above: Result canceled by t he ancillary. Band form neutrophils/100 WBC (Bld) CANCELED % [facility] Comment on above: Result canceled by t he ancillary. Basophils (Bld) [#/Vol] 19 10*3/uL [facility] Basophils/100 WBC (Bld) 0.4 % [facility] Blasts (Bld) [#/Vol] CANCELED 0 cells/uL [facility] Comment on above: Result canceled by t he ancillary. Blasts/100 WBC (Bld) CANCELED % [facility] Comment on above: Result canceled by t he ancillary. Eosinophils (Bld) [#/Vol] 312 10*3/uL [facility] Eosinophils/100 WBC (Bld) 6.5 % [facility] Erythrocyte distribution width (RBC) [Ratio] 13.4 % 11.0 - 15.0 % [facility] Hematocrit (Bld) [Volume fraction] 44.4 % 38.5 - 50.0 % [facility] Hemoglobin (Bld) [Mass/Vol] 15.1 g/dL 13.2 - 17.1 g/dL [facility] Lymphocytes (Bld) [#/Vol] 1147 10*3/uL [facility] Lymphocytes/100 WBC (Bld) 23.9 % [facility] MCH (RBC) [Entitic mass] 32.3 pg 27.0 - 33.0 pg [facility] MCHC (RBC) [Mass/Vol] 34.0 g/dL 32.0 - 36.0 g/dL [facility] MCV (RBC) [Entitic vol] 95.1 fL 80.0 - 100.0 fL [facility] Metamyelocytes (Bld) [#/Vol] CANCELED 0 cells/uL [facility] Comment on above: Result canceled by t ancillary. Metamyelocytes/100 WBC (Bld) CANCELED % [facility] Comment on above: Result canceled by t ancillary. Monocytes (Bld) [#/Vol] 494 10*3/uL [facility] Monocytes/100 WBC (Bld) 10.3 % [facility] Myelocytes (Bld) [#/Vol] CANCELED 0 cells/uL [facility] Comment on above: Result canceled by t ancillary. Myelocytes/100 WBC (Bld) CANCELED % [facility] Comment on above: Result canceled by t ancillary. Neutrophils (Bld) [#/Vol] 2827 10*3/uL [facility] Neutrophils/100 WBC (Bld) 58.9 % [facility] Nucleated RBC (Bld) [#/Vol] CANCELED 0 cells/uL [facility] Comment on above: Result canceled by t ancillary. Nucleated RBC/100 WBC (Bld) [Ratio] CANCELED 0 /100 WBC [facility] Comment on above: Result canceled by t ancillary. Platelet mean volume (Bld) [Entitic vol] 8.9 fL 7.5 - 12.5 fL [facility] Platelets (Bld) [#/Vol] 287 10*3/uL [facility] Promyelocytes (Bld) [#/Vol] CANCELED 0 cells/uL [facility] Comment on above: Result canceled by t ancillary. Promyelocytes/100 WBC (Bld) CANCELED % [facility] Comment on above: Result canceled by t ancillary. RBC (Bld) [#/Vol] 4.67 10*6/uL [facility] Service comment (Unsp spec) [Interp] CANCELED [facility] Comment on above: Result canceled by t ancillary. Variant lymphocytes/100 WBC (Bld) CANCELED 0 - 10 % [facility] Comment on above: Result canceled by t neil ancillary. WBC (Bld) [#/Vol] 4.8 10*3/uL [facility] Performing Organization Information Site ID: QTW Name[facility] Address: [address] [place] [id number] Director: Shelia Bello [facility] Operative Reporton Operative Report Patient: KATHERINE HOGAN [...] pain, # 60 cap(s), Refills(s) 0, Pharmacy: [facility] #[id number], 173.5, cm, 05/14/22 11:51:00 EDT, Height/Length Dosing, 98.2, kg, 05/14/22 11:51:00 EDT, Weight Dosing Colace 100 mg Cap: 100 mg = 1 cap(s), Oral, BID, PRN for constipation, # 20 cap(s), Refills(s) 0, Pharmacy: [facility] #[id number], 173.5, cm, 05/14/22 11:51:00 EDT, Height/Length Dosing, 98.2, kg, 05/14/22 11:51:00 EDT, Weight Dosing Percocet 5 mg-325 mg oral tablet: See Instructions, 40 tab(s), Refill(s) 0, 1-2 tab(s) Oral q4hr, [id number], 173.5, cm, 05/14/22 11:51:00 EDT, Height/Length Dosing, [...] Oil: 500 mg, Oral, Daily, Prophylaxis Saw [place]: 450 mg, Oral, BID, Prophylaxis Triamcinolone Acetonide: [...] list: All Problems Anxiety / SNOMED CT 51604230 / Confirmed Apnea, sleep / SNOMED CT 319312405 / Confirmed uses Cpap Arthritis / SNOMED CT 0309084 / Confirmed Hernia, hiatal / SNOMED CT 365130218 / Confirmed High cholesterol / SNOMED CT 02387981 / Confirmed History of IBS / SNOMED CT 7487527738 / Confirmed Hypertension / SNOMED CT 7667000826 / Confirmed Vertigo / SNOMED CT 2577946258 / Confirmed, Active Problems (8) Anxiety Apnea, sleep Arthritis Hernia, hiatal High cholesterol History of IBS Hypertension Vertigo Histories Pa (more content not included)... Normal [facility] Comment on above: Result Comment: Elec tronically Signed By: Brandan Connor CRNA.br\Date and Time Signed: 05/31/22 07:50 EDT Progress Note-Physicianon Progress Note-Physician [id number]# 1.00CD:127 Normal [facility] IntraOperative Documentson 0 06-06-2022 IntraOperative Documents [id number]# 1.00CD:127 Normal [facility] Coding Summary.on 06-04-2022 Coding Summary. CD:[id number] W w+PGhlYWQ+UB1BPVCpW50 yqRCobD6rU6PQEVkCMybv SGJKZEsPFeYexqLgWU5np XNjZXJu IC8+HI9dATDgPrhyxBDac 1V0lWF0C40zyp1cOVspqX S6KDXfJfEonnvmm8mpwCj 6IDcuNmluOyBt EIDqoF91TIR4fA75Xj66u WHfoQBkq1dieFe0OyJiSU UyREO8qCcgVRdsn7DgOHW jF06cuOXve2O9 BOSbvYeruBTfAcLngEE7d X3mFVlaxtzms7pvkstqZe p4yo41hJJvo8G8lUB4X0M ytpO4LTJfpBJw CdoohYMZiM7oyklnu3xwn gvaZmGaGOBwOJi1JNd8FQ HsdSjpUvPfDE81ULD2NUY mreCbJ3ApTMSo kWwcFeH6a2T9Po9ER8ODS eohI7DRGFSWFZlzyIM+PC 37ih11G6GqNbdxFnh1OAB vIWM4bYD5rC1h UJTuIJtre9E6rLT2D8Upe oDccb3zc2jjTZNxKPylS3 1ktLGig8P8LFZnwTL7PLC jzSquNuBbnD20 Oyc+HPHjfUzso8OoHszyi 7tgp6ejbLb1TfllDAMqnp ZyoYkxWGA6p2BxFz2qSOQ bpRU8tTF8wM1n WrGzMlH8LQbzZ974PiQkg HQpHmpdB71xH0WqpBF+PH UpIsi4PVUyiWtlJU2iF9M hZGRpbmctbGVm oDatOC2sZGUxjncrRXYew Y7mIAEaW7k2GbItOoW3VU uzG1UbMPZwtlswZk05yY0 sYbBhAjA5AChb L6AgzmN7LVSvuHHsBLojM PS9O94kt2I3VIOhZDPyOL U0gJV2oJ2inVvqeawlgJM mdDsgdmVydGlj HOndZHrjK833RJBorVnyR kNvZGluZyBEYXRlOiAgMD QvMDQvMjAyMzwvdGQ+PHR lMSG1uNfoSLWl iFWnQYfdPx8urXrmtTdhD R7pUWRounxvVSRcfH9eKN HwkHBhdUadSA2sWSNlufk lu395SwVsPWE1 UCYocTBcI1TkaW6hMfJxY UCfZVPuA2XtbZDgDIfxV0 15EOawOmK0TLEpwyWgG5B sLWFsaWduOiB0 b7R5Yk6Dw1SsbodcP8Odv QKzRtNeKyunDYj4M1NcKx wvdHI+HY39UEVeDE49QJh 5FLJ6xSnpBFuf AVIxR1WpsK6qZtChSPOsF GRkOyc+PHRhYmxlIHdpZH RoPScxMDAlJyBzdHlsZT0 eSo2qQTYsBBEp oHhnkIEsBvCjh6wdYBOrF KriXP7fuNpjQ8RncBA6HB Aju4z2Jg21L11bN0VeyFP +PRXumHG0tIJ3 zJ8fZfNyExP5QExdW124U aXczPTrOcesz2pdb0aniL v8CqM7BZDcifMlvYpuUOE 3s1TrGu20G14q IHdpZHRoPSIxNSUiIHZhb Ccrfc0xmZ3lYc8+PGNvbC K7kIC2vQ9qBmTqPeF4VWv mV894CuObvCRl Psyss0ieb8irpDa1SvJnT OCwbkMdgYwoJSP6l7PyIo 54A1JrfZbcq6NeNpg0vf8 8zYZvv3G3jFG9 Y0AtTABxdwogmJLqfFczV O9bNXWvsxzgLIFwcB6xPW UtC4c7MnRaIbL9ZUzhF9T omnF7LOJadBQe XBZaaSQQjL5mizzju0kbj zipYqUxVJNsYVv0ACp2OB VmaVtmMpGpTTK5MxK1BQQ 2jGQvyI7heDab dlqelN4pBqx+OOL9nZBkh VYGHL1wQjjvaPI+PHRkIH I1nPjcXLqfCQSjiT8oYCK xJ4m5BzQqHrB5 LSqvD6SyktM6QYBkxMQnE EEjbBMJsO0kgsdxc8secb vfXrRkCBBgWJg6IWe6TWB saWduOiBsZWZ0 RlI2HCM5gNNlfE6bdStbj uyjrX7rAva+QmlydGggRG X4DRb4R4JvDzc1QIGooUc vXA3uhVDoXJzr Ap4yzTtvuQodEE7vLRAjz eofq641ZfKjm3haESEgiR DyIVjlBNH1N54ng3K0RDN kYMGbAWB5pYL2 xN0jeCdurbcjtPSpnBiun vXxmOxzZWexQFpqP485RP HpzZhiLhRjNWy9P6EwQcm 7VCDyiJjbSL3e hJXbWYsrGd6qfNvlmSmuO I9wBXWzydizg317GeNuw8 mxJKWbsQXyJOgeEGY7X57 me2P2JZReZHKm OSL3gVL9fN5zkXazzjvrw GVmdDsgdmVydGljYWwtYW izC258VAXzpTfmPpLtjHz 0T0MmLns4QJUd mSucND1jjBWcVTwjPn9aq CqjzLgtIM6sBBQpylhxr6 58TrFsw6qyEBXqhPVhHOa hXEN8I52yb3G1 LOHyIEDrXBB3aDB9xF9ne GlnbjogbGVmdDsgdmVydG khWCzkOMmbN738YZWvrGr nPlBhdGllbnQg KWryZLk6H6LlOcvdlYD+P D38GFMaMZ75lMKnmNEfq1 nxzYw6QfYeKZGmICS5sBp vPYvqu0MgGGWd N31udNDmh6H1DQZgrAnyc AFaMsNzkEQ1iT7aVVhbzn mtw0duiuguPqjkc0murm2 8uH33V27dMWfd ZHRoPSIzMCUiIHZhbGlnb n1ewB1oUj6+YZOhuVN1yF Z8pY3jUFGjFqT8GPmbG04 9InRvcCIvPjxj b0pas5tpmVj4UgC4DKJkb vXoiKlnQID2f0QyRn85Y8 9sIHdpZHRoPSIyMCUiIHZ pnXbdav3utW4r Ii8+HBTnsTY1fNG7gZ2iM xJrSqE0QHekX645BxJbpD AoExlwZ48qE0OjhLT+PHR qDfb1OZMnrQob LE7wlETfNTapXz0nWJU5K pGeWzXgVViuG5XiASHawf jlkcmxzEK0XRUpQBFqdH0 0Xv9szXffGVIm dWWSpF7gtrywb5mrpnsbJ zFfXSIjIOd5UJs0POGbwM ejToDuETG3RzU4RNX1bBC bfQ6abFlwysom tZ6jI7SsFFArbtktBu25z Z4cLdPmSrO5YPyqHdx+Uk iMEQbuXO2SHBUYHZauZjd vdGQ+PHRkIHN0 tVngJQcbPDZljR4lULYzL 8p0KqWaXlU9QVcwV7OlVB GpasijSm99uO7kNoOuOmJ 2BVgaQ4CyrhP3 AVYrnPLkIAwvNEQ0Y73tl 1W8YGDnLKWaMIV9bMU0jT 1hbGlnbjogbGVmdDsgdmV ydGljYWwtYWxp E652EFNjnHquNsDcYhL8Y aU8IgS6K6AxAye2LWDmyA xlXN1fnFTjVBnuGl7qrMn zfUixLY2qQVPa ajcaQPNncF9uXMBczSYol JhoYY8xILOatvnmw945Gr AkOTG7PNIvsQUfV5XbyM6 yOiAjMDAwMDAw F1VocPZeMDrnU285LEswC dC9ZOYqrfYvO4BdLHOoxL kyCjS4q2D1If17PDQOTOM yczwvdGQ+PHRk CFR7uGrrSAruRIHsiW9sJ HHwT0i7CrBpSrS1ACpuR2 IlCLQyftyhKw81tG7lNxN rHjL9MCptY7Aj neJ4ZCXksCJpHFtnWJI8Y 18dz4P6FGGsUYHnCRJ0xN Q5iI9jcUasdurobPThcYe gdmVydGljYWwt AWsyC163IYSdpTyjZx1no AN0H0PrSsc1RKEmvZiqFA 5rdOEbQJmeBp1zpOwtqLl rVP5hLDOeohbz HWSylL8fXOBnyPDqiLcaJ H0fXRLprgcbl846YwNwWG T8QTOrnXRwP2PbkI9kXkS kPIYqVHZeV5Es cGAjQYooV666QRooUnO1O IPvsxZyF1OjNCHydNlkEk T7d7I7Qg3SvAI6iZB8m5C 2E0HngOFtBGJ5 VAW4jllyatm3H3ZrXlvva HI+XZ69OCVcVW52nFHehI Rus6otdQz2HjDgSTUrARF 2zJopNYora9Xy FFLlY14ifYQbm4J1YHCys EkpuQHdDgXurOL1cH3mGJ siqplzy9fmbutwOpjpm6x kya87lY53R14x IHdpZHRoPSIzMCUiIHZhb Ujuwr3qtL6fIg7+PGNvbC K5dPM6jA3iVyMtJrY2ZFc uX762JrVtuWJx Kothe8ssf0kauPf9PfTgK CXkyzSyrEolZWM4t4YwHr 40W93wDYujBCQgZQWvJUC nYMFjyOufct5q hP8hOq5+KL4bp1jogt12w D48dHI+EGSrIZA6oNjcMU fuWERjsL3oGMkuOzE1JSE jFmMehN61gEGl ZKekEb3wtEccpTbhRU0hK YRbekbzw205JdIwl8ywCH RugNRpVIuvKNX7P79fy6T 6IKRkWXOhBUC5 eHT2iL4mnJyneurbwAXir DsgdmVydGljYWwtYWxpZ2 28YKOsvAblNvLrhMJbD5b dhhCWAV1nRcec dGQ+PWQqEVK1xPfiXLbzF QPvvJ4nXNZyT9r1BfXaRq L7HRryC5FshnI7AUJdtQA aTBYgrYXTwD6s gompn1ueccdbMaQzHWMpE Xb6VLg8EUJwsEmuOxDsMN G9CcB9VTI9tFSmbP5hjDl bsjqeiU0wRls+ RklOOjwvdGQ+HHSkGRY1g RxbCAylQKDvuR6oMKHtZ1 a9WwGvMtL0VBnnS0OvypN 6IGJvbGQgMTBw uCELcC4gotfxe2zfkuslB cLbIZAzBIp7JHr0ZVTvuL vbKjBpOIE6AsB2AQO8zWQ vnX0amMmuublk tM4qMxp+TVJOOjwvdGQ+P YCxUOI3pZmeBPtfUMTybK 1yMQGzT8p6UkAnJaY5BNu sW1IphiK4XDYu vJScBRVjnISExV1cbojge 9bkbxqtEqNiBRYuBIw8BS v6DSGyaOwtOqEkDFS0SxQ 2OCG0qGIlzX6b gDecpvborD9vXqc+UGF5Z UX7HL16BL56U8ArSyxahK FibGU+PHRhYmxlIHdpZHR oPScxMDAlJyBz vXxtRE8f (more content not included)... Normal [facility] Consent for Anesthesiaon Consent for Anesthesia [id number]# 1.00CD:127 [facility] Discharge Instructionson Discharge Instructions [id number]# 1.00CD:127 [facility] IntraOperative Documentson 0 06-03-2022 IntraOperative Documents [id number]# 1.00CD:127 [facility] Main OR Intraoperative Recor don 06-03-2022 Main OR Intraoperative Record IntraOp Document Type FT Summary Primary Physician: Nils Finney DO Finalized Date/Time: 06/03/22 10:25:02 Pt. Name: KATHERINE HOGAN /Sex: 1965 Male Med Rec #: [id number] Physician: Nils Finney DO Financial #: [id number] Pt. Type: A Room/Bed: [facility]04/03 Admit/Disch: 05/31/22 05:30:31 - 05/31/22 10:30:00 Institution: [...] 1 Entry 2 Entry 3 Case Attendee Brandan Connor CRNA, DO, Jason A Cantal RN, Sheminith A Role Performed HOLLY Surgeon - Primary Plugger Man - Primary Time In 05/31/22 07:14:00 05/31/22 [...] Case Attendee Arti RN, Mallory Humphreys RN, Dolores Mott CORPORATE WEBMASTERCristobal Role Performed Plugger Man - Primary Staff - Other CORPORATE WEBMASTER/SA Time In 05/31/22 07:14:00 05/31/22 07:14:00 05/31/22 [...] Lazcano, Arthrex rep, also in attendance. MARJORIE Jackcake wringer Protocols FT Pre-Care Text: Implements protective measures [...] Last Modified By: Conrado Marroquin RN, RN, She (more content not included)... Normal [facility] Preoperative Documentson Preoperative Documents [id number]# 1.00CD:127 Normal [facility] Progress Note-Physicianon Progress Note-Physician Patient: KATHERINE HOGAN Age: 57 years Sex: Male : 1965 Associated Diagnoses: None Author: Power Toledo Jr, DO Postoperative Information Postoperative disposition: Postoperative disposition: To PACU. Optimetrix number: Optimetrix number [id number]. Anesthetic utilized: General. Health Status Allergies: Allergic [...] meets criteria ( To home ). Normal [facility] Comment on above: Result Comment: Elec tronically Signed By: Poewr Toledo Jr, DO\.br\Date and Time Signed: 06/03/22 10:12 EDT Consent for Treatmenton 05-03 Consent for Treatment [id number]#1 .00CD:127 Normal [facility] H&P Updateon 05-31-2022 H&P Update [id number]#1. 00CD:127 Normal [facility] Inpatient Patient Summaryon 05-31-2022 Inpatient Patient Summary [address] [address] [facility] Clinical Discharge Instructions PERSON INFORMATION Name: KATHERINE HOGAN [facility]#:[id number] PHYSICIANS Admitting Physician: Nils Finney DO Attending Physician: Nils Finney DO PCP: AYDE FRIEND, ZEB Jeffrey Discharge Diagnosis: Comment: PATIENT EDUCATION INFORMATION Instructions: Shoulder Cryocuff Patient Instructions - FT (CUSTOM); Post Op Patient Instructions - FT (CUSTOM); Wojciech Finney. - After Your Shoulder Arthroscopy (Custom) Medication Leaflets: Follow up: MEDICATION LIST New Medications [id number], [address], [place] [id number], [phone] acetaminophen-oxycodo ne (Percocet 5 mg-325 mg oral tablet) 1-2 tab(s) Oral q4hr. Refills: 0. docusate (Colace 100 mg Cap) 1 Capsules By Mouth 2 times a day as needed for constipation. Refills: 0. Medications to Continue Taking That Have Changed [facility] #[id number], [address], [place] [id number], [phone] START: celecoxib (CeleBREX 100 mg Cap) 1 [...] Mouth as needed Nausea. saw palmetto (Saw [place]) 450 Milligram By Mouth 2 times a [...] hours as needed for pain. Comment: Normal [facility] Living Will/POAon 05-31-2022 Living Will/POA [id number]# 1.00CD:127 [facility] Main OR PACU I Recordon 05-03 Main OR PACU I Record PACU Phase I Docum ent Type FT Summary Primary Physician: Nils Finney DO Finalized Date/Time: 05/31/22 10:25:25 Pt. Name: SAMIRAKATHERINE CRUZ Wojciech Melendez/Sex: 1965 Male Med Rec #: [id number] Physician: Nils Finney DO Financial #: [id number] Pt. Type: A Room/Bed: AS12/01 Admit/Disch: 05/31/22 05:30:31 - Institution: Case Times [...] Sveta Cullen RN 05/31/22 10:25:21 Finalized By: Stumbo RN, Sveta Document Signatures Signed By: Sveta Cullen RN 05/31/22 10:25 Normal [facility] Main OR PACU II Recordon Main OR PACU II Record PACU Phase II Document Type FT Summary Primary Physician: Nils Finney DO Finalized Date/Time: 05/31/22 11:33:25 Pt. Name: KATHERINE HOGAN Wojciech Melendez/Sex: 1965 Male Med Rec #: [id number] Physician: Nils Finney DO Financial #: [id number] Pt. Type: A Room/Bed: [facility]04/03 Admit/Disch: 05/31/22 05:30:31 - Institution: [...] By: Ruben Mancera RN 05/31/22 11:33 Normal [facility] Main OR Preoperative Recordo n 05-31-2022 Main OR Preoperative Record PreOp Document Type FT Summary Primary Physician: Nils Finney DO Finalized Date/Time: 05/31/22 07:56:00 Pt. Name: KATHERINE HOGAN Wojciech Meyer./Sex: 1965 Male Med Rec #: [id number] Physician: Nils Finney DO Financial #: [id number] Pt. Type: A Room/Bed: [place] [address] Admit/Disch: 05/31/22 05:30:31 - Institution: Case Times [...] By: Conrado Marroquin RN 05/31/22 07:56 Normal [facility] Monitor Recordon 05-31-2022 Monitor Record [id number]# 1.00CD:127 Normal [facility] Monitor Record [id number]# 1.00CD:127 Normal [facility] Operative Reporton Operative Report Patient: KATHERINE HOGAN Age: 57 years Sex: Male : 1965 Associated Diagnoses: None Author: Nils Finney DO DATE OF SURGERY: 05/31/2022 SURGEON: Nils Finney D.O. RESEARCH STAFF MEMBER: Gerald Mott CFA PREOPERATIVE DIAGNOSIS: Glenohumeral osteoarthrosis, [...] regional block ANESTHESIOLOGIST: Power Toledo DO and Brnadan Connor CRNA IMPLANTS: Biceps tenodesis: Arthrex 4.75 mm biocomposite swivelock anchor OPERATIVE INDICATIONS: Katherine is a 57-year-old [id number]-nfsnrdmo male who has had persistent pain in [...] fashion. The forearm was secured in the [employer] tenet pneumatic arm isaac. Landmarks were demarcated. [...] changes. Rotator interval was opened with the [place] wand and motorized shaver. The superior and [...] The pass (more content not included)... Normal [facility] Comment on above: Result Comment: [...] Using maximal sterile barrier technique per current [facility] guidelines including hand hygeine, Guidance (Ultrasound used [...] resolved after completion of block. . Normal [facility] Comment on above: Result Comment: Elec tronically Signed By: Brandan Connor CRNA\.br\Date and Time Signed: 05/31/22 07:51 EDT Outpatient Surgery Discharge Instructionon 05-31-2022 Outpatient Surgery Discharge Instruction [place] [id number] Patient Discharge Instructions PERSON INFORMATION Name: KATHERINE HOGAN Date of : 1965 Current Date: 05/31/2022 09:09:41 PHYSICIANS Admitting Physician: Nils Finney DO Discharge Diagnosis: KATHERINE HOGAN has been given the following list of follow-up instructions, prescriptions, and patient education materials: IF UNABLE TO CONTACT YOUR PHYSICIAN AND YOU FEEL IT IS AN EMERGENCY, GO TO THE NEAREST EMERGENCY ROOM OR CALL 911 [address] MATTHEW J, have received the attached patient education materials/instruction s and have verbalized understanding: May we do a follow up call? Yes No I was present when discharge instructions were given Patient Signature Date Clinican/Nurse Signature Date Follow up: Pharmacy Information: You may receive a survey from [facility] asking you to rate your care experience. Your feedback is important and will help us understand what we do well and how we can improve the quality of care we provide to you, your loved ones and our community. It?s an honor to serve you. Thank you for choosing [facility] HERE ARE THE MEDICATION CHANGES THAT OCCURRED DURING YOUR HOSPITAL STAY New Medications [id number], [address], [place] [id number], [phone] acetaminophen-oxycodo ne (Percocet 5 mg-325 mg oral tablet) 1-2 tab(s) Oral q4hr. Refills: 0. docusate (Colace 100 mg Cap) 1 Capsules By Mouth 2 times a day as needed for constipation. Refills: 0. Medications to Continue Taking That Have Changed [id number], [address], [place] [id number], [phone] START: celecoxib (CeleBREX 100 mg Cap) 1 [...] Mouth as needed Nausea. saw palmetto (Saw [place]) 450 Milligram By Mouth 2 times a [...] needed for pain. PATIENT EDUCATION INFORMATION Instructions: [place], [place] [facility] AFTER YOUR SHOULDER ARTHROSCOPY [...] Keep yo (more content not included)... Normal [facility] Patient Education - Texton 0 05-31-2022 Patient Education - Text [place] [facility] AFTER YOUR SHOULDER ARTHROSCOPY [...] your appointment. Nils Finney, DO [facility] [address] [place] [id number] Reviewed: [facility] Consent for Procedure/Surger yon 05-30-2022 Consent for Procedure/Surgery [id number]# [id number]:127 [facility] Coding Summary.on 05-22-2022 Coding Summary. CD:[id number] W w+PGhlYWQ+NO4GERErN65 esURcxV8cM4JBWSxHJypw OFHOLFhKKpHnhxDeER4rs XNjZXJu IC8+NL4oWSYgLtisuYPxj 1V2lRA1M85ryg5fOCnzeE Y4WLKzBbFpxslwv3bpbBl 6IDcuNmluOyBt VKMmjM26OLU5zT70Lg89q UVtfAOaj5kvnFt7DkHrBY JfGNE0oLvfDOfej1ArSYY qB02mbBVlp9N0 UWSulXaayTAeLtNxiRU3z R6jNKfniflus1lhrcniLb h8ix10iCJqf4H9uIR0F1D usgR9YMHxmJUa YtuodETXnT5lxpuhe1sgj uxmZhMlSEBmIMz9QVb8WZ CloAmbWwWxOM13XKV9YMR foxJrC6UcGUIe iTgmGiE7q6I5Lo0OI0XEJ fixE9IJPIIWATksgAG+PC 12bg25M2IoRvjtWlc7OUM eAHC6pDN1sZ4x HGJgBAejg4N0jVV3J4Wus eGeog0kj2hhSFQbKErsN2 2xkWDyk0O9ONEniKQ1PRI mzRmzYmSpnE04 Oyc+WAVxwIahh7ZsUgfcr 6srq4baqLt9XbtjEUTunc HheBqrQGU8o9FlAi7aLGA qqST3vHU0jX0j UhFhOdI7XKzbT350CpYmj WEhXtysA56pB4LxiYI+PH VrOfg9XALbcXrnBZ3pN6R hZGRpbmctbGVm lRgoGI4mIBDpexjjMHRac X9tMYSmJ2t5RqNrPcX6PT jcF8CaVHUzopshOj96sP0 uNiCvXyV7SXiq B7XjecH8SREtiEWuMJmtF UW4J08md6D4OEVcILRmGO T5xXQ8hH7qwOplyoopvAA mdDsgdmVydGlj DMpnKZooO786WRQstIxeJ kNvZGluZyBEYXRlOiAgMD MvMjIvMjAyMzwvdGQ+PHR qVSA1uBnhISWe qRIuFJyxPf6glWgsgIpmN N9vTHNsqiqqJDYgdS8sPI QbbXDsgEquCK2uJBCqxnh kh148PfRkEFE6 SRDchMEfP2ZunT6qCmQrT TWlNYRuV7EneNNyRLogN5 79FXlhIkW3NOJemkArI2O sLWFsaWduOiB0 b8J0Pz4Vl5HfzqlsB9Fsc FFaOyNrFnenQIg3E8YrZn wvdHI+JI48HWAjOA42DZf 9SUP5cVeuRVqk NBSkX6RyqB6lJoEvGASsH GRkOyc+PHRhYmxlIHdpZH RoPScxMDAlJyBzdHlsZT0 zXg5wBTShAMBn iAhjyOCeNmOae3mtDNMyX SemGV9hvXxbC1DvfUP1AV Wvu7c1Ai84C76nL5XtyOC +AVKjkXO8xDW7 tA4sQyCvMtQ1ALxmE337B dYknVBxOzrhu2ycv8amxQ p8YoD6VXArsuUadSaoJFE 2t2CxVp30M90c IHdpZHRoPSIxNSUiIHZhb Cqngc1uaJ4fYr9+PGNvbC N1cOK5eA9oGpDnGzH1TKa dR614HsXtdQCd Myrzq3vsh4ywaUm2UqUpI DUasbLdzWbcDCW0i2FcMq 14I3EsjMjfr6OwTln5rz7 5tXYzk8F7lQU7 T3CaDRYupbwrrFYknGfmR D3tJOHjrpztGVObjK7vDZ WyH4z4ZoCyYaX7IHthL3Q mkwX9XVXutIMx UDKywCIMzR3cbokqr0xmf tqjXtPwFEAjMKk8GEb4RO IrhZdyMiFhROQ9FaY6IUP 1xQKvhH8otUoz ffwsdC9lQnz+JAC7zFPvh PIPLS9nHojcgOP+PHRkIH R8jDkpPNisKVGuhM1zKZU gH9i5WtGyOtG1 YXmhW8YxarN4EXBjxOXpI PLefVWPgH0ktqeaw3dkpx rhUwLvXHXpVRd8GMg2DQS saWduOiBsZWZ0 QpN6FGX8bDAmcJ2wyNfgi dvxlP8rEko+QmlydGggRG W9HNs2A1QgThu5UDCosOo qWJ1gzXNtFRdv Si1eyJzrvVqgWJ4mPRVff mwfl017QiSeh7lpOHJhdE HeFUriCDB6K84ci3T3SLN pWQFaEPV8lFN7 lT5ijOphylpufELedSdlg rTohOlbNEmtAVgvC193EE WqmVrlAyUhGMk4L4XvQzm 2GPGmsEwoYO0y uRXhISveEv2uqPpqxMbsD U0rOXNcnrytk591YeEmc9 yoRPEdqAIeYAflTSK9E52 ss0P1TCGsNXVa SHF9lTN9jJ5imZdqzppgb GVmdDsgdmVydGljYWwtYW wcP246FSCxjDyqUaHmlCr 7M8QuNid5KTOi hSmsPB2rwBLwJWixSw4zh BbecUdaCB0jAXKbewlch6 06NcHgy6auWSYksSKwWPp qDOF7I83fn6R4 IZUmZWZdCFL5aZP7zY3jm GlnbjogbGVmdDsgdmVydG mbZTvvCRxlA514UFJyqOi nPlBhdGllbnQg UXfmSVa3U5RiRalfeDZ+P A17NFOqYY63qISgiWDzh5 cgkFg2PxMfYVHuDAR8kWd eLBqwa7BkQIFa P37pdZFlu6U4XERzoEbul LJeYtMduDK1zC8cZAyoww uyy6ebkpexRnqbo8oygy2 9qG73N24mHYof ZHRoPSIzMCUiIHZhbGlnb p9pwL4iNz3+ZEGyuHZ7uV S4vI1uTLEfMfJ2ERgzW08 9InRvcCIvPjxj j4icj0ckdTh4XdX1NZWgm eCxvAunCFW9b7JzKi12N9 9sIHdpZHRoPSIyMCUiIHZ kzWzhfm3iqW8k Ii8+URMyqCK3aPK9tF6nI iEoTsY2MHpbD366AlLnuB MeDgipB94pV9TqsYZ+PHR vCee7LFXhpQkz KJ7lmOXkGItsSu1cUCG0K aWhUpIjTHhaJ8CaFWDygu khxwtrpPR3FWYlNDTdgN9 4Zg9syDanMTIz aGPPpN9gkdwxp2utzjenC oLeZWKvVAd8ZXm4NVGbaJ ghNfDkDCF5KuB8NSB4cLA riF6xmLjqhaow vZ3jL3JaASOhxadeFi94c W9fDvNhWlR2VLwxIsd+Uk dYWHabYL0VFASLILpzBsh vdGQ+PHRkIHN0 eUjdZWhiTIRqgI9dNGYeC 3j3DtHiWoR3UTbeK1LzUA YovwweAf69uH2bTkDeIaA 6NBmsB4UgsfW9 RJGcvWEpONmbMKZ2S13mj 6H4ALFgZGEaGQR7aQE5pM 1hbGlnbjogbGVmdDsgdmV ydGljYWwtYWxp K411KHJigXyaAcPfKmA6A rB6OiB7Q4KrYna1IUSinL ksBQ8rlBJuFXknJr9cwPj krKuyAP2wTUNn cofqJAWdlS2aQSZnzEWwo AzmZG5hLXYpuhuaq797Yi MjHBS7CQRmcEOyO3JfaG1 yOiAjMDAwMDAw Z1SjxGVkHHkfR869QRutG vH6SMXkbsEiN3PvQPOodF vcYuH8d8N9Hb71LTNDSPD yczwvdGQ+PHRk SDG9zVhpUGlvYZAmbY9iN IGtF7g7QqYuJiJ6EZzvH5 QdEYWprgoqSt46fL7yIbG aXvZ2CKhmP5Sg ghQ7ADZwrEXfOEzpIMY4X 32yq4B7QQZhTQCzTAG4hN F2oU1jrRqpwqfinSCnnFx gdmVydGljYWwt WZbuE976LJHhxVeuOs0yo VF2M9SeMos7DKNllQxoWZ 2ojBKcSMvvJn0rvUjnfEs yVV9cYHKxxqpq UNGarZ2hMPMgkSXzbRtlA E2nELOgsxrqq085HbKaLA L4KWDhjBSgY4ZarP4oUhH cSRShKFVuK4Pv nDBfWXlnD095CGzrZhP0D CKdtaUvW7NuSFEjzJetRi K9w9X6Ko0DmHLpPWLqME9 7JR27ED65V0Wu PjwvdGFibGU+PHRhYmxlI HdpZHRoPScxMDAlJyBzdH dzGA9lMq0tSXSaWHUazPq mwYUgXeQrj3os PGGaBAoaOZ5bwCijK9Deo SW0DZCql6s8If02K46qZ3 JvdXA+BJVwwKD8iAD1pP1 cIaZfYaK2JRof Z251AkVklNNmMbuul9snf 2obcPd9KzTiVGTkwnVbqV vjSDS2c8PfIt79E92gHJs pZHRoPSIyMCUi LUOklMoxjb0ltQ1nSo6+P CBzbZD3zCK4xX3wXeRrIj S6MPpaI014QbGnuMQqJtg zC60cE8SywDE+ UEOcHot9JCRtsCbhBW1yo UHfJOxnHq3uJXG7JmFjZp ExCBqqK0KmSAQmylpkijd ujTN6ITUnATFn pH01Fw1mfLcuNz6kFESwG IM2UUBkaYSxG2TlqF3sPx PkGYKgMNBuL9OzaMZyQUh hA842TImhIwN2 VQAocfNwR3XeRRKusZulS jC6i4S5Te6FgRmjbXLoOT 9mMrCfXCy0Z1AlKms3VNY mzIxhMO2khEZe UWnsJf9kzLmsqOxaLL2oX QUmarcbu408TeEgp7orML FyoVLsGZnnITF3P91le0F 0GPToUXWcOPH3 sGY5yT3dqTzlbkkymUCyq DsgdmVydGljYWwtYWxpZ2 43PDCjoPfyEzSRJwp0U5X dWcf8JKEotYrf OG0oxDHxVJrcIr2ddPtif QnwED9fCSWltmzmc030Xp Whp7eoNQZulQWnVRcoZFH 6T52zq9P5OMIh XJJcAJX1dOX3zH5xzMdqb jogbGVmdDsgdmVydGljYW ivPLmgJ546EOBmfCtyTh1 ANho8G3ZkGbn7 EBGaxBqeAD6jnOObNZspJ x1vuXaqlOziCG9bZRTgsy als902TyIcl9osGRMhiHM oELnqKEO9S33q t8J9TBWaMSFsOGW9jXB2e B7hqWfynvrhhDCnrVcwll WwkBkaIGcuYXhoC055ZIQ vcDsnPlBheWVy OjwvdGQ+IB32kw90C5LuK agvAtc3TWMcMMT4bOC0qO 9eMZXxOUyyf8H0dWR7F3V wazEmme3nu3yn YXBzZTog (more content not included)... Normal [facility] Outside Recordson 05-15-2022 Outside Records [id number]# 1.00CD:127 Normal [facility] BUNon 05-14-2022 Urea nitrogen [Mass/Vol] 17 mg/dL Normal 5-21 [facility] Comment on above: Performed By: #### 2 393933, 5297676, 3360149, 1366435, 5371825, 51699382 ####[facility] [address] [place] [address] CBC w/Indiceson 05-14-2022 Erythrocyte distribution width (RBC) [Ratio] 13.1 % Normal 10.9-14.2 [facility] Comment on above: Performed By: #### 2 472801, 1598254, 3224267, 7482225, 6786125, 94656779 ####[facility] [address] [place] [address] Hematocrit (Bld) [Volume fraction] 44.2 % Normal 37.7-49.0 [facility] Comment on above: Performed By: #### 2 308270, 4822954, 7869837, 3095526, 0118669, 12509979 ####[facility] [address] [place] [address] Hemoglobin (Bld) [Mass/Vol] 15.2 g/dL Normal 13.5-17.5 [facility] Comment on above: Performed By: #### 2 889699, 9156739, 5995193, 5527884, 2312002, 08267200 ####[address] [address] MCH (RBC) [Entitic mass] 32.0 pg Normal 27.0-34.0 [facility] Comment on above: Performed By: #### 2 854829, 8732902, 6655875, 2798077, 3349726, 22916903 ####[address] [address] MCHC (RBC) [Mass/Vol] 34.4 g/dL Normal 31.4-36.0 [facility] Comment on above: Performed By: #### 2 226376, 0674114, 8438772, 5168073, 4008035, 02220060 ####[address] [address] MCV (RBC) [Entitic vol] 92.9 fL Normal 80.0-100.0 [facility] Comment on above: Performed By: #### 2 954061, 5758489, 8012613, 1093273, 7347539, 54636427 ####[facility] [address] [place] [address] Platelet mean volume (Bld) [Entitic vol] 7.1 fL Normal 6.4-10.8 [facility] Comment on above: Performed By: #### 2 102787, 1232551, 3024367, 3082392, 9287470, 80751567 ####[address] [address] Platelets (Bld) [#/Vol] 274.0 E9/L Normal 150.0-500.0 [facility] Comment on above: Performed By: #### 2 448884, 5780150, 7492911, 9715452, 1318716, 39536802 ####[facility] [address] [place] [address] RBC (Bld) [#/Vol] 4.8 E12/L Normal 4.3-5.9 [facility] Comment on above: Performed By: #### 2 059909, 1057934, 2080175, 3530956, 2566249, 85437195 ####[facility] [address] [place] [address] WBC corrected for nucl RBC Auto (Bld) [#/Vol] 5.8 E9/L Normal 4.0-11.0 [facility] Comment on above: Performed By: #### 2 879868, 6909573, 5817294, 4148663, 4968899, 94448470 ####[facility] [address] [place] [address] CHEMISTRYOrdered By: SYSTEM SYSTEM on 05-14-2022 Anion gap [Moles/Vol] 16 mmol/L Normal 6 - 16 mEq/L [place] [facility] [place]isol Chloride [Moles/Vol] 98 mmol/L Low 101 - 1 11 mmol/L [facility] Remisol CO2 [Moles/Vol] 25 mmol/L Normal 21 - 31 mmol/L [facility] Remisol Creatinine [Mass/Vol] 0.9 mg/dL Normal 0.5 - 1.3 mg/dL [facility] Remisol GFR/1.73 sq M.predicted among blacks MDRD (S/P/Bld) [Vol rate/Area] mL/min/1.73 m2 Normal >=59mL/min/1. 73 m2 [facility] Chem S GFR/1.73 sq M.predicted among non-blacks MDRD (S/P/Bld) [Vol rate/Area] mL/min/1.73 m2 Normal >=59mL/min/1. 73 m2 [facility] Chem S Glucose [Mass/Vol] 100 mg/dL Normal 55 - 199 mg/dL [facility] Remisol Potassium [Moles/Vol] 3.6 mmol/L Normal 3.5 - 5.3 mmol/L [facility] Remisol Sodium [Moles/Vol] 135 mmol/L Normal 135 - 145 mmol/L [facility] Remisol Urea nitrogen [Mass/Vol] 17 mg/dL Normal 5 - 21 mg/dL [facility] Remisol Consent for Treatmenton 05-01 Consent for Treatment [id number]#1 .00CD:127 Normal [facility] Creatinineon 05-14-2022 Creatinine [Mass/Vol] 0.9 mg/dL Normal 0.5-1.3 [facility] Comment on above: Performed By: #### 2 476876, 4864786, 6075880, 5568039, 8166474, 13921232 ####[facility] [address] [place] [address] Glucoseon 05-14-2022 Glucose [Mass/Vol] 100 mg/dL Normal 55-199 [facility] Comment on above: Performed By: #### 2 118945, 3936958, 3058900, 9879403, 1930748, 20393491 ####[facility] [address] [place] [address] HEMATOLOGYOrdered By: Ronda Webster on 05-14-2022 Erythrocyte distribution width (RBC) [Ratio] 13.1 % Normal 10.9 - 14.2 % [facility] HemeAutoSS Hematocrit (Bld) [Volume fraction] 44.2 % Normal 37.7 - 49.0 % [facility] HemeAutoSS Hemoglobin (Bld) [Mass/Vol] 15.2 g/dL Normal 13.5 - 17.5 gm/dL [facility] HemeAutoSS MCH (RBC) [Entitic mass] 32.0 pg Normal 27.0 - 34.0 pg [facility] HemeAutoSS MCHC (RBC) [Mass/Vol] 34.4 g/dL Normal 31.4 - 36.0 gm/dL [facility] HemeAutoSS MCV (RBC) [Entitic vol] 92.9 fL Normal 80.0 - 100.0 fL [facility] HemeAutoSS Platelet mean volume (Bld) [Entitic vol] 7.1 fL Normal 6.4 - 10.8 fL [facility] HemeAutoSS Platelets (Bld) [#/Vol] 274.0 E9/L Normal 150.0 - 500.0 E9/L [facility] HemeAutoSS RBC (Bld) [#/Vol] 4.8 E12/L Normal 4.3 - 5.9 E12/L [facility] HemeAutoSS WBC corrected for nucl RBC Auto (Bld) [#/Vol] 5.8 E9/L Normal 4.0 - 11.0 E9/L [facility] HemeAutoSS Lyteson 05-14-2022 Anion gap [Moles/Vol] 16 mmol/L Normal 6-16 [facility] Comment on above: Performed By: #### 2 741087, 2767227, 0670237, 7001814, 9411173, 33793076 ####[facility] [address] [place] [address] Chloride [Moles/Vol] 98 mmol/L Low 101-111 [facility] Comment on above: Performed By: #### 2 091851, 1453726, 8873640, 3050633, 9248826, 55090479 ####[facility] [address] [place] [address] CO2 [Moles/Vol] 25 mmol/L Normal 21-31 [facility] Comment on above: Performed By: #### 2 068033, 1877457, 0648099, 6176538, 1252809, 14663502 ####[facility] [address] [place] [place] [address] Potassium [Moles/Vol] 3.6 mmol/L Normal 3.5-5.3 [facility] Comment on above: Performed By: #### 2 458111, 1010878, 2422111, 2471388, 5579454, 28141595 ####[facility] [address] [place] [place] [address] Sodium [Moles/Vol] 135 mmol/L Normal 135-145 [facility] Comment on above: Performed By: #### 2 360607, 2988527, 8817989, 0197923, 5649973, 86564943 ####[facility] [address] [place] [address] XR Chest 2 Viewson 3 XR Chest [...] mGy = na DAP = na Normal [facility] eGFRon 05-14-2022 GFR/1.73 sq M.predicted among blacks MDRD (S/P/Bld) [Vol rate/Area] mL/min/{1.73_m2} Normal >=59 [facility] Comment on above: Order Comment: Order added by Discern Expert. Result Comment: eGFR is race adjusted. AA=. Performed By: #### 2 755074, 7941889, 5676875, 6905747, 2938936, 43215187 ####[facility] [address] [place] [address] GFR/1.73 sq M.predicted among non-blacks MDRD (S/P/Bld) [Vol rate/Area] mL/min/{1.73_m2} Normal >=59 [facility] Comment on above: Order Comment: Order added by Discern Expert. Result Comment: Window Installation Subcontractor florentin kidney disease could be indicated at eGFR's of less than 60 mL/min/1.73m2. Kidney failure is indicated at less than 15 mL/min/1.73m2. Performed By: #### 2 185945, 6260364, 6915428, 9104517, 2780320, 34520918 ####[facility] [address] [place] [address] Physician Orderon 02-01-2022 Physician Order [id number]#1 .00CD:127 Normal [facility] MRI Shoulder w/o Righton MRI Shoulder w/o [...] by MARCELINA MORGAN on 01/09/2022 1544 Normal [facility] [employer] XR Shoulder Complete Right*o n 01-01-2022 XR [...] by Dustin Ag on 01/02/2022 0705 Normal [facility] Comprehensive Metabolic Pane ramesh 03-29-2021 Albumin [Mass/Vol] 4.6 g/dL Normal 3.6-5.1 [facility] Comment on above: Performed By: #### L IPD, CMP #### [facility] [address], [place] [id number] Albumin/Globulin [Mass ratio] 2.4 {ratio} Normal 1.0-2.5 [facility] Comment on above: Performed By: #### L IPD, CMP #### [facility] [address], [place] [id number] ALP [Catalytic activity/Vol] 108 U/L Normal 40-129 [facility] Comment on above: Performed By: #### L IPD, CMP #### [facility] [address], [place] [id number] ALT [Catalytic activity/Vol] 59 U/L High 9-46 [facility] Comment on above: Result Comment: 01/31 Female reference range changed. Performed By: #### L IPD, CMP #### [facility] [address], [place] [id number] Anion gap [Moles/Vol] 18 mmol/L Normal 12-20 [facility] Comment on above: Result Comment: Effe ctive 03/08/2019 reference range changed. Performed By: #### L IPD, CMP #### [facility] [address], [place] [id number] AST [Catalytic activity/Vol] 26 U/L Normal 10-40 [facility] Comment on above: Performed By: #### L IPD, CMP #### [facility] [address], [place] [id number] Bilirubin [Mass/Vol] 0.33 mg/dL Normal 0.30-1.20 [facility] Comment on above: Performed By: #### L IPD, CMP #### [facility] [address], [place] [id number] BUN/CREA 23 Ratio High 6-22 [facility] Comment on above: Performed By: #### L IPD, CMP #### [facility] [address], [place] [id number] Calcium [Mass/Vol] 10.5 mg/dL High 8.6-10.2 [facility]ylon zimmerman [place] [employer] Comment on above: Performed By: #### L IPD, CMP #### [facility] [address], [place] [id number] Chloride [Moles/Vol] 99 mmol/L Normal 98-107 [facility] Comment on above: Performed By: #### L IPD, CMP #### [facility] [address], [place] [id number] CO2 [Moles/Vol] 24 mmol/L Normal 20-31 [facility] Comment on above: Performed By: #### L IPD, CMP #### [facility] [address], [place] [id number] Creatinine [Mass/Vol] 1.0 mg/dL Normal 0.7-1.4 [facility] Comment on above: Performed By: #### L IPD, CMP #### [facility] [address], [place] [id number] eGFRAA 89 mL/min/1.73m2 Normal >60 [facility] Comment on above: Performed By: #### L IPD, CMP #### [facility] [address], [place] [id number] eGFRNAA 74 mL/min/1.73m2 Normal >60 [facility] Comment on above: Performed By: #### L IPD, CMP #### [facility] [address], [place] [id number] Globulin (S) [Mass/Vol] 1.9 g/dL Normal 1.9-3.7 [facility] [employer] Comment on above: Performed By: #### L IPD, CMP #### [facility] [address], [place] [id number] Glucose [Mass/Vol] 93 mg/dL Normal 65-99 [facility]ylon zimmerman [place] [employer] Comment on above: Result Comment: For FASTING Glucose --- ADA reference ranges: Normal 65-99 mg/dl Prediabetes 100-125 Diabetes >/= 126 Performed By: #### L IPD, CMP #### [facility] [address], [place] [id number] Potassium [Moles/Vol] 4.1 mmol/L Normal 3.5-5.5 [facility] Comment on above: Performed By: #### L IPD, CMP #### [facility] [address], [place] [id number] Protein [Mass/Vol] 6.5 g/dL Normal 6.1-8.1 [facility] Comment on above: Performed By: #### L IPD, CMP #### [facility] [address], [place] [id number] Sodium [Moles/Vol] 137 mmol/L Normal 135-146 [facility] Comment on above: Performed By: #### L IPD, CMP #### [facility] [address], [place] [id number] Urea nitrogen [Mass/Vol] 24 mg/dL Normal 7-25 [facility] Comment on above: Performed By: #### L IPD, CMP #### [facility] [address], [place] [id number] Lipid Panelon 03-29-2021 Cholesterol [Mass/Vol] 153 mg/dL Normal 125-200 [facility] Comment on above: Result Comment: Low risk < 200mg/dL Borderline risk 201-239 mg/dl High risk > or equal to 240 Performed By: #### L IPD, CMP #### [facility] [address], [place] [id number] Cholesterol in HDL [Mass/Vol] 45 mg/dL Normal >40 [facility] Comment on above: Result Comment: High Cardiovascular Risk HDL <40 mg/dL Low Cardiovascular Risk HDL > or equal to 60 mg/dl Performed By: #### L IPD, CMP #### [facility] [address], [place] [id number] Cholesterol in LDL [Mass/Vol] 83 mg/dL Normal [facility] Comment on above: Result Comment: LDL ATP III CLASSIFICATION LDL less than 100 mg/dl Optimal LDL 100-129 mg/dl Near or above optimal LDL 130-159 Borderline high LDL 160-189 High LDL greater than 189 mg/dl Very High Performed By: #### L IPD, CMP #### [facility] [address], [place] [id number] Cholesterol in VLDL [Mass/Vol] 25 mg/dL Normal [facility] Comment on above: Performed By: #### L IPD, CMP #### [facility] [address] [facility] [place], [place] [id number] Cholesterol.total/Cho lesterol in HDL [Mass ratio] 3 {ratio} Normal [facility] Comment on above: Performed By: #### L IPD, CMP #### [facility] [address], [place] [id number] Triglyceride [Mass/Vol] 126 mg/dL Normal 30-150 [facility] Comment on above: Result Comment: TRIG ATPIII CLASSIFICATIONS TRIG less than 150 mg/dl Normal TRIG 150-199 mg/dl Borderline High TRIG 200-500 mg/dl High TRIG greather than 500 mg/dl Very High Performed By: #### L IPD, CMP #### [facility] [address], [place] [id number] [facility]31 SARS-CoV-2 (COVID-19) RNA ZAIRA+probe Ql (Unsp spec) Not detected Normal NOT DETECTED [facility] Comment on above: Result Comment: This test is not yet approved or cleared by the [place] FDA. When there are no FDA-approved or cleared tests available, and other criteria are met, FDA can make tests available under an emergency access mechanism called an Emergency Use Authorization (EUA). The EUA for this test is supported by the [employer] Build[employer] As[employer]er of Health and Human Service's (HHS's) declaration [...] SARS-CoV-2. Performed By: #### C VDTB #### [facility] [address] [address] [address] Luis Fernando Pagan PROF CHEM 8 (BAS METB)on Anion gap [Moles/Vol] 13.1 mmol/L Normal Th [facility] Comment on above: Performed By: #### B MP #### [facility] [address] [address] Lori Fátima Calcium [Mass/Vol] 9.8 mg/dL Normal 8.4-10.2 [facility] Comment on above: Performed By: #### B MP #### [facility] [address] [place], [place] [address] Lori Fátima Chloride [Moles/Vol] 101 mmol/L Normal 98-107 [facility] Comment on above: Performed By: #### B MP #### [facility] [address] [address] Lori Fátima CO2 [Moles/Vol] 31.0 mmol/L Critically high 22.0-30.0 [facility] Comment on above: Performed By: #### B MP #### [facility] [address] [place], [place] [address] Lori Fátima Creatinine [Mass/Vol] 1.28 mg/dL Critically high 0.66-1.25 [facility] Comment on above: Performed By: #### B MP #### [facility] [address] [place], [place] [address] Lori Fátima EGFR-AF IRAQI >60 Normal >=60 [facility] Comment on above: Performed By: #### B MP #### [facility] [address] [address] Lori Fátima EGFR-NON AF IRAQI 58 mL/min/1.73m2 Critically low >=60 [facility] Comment on above: Performed By: #### B MP #### [facility] [address] [place], [place] [address] Lori Fátima Glucose [Mass/Vol] 127 mg/dL Critically high 74-106 [facility] [place] Comment on above: Performed By: #### B MP #### [facility] [address] [place], [place] [address] Lori Fátima Potassium [Moles/Vol] 4.1 mmol/L Normal 3.4-5.0 [facility] Comment on above: Performed By: #### B MP #### [facility] [address] [place], [place] [address] Lori Fátima Sodium [Moles/Vol] 141 mmol/L Normal 137-145 [facility] Comment on above: Performed By: #### B MP #### [facility] [address] [place], [place] [address] Lori Fátima Urea nitrogen [Mass/Vol] 19.0 mg/dL Normal 9.0-20.0 [facility] Comment on above: Performed By: #### B MP #### [facility] [address] [place], [place] [address] Lori Fátima Urea nitrogen/Creatinine [Mass ratio] 14.8 mg/mg Normal [facility] Comment on above: Performed By: #### B MP #### [facility] [address], [place] [address] Lori Fátima NM STRESS/REST MULTIon 03-22 NM STRESS/REST MULTI Patient: KATHERINE HOGAN Exam Date: 03/22/2020 : 1965 Gender:M Ordering : MAGUE WILDER Admission #: [id number] Family : DR ZEB MESSER . Order #: [id number] CLICK HERE TO VIEW EXAM RADIOLOGY REPORT [...] Miller MD on 03/22/2020 at 13:26 Normal [facility] LIPID PROFILEon 03-17-2020 CHOL-HDL RATIO NORM SEE BELOW Normal [facility] Comment on above: Result Comment: 3.3 - 4.4 LOW RISK 4.4 - 7.1 AVERAGE RISK 7.1 - 11.0 MODERATE RISK >11.0 HIGH RISK Performed By: #### B MP, LIPID, LIVER #### [facility] [address] [place] [id number] Lori Fátima Cholesterol [Mass/Vol] 162 mg/dL Normal <=200 [facility] Comment on above: Performed By: #### B MP, LIPID, LIVER #### [facility] [address] [place] [address] Lori Fátima Cholesterol in HDL [Mass/Vol] 39 mg/dL Normal [facility] Comment on above: Performed By: #### B MP, LIPID, LIVER #### [facility] [address] [place] [address] Lori Fátima Cholesterol in LDL [Mass/Vol] 97.4 mg/dL Normal [facility] Comment on above: Performed By: #### B MP, LIPID, LIVER #### [facility] [address] [place] [id number] Lori Fátima Cholesterol.total/Cho lesterol in HDL [Mass ratio] 4.2 {ratio} Normal [facility] Comment on above: Performed By: #### B MP, LIPID, LIVER #### [facility] [address] [place] [address] Lori Fátima HDL NORMAL > or = 60 mg/dl - LO W CARDIOVASCULAR RISK <40 mg/dl - HIGH CARDIOVASCULAR RISK Normal [facility] Comment on above: Performed By: #### B MP, LIPID, LIVER #### [facility] [address], [place] [address] Lori Fátima LDL CALC NORMAL SEE BELOW Normal [facility] Comment on above: Result Comment: <100 mg/dl OPTIMAL 100 - 129 mg/dl NEAR OR ABOVE OPTIMAL 130 - 159 mg/dl BORDERLINE HIGH 160 - 189 mg/dl HIGH >190 mg/dl VERY HIGH Performed By: #### B MP, LIPID, LIVER #### [facility] [address] [place] [id number] Lori Fátima Triglyceride [Mass/Vol] 128 mg/dL Normal <=150 [facility] Comment on above: Performed By: #### B MP, LIPID, LIVER #### [facility] [address] [place] [id number] Lori Fátima VLDL CALC 25.6 mg/dL Normal [facility] Comment on above: Performed By: #### B MP, LIPID, LIVER #### [facility] [address], [place] [address] Lorijun Moralesen LIVER PROFILEon 03-17-2020 Albumin [Mass/Vol] 4.2 g/dL Normal 3.5-5.0 [facility] Comment on above: Performed By: #### B MP, LIPID, LIVER #### [facility] [address] [id number] Lori Fátima Albumin/Globulin [Mass ratio] 1.3 {ratio} Normal [facility] Comment on above: Performed By: #### B MP, LIPID, LIVER #### [facility] [address] [place], [place] [address] Lori Fátima ALP [Catalytic activity/Vol] 83 U/L Normal 38-126 [facility] Comment on above: Performed By: #### B MP, LIPID, LIVER #### [facility] [address] [place] [id number] Lori Fátima ALT [Catalytic activity/Vol] 47 U/L Normal 21-72 [facility] Comment on above: Performed By: #### B MP, LIPID, LIVER #### [facility] [address] [place] [address] Lori Fátima AST [Catalytic activity/Vol] 17 U/L Normal 17-59 [facility] Comment on above: Performed By: #### B MP, LIPID, LIVER #### [facility] [address] [place] [phone] Lori Fátima BILI, CONJUGATED 0.1 mg/dL Normal 0.0-0.3 [facility] Comment on above: Performed By: #### B MP, LIPID, LIVER #### [facility] [address] [place], [place] [id number] Lori Fátima Bilirubin [Mass/Vol] 0.5 mg/dL Normal 0.2-1.3 [facility] Comment on above: Performed By: #### B MP, LIPID, LIVER #### [facility] [address] [place], [place] [id number] Lori Fátima Globulin (S) [Mass/Vol] 3.2 g/dL Normal [facility] Comment on above: Performed By: #### B MP, LIPID, LIVER #### [facility] [address] [place], [place] [id number] Lori Fátima Protein [Mass/Vol] 7.4 g/dL Normal 6.1-8.2 [facility] Comment on above: Performed By: #### B MP, LIPID, LIVER #### [facility] [address] [place], [place] [phone] Lori Fátima PROF CHEM 8 (BAS METB)on Anion gap [Moles/Vol] 11.2 mmol/L Normal [facility] Comment on above: Performed By: #### B MP, LIPID, LIVER #### [facility] [address] [place], [place] [id number] Lroi Fátima Calcium [Mass/Vol] 9.7 mg/dL Normal 8.4-10.2 [facility] Comment on above: Performed By: #### B MP, LIPID, LIVER #### [facility] [address] [place], [place] [phone] Lori Fátima Chloride [Moles/Vol] 100 mmol/L Normal 98-107 [facility] Comment on above: Performed By: #### B MP, LIPID, LIVER #### [facility] [address] [address] Lori Fátima CO2 [Moles/Vol] 28.1 mmol/L Normal 22.0-30.0 [facility] Comment on above: Performed By: #### B MP, LIPID, LIVER #### [facility] [address] [address] Lori Fátima Creatinine [Mass/Vol] 1.55 mg/dL Critically high 0.66-1.25 [facility] Comment on above: Performed By: #### B MP, LIPID, LIVER #### [facility] [address] [place] [address] Lori Fátima EGFR-AF IRAQI 56 mL/min/1.73m2 Critically low >=60 [facility] Comment on above: Performed By: #### B MP, LIPID, LIVER #### [facility] [address] [place] [address] Lori Fátima EGFR-NON AF IRAQI 47 mL/min/1.73m2 Critically low >=60 [facility] Comment on above: Performed By: #### B MP, LIPID, LIVER #### [facility] [address] [place] [address] Lori Fátima Glucose [Mass/Vol] 101 mg/dL Normal 74-106 [facility] Comment on above: Performed By: #### B MP, LIPID, LIVER #### [facility] [address] [place] [address] Lori Fátima Potassium [Moles/Vol] 3.3 mmol/L Critically low 3.4-5.0 [facility] Comment on above: Performed By: #### B MP, LIPID, LIVER #### [facility] [address] [place] [address] Lori Fátima Sodium [Moles/Vol] 136 mmol/L Critically low 137-145 [facility] Comment on above: Performed By: #### B MP, LIPID, LIVER #### [facility] [address] [place], [place] [address] Lori Shine Urea nitrogen [Mass/Vol] 21.0 mg/dL Critically high 9.0-20.0 [facility] Comment on above: Performed By: #### B MP, LIPID, LIVER #### [facility] [address] [place], [place] [address] Lori Shine Urea nitrogen/Creatinine [Mass ratio] 13.5 mg/mg Normal [facility] Comment on above: Performed By: #### B MP, LIPID, LIVER #### [facility] [address] [place], [place] [address] Lori Shine Consent Formson 02-01-2020 Consent Forms [id number] [place] [address] Provider Orderson 02-01-2020 Provider Orders [id number] [place] [address] Coding Summaryon 01-24-2020 Coding Summary CODING DATE: 01/24/2020 [facility] STATUS: Home PAYOR: Commercial Insurance ADMIT [...] Oneyda Hendricks Date Saved: 01/24/2020 09:30 am [facility] 2019 Novel Coronavirus (CoVI D-19), ZAIRA LCon 01-22-2020 Employed in healthcare? No [facility] Comment on above: Order Comment: [id number] Results Called To Dr. Messer's office and left message By ZAINA On 01/22/2020 09:05:43 EST Results Called To Patient by Dolores on house By GOMEZ And Read Back For Confirmation On 01/22/2020 09:30:27 EST Performed By: #### 6 [id number] #### [facility] (DEFAULT) [address] [place] [id number] Group care resident? No [facility] Comment on above: Order Comment: [id number] Results Called To Dr. Messer's office and left message By ZAINA On 01/22/2020 09:05:43 EST Results Called To Patient by Dolores on house By GOMEZ And Read Back For Confirmation On 01/22/2020 09:30:27 EST Performed By: #### 6 [id number] #### [facility] (DEFAULT) [address] [place] [address] Hospitalized due to COVID-19? No [facility] Comment on above: Order Comment: [id number] Results Called To Dr. Messer's office and left message By ZAINA On 01/22/2020 09:05:43 EST Results Called To Patient by Dolores on house By GOMEZ And Read Back For Confirmation On 01/22/2020 09:30:27 EST Performed By: #### 6 [id number] #### [facility] (DEFAULT) [address] [place] [address] In ICU? No [facility] Comment on above: Order Comment: [phone] Results Called To Dr. Messer's office and left message By ZAINA On 01/22/2020 09:05:43 EST Results Called To Patient by Dolores on house By GOMEZ And Read Back For Confirmation On 01/22/2020 09:30:27 EST Performed By: #### 6 [id number] #### [facility] (DEFAULT) [address] [place] [address] status? Not [facility] Comment on above: Order Comment: [phone] Results Called To Dr. Messer's office and left message By ZAINA On 01/22/2020 09:05:43 EST Results Called To Patient by Dolores on house By GOMEZ And Read Back For Confirmation On 01/22/2020 09:30:27 EST Performed By: #### 6 [id number] #### [facility] (DEFAULT) [address] [place] [address] Symptomatic as defined by CDC? No [facility] Comment on above: Order Comment: [id number] Results Called To Dr. Messer's office and left message By ZAINA On 01/22/2020 09:05:43 EST Results Called To Patient by Dolroes on house By GOMEZ And Read Back For Confirmation On 01/22/2020 09:30:27 EST Performed By: #### 6 [id number] #### [facility] (DEFAULT) [address] [place] [address] SARS-CoV-2, ZAIRA (COVID-19) LC Detected Abnormal Not Detected [facility] Comment on above: Order Comment: [phone] [id number] Results Called To Dr. Messer's office and left message By ZAINA On 01/22/2020 09:05:43 EST Results Called To Patient by Dolores on house By GOMEZ And Read Back For Confirmation On 01/22/2020 09:30:27 EST Result Comment: This nucleic acid amplification test was developed and its performance characteristics determined by [employer]. Nucleic acid amplification tests include PCR and [...] detected) result in this assay. Performed At: [facility] [address] [employer] [facility] [place] [id number] Luis Alberto Wilson MD Ph:[phone] Performed By: #### 6 [id number] #### [facility] (DEFAULT) [address] [place] [id number] Progress Note - Nurseon 01-01 Progress Note - Nurse Nasal swab perform ed without complication. Patient tolerated well. Education given. Patient verbalized understanding. [Electronically Signed on: 01/20/2020 16:47 EST] Jenna Barrera RN [Verified on: 01/20/2020 16:47 EST] Jenna Barrera RN [facility] Vital Signs Date Time Vital Sign Value Performing Clinician Facility 06-08-2024 16:12-0400 Body height 175.3 cm Zeb Messer MD Work Phone: [facility] 06-08-2024 16:12-0400 Body mass index (BMI) [Ratio] 32.64 kg/m2 Zeb Messer MD Work Phone: [facility] 06-08-2024 16:12-0400 Body weight 100.25 kg Zeb Messer MD Work Phone: [facility] 03-08-2024 16:24-0500 Body height 175.3 cm Zeb Messer MD Work Phone: [facility] 03-08-2024 16:24-0500 Body mass index (BMI) [Ratio] 32.19 kg/m2 Zeb Messer MD Work Phone: [facility] 03-08-2024 16:24-0500 Body weight 98.88 kg Zeb Messer MD Work Phone: [facility] 03-08-2024 16:24-0500 Diastolic blood pressure 70 mm[Hg] Zeb Messer MD Work Phone: [facility] 03-08-2024 16:24-0500 Heart rate 73 /min Zeb Messer MD Work Phone: [facility] 03-08-2024 16:24-0500 SaO2% (BldA) [Mass fraction] 96 % Zeb Messer MD Work Phone: [facility] 03-08-2024 16:24-0500 Systolic blood pressure 124 mm[Hg] Zeb Messer MD Work Phone: [facility] 02-18-2024 11:38-0500 Body height 175.3 cm Zeb Messer MD Work Phone: [facility] 02-18-2024 11:38-0500 Body mass index (BMI) [Ratio] 32.19 kg/m2 Zeb Messer MD Work Phone: [facility] 02-18-2024 11:38-0500 Body weight 98.88 kg Zeb Messer MD Work Phone: [facility] 11-25-2023 16:19-0400 Body height 175.3 cm Zeb Messer MD Work Phone: [facility] 11-25-2023 16:19-0400 Body mass index (BMI) [Ratio] 33.37 kg/m2 Zeb Messer MD Work Phone: [facility] 11-25-2023 16:19-0400 Body weight 102.51 kg Zeb Messer MD Work Phone: [facility] 10-30-2023 16:03-0400 Body height 175.3 cm Zeb Messer MD Work Phone: [facility] 10-30-2023 16:03-0400 Body mass index (BMI) [Ratio] 33.37 kg/m2 Zeb Messer MD Work Phone: [facility] 10-30-2023 16:03-0400 Body weight 102.51 kg Zeb Messer MD Work Phone: [facility] 05-31-2022 10:00-0400 Diastolic blood pressure 43 mm[Hg] Nils Finney [facility] 05-31-2022 10:00-0400 Heart rate 68 /min Nils Finney [facility] 05-31-2022 10:00-0400 SaO2% (BldA) [Mass fraction] 97 % Nils Finney [facility] 05-31-2022 10:00-0400 Systolic blood pressure 120 mm[Hg] Nils Finney [facility] 05-31-2022 09:20-0400 SaO2% (BldA) [Mass fraction] 95 % Nils Finney [facility] 05-31-2022 09:19-0400 Heart rate 62 /min Nils Finney [facility] 05-31-2022 09:19-0400 SaO2% (BldA) [Mass fraction] 96 % Nils Finney [facility] 05-31-2022 09:18-0400 Diastolic blood pressure 77 mm[Hg] Nils Finney [facility] 05-31-2022 09:18-0400 Mean blood pressure 91 mm[Hg] Nils Finney [facility] 05-31-2022 09:18-0400 Systolic blood pressure 118 mm[Hg] Nils Finney [facility] 05-31-2022 09:17-0400 Respiratory rate 20 /min Nils Finney [facility] 05-31-2022 09:15-0400 Body temperature 96.98 [degF] Nils Finney [facility] 05-31-2022 09:15-0400 Body temperature 97.16 [degF] Nils Finney [facility] 05-31-2022 09:15-0400 Diastolic blood pressure 86 mm[Hg] Nils Finney [facility] 05-31-2022 09:15-0400 Diastolic blood pressure 94 mm[Hg] Nils Brown [facility] 05-31-2022 09:15-0400 Heart rate 65 /min Nils Brown [facility] 05-31-2022 09:15-0400 Mean blood pressure 99 mm[Hg] Nils Brown [facility] 05-31-2022 09:15-0400 Mean blood pressure 108 mm[Hg] Nils Brown [facility] 05-31-2022 09:15-0400 Respiratory rate 15 /min Nils Brown [facility] 05-31-2022 09:15-0400 Respiratory rate 5 /min Nils Brown [facility] 05-31-2022 09:15-0400 Systolic blood pressure 124 mm[Hg] Nils Brown [facility] 05-31-2022 09:15-0400 Systolic blood pressure 135 mm[Hg] Nils Brown [facility] 05-31-2022 09:00-0400 Mean blood pressure 96 mm[Hg] Nils Brown [facility] 05-31-2022 09:00-0400 Respiratory rate 13 /min Nils Brown [facility] 05-31-2022 08:44-0400 Body temperature 97.16 [degF] Nils Brown [facility] 05-31-2022 08:40-0400 FIO2 100 % Nils Brown [facility] 05-31-2022 08:35-0400 FIO2 30 % Nils Brown [facility] 05-31-2022 08:35-0400 Respiratory rate 16 /min Nils Brown [facility] 05-31-2022 08:30-0400 FIO2 50 % Nils Finney [facility] 05-31-2022 08:30-0400 Respiratory rate 16 /min Nils Finney [facility] 05-31-2022 06:20-0400 Heart rate 64 /min Nils Finney [facility] 05-31-2022 06:03-0400 Mean blood pressure 95 mm[Hg] Nils Finney [facility] 05-31-2022 06:01-0400 Body temperature 97.52 [degF] Nils Finney [facility] 05-31-2022 06:01-0400 Mean blood pressure 91 mm[Hg] Nils Finney [facility] 05-14-2022 09:37-0400 Diastolic blood pressure 87 mm[Hg] Nils Finney [facility] 05-14-2022 09:37-0400 Heart rate 60 /min Nils Finney [facility] 05-14-2022 09:37-0400 Mean blood pressure 108 mm[Hg] Nils Finney [facility] 05-14-2022 09:37-0400 Systolic blood pressure 149 mm[Hg] Nils Finney [facility] 05-14-2022 09:37-0400 Blood Pressure Location Nils Finney [facility] 05-14-2022 09:36-0400 Heart rate 60 /min Nils Finney [facility] 05-14-2022 09:36-0400 SaO2% (BldA) [Mass fraction] 99 % Nils Finnye [facility] 05-14-2022 09:35-0400 Body temperature 97.88 [degF] Nils Finney [facility] 05-14-2022 09:35-0400 Respiratory rate 18 /min Nils Finney [facility] 05-14-2022 09:35-0400 Diastolic blood pressure 80 mm[Hg] Nils Finney [facility] 05-14-2022 09:35-0400 Mean blood pressure 99 mm[Hg] Nils Finney [facility] 05-14-2022 09:35-0400 Systolic blood pressure 136 mm[Hg] Nils Finney [facility] 05-14-2022 09:35-0400 Blood Pressure Location Nils Finney [facility] Encounters Encounter Date Encounter Type Care Provider Facility Start: 08-04-2024 End: 08-05-2024 Clinisync Result Encounter Generic External Data Provider [facility] External Department Unsolicited Start: 08-04-2024 End: 08-05-2024 Clinisync Result Encounter Generic External Data Provider [facility] External Department Unsolicited Start: 07-14-2024 End: 07-14-2024 ambulatory [facility] Start: 06-22-2024 End: 06-22-2024 Telephone encounter Zeb [...] FM 100 Start: 04-29-2024 End: 04-29-2024 Bamboo flowssena Messer MD Work Phone: [facility] [...] FM 100 Comment on above: Encounter for [facility] ss examination in adult (Primary Dx); Advance [...] 07-31-2023 ambulatory BERENICE GREEN Not Available Start: 05-31-2022 End: 05-31-2022 ambulatory Nils Finney Facility:[facility] Start: 05-31-2022 End: 05-31-2022 Admission to same day surgery center Nils Finney [facility] Start: 05-14-2022 End: 05-15-2022 ambulatory Nils Finney Facility:[facility] Start: 05-14-2022 End: 05-14-2022 Patient encounter procedure Nils Finney [facility] Start: 02-13-2021 End: 02-13-[address] ZEB MESSER Facility:[facility] Start: 06-01-[address] ZEB MESSER [facility] ity:[facility] Start: 04-22-2020 End: 04-23-[address] ZEB MESSER Facility:[facility] Start: 03-22-2020 End: 03-23-[address] ZEB MESSER Facility:[facility] Start: 03-17-2020 End: 03-18-2020 ambulatory MAGUE WILDER Facility:[facility] Procedures Date Procedure Procedure Detail Performing Clinician Start: 08-04-2024 CA ECHO DOPPLER COMPLETE Generic Externa l Data Provider Start: 02-18-2024 Comprehensive metabolic panel Zeb simmons [...] J virgie Finney H/O: vasectomy Nils Finney Plan of Treatment Date Care Activity Detail Author Start: 02-28-2027 Screening for malign ant neoplasm of colon [facility] Start: 03-01-2025 End: 03-01-2025 Patient encounter procedure [facility] Start: 11-30-2024 End: 11-30-2024 Patient encounter procedure [facility] Start: 11-29-2024 End: 11-29-2024 Patient encounter procedure 11/29/2024 4:30 PM EDT Office Visit [facility] [address] [place] [address] Zeb Messer MD [address] [place] [address] (Fax) [facility] Start: 11-01-2024 Influenza vaccination Influenz a Vaccine (Season Ended) [facility] Start: 08-30-2024 End: 08-30-2024 Patient encounter procedure [facility] Start: 08-30-2024 Influenza vaccination Influenza Vacc ine (#1) [facility] Comment on above: Postponed from 11/01 (Patient Refused) Start: 08-09-2024 End: 08-09-2024 Telemedicine consultation with patient 08/09/2024 4:15 PM EDT Telemedicine [facility] [address] [place] [address] Zeb Messer MD [address] [place] [address] [facility] 100 Start: 08-09-2024 End: 08-09-2024 Patient encounter procedure 08/09/2024 4:05 PM EDT [facility] [address] [place] [id number] Berenice Green, CLOTH DESIZING RANGE OPERATOR CHIEF-MUSEUM EDUCATOR [address] [place] [address] [facility] Start: 08-08-2024 End: 12-08-2024 T3, reverse T3, reverse Lab Routine Euthyroid sick syndrome Chronic fatigue Expected: 08/08/2024 (Approximate), Expires: 12/08/2024 [facility] Work Phone: Comment on above: Expected: 08/08/2024 (Approximate), Expires: 12/08/2024 Start: 08-08-2024 End: 06-08-2025 Thyroxine (T4) free [Mass/volume] in Serum or Plasma T4, free Lab Routine Central hypothyroidism (CMS/HCC) Chronic fatigue Expected: 08/08/2024, Expires: 06/08/2025 [facility] Comment on above: Expected: 08/08/2024 , Expires: 06/08/2025 Start: 08-08-2024 End: 06-08-2025 Triiodothyronine (T3) [Mass/volume] in Serum or Plasma T3 Lab Routine Euthyroid sick syndrome Chronic fatigue Expected: 08/08/2024, Expires: 06/08/2025 [facility] Comment on above: Expected: 08/08/2024 , Expires: 06/08/2025 Start: 08-08-2024 End: 06-08-2025 Triiodothyronine (T3) Free [Mass/volume] in Serum or Plasma T3, free Lab Routine Central hypothyroidism (CMS/HCC) Chronic fatigue Expected: 08/08/2024, Expires: 06/08/2025 [facility] Comment on above: Expected: 08/08/2024 , Expires: 06/08/2025 Start: 08-02-2024 End: 08-02-2024 Patient encounter procedure 08/02/2024 4:05 PM EDT Office Visit [facility] [address] [place] [address] Martyyaz Berenice WilosnARIELA-MUSEUM EDUCATOR [address] [place] [address] [facility] Start: 06-08-2024 End: 06-08-2024 Patient encounter procedure [facility] 100 Comment on above: Central hypothyroidi sm (CMS/HCC); Euthyroid sick syndrome; Excess estrogen in male; Testosterone deficiency; Chronic fatigue; Polypharmacy; Non morbid obesity due to excess calories Start: 06-01-2024 End: 06-01-2024 Patient encounter procedure 06/01/2024 4:00 PM EDT Office Visit [facility] [address] [place] [address] Zeb Messer MD [address] [place] [address] (Fax) [facility] Start: 04-29-2024 End: 04-29-2024 Patient encounter procedure 04/29/2024 4:30 PM EST Office Visit [facility] [address] [place] [address] Zeb Messer MD [address] [place] [address] (Fax) Arrived [facility] 100 Comment on above: Arrived Start: 03-08-2024 End: 03-08-2024 Patient encounter procedure [facility] 100 Start: 03-04-2024 End: 03-04-2024 Patient encounter procedure 03/04/2024 4:00 PM EST Office Visit [facility] [address] [place] [address] Zeb Messer MD [address] [place] [address] (Fax) [facility] Start: 02-18-2024 End: 02-18-2024 Patient encounter procedure 02/18/2024 11:30 AM EST Office Visit [facility] [address] [place] [address] Zeb Messer MD [address] [place] [address] (Fax) Encounter for wellness examination in adult; Advance directive in chart; Polypharmacy; Non morbid obesity due to excess calories [facility] 100 Comment on above: Encounter for wellne ss examination in adult; Advance directive in chart; Polypharmacy; Non morbid obesity due to excess calories Start: 02-09-2024 End: 02-09-2024 Patient encounter procedure [facility] 100 Start: 01-26-2024 End: 11-25-2024 T3, reverse T3, reverse Lab Routine Central hypothyroidism (CMS/HCC) Euthyroid sick syndrome Chronic fatigue Expected: 01/26/2024 (Approximate), Expires: 11/25/2024 [facility] Comment on above: Expected: 01/26/2024 (Approximate), Expires: 11/25/2024 Start: 01-26-2024 End: 11-25-2024 Thyroxine (T4) free [Mass/volume] in Serum or Plasma T4, free Lab Routine Central hypothyroidism (CMS/HCC) Euthyroid sick syndrome Chronic fatigue Expected: 01/26/2024 (Approximate), Expires: 11/25/2024 [facility] Comment on above: Expected: 01/26/2024 (Approximate), Expires: 11/25/2024 Start: 01-26-2024 End: 11-25-2024 Triiodothyronine (T3) [Mass/volume] in Serum or Plasma T3 Lab Routine Central hypothyroidism (CMS/HCC) Euthyroid sick syndrome Chronic fatigue Expected: 01/26/2024 (Approximate), Expires: 11/25/2024 [facility] Work Phone: Comment on above: Expected: 01/26/2024 (Approximate), Expires: 11/25/2024 Start: 01-26-2024 End: 11-25-2024 Triiodothyronine (T3) Free [Mass/volume] in Serum or Plasma T3, free Lab Routine Central hypothyroidism (CMS/HCC) Euthyroid sick syndrome Chronic fatigue Expected: 01/26/2024 (Approximate), Expires: 11/25/2024 [facility] Comment on above: Expected: 01/26/2024 (Approximate), Expires: 11/25/2024 Start: 11-25-2023 End: 11-25-2023 Patient encounter procedure 11/25/2023 4:30 PM EDT Office Visit [facility] [address] [address] Zeb Messer MD [address] [place] [address] (Fax) Arrived [facility] 100 Comment on above: Arrived Start: 11-02-2023 Influenza vaccination Influenza Vacc ine (#1) [facility] Start: 10-30-2023 End: 10-30-2023 Patient encounter procedure 10/30/2023 4:00 PM EDT Office Visit [facility] [address] [address] Zeb Messer MD [address] [place] [address] (Fax) Arrived [facility] 100 Comment on above: Arrived Start: 10-30-2023 End: 10-29-2024 ACTH ACTH Lab Routine Chronic fatigue Expected: 10/30/2023 (Approximate), Expires: 10/29/2024 [facility] Comment on above: Expected: 10/30/2023 (Approximate), Expires: 10/29/2024 Start: 10-30-2023 End: 10-29-2024 Cortisol Cortisol Lab Routine Chronic fatigue Expected: 10/30/2023 (Approximate), Expires: 10/29/2024 [facility] Comment on above: Expected: 10/30/2023 (Approximate), Expires: 10/29/2024 Start: 10-30-2023 End: 10-29-2024 DHEA-sulfate DHEA-sulfate Lab Routine Chronic fatigue Low libido Expected: 10/30/2023 (Approximate), Expires: 10/29/2024 [facility] Work Phone: Comment on above: Expected: 10/30/2023 (Approximate), Expires: 10/29/2024 Start: 10-30-2023 End: 10-29-2024 ESTRADIOL, ULTRASENSITIVE, LC/MS ESTRADIOL, ULTRASENSITIVE, LC/MS Lab Routine Chronic fatigue Low libido Excess estrogen in male Expected: 10/30/2023 (Approximate), Expires: 10/29/2024 [facility] Comment on above: Expected: 10/30/2023 (Approximate), Expires: 10/29/2024 Start: 10-30-2023 End: 10-29-2024 Testosterone [Mass/volume] in Serum or Plasma Testosterone Lab Routine Chronic fatigue Low libido Expected: 10/30/2023 (Approximate), Expires: 10/29/2024 [facility] Comment on above: Expected: 10/30/2023 (Approximate), Expires: 10/29/2024 Start: 1965 Screening for malign ant neoplasm of colon [facility] Immunizations Immunization Date Immunization Notes Care Provider [facility] 11-18-2022 influenza, injectabl e, quadrivalent, preservative free Zeb Messer MD Work Phone: [facility] 11-18-2022 influenza virus vacc ine, unspecified formulation Zeb Messer MD Work Phone: [facility] 01-09-2022 influenza, injectabl e, quadrivalent, preservative free Zeb Messer MD Work Phone: [facility] 03-01-2021 Influenza, injectabl e, Madin [place] Canine Kidney, preservative free, quadrivalent Zeb Messer MD Work Phone: [facility] 12-02-2019 influenza, injectabl e, quadrivalent, preservative free Zeb Messer MD Work Phone: [facility] 12-23-2018 influenza, injectabl e, quadrivalent, preservative free Zeb Messer MD Work Phone: [facility] 12-22-2018 influenza, high dose seasonal, preservative-free Zeb Messer MD Work Phone: [facility] 12-13-2017 influenza, seasonal, injectable, preservative free Zeb Messer MD Work Phone: [facility] 12-12-2017 influenza, injectabl e, quadrivalent, preservative free Zeb Messer MD Work Phone: [facility] 12-06-2016 influenza, seasonal, injectable, preservative free Zeb Messer MD Work Phone: [facility] 11-28-2016 influenza, injectabl e, quadrivalent, preservative free Zeb Messer MD Work Phone: [facility] 11-29-2015 influenza, seasonal, injectable, preservative free Zeb Messer MD Work Phone: [facility] 11-28-2015 influenza, injectabl e, quadrivalent, preservative free Zeb Messer MD Work Phone: [facility] 10-26-2015 tetanus and diphther ia toxoids, adsorbed, preservative free, for adult use (5 Lf of tetanus toxoid and 2 Lf of diphtheria toxoid) Zeb Messer MD Work Phone: [facility] 01-01-2014 influenza virus vacc ine, unspecified formulation Zeb Messer MD Work Phone: [facility] 11-15-2013 influenza, injectabl e, quadrivalent, preservative free Zeb Messer MD Work Phone: [facility] Payers Date Payer Category Payer Private Health Insurance [employer] [id number] 2022 Unknown [employer] [id number] 2022-Present [address] [place] [address] [id number] 1964 Unknown [id number] 2.16.840.1.494510.3.579.2. 593 1964 Unknown [id number] 2.16.840.1.668917.3.579.2. 593 1964 Unknown [id number] 2.16.840.1.585702.3.579.2. 593 1964 Unknown [id number] 2.16.840.1.001471.3.579.2. 593 1964 Unknown [id number] 2.16.840.1.420646.3.579.2. 593 1964 Unknown [id number] 2.16.840.1.274191.3.579.2. 727 1964 Unknown [id number] 2.16.840.1.720837.3.579.2. 727 1964 Unknown [id number] 2.16.840.1.036812.3.579.2. 1259 1964 Unknown [id number] 2.16.840.1.870590.3.579.2. 1259 1964 Unknown [id number] 2.16.840.1.471038.3.579.2. 1259 1964 Unknown [id number] 2.16.840.1.038828.3.579.2. 1259 1964 Unknown [id number] 2.16.840.1.453675.3.579.2. 1259 1964 Unknown [id number] 2.16.840.1.849015.3.579.2. 1259 1964 Unknown [id number] 2.16.840.1.976004.3.579.2. 1259 1964 Unknown [id number] 2.16.840.1.237340.3.579.2. 1259 1959 Unknown [id number] Social History Date Type Detail Facility Start: 05-14-2022 End: 07-31-2022 Tobacco smoking status Never smoked tobacco (finding) [facility] Start: 01-28-2023 End: 10-30-2023 Sex Assigned At Male [facility] Start: 07-31-2022 Tobacco use and exposure Smokeless tobacco non-user [facility] Start: 11-25-2023 End: 06-08-2024 Alcoholic beverage intake Current drinker of alcohol (finding) [facility] Start: 01-28-2023 End: 11-25-2023 Alcoholic beverage intake [facility] Within the last year , have you been afraid of your partner or ex-partner? Patient declined [facility] Start: 08-27-2022 Education 21 [facility] Start: 12-23-2022 Alcohol Comment Caffeine intak e: 3-4 cups per day [facility] Start: 1965 Sex assigned at Not on file [facility] Start: 05-15-2022 Gender identity Identifies as male gender (finding) [facility] Medical Equipment Procedure Code Equipment Code Equipment Origin al Text Equipment Identifier Dates SHOULDER ARTHROS COPY W/ POSSIBLE REPAIR Nils Finney DO 05/31/22 Unknown Shoulder R FDA Start: 05-31-2022 Functional Status Date Assessment Result Facility 05-14-2022 Functional Status No [facility] Clinical Notes 05-30-2022 to 07-14-2024 Telephone Encounter - Zeb Messer MD - 06/22/2024 10:37 AM EDTTelephone Encounter - Zeb Messer MD - 06/22/2024 10:37 AM EDTTelephone Encounter - Samra Hogan - 06/22/2024 10:12 AM EDT Note Date & Type Note Facility 07-14-2024 Note [facility] Note Chief Complaint: Patient here [...] a log; i (more content not included)... [facility] 06-22-2024 Telephone encounter Note Prescription sent [facility] 06-22-2024 Miscellaneous Notes Prescription sent John stared not feeling good last evening. He took a home Covid/Influenza test this morning and he was positive for Influenza A. He is requesting something be sent in for him. documented in this encounter [facility] 06-22-2024 Telephone encounter Note John stared not feeling good last evening. He took a home Covid/Influenza test this morning and he was positive for Influenza A. He is requesting something be sent in for him. [facility] 06-08-2024 History of Presen t illness Narrative [...] 0.70 - 1.30 mg/dL Final [facility] EGFR-AF IRAQI 05/22/2024 >60 >=60 mL/min/1.73m 2 Final [facility] EGFR-NON AF IRAQI 05/22/2024 >60 >=60 mL/min/1.73m 2 Final BUN [...] - 180 ng/dL Final Comment: Performed at: [address] [id number] [employer]: Pablo Harris PhD, Phone: [phone] DHEA-SULFATE 05/22/2024 153.0 48.9 - 344.2 ug/dL Final TESTOSTERONE 05/22/2024 536 264 - 916 ng/dL Final Comment: Adult male reference interval is based on a population of healthy nonobese males (BMI <30) between 19 and 39 years old. franky Keith.al. JCEM 2017,102;1170-8670. PMID: 84224951. REVERSE T3, SERUM 05/22/2024 12.4 9.2 - 24.1 ng/dL Final Comment: This test was developed and its performance characteristics determined by [facility]. It has not been cleared or approved by the Food and Drug Administration. Performed at: [address] [id number] [employer]: Halley Traore MD, Phone: [phone] MISCELLANEOUS TEST 05/22/2024 COMMENT . Final Comment: Test Ordered: [id number] Estradiol, Sensitive Estradiol, Sensitive 15.1 pg/mL Reference Range: 8.0-35.0 This test was developed and its performance characteristics determined by [facility]. It has not been cleared or approved by the Food and Drug Administration. Methodology: Liquid chromatography tandem mass spectrometry(LC/MS/MS) Performed at: [address] [id number] [employer]: Halley Traore MD, Phone: [phone] Performed at: [address] [id number] [employer]: Pablo Harris PhD, Phone: [phone] Calculated THY Ratio: 8 Objective The patient [...] 5 % cream Apply topically. Krill Oil ([place]-3) 500 MG capsule Take by mouth. lamoTRIgine [...] by mouth Daily 270 capsule 1 Zn-Pyg Cejt-Vaoyqu-Cvi Palmet (SAW PALMETTO COMPLEX PO) Take by [...] or if any problems occur. - thyroid ([place] Thyroid) 60 MG tablet; Take 1 tablet [...] to credit prescription drug management) - thyroid ([place] Thyroid) 60 MG tablet; Take 1 tablet [...] I discussed with the patient and/or their payroll representative, their fatigue issues. We discussed how [...] some aerobic exercise. documented in this encounter [facility] 05-27-2024 Telephone encounter Note Created in error [facility] 05-27-2024 Miscellaneous Notes Created in error documented in this encounter [facility] 03-08-2024 History of Presen t illness Narrative [...] olanzapine). Exercise: three times a week. GERD Juan complains of heartburn. This has been associated [...] 5 % cream Apply topically. Krill Oil ([place]-3) 500 MG capsule Take by mouth. lamoTRIgine [...] tablets by mouth in the morning. Zn-Pyg Whlw-Jpklra-Ztx Palmet (SAW PALMETTO COMPLEX PO) Take by [...] 7 days. 14 tablet 0 [DISCONTINUED] thyroid ([place] Thyroid) 15 MG tablet Take 3 tablets (45 mg) by mouth in the morning and 3 tablets (45 mg) before bedtime. 540 tablet 0 [DISCONTINUED] thyroid ([place] Thyroid) 15 MG tablet Take 3 tablets [...] diet and exercise. documented in this encounter [facility] 03-08-2024 Telephone encounter Note I talked with Norah. Prescription resent. [facility] 03-08-2024 Miscellaneous Notes I talked with Norah. Prescription resent. John got a notice from [employer] for him to check with his doctor that his Armor Thyroid could not be filled and he needed to see his physician. We discussed his results last week and his labs were looking really good. DR. Messer was suppose to send in new refills for him? The notice from [email or web address] came on Mar 06. documented in this encounter [facility] 03-08-2024 Telephone encounter Note John got a notice from [employer] for him to check with his doctor that his Armor Thyroid could not be filled and he needed to see his physician. We discussed his results last week and his labs were looking really good. DR. Messer was suppose to send in new refills for him? The notice from [email or web address] came on Mar 06. [facility] 03-02-2024 Telephone encounter Note Reviewed with them, renew RX [facility] 03-02-2024 Miscellaneous Notes Reviewed with them, renew RX John was to get his thyroid labs done after starting medication. He states he thought Dr. Messer said that he would just update him when the results came in but he has not heard anything. If possible, can you review. documented in this encounter [facility] 03-02-2024 Telephone encounter Note John was to get his thyroid labs done after starting medication. He states he thought Dr. Messer said that he would just update him when the results came in but he has not heard anything. If possible, can you review. [facility] 02-23-2024 Telephone encounter Note Rx sent [facility] 02-23-2024 Miscellaneous Notes Rx sent John started [...] Messer could send him something in to [facility] in [place]. documented in this encounter [facility] 02-23-2024 Telephone encounter Note John started in [...] Messer could send him something in to [facility] in [place]. [facility] 02-18-2024 History of Presen t illness Narrative Images from the original note were not included. Patient ID: Katherine Hogan is a 59 y.o. 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 Krill Oil ([place]-3) 500 MG capsule Take by mouth. lamoTRIgine [...] tablets by mouth in the morning. thyroid ([place] Thyroid) 15 MG tablet Take 3 tablets (45 mg) by mouth in the morning and 3 tablets (45 mg) before bedtime. 540 tablet 0 venlafaxine XR (Effexor XR) 75 MG 24 hr capsule Take 3 capsules (225 mg) by mouth Daily 270 capsule 1 Zn-Pyg Yhsy-Iyueow-Nur Palmet (SAW PALMETTO COMPLEX PO) Take by [...] using his CPAP. documented in this encounter [facility] 12-31-2023 History of Presen t illness Narrative [...] 5 % cream Apply topically. Krill Oil ([place]-3) 500 MG capsule Take by mouth. lamoTRIgine [...] tablets by mouth in the morning. thyroid ([place] Thyroid) 15 MG tablet Take 3 tablets (45 mg) by mouth in the morning and 3 tablets (45 mg) before bedtime. 540 tablet 0 venlafaxine XR (Effexor XR) 75 MG 24 hr capsule Take 3 capsules (225 mg) by mouth Daily 270 capsule 1 Zn-Pyg Jbdv-Sitpcg-Ust Palmet (SAW PALMETTO COMPLEX PO) Take by [...] a sick note. documented in this encounter [facility] 11-25-2023 History of Presen t illness Narrative [...] between 7 and 10 AM. Performed at: [address] [id number] [employer]: Pablo Harris PhD, Phone: [phone] [facility] TRIIODOTHYRONINE (T3) 11/08/2023 93 71 - 180 ng/dL Final Comment: Performed at: [address] [id number] [employer]: Pablo Harris PhD, Phone: [phone] DHEA-SULFATE 11/08/2023 74.4 48.9 - 344.2 ug/dL [...] and 38 years old. Inna et.al. JCEM 2017,102;8906-1558. PMID: [id number]. REVERSE T3, SERUM 11/08/2023 10.2 9.2 - 24.1 ng/dL Final Comment: This test was developed and its performance characteristics determined by [employer]. It has not been cleared or approved by the Food and Drug Administration. Performed at: [address] [id number] [employer]: Halley Traore MD, Phone: [phone] MISCELLANEOUS TEST 11/08/2023 COMMENT . Final Comment: Test Ordered: [id number] Estradiol, Sensitive Estradiol, Sensitive 16.0 pg/mL Reference Range: 8.0-35.0 This test was developed and its performance characteristics determined by [employer]. It has not been cleared or approved by the Food and Drug Administration. Methodology: Liquid chromatography tandem mass spectrometry(LC/MS/MS) Performed at: [address] [id number] [employer]: Halley Traore MD, Phone: [phone] Performed at: [address] [id number] [employer]: Pablo Harris PhD, Phone: [phone] External Result Encounter on 10/31/2023 Component Date [...] 5 % cream Apply topically. Krill Oil ([place]-3) 500 MG capsule Take by mouth. lamoTRIgine [...] by mouth Daily 270 capsule 1 Zn-Pyg Vngl-Dgmcai-Yal Palmet (SAW PALMETTO COMPLEX PO) Take by [...] only starting the levothyroxine versus starting with [place] thyroid and both he and his agreed they wanted to pursue the desiccated thyroid. New, chronic problem, unstable, not to goal, requiring complex clinical decision making. I reviewed the results of any; laboratories, ultrasound, and other labs as appropriate with the patient or their payroll representative. I discussed the patien'ts current psychosocial [...] See the scanned titration sheet - thyroid ([place] Thyroid) 15 MG tablet; Take 3 tablets [...] the adjustment in their medication. - thyroid ([place] Thyroid) 15 MG tablet; Take 3 tablets [...] I discussed with the patient or their payroll representative, their fatigue issues. We discussed how [...] any labs with the patient or their payroll representative. I have educated them concerning the [...] Androgens and the Aging Male (pp. 3-14). [place]: Split.) In prescribing a new medication consideration of [...] activity as tolerated. documented in this encounter [facility] 10-30-2023 History of Presen t illness Narrative [...] 5 % cream Apply topically. Krill Oil ([place]-3) 500 MG capsule Take by mouth. lamoTRIgine [...] by mouth Daily 270 capsule 1 Zn-Pyg Ewwj-Ftpgvq-Fsm Palmet (SAW PALMETTO COMPLEX PO) Take by mouth. methocarbamol (Robaxin) 750 MG tablet Take 1 tablet (750 mg) by mouth 3 (three) times a day as needed for muscle spasms 90 tablet 0 No current facility-administered medications on file prior to visit. 1. Chronic fatigue Chronic problem, unstable, complex in nature with moderate decision making. I discussed with the patient or their payroll representative, their fatigue issues. We discussed how [...] ESTRADIOL, ULTRASENSITIVE, LC/MS documented in this encounter [facility] 05-31-2022 Evaluation + Plan note Extrac noreen from: Title:ANES Pre-operative Note Author:Brandan Connor CRNA Date:05/31/22 Plan [place] [employer] Anesthesiologists (ASA) physical status classification: Class III. Anesthetic Preoperative Plan: Anesthesia General. Regional Brachial plexus block. [facility]03-31-2023 Hospital Discharge instructions Patient Education 05/31/2022 09:09:39 Shoulder Cryocuff Patient Instructions - FT (CUSTOM) 05/31/2022 09:09:39 Post Op Patient Instructions - FT (CUSTOM) 05/31/2022 07:10:07 Segundo Finney - After Your Shoulder Arthroscopy (Custom) [place], [place] [facility] AFTER YOUR SHOULDER ARTHROSCOPY [...] your appointment. Nils Finney, DO [facility] [address] [place] [address] Reviewed: [facility]03-30-2023 Note [id number]:[id number] Evaluation + Plan note Future Appointments Appointment Date:05/31/2022 07:30:00 AM Scheduled Provider: Location:[facility] Diagnosis Central hypothyroidism (CMS/HCC)- Primary [...] apnea (adult) (pediatric) documented in this encounter [facility]* Diagnosis Gastroesophageal reflux disease without [...] to excess calories documented in this encounter [facility]* Diagnosis Essential hypertension (CMS/HCC) Unspecified essential hypertension Mixed hyperlipidemia (CMS/HCC) Mixed hyperlipidemia Mixed anxiety and depressive disorder Dysthymic disorder Benign prostatic hyperplasia without lower urinary tract symptoms Gastroesophageal reflux disease without esophagitis Esophageal reflux Non morbid obesity due to excess calories Central hypothyroidism (CMS/HCC) Unspecified hypothyroidism Euthyroid sick syndrome documented in this encounter [facility]* Diagnosis Essential hypertension (CMS/HCC) Unspecified essential hypertension documented in this encounter [facility]* Diagnosis Essential hypertension (CMS/HCC) Unspecified essential hypertension Mixed hyperlipidemia ([facility]/HCC) Mixed hyperlipidemia Mixed anxiety and depressive disorder Dysthymic disorder Benign prostatic hyperplasia without lower urinary tract symptoms Gastroesophageal reflux disease without esophagitis Esophageal reflux Non morbid obesity due to excess calories documented in this encounter [facility]* Diagnosis Central hypothyroidism (CMS/HCC) Unspecified hypothyroidism Euthyroid sick syndrome Excess estrogen in male Testosterone deficiency Other testicular hypofunction Chronic fatigue Other malaise and fatigue Polypharmacy Issue of repeat prescriptions Non morbid obesity due to excess calories [facility] Diagnosis Influenza A- Primary Influenza with other respiratory manifestations documented in this encounter [facility] Healthcare[facility]ospital course Narrative No data available for this section [facility] No data available for this section [facility] No data available for this section [facility] Summary Purpose Family History No Family History Records FoundNo Family History Records FoundNo Family History Records FoundNo Family History Records FoundNo Family History Records FoundNo Family History Records FoundNo Family History Records Found Advance Directives Documents on File Type Date Recorded 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 Advance Directives and Living Will 05/29/2022 2016-10-22 [facility] 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 Additional Source Comments (unrecognized sect ion and content) No Status Records FoundNo Status Records FoundNo Status Records FoundNo Status Records FoundNo Status Records FoundNo Status Records FoundNo Status Records Found INFORMATION SOURCE (unrecogn ized section and content) DATE CREATED AUTHOR 02/01/2020 [facility] DATE CREATED AUTHOR AUTHOR'S ORGANIZ ATION 02/18/2021 [facility] DATE CREATED AUTHOR AUTHOR'S ORGANIZ ATION 01/10/2022 [facility] DATE CREATED AUTHOR AUTHOR'S ORGANIZ ATION 06/11/2022 [facility] DATE CREATED AUTHOR AUTHOR'S ORGANIZ ATION 02/24/2024 [facility] DATE CREATED AUTHOR AUTHOR'S ORGANIZ ATION 06/10/2024 [facility] EPIC DATE CREATED AUTHOR AUTHOR'S ORGANIZ ATION 07/16/2024 [facility] Patient Care team informatio n (unrecognized section and content) 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 Specialty Start Date End Date Zeb Messer MD [address] [place] [address] (Fax) PCP - General Family Medicine 07/19/22 Berenice Green, CLOTH DESIZING RANGE OPERATOR CHIEF-MUSEUM EDUCATOR [address] [place] [address] PCP - Medical [place] [employer] 01/31/13 03/02/99 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 [employer] [facility]. provides no warranty or guarantee of the accuracy or completeness of information in this document.
[2024-08-07 12:06] LABS: Free T4 0.77 ng/dL (0.76-1.46)
[2024-08-07 12:12] LABS: Free T3 3.21 pg/mL (2.18-3.98)
[2024-08-08 10:09] LABS: Triiodothyronine (T3) 149 ng/dL (71-180)
== END 2024-08-07 10:46 | disposition home or self-care (01) ==
LOC: LAB 10:47
PROVIDERS: PCP Family Medicine; Visit Provider Family Medicine
DX: E07.81 Sick-euthyroid syndrome (principal); R53.82 Chronic fatigue, unspecified; E03.8 Other specified hypothyroidism
CPT/HCPCS: 36415; 84439; 84480; 84481; 84482